=== PATIENT | male | born 1945 | race Caucasian/White ===

== ENCOUNTER 2016-11-12 10:24 | Day surgery (SDC) | payer MEDICARE ==
[~2016-11-12 10:24] MED LIST: LACTATED RINGERS 1,000 ML IV SCH
[2016-11-12 11:58] VITALS: TEMP 97.9
[2016-11-12] MEDS ORDERED: PROPOFOL 10 MG/ML 20 ML VIAL IV ONE (12:25)
--- NOTE | 2016-11-12 12:37 | P.PCN ---
Date of Procedure: 11/12/16 Procedure(s) Performed: BRIEF HISTORY: Patient is a 71-year-old, pleasant, white male, scheduled for an upper endoscopy as a part of evaluation of abnormal CAT scan of the abdomen that showed thickening of the distal esophagus. The patient does complain of occasional heartburn but denies any dysphagia or odynophagia. PROCEDURE PERFORMED: Esophagogastroduodenoscopy with biopsy. PREOPERATIVE DIAGNOSIS: Abnormal CAT scan showing thickened esophagus. IV sedation per anesthesia. PROCEDURE: After informed consent was obtained, the patient was brought into the endoscopy unit. IV conscious sedation was administered by Anesthesia under continuous monitoring. Initially the Olympus GIF-140 video endoscope was inserted into the mouth. Esophagus intubated without any difficulty. It was gradually advanced into the stomach and duodenum and carefully examined. The bulb and the second part of the duodenum appeared normal. However there was some paucity of duodenal folds in the second part of the duodenum and hence biopsies were done from this area to rule out celiac disease. The scope at this time was withdrawn to the stomach, adequately insufflated with air, and upon careful examination, mucosa of the antrum, body, cardia and the fundus appeared normal. The scope was then withdrawn into the esophagus. Small sliding type hiatal hernia noted. The GE junction was located at 39 cm from the incisors. The esophagus appeared normal. There were no erosions or ulcerations seen and the patient tolerated the procedure well. IMPRESSION: 1. Small hiatal hernia but no evidence of esophagitis or Santizo's esophagus. 2. Paucity of the duodenal folds status post biopsy to rule out celiac disease. RECOMMENDATIONS: The findings of this examination were discussed with the patient as well as his family. He was advised to follow with the biopsy results.
[2016-11-12 13:17] VITALS: BP 126/79; PULSE 72; RESP 18
== END 2016-11-12 13:18 | disposition home or self-care (01) ==
LOC: ORWHC2ENDO 10:24
PROVIDERS: ATTEND Internal Medicine Gastroenterology
DX: K44.9 Diaphragmatic hernia without obstruction or gangrene (principal); R93.3 Abnormal findings on diagnostic imaging of other parts of digestive tract; J44.9 Chronic obstructive pulmonary disease, unspecified; Z79.51 Long term (current) use of inhaled steroids
CPT/HCPCS: 43239; 88305; J2704; 99153

== ENCOUNTER → 2018-03-03 | Outpatient (CLI) | payer MEDICARE ==
--- NOTE | 2018-03-04 08:14 | CT ---
EXAMINATION TYPE: CT abdomen pelvis w con DATE OF EXAM: 03/03/2018 COMPARISON: NONE INDICATION: No complaints at time of scan DLP: 372.4 mGycm, Automated exposure control for dose reduction was used. CONTRAST: 100 mL of Isovue 300. Study performed with Oral Contrast TECHNIQUE: Axial images were obtained from above the diaphragm to the pubic rami in the axial plane a t 5 mm thick sections. Reconstructed images are reviewed on the computer in the coronal plane. FINDINGS: Limited CT sections are obtained the lung bases. There is some mild pneumonitis change within the li ngula.. There appears be some prominence of the distal esophagus within the [id number]. Wall thic kening is not excluded. Consider additional evaluation of the esophagus. CT ABDOMEN: Liver: Normal Spleen: Normal Pancreas: Normal Adrenal glands: The adrenal glands are normal. Gallbladder: Normal Kidneys: No masses are evident. No hydronephrosis is present. No cysts are present. Delayed images were obtained through the kidneys, which remain unremarkable. Aorta: Vascular calcification is within the aorta. Inferior vena cava: Normal. CT PELVIS: Loops of bowel within the abdomen and pelvis are normal. There are loops of bowel which are incom pletely distended or lack oral contrast limiting their evaluation. Debris is likely within the stomac h. Fecal debris is within the colon. Oral contrast extends to the distal ileum. Appendix: Not identified. No suspicious dilated tubular structure inflammatory changes are identified . Urinary bladder: Normal. Genitourinary structures: Prostate has mild prominence. Osseous structures: No suspicious lytic or sclerotic lesions. Some mild facet changes are present wit hin the lumbar spine. Lymphadenopathy: No retrocrural adenopathy is evident. No suspicious retrocaval or periaortic adenopa thy is evident. Lack of mesenteric fat makes evaluation for mesenteric lymphadenopathy difficult. Obv ious enlarged mesenteric lymph nodes are not evident. No suspicious obturator canal or iliac chain ly mphadenopathy is evident. A few tiny inguinal lymph nodes are present. IMPRESSIONS: 1. No suspicious adenopathy within the CT abdomen pelvis. 2. There appears to be some prominence of the esophagus. Consider additional evaluation of the esopha rivera with an esophagram.
== END | disposition home or self-care (01) ==
LOC: RADCTMAIN 16:21
PROVIDERS: ATTEND Internal Medicine
DX: R59.0 Localized enlarged lymph nodes (principal)
CPT/HCPCS: 74177; Q9967

== ENCOUNTER → 2018-06-08 | Outpatient (CLI) | payer MEDICARE ==
--- NOTE | 2018-06-08 14:01 | US ---
EXAMINATION TYPE: US carotid duplex BILAT DATE OF EXAM: 06/08/2018 COMPARISON: NONE CLINICAL HISTORY: I65.23 Occlusion and stenosis of bilateral carotid. EXAM MEASUREMENTS: RIGHT: Peak Systolic Velocity (PSV) cm/sec ----- Right CCA: 74.0 ----- Right ICA: 87.6 ----- Right ECA: 87.6 ICA/CCA ratio: 1.2 RIGHT: End Diastole cm/sec ----- Right CCA: 17.2 ----- Right ICA: 26.7 ----- Right ECA: 12.4 LEFT: Peak Systolic Velocity (PSV) cm/sec ----- Left CCA: 70.0 ----- Left ICA: 96.5 ----- Left ECA: 56.8 ICA/CCA ratio: 1.4 LEFT: End Diastole cm/sec ----- Left CCA: 22.7 ----- Left ICA: 26.0 ----- Left ECA: 11.7 VERTEBRALS (direction of flow): Right Vertebral: Antegrade Left Vertebral: Antegrade Rhythm: Normal Mild atherosclerotic changes seen. Calcified plaque bilaterally. No elevated velocities seen. IMPRESSION: 1. Atheromatous plaquing. No significant flow-limiting stenosis is evident. Criteria for Assigning % of Stenosis / Diameter reduction (Estimation based on the indirect measurements of the internal carotid artery velocities (ICA PSV). 1. Normal (no stenosis)=ICA PSV < 125 cm/s: ratio < 2.0: ICA EDV<40 cm/s. 2. Less than 50% stenosis=ICA PSV < 125 cm/s: ratio < 2.0: ICA EDV<40 cm/s. 3. 50 to 69% stenosis=ICA PSV of 125 to 230 cm/s: ration 2.0 ? 4.0: ICA EDV 40-100 cm/s. 4. Greater than 70% stenosis to near occlusion= ICA PSV > 230 cm/s: ratio > 4.0: ICA EDV > 100 cm/s. 5. Near occlusion= ICA PSV velocities may be low or undetectable: variable ratio and ICA EDV. 6. Total occlusion=unable to detect flow.
== END | disposition home or self-care (01) ==
LOC: RADUSWWP 12:41
PROVIDERS: ATTEND Internal Medicine
DX: I65.23 Occlusion and stenosis of bilateral carotid arteries (principal)
CPT/HCPCS: 93880

== ENCOUNTER → 2019-01-18 | Outpatient (CLI) | payer MEDICARE ==
--- NOTE | 2019-01-18 15:43 | XR ---
EXAMINATION TYPE: XR chest 2V DATE OF EXAM: 01/18/2019 COMPARISON: NONE HISTORY: History of COPD. Cough. TECHNIQUE: Frontal and lateral views of the chest are obtained. FINDINGS: Left midlung linear atelectasis and/or pleural parenchymal scarring is present. Flattening of the diaphragms on the lateral view and pulmonary hyperinflation relates underlying COPD. No focal consolidation, pleural effusion or pneumothorax. Osseous structures are grossly intact with minimal degenerative changes of the spine. Cardiomediastinal silhouette is within normal limits although the main pulmonary arteries appear engorged and may represent underlying pulmonary arterial hypertension. IMPRESSION: No acute cardiopulmonary process. Underlying COPD.
== END | disposition home or self-care (01) ==
LOC: RADXRMAIN 15:22
PROVIDERS: ATTEND Internal Medicine
DX: J44.9 Chronic obstructive pulmonary disease, unspecified (principal)
CPT/HCPCS: 71046

== ENCOUNTER → 2019-01-19 | Outpatient (CLI) | payer MEDICARE ==
--- NOTE | 2019-01-19 14:22 | CT ---
EXAMINATION TYPE: CT angio chest DATE OF EXAM: 01/19/2019 COMPARISON: Low-dose lung screening CT October 08, 2016 HISTORY: Shortness of breath, cough and elevated d-dimer. CT DLP: 485 mGycm. Automated Exposure Control for Dose Reduction was Utilized. CONTRAST: CTA scan of the thorax is performed with IV Contrast, patient injected with 80 mL of Isovue 370, pulm onary embolism protocol. MIP Images are created on CT scanner and reviewed. FINDINGS: LUNGS: Moderate underlying emphysematous change is redemonstrated. Lingular scarring remains present. There is mild linear scarring in the left lung base centrally in near diaphragm. Some patchy reticul onodular infiltrates in the posterior lateral right lung base are new from prior study. Additional ar eas of reticulonodular groundglass of opacity anterior right midlung are new from prior study. No ple ural effusion or pneumothorax is evident. No suspicious new masses are identified. MEDIASTINUM: There is satisfactory enhancement of the pulmonary artery and its branches, there is no CT evidence for pulmonary embolism. There are no greater than 1 cm hilar or mediastinal lymph nodes. No cardiomegaly or pericardial effusion is seen. Mild wall thickening and dilatation of esophagus is similar to prior study, correlate clinically. OTHER: Mild to moderate plaque throughout the visualized abdominal aorta is noted. IMPRESSION: 1. No CT evidence for acute pulmonary embolism. 2. Moderate emphysematous change with scattered left lung scarring. Areas of new acute infiltrate rig ht lung felt present. Correlate clinically.
== END | disposition home or self-care (01) ==
LOC: RADCTMAIN 13:41
PROVIDERS: ATTEND Internal Medicine
DX: J43.9 Emphysema, unspecified (principal); J98.4 Other disorders of lung
CPT/HCPCS: 71275; Q9967

== ENCOUNTER → 2019-05-03 | Outpatient (CLI) | payer MEDICARE ==
--- NOTE | 2019-05-03 19:23 | ECHOF ---
Referral Reason:R00.1 Bradycardia MEASUREMENTS -------- HEIGHT: 177.8 cm WEIGHT: 65.8 kg BP: 142/62 RVIDd: 3.0 cm (< 3.3) IVSd: 0.8 cm (0.6 - 1.1) LVIDd: 4.6 cm (3.9 - 5.3) LVPWd: 0.9 cm (0.6 - 1.1) IVSs: 1.2 cm LVIDs: 2.9 cm LVPWs: 1.4 cm LA Diam: 2.7 cm (2.7 - 3.8) LAESV Index (A-L): 18.67 ml/m Ao Diam: 3.4 cm (2.0 - 3.7) AV Cusp: 1.8 cm (1.5 - 2.6) MV EXCURSION: 19.132 mm (> 18.000) MV EF SLOPE: 111 mm/s (70 - 150) EPSS: 0.6 cm MV E Wilbert: 0.78 m/s MV DecT: 243 ms MV A Wilbert: 0.69 m/s MV E/A Ratio: 1.12 RAP: 5.00 mmHg RVSP: 35.51 mmHg FINDINGS -------- Sinus rhythm. This was a technically good study. The left ventricular size is normal. Left ventricular wall thickness is normal. Overall left vent ricular systolic function is normal with, an EF between 60 - 65 %. The right ventricle is normal in size. Normal LA size by volume 22+/-6 ml/m2. The right atrium is normal in size. Interatrial and interventricular septum intact. There is mild aortic valve sclerosis. Mild mitral annular calcification present. Mild tricuspid regurgitation present. There is mild pulmonary hypertension. The right ventricular systolic pressure, as measured by Doppler, is 35.51mmHg. The pulmonic valve was not well visualized. The aortic root size is normal. Normal inferior vena cava with normal inspiratory collapse consistent with estimated right atrial pre ssure of 5 mmHg. There is no pericardial effusion. CONCLUSIONS -------- 1. Sinus rhythm. 2. This was a technically good study. 3. The left ventricular size is normal. 4. Left ventricular wall thickness is normal. 5. Overall left ventricular systolic function is normal with, an EF between 60 - 65 %. 6. The right ventricle is normal in size. 7. Normal LA size by volume 22+/-6 ml/m2. 8. The right atrium is normal in size. 9. Interatrial and interventricular septum intact. 10. There is mild aortic valve sclerosis. 11. Mild mitral annular calcification present. 12. Mild tricuspid regurgitation present. 13. There is mild pulmonary hypertension. 14. The right ventricular systolic pressure, as measured by Doppler, is 35.51mmHg. 15. The pulmonic valve was not well visualized. 16. The aortic root size is normal. 17. Normal inferior vena cava with normal inspiratory collapse consistent with estimated right atrial pressure of 5 mmHg. 18. There is no pericardial effusion. OIL DISTRIBUTOR: Jahaira Dawn RDCS
== END | disposition home or self-care (01) ==
LOC: RADECHMAIN 04-15 15:10
PROVIDERS: ATTEND Internal Medicine
DX: I08.3 Combined rheumatic disorders of mitral, aortic and tricuspid valves (principal); I27.20 Pulmonary hypertension, unspecified
CPT/HCPCS: 93306

== ENCOUNTER 2019-11-27 22:25 | Inpatient (IN) | payer MEDICARE ==
--- NOTE | 2019-11-27 22:35 | ED ---
SOB HPI - General Chief Complaint: Shortness of Breath Stated Complaint: Diff Breathing Time Seen by Provider: 11/27/19 22:35 Source: patient, EMS, RN notes reviewed, old records reviewed Mode of arrival: EMS Limitations: no limitations - History of Present Illness Initial Comments: This is a 74-year-old male DF for evaluation patient presents for severe shortness of breath will sometimes arrived upon ER arrival. Patient to call EMS secondary severity of shortness of breath history of present, COPD. Patient did have some chest pain swelling earlier those all symptoms are resolved. Patient is 7 without complaint feels much improved. No change in medications of recent nausea vomiting or diarrhea. Denies any drugs or alcohol. Patient per EMS does present with what did look like ventricular tachycardia in route to the hospital. It did resolve spontaneously, patient was without chest pain MD Complaint: shortness of breath, pain with inspiration, anxiety -: hour(s) Severity: severe Severity scale (1-10): 8 Consistency: constant, now resolved Improves With: oxygen, rest Worsens With: exertion Known History Of: COPD, congestive heart failure Context: anxiety Associated Symptoms: pain with inspiration, palpitations Treatments Prior to Arrival: none - Related Data Home Medications Medication Instructions Recorded Confirmed Beclomethasone Dip 80 Mcg/Puff 2 puff INHALATION BID 10/31/16 11/12/16 [Qvar 80 mcg] Allergies Allergy/AdvReac Type Severity Reaction Status Date / Time No Known Allergies Allergy Verified 11/27/19 22:32 Review of Systems ROS Statement: Those systems with pertinent positive or pertinent negative responses have been documented in the HPI. ROS Other: All systems not noted in ROS Statement are negative. Past Medical History Past Medical History: Asthma History of Any Multi-Drug Resistant Organisms: None Reported Past Surgical History: Back Surgery Additional Past Surgical History / Comment(s): colonoscopy Past Anesthesia/Blood Transfusion Reactions: No Reported Reaction Past Psychological History: No Psychological Hx Reported Smoking Status: Former smoker Past Alcohol Use History: Occasional Past Drug Use History: None Reported - Past Family History Mother Family Medical History: Cancer Brother(s) Family Medical History: Cancer General Exam Limitations: no limitations General appearance: alert, in no apparent distress, anxious Head exam: Present: atraumatic, normocephalic, normal inspection Eye exam: Present: normal appearance, PERRL, EOMI. Absent: scleral icterus, conjunctival injection, periorbital swelling ENT exam: Present: normal exam, mucous membranes moist Neck exam: Present: normal inspection. Absent: tenderness, meningismus, lymphadenopathy Respiratory exam: Present: normal lung sounds bilaterally. Absent: respiratory distress, wheezes, rales, rhonchi, stridor Cardiovascular Exam: Present: normal rhythm, tachycardia, normal heart sounds. Absent: systolic murmur, diastolic murmur, rubs, gallop, clicks GI/Abdominal exam: Present: soft, normal bowel sounds. Absent: distended, tenderness, guarding, rebound, rigid Extremities exam: Present: normal inspection, full ROM, normal capillary refill. Absent: tenderness, pedal edema, joint swelling, calf tenderness Back exam: Present: normal inspection Neurological exam: Present: alert, oriented X3, CN II-XII intact Psychiatric exam: Present: normal affect, normal mood Skin exam: Present: warm, dry, intact, normal color. Absent: rash Course Vital Signs 11/27/19 11/27/19 22:28 23:16 Pulse Rate 112 H 90 Respiratory 18 17 Rate Blood Pressure 148/100 107/61 O2 Sat by Pulse 97 97 Oximetry - Reevaluation(s) Reevaluation #1: 11/27/19 23:36 Medical record is reviewed Reevaluation #2: 11/27/19 23:36 Patient has no recurrent V. tach here in the ER. No complaints started on amiodarone - Consultations Consultation #1: Spoke with Dr. Kendrick regarding admission and he is agreeable Medical Decision Making - Medical Decision Making 74 male DF for evaluation patient did have V. tach in outpatient setting spontaneous resolved. Patient will be admitted to [facility] for cardiology to evaluate on amiodarone - Lab Data Result diagrams: 11/27/19 22:39 11/27/19 22:39 Lab Results 11/27/19 11/27/19 11/27/19 Range/Units 22:39 22:39 22:39 WBC 7.0 (3.8-10.6) k/uL RBC 5.10 (4.30-5.90) m/uL Hgb 15.8 (13.0-17.5) gm/dL Hct 49.1 (39.0-53.0) % MCV 96.3 (80.0-100.0) fL MCH 31.0 (25.0-35.0) pg MCHC 32.2 (31.0-37.0) g/dL RDW 13.4 (11.5-15.5) % Plt Count 207 (150-450) k/uL Neutrophils % 46 % Lymphocytes % 34 % Monocytes % 8 % Eosinophils % 5 % Basophils % 3 % Neutrophils # 3.3 (1.3-7.7) k/uL Lymphocytes # 2.4 (1.0-4.8) k/uL Monocytes # 0.5 (0-1.0) k/uL Eosinophils # 0.3 (0-0.7) k/uL Basophils # 0.2 (0-0.2) k/uL PT (9.0-12.0) sec INR (<1.2) APTT (22.0-30.0) sec Sodium 138 (137-145) mmol/L Potassium 4.5 (3.5-5.1) mmol/L Chloride 102 (98-107) mmol/L Carbon Dioxide 25 (22-30) mmol/L Anion Gap 11 mmol/L BUN 26 H (9-20) mg/dL Creatinine 1.13 (0.66-1.25) mg/dL Est GFR (CKD-EPI)AfAm 73 (>60 ml/min/1.73 sqM) Est GFR (CKD-EPI)NonAf 64 (>60 ml/min/1.73 sqM) Glucose 191 H (74-99) mg/dL Plasma Lactic Acid Saravanan (0.7-2.0) mmol/L Calcium 8.8 (8.4-10.2) mg/dL Phosphorus 5.5 H (2.5-4.5) mg/dL Magnesium 2.0 (1.6-2.3) mg/dL Total Bilirubin 0.6 (0.2-1.3) mg/dL AST 158 H (17-59) U/L ALT 114 H (4-49) U/L Alkaline Phosphatase 65 (38-126) U/L Creatine Kinase 174 H (55-170) U/L CK-MB (CK-2) 4.0 H (0.0-2.4) ng/mL Troponin I 0.045 H* (0.000-0.034) ng/mL Total Protein 6.7 (6.3-8.2) g/dL Albumin 3.7 (3.5-5.0) g/dL 11/27/19 11/27/19 Range/Units 22:39 22:39 WBC (3.8-10.6) k/uL RBC (4.30-5.90) m/uL Hgb (13.0-17.5) gm/dL Hct (39.0-53.0) % MCV (80.0-100.0) fL MCH (25.0-35.0) pg MCHC (31.0-37.0) g/dL RDW (11.5-15.5) % Plt Count (150-450) k/uL Neutrophils % % Lymphocytes % % Monocytes % % Eosinophils % % Basophils % % Neutrophils # (1.3-7.7) k/uL Lymphocytes # (1.0-4.8) k/uL Monocytes # (0-1.0) k/uL Eosinophils # (0-0.7) k/uL Basophils # (0-0.2) k/uL PT 9.8 (9.0-12.0) sec INR 0.9 (<1.2) APTT 18.4 L (22.0-30.0) sec Sodium (137-145) mmol/L Potassium (3.5-5.1) mmol/L Chloride (98-107) mmol/L Carbon Dioxide (22-30) mmol/L Anion Gap mmol/L BUN (9-20) mg/dL Creatinine (0.66-1.25) mg/dL Est GFR (CKD-EPI)AfAm (>60 ml/min/1.73 sqM) Est GFR (CKD-EPI)NonAf (>60 ml/min/1.73 sqM) Glucose (74-99) mg/dL Plasma Lactic Acid Saravanan 3.2 H* (0.7-2.0) mmol/L Calcium (8.4-10.2) mg/dL Phosphorus (2.5-4.5) mg/dL Magnesium (1.6-2.3) mg/dL Total Bilirubin (0.2-1.3) mg/dL AST (17-59) U/L ALT (4-49) U/L Alkaline Phosphatase (38-126) U/L Creatine Kinase (55-170) U/L CK-MB (CK-2) (0.0-2.4) ng/mL Troponin I (0.000-0.034) ng/mL Total Protein (6.3-8.2) g/dL Albumin (3.5-5.0) g/dL - EKG Data -: EKG Interpreted by Me (EKG shows sinus tachycardia 112 AK 168 QRS 130 QTc 477) - Radiology Data Radiology results: report reviewed (Chest x-ray is negative for acute disease), image reviewed Critical Care Time Critical Care Time: Yes Total Critical Care Time: 31 Disposition Clinical Impression: Ventricular tachycardia Disposition: ADMITTED IP TO THIS [facility] Condition: Serious Is patient prescribed a controlled substance at d/c from ED?: No Referrals: Liss Oneil MD [Primary Care Provider] - 1-2 days
[2019-11-27] MEDS ORDERED: AMIODARONE 360 MG in DEXTROSE 5% IN WATER 200 ML IV ONE ×2 (22:36)
[2019-11-27] MEDS ORDERED: DEXTROSE 5% IN WATER 100 ML with AMIODARONE 150 MG IV ONE (22:36)
[2019-11-27] MEDS ORDERED: SODIUM CHLORIDE 0.9% 1,000 ML IV STA ×2 (22:36)
[2019-11-27 22:50] LABS: Basophils # (A) 0.2 k/uL (0-0.2); Basophils % (A) 3 %; Eosinophils # (A) 0.3 k/uL (0-0.7); Eosinophils % (A) 5 %; HCT 49.1 % (39.0-53.0); HGB 15.8 gm/dL (13.0-17.5); Lymphocytes # (A) 2.4 k/uL (1.0-4.8); Lymphocytes % (A) 34 %; MCHC 32.2 g/dL (31.0-37.0); MCV 96.3 fL (80.0-100.0); Mean Platelet Volume 7.8; Monocytes # (A) 0.5 k/uL (0-1.0); Monocytes % (A) 8 %; Neutrophils # (A) 3.3 k/uL (1.3-7.7); Neutrophils % (A) 46 %; Platelet Count 207 k/uL (150-450); RDW 13.4 % (11.5-15.5)
[2019-11-27 22:59] LABS: Albumin 3.7 g/dL (3.5-5.0); Calcium 8.8 mg/dL (8.4-10.2); Phosphorus 5.5 mg/dL (2.5-4.5); Potassium 4.5 mmol/L (3.5-5.1); Total Bilirubin 0.6 mg/dL (0.2-1.3); Total Protein 6.7 g/dL (6.3-8.2)
[2019-11-27 23:06] LABS: INR 0.9 (<1.2); Prothrombin Time 9.8 sec (9.0-12.0)
--- NOTE | 2019-11-27 23:06 | XR ---
EXAMINATION TYPE: XR chest 1V portable DATE OF EXAM: 11/27/2019 COMPARISON: 01/18/2019 HISTORY: Short of breath TECHNIQUE: FINDINGS: There is some patchy linear density in the lower lung meadows. There is mild flattening of t he diaphragm. Heart size is normal. There are no hilar masses. There are chest leads. Bony thorax is intact. There is no pleural effusion. IMPRESSION: COPD and pulmonary fibrotic changes. Subsegmental atelectasis at the lung bases. There is overall not a significant change compared to last exam.
[2019-11-27 23:07] LABS: Partial Thromboplastin Time 18.4 sec (22.0-30.0)
[2019-11-27 23:30] LABS: Troponin I 0.045 ng/mL (0.000-0.034)
[2019-11-27] MEDS ORDERED: MORPHINE SULFATE 4 MG/ML SYRINGE IV PRN (23:34)
[2019-11-27] MEDS ORDERED: NITROGLYCERIN SL TABS 0.4 MG TAB SUBLINGUAL PRN (23:34)
[2019-11-27] MEDS ORDERED: ASPIRIN 81 MG PO STA (23:34)
[2019-11-27] MEDS: SODIUM CHLORIDE 0.9% 1,000 ML IV SCH (23:52)
[2019-11-28] MEDS ORDERED: ALBUTEROL NEBULIZED 2.5 MG/3 ML INHALATION PRN (04:05)
[2019-11-28] MEDS ORDERED: LORazepam 2 MG/ML INJ IV STA (04:25)
[2019-11-28] MEDS: methylPREDNISolone SOD SUCCI 125 MG/2 ML VIAL IV SCH ×4 (04:33→23:37)
[2019-11-28] MEDS ORDERED: AMIODARONE 300 MG in DEXTROSE 5% IN WATER 250 ML IV SCH ×2 (04:35)
[2019-11-28 06:43] LABS: Cholesterol 142 mg/dL (<200); HDL Cholesterol 75 mg/dL (40-60); LDL Cholesterol,Calculated 54 mg/dL (0-99); Triglycerides 64 mg/dL (<150)
[2019-11-28] MEDS: BUDESONIDE 0.5 MG/2 ML NEBU INHALATION SCH ×2 (08:19→19:37)
[2019-11-28] MEDS ORDERED: ASPIRIN 325 MG TAB PO SCH (09:00)
--- NOTE | 2019-11-28 09:40 | P.CRDCN ---
History of Present Illness Consult date: 11/28/19 Chief complaint: Shortness of breath History of present illness: This is a very pleasant 74-year-old gentleman with a past medical history signif icant for COPD but no prior cardiac history of coronary artery disease or congestive heart failure or cardiac arrhythmia and the patient never seen a health coach in the past. He was in his usual state of health yesterday when he was at home sitting watching TV and suddenly developed shortness of breath. He did not have any symptoms of chest pain or chest discomfort. No dizziness or lightheadedness. Ambulance was called and on the way to the hospital the patient felt his heart was racing up and he was found to be in ventricular tachycardia where he was about to be shocked but subsequently he came back to normal sinus rhythm. The EKG before and after revealed sinus rhythm with sinus tachycardia and left anterior fascicular block. Currently the patient is chest pain-free. The first troponin came in to be slightly abnormal but the subsequent troponin came in to be significantly abnormal at 2.590. As a mentioned earlier the chest x-ray revealed sinus rhythm was left anterior fascic ular block and no significant ST or T-wave abnormalities. The patient never been diagnosed was coronary artery disease and never seen a health coach in the past. The lactic acid also came in to be slightly abnormal. An echocardiogram was performed earlier today and will follow-up on that. The patient underwent an echocardiogram in 2019 and that revealed normal LV function without any significant valvular abnormalities. At this point, I am going to start the patient on heparin IV. Follow-up with the serial cardiac enzymes. Obtain d- dimer as well. I am also going to consider proceeding with coronary angiogram unless the d-dimer came to be abnormal and a computed tomography scan of the c hest revealed pulmonary embolism. We'll follow-up on the echocardiogram and follow-up on the cardiac enzymes. Please note that the patient was started on amiodarone IV which we will continue at this point. Past Medical History Past Medical History: COPD, Hyperlipidemia History of Any Multi-Drug Resistant Organisms: None Reported Past Surgical History: Back Surgery Additional Past Surgical History / Comment(s): colonoscopy Past Anesthesia/Blood Transfusion Reactions: No Reported Reaction Past Psychological History: No Psychological Hx Reported Smoking Status: Former smoker Past Alcohol Use History: Occasional Additional Past Alcohol Use History / Comment(s): QUIT SMOKING 2006 Past Drug Use History: None Reported - Past Family History Mother Family Medical History: Cancer Brother(s) Family Medical History: Cancer Medications and Allergies Home Medications Medication Instructions Recorded Confirmed Type Albuterol Sulfate [Ventolin HFA] 2 puff INHALATION RT-Q4H PRN 11/28/19 11/28/19 History Atorvastatin [Lipitor] 10 mg PO DAILY 11/28/19 11/28/19 History Fluticasone/Salmeterol 1 puff INHALATION RT-BID 11/28/19 11/28/19 History [Fluticasone-Salmeterol 113-14] Allergies Allergy/AdvReac Type Severity Reaction Status Date / Time No Known Allergies Allergy Verified 11/28/19 08:55 Physical Exam Vitals: Vital Signs Temp Pulse Pulse Resp BP BP Pulse Ox 11/28/19 08:00 98 F 92 18 105/65 96 11/28/19 04:25 124 H 30 H 11/28/19 04:09 136 H 36 H 11/28/19 04:00 98.0 F 130 H 18 183/86 96 11/28/19 00:00 91 19 11/27/19 23:59 100 19 100/58 98 11/27/19 23:48 97.9 F 91 18 127/73 91 L 11/27/19 23:34 94 L 11/27/19 23:16 90 17 107/61 97 11/27/19 22:28 112 H 18 148/100 97 Intake and Output 11/27/19 11/28/19 11/28/19 22:59 06:59 14:59 Intake Total 1.25 Balance 1.25 Intake: Intake, IV Titration 1.25 Amount Amiodarone 300 mg In 1.25 Dextrose 5% in Water 250 ml @ 0.5 MG/MIN 25 mls/hr IV .Q10H [facility] Rx#: [id number] Other: # Voids 1 Weight 75.296 kg 74.8 kg - Constitutional General appearance: no acute distress - Respiratory Respiratory: bilateral: diminished - Cardiovascular Rhythm: regular Heart sounds: normal: S1, S2 Results 11/27/19 22:39 11/27/19 22:39 Cardiac Enzymes 11/27/19 11/27/19 11/28/19 Range/Units 22:39 22:39 05:29 AST 158 H (17-59) U/L CK-MB (CK-2) 4.0 H (0.0-2.4) ng/mL Troponin I 0.045 H* 2.590 H* (0.000-0.034) ng/mL Coagulation 11/27/19 Range/Units 22:39 PT 9.8 (9.0-12.0) sec APTT 18.4 L (22.0-30.0) sec Lipids 11/28/19 Range/Units 05:29 Triglycerides 64 (<150) mg/dL Cholesterol 142 (<200) mg/dL HDL Cholesterol 75 H (40-60) mg/dL CBC 11/27/19 Range/Units 22:39 WBC 7.0 (3.8-10.6) k/uL RBC 5.10 (4.30-5.90) m/uL Hgb 15.8 (13.0-17.5) gm/dL Hct 49.1 (39.0-53.0) % Plt Count 207 (150-450) k/uL Comprehensive Metabolic Panel 11/27/19 Range/Units 22:39 Sodium 138 (137-145) mmol/L Potassium 4.5 (3.5-5.1) mmol/L Chloride 102 (98-107) mmol/L Carbon Dioxide 25 (22-30) mmol/L BUN 26 H (9-20) mg/dL Creatinine 1.13 (0.66-1.25) mg/dL Glucose 191 H (74-99) mg/dL Calcium 8.8 (8.4-10.2) mg/dL AST 158 H (17-59) U/L ALT 114 H (4-49) U/L Alkaline Phosphatase 65 (38-126) U/L Total Protein 6.7 (6.3-8.2) g/dL Albumin 3.7 (3.5-5.0) g/dL Current Medications Generic Name Dose Route Start Last Admin Trade Name Freq PRN Reason Stop Dose Admin Albuterol Sulfate 2.5 mg 11/28/19 04:05 11/28/19 04:08 Ventolin Nebulized INHALATION 2.5 mg RT-Q4H PRN Administration Bronchospasm Albuterol/Ipratropium 3 ml 11/28/19 04:25 Duoneb 0.5 Mg-3 Mg/3 Ml Soln INHALATION RT-Q4H PRN Shortness Of Breath Or Wheezing Aspirin 325 mg 11/28/19 09:00 11/28/19 08:48 Aspirin PO 325 mg DAILY EVELYN Administration Budesonide 0.5 mg 11/28/19 08:00 Pulmicort INHALATION RT-BID EVELYN Amiodarone HCl 300 mg/ 250 mls @ 25 mls/hr 11/28/19 04:35 11/28/19 04:13 Dextrose/Water IV 11/28/19 22:34 0.5 mg/min .Q10H EVELYN 25 mls/hr Titration Protocol 0.5 MG/MIN Sodium Chloride 1,000 mls @ 100 mls/hr 11/27/19 23:45 11/27/19 23:52 Saline 0.9% IV Not Given .Q10H EVELYN Methylprednisolone Sodium Succinate 60 mg 11/28/19 06:00 11/28/19 04:33 Solu-Medrol IV 60 mg Q6HR EVELYN Administration Morphine Sulfate 4 mg 11/27/19 23:34 Morphine Sulfate (Inj) IV Q4HR PRN Chest Pain Nitroglycerin 0.4 mg 11/27/19 23:34 Nitrostat SUBLINGUAL Q5M PRN Chest Pain Intake and Output 11/27/19 11/28/19 11/28/19 22:59 06:59 14:59 Intake Total 1.25 Balance 1.25 Intake: Intake, IV Titration 1.25 Amount Amiodarone 300 mg In 1.25 Dextrose 5% in Water 250 ml @ 0.5 MG/MIN 25 mls/hr IV .Q10H [facility] Rx#: [id number] Other: # Voids 1 Weight 75.296 kg 74.8 kg 11/27/19 22:39 11/27/19 22:39 Assessment and Plan Assessment: Assessment Shortness of breath of unknown etiology. Non-ST elevation myocardial infarction versus pulmonary positive An episode of nonsustained ventricular tachycardia Chronic obstructive pulmonary disease Plan The patient was ruled in for acute coronary event. Rule out pulmonary embolism Start the patient on heparin IV Start the patient on metoprolol Continue amiodarone by mouth Follow-up on the echocardiogram Follow-up with the patient Thank you for allowing us participate in his care and we will continue following up with the patient
--- NOTE | 2019-11-28 10:26 | ECHOF ---
Referral Reason:VT MEASUREMENTS -------- HEIGHT: 177.8 cm WEIGHT: 74.4 kg BP: 183/86 RVIDd: 2.3 cm (< 3.3) IVSd: 0.9 cm (0.6 - 1.1) LVIDd: 5.0 cm (3.9 - 5.3) LVPWd: 1.1 cm (0.6 - 1.1) IVSs: 1.0 cm LVIDs: 4.9 cm LVPWs: 1.3 cm LA Diam: 3.2 cm (2.7 - 3.8) LAESV Index (A-L): 24.20 ml/m Ao Diam: 3.4 cm (2.0 - 3.7) AV Cusp: 2.2 cm (1.5 - 2.6) MV EXCURSION: 18.742 mm (> 18.000) MV EF SLOPE: 130 mm/s (70 - 150) EPSS: 2.3 cm RAP: 15.00 mmHg RVSP: 49.23 mmHg TAPSE: 12.15 mm FINDINGS -------- Undetermined rhythm. This was a technically adequate study. The left ventricular size is normal. There is borderline concentric left ventricular hypertrophy. Overall left ventricular systolic function is severely impaired with, an EF < 20%. The right ventricle is normal in size. Normal LA size by volume 22+/-6 ml/m2. The right atrium is normal in size. Interatrial and interventricular septum intact. Aortic valve is trileaflet and is mildly thickened. Mild mitral regurgitation is present. Mild tricuspid regurgitation present. There is moderate pulmonary hypertension. The right ventric ular systolic pressure, as measured by Doppler, is 49.23mmHg. The pulmonic valve was not well visualized. The aortic root size is normal. Normal inferior vena cava with less than 50% inspiratory collapse consistent with estimated right atr ial pressure of 15 mmHg. There is no pericardial effusion. CONCLUSIONS -------- 1. Undetermined rhythm. 2. This was a technically adequate study. 3. The left ventricular size is normal. 4. There is borderline concentric left ventricular hypertrophy. 5. Overall left ventricular systolic function is severely impaired with, an EF < 20%. 6. The right ventricle is normal in size. 7. Normal LA size by volume 22+/-6 ml/m2. 8. The right atrium is normal in size. 9. Interatrial and interventricular septum intact. 10. Aortic valve is trileaflet and is mildly thickened. 11. Mild mitral regurgitation is present. 12. Mild tricuspid regurgitation present. 13. There is moderate pulmonary hypertension. 14. The right ventricular systolic pressure, as measured by Doppler, is 49.23mmHg. 15. The pulmonic valve was not well visualized. 16. The aortic root size is normal. 17. Normal inferior vena cava with less than 50% inspiratory collapse consistent with estimated right atrial pressure of 15 mmHg. 18. There is no pericardial effusion. INSURANCE CLAIMS SUPERVISOR: Jahaira Dawn RDCS
[2019-11-28] MEDS ORDERED: HEPARIN SODIUM,PORCINE 5,000 UNIT/ML 1 ML VIAL IV PRN ×2 (10:55→16:03)
[2019-11-28] MEDS ORDERED: HEPARIN SODIUM,PORCINE 5,000 UNIT/ML 1 ML VIAL IV ONE (10:55)
[2019-11-28] MEDS ORDERED: HEPARIN SOD,PORK IN 0.45% NACL 25,000 UNIT in 0.45% NACL 1 250ML.BAG IV SCH (11:00)
[2019-11-28] MEDS: IPRATROPIUM-ALBUTEROL 3 ML NEB INHALATION PRN ×3 (11:38→19:37)
[2019-11-28] MEDS ORDERED: ASPIRIN 325 MG TAB PO STA (11:41)
[2019-11-28] MEDS ORDERED: ALPRAZolam 0.25 MG TAB PO PRN (11:41)
[2019-11-28] MEDS ORDERED: ALPRAZolam 0.5 MG TAB PO PRN (11:41)
[2019-11-28] MEDS ORDERED: SODIUM CHLORIDE 0.9% 1,000 ML in EMPTY BAG 1 BAG IV ONE (11:41)
[2019-11-28] MEDS ORDERED: NITROGLYCERIN SL TABS 0.4 MG TAB SUBLINGUAL PRN (11:41)
[2019-11-28] MEDS ORDERED: ATORVASTATIN 80 MG TAB PO STA (11:41)
[2019-11-28 11:45] LABS: Basophils % (A) 1 %; Eosinophils % (A) 0 %; HCT 47.4 % (39.0-53.0); HGB 15.2 gm/dL (13.0-17.5); Lymphocytes # (A) 0.6 k/uL (1.0-4.8); Lymphocytes % (A) 10 %; MCH 30.7 pg (25.0-35.0); MCHC 32.1 g/dL (31.0-37.0); MCV 95.7 fL (80.0-100.0); Mean Platelet Volume 7.7; Monocytes # (A) 0.1 k/uL (0-1.0); Monocytes % (A) 2 %; Neutrophils # (A) 5.6 k/uL (1.3-7.7); Neutrophils % (A) 86 %; Platelet Count 227 k/uL (150-450); RBC 4.95 m/uL (4.30-5.90); RDW 13.5 % (11.5-15.5); WBC 6.6 k/uL (3.8-10.6)
[2019-11-28 12:04] LABS: INR 0.9 (<1.2); Partial Thromboplastin Time 22.9 sec (22.0-30.0); Prothrombin Time 9.6 sec (9.0-12.0)
--- NOTE | 2019-11-28 12:33 | P.HPIM ---
History of Present Illness H&P Date: 11/28/19 Chief Complaint: QUANG This is a 74-year-old male patient of Dr. Oneil with past medical history of COPD and hyperlipidemia. Patient denies prior cardiac history and denies seen a fry cook in the past. Patient states he has had EKGs done and Dr. Oneil's office and one was done recently was no concern. Patient does not have home oxygen. Patient states that he was at home sitting watching TV and suddenly developed shortness of breath. He did not have any symptoms of chest pain or chest discomfort. No dizziness or lightheadedness. Ambulance was called and on the way to the hospital the patient felt his heart was racing up and he was found to be in ventricular tachycardia where he was about to be shocked but subsequently he came back to normal sinus rhythm. The EKG before and after revealed sinus rhythm with sinus tachycardia and left anterior fascicular block. Potassium was 4.5, BUN 26 creatinine 1.13, blood sugar 191, lactic acid initially 3.2 and repeat is 0.8. AST 150, ALT 115, CK 174, troponins were 0.043, 2.590 and 2.410. Triglycerides 64, cholesterol 142, LDL 54 HDL 75. CBC was unremarkable. Chest x-ray showed COPD and pulmonary fibrotic changes. Subsegmental atelectasis at the lung bases. Patient was admitted to the cardiac stepdown unit has been seen by Dr. Simmons. Echocardiogram done today revealed EF of less than 20%, mild mitral regurgitation, mild tricuspid regurgitation, moderate pulmonary hypertension. Noted that echocardiogram from April 2019 had a normal ejection fraction. Patient has been started on amiodarone drip and Dr. Simmons is planning to start heparin drip as well. Review of Systems Constitutional: Reports fatigue, Denies anorexia, Denies fever, Denies malaise, Denies poor appetite, Denies weight loss Eyes: denies blurred vision, denies pain Ears, nose, mouth and throat: Denies dysphagia, Denies headache, Denies nasal congestion, Denies nasal discharge, Denies sore throat, Denies vertigo Cardiovascular: Reports dyspnea on exertion, Reports shortness of breath, Denies chest pain, Denies leg edema, Denies palpitations, Denies syncope Respiratory: Reports dyspnea, Denies excessive sputum, Denies hemoptysis, Denies home oxygen, Denies respiratory infections, Denies wheezing Gastrointestinal: Denies abdominal pain, Denies diarrhea, Denies loss of appetite, Denies nausea, Denies vomiting Genitourinary: Denies dysuria, Denies urinary retention Musculoskeletal: Denies frequent falls, Denies gait dysfunction, Denies muscle weakness, Denies myalgias Integumentary: Denies pruritus, Denies rash Neurological: Denies change in mentation, Denies change in speech, Denies numbness, Denies seizures, Denies weakness Psychiatric: Denies anxiety, Denies depression Endocrine: Denies fatigue, Denies weight change Past Medical History Past Medical History: COPD, Hyperlipidemia History of Any Multi-Drug Resistant Organisms: None Reported Past Surgical History: Back Surgery Additional Past Surgical History / Comment(s): colonoscopy Past Anesthesia/Blood Transfusion Reactions: No Reported Reaction Past Psychological History: No Psychological Hx Reported Smoking Status: Former smoker Past Alcohol Use History: Occasional Additional Past Alcohol Use History / Comment(s): QUIT SMOKING 2006 Past Drug Use History: None Reported - Past Family History Mother Family Medical History: Cancer Brother(s) Family Medical History: Cancer Medications and Allergies Home Medications Medication Instructions Recorded Confirmed Type Albuterol Sulfate [Ventolin HFA] 2 puff INHALATION RT-Q4H PRN 11/28/19 11/28/19 History Atorvastatin [Lipitor] 10 mg PO DAILY 11/28/19 11/28/19 History Fluticasone/Salmeterol 1 puff INHALATION RT-BID 11/28/19 11/28/19 History [Fluticasone-Salmeterol 113-14] Allergies Allergy/AdvReac Type Severity Reaction Status Date / Time No Known Allergies Allergy Verified 11/28/19 08:55 Physical Exam Vitals: Vital Signs Temp Pulse Pulse Resp BP BP Pulse Ox 11/28/19 08:00 98 F 92 18 105/65 96 11/28/19 04:25 124 H 30 H 11/28/19 04:09 136 H 36 H 11/28/19 04:00 98.0 F 130 H 18 183/86 96 11/28/19 00:00 91 19 11/27/19 23:59 100 19 100/58 98 11/27/19 23:48 97.9 F 91 18 127/73 91 L 11/27/19 23:34 94 L 02/16/20 23:16 90 17 107/61 97 11/27/19 22:28 112 H 18 148/100 97 Intake and Output 11/27/19 11/28/19 11/28/19 22:59 06:59 14:59 Intake Total 1.25 Balance 1.25 Intake: Intake, IV Titration 1.25 Amount Amiodarone 300 mg In 1.25 Dextrose 5% in Water 250 ml @ 0.5 MG/MIN 25 mls/hr IV .Q10H [facility] Rx#: [id number] Other: # Voids 1 Weight 75.296 kg 74.8 kg Gen: This is a 74-year-old male. Patient is in bed and appears to be comfortable at rest. No significant difficulty breathing at rest. HEENT: Head is atraumatic, normocephalic. Pupils equal, round. Sclerae is anicteric. NECK: Supple. No JVD. No lymphadenopathy. No thyromegaly. LUNGS: Lung sounds are diminished with poor air exchange. No intercostal retractions. HEART: Regular rate and rhythm. No murmur. ABDOMEN: Soft. Bowel sounds are present. No masses. No tenderness. EXTREMITIES: No pedal edema. No calf tenderness. NEUROLOGICAL: Patient is awake, alert and oriented x3. Cranial nerves 2 through 12 are grossly intact. Results CBC & Chem 7: 11/28/19 11:24 11/27/19 22:39 Labs: Abnormal Lab Results - Last 24 Hours (Table) 11/27/19 11/27/19 11/27/19 Range/Units 22:39 22:39 22:39 APTT (22.0-30.0) sec BUN 26 H (9-20) mg/dL Glucose 191 H (74-99) mg/dL Plasma Lactic Acid Saravanan 3.2 H* (0.7-2.0) mmol/L Phosphorus 5.5 H (2.5-4.5) mg/dL AST 158 H (17-59) U/L ALT 114 H (4-49) U/L Creatine Kinase 174 H (55-170) U/L CK-MB (CK-2) 4.0 H (0.0-2.4) ng/mL Troponin I 0.045 H* (0.000-0.034) ng/mL HDL Cholesterol (40-60) mg/dL 11/27/19 11/28/19 11/28/19 Range/Units 22:39 05:29 05:29 APTT 18.4 L (22.0-30.0) sec BUN (9-20) mg/dL Glucose (74-99) mg/dL Plasma Lactic Acid Saravanan (0.7-2.0) mmol/L Phosphorus (2.5-4.5) mg/dL AST (17-59) U/L ALT (4-49) U/L Creatine Kinase (55-170) U/L CK-MB (CK-2) (0.0-2.4) ng/mL Troponin I 2.590 H* (0.000-0.034) ng/mL HDL Cholesterol 75 H (40-60) mg/dL Thrombosis Risk Factor Assmnt - DVT/VTE Prophylaxis DVT/VTE Prophylaxis: Pharmacologic Prophylaxis ordered - Choose All That Apply Any of the Below Risk Factors Present?: Yes Each Factor Represents 1 point: Abnormal pulmonary function (COPD) Other Risk Factors: Yes Each Risk Factor Represents 3 Points: Age 75 years or older Thrombosis Risk Factor Assessment Total Risk Factor Score: 4 Thrombosis Risk Factor Assessment Level: Moderate Risk Assessment and Plan Plan: 1. Acute non-ST elevated myocardial infarction. Consult with Dr. Troy sanchez. Patient started on heparin drip, Lopressor 12.5 mg twice daily, Nitrostat as needed, aspirin, Lipitor. 2. Ventricular tachycardia, self-limited episode. Continue amiodarone drip. 3. Ischemic versus nonischemic cardiomyopathy. 4. Acute exacerbation of COPD. Continue Solu-Medrol 60 mg IV every 6 hours, DuoNeb treatments every 4 hours as needed, albuterol every 4 hours as needed.. 5. Acute hypoxic respiratory failure. Continue oxygen and treatment as above. 6. Hyperlipidemia. Continue Lipitor increased to 80 mg daily. 7. DVT prophylaxis. Heparin. 8. GI prophylaxis. Protonix. Patient will be admitted to the hospital for a minimum of 2 night stay. Discharge plan: home Impression and plan of care have been directed as dictated by the signing physician. Christine Gordon nurse practitioner acting as scribe for signing physic
--- NOTE | 2019-11-28 15:09 | CT ---
EXAMINATION TYPE: CT angio chest DATE OF EXAM: 11/28/2019 COMPARISON: 01/19/2019 HISTORY: Shortness of breath CT DLP: 389.4 mGycm CONTRAST: CT chest with contrast and 3D reconstruction with MIP imaging is performed with IV Contrast, patient injected with 100 mL of Isovue 370. Contrast-enhanced CT of the chest was performed through the course of the pulmonary arteries with demond g and mediastinal window settings submitted. 3D reconstruction with MIP imaging was also performed. PULMONARY ARTERIES: Small filling defect noted within a secondary and tertiary branch right upper lob e pulmonary artery consistent with pulmonary embolism. No evidence for left-sided pulmonary embolism or sagittal component. LUNGS: Moderate emphysematous changes redemonstrated. Left upper lobe parenchymal scarring and assoc iated pleural thickening with calcified granuloma. No evidence for atelectasis. No pulmonary nodule or mass is detected. No pleural effusion. MEDIASTINUM: Thoracic aorta is of normal caliber,however, evaluation is limited given timing of the contrast bolus. If there is concern for thoracic aortic pathology consider MAKENNA. Correlate clinicall y . The heart is not enlarged. No evidence for mediastinal mass. No mediastinal lymph nodes greater than 1cm. HILAR STRUCTURES: No evidence for mass. No hilar lymph nodes greater than 1 cm. UPPER ABDOMEN: No significant abnormality is seen. IMPRESSION: 1. Right upper lobe pulmonary embolism as discussed above. A [place] level critical message alert has been initiated for Jasper Kendrick MD via the [employer] Critical Results System on 11/28/2019 3:07 PM. This message alert has been sent to Jasper Kendrick MD via the preferences provided by the clinician for the receipt of Radiology Critical Findings. Message ID [id number].
[2019-11-28] MEDS: INSULIN ASPART (NovoLOG) 100 UNIT/ML VIAL SQ SCH ×3 (15:14→22:14)
[2019-11-28] MEDS ORDERED: HEPARIN SODIUM,PORCINE 10,000 UNIT/ML 1 ML VIAL IV ONE (15:54)
[2019-11-28] MEDS: HEPARIN SOD,PORK IN 0.45% NACL 25,000 UNIT in 0.45% NACL 1 250ML.BAG IV SCH (16:36)
[2019-11-28 16:42] LABS: Glucose,Whole Blood 133 mg/dL (75-99)
[2019-11-28 20:15] LABS: Glucose,Whole Blood 165 mg/dL (75-99)
[2019-11-28] MEDS: AMIODARONE 200 MG TAB PO SCH (22:14)
[2019-11-28] MEDS: METOPROLOL TARTRATE 12.5 MG TAB PO SCH (22:14)
[2019-11-28] MEDS: ATORVASTATIN 80 MG TAB PO SCH (22:14)
[2019-11-29] MEDS: SODIUM CHLORIDE 0.9% 1,000 ML IV SCH (00:41)
[2019-11-29 03:35] LABS: Basophils % (A) 0 %; Eosinophils % (A) 0 %; HCT 44.3 % (39.0-53.0); HGB 14.1 gm/dL (13.0-17.5); Lymphocytes # (A) 0.9 k/uL (1.0-4.8); Lymphocytes % (A) 7 %; MCH 30.5 pg (25.0-35.0); MCHC 31.9 g/dL (31.0-37.0); MCV 95.6 fL (80.0-100.0); Monocytes # (A) 0.3 k/uL (0-1.0); Monocytes % (A) 2 %; Neutrophils # (A) 11.1 k/uL (1.3-7.7); Neutrophils % (A) 89 %; Platelet Count 215 k/uL (150-450); RBC 4.63 m/uL (4.30-5.90); RDW 13.4 % (11.5-15.5); WBC 12.4 k/uL (3.8-10.6)
[2019-11-29] MEDS: PANTOPRAZOLE 40 MG TABLET PO SCH (05:19)
[2019-11-29] MEDS: methylPREDNISolone SOD SUCCI 125 MG/2 ML VIAL IV SCH ×4 (05:25→23:01)
[2019-11-29] MEDS: ASPIRIN 81 MG PO SCH (05:25)
[2019-11-29] MEDS: AMIODARONE 200 MG TAB PO SCH ×2 (05:25→20:26)
[2019-11-29] MEDS: METOPROLOL TARTRATE 12.5 MG TAB PO SCH ×2 (05:25→20:26)
[2019-11-29 06:07] LABS: Glucose,Whole Blood 146 mg/dL (75-99)
[2019-11-29] MEDS: INSULIN ASPART (NovoLOG) 100 UNIT/ML VIAL SQ SCH ×4 (06:41→20:26)
[2019-11-29] MEDS: BUDESONIDE 0.5 MG/2 ML NEBU INHALATION SCH ×2 (08:52→18:58)
[2019-11-29] MEDS: IPRATROPIUM-ALBUTEROL 3 ML NEB INHALATION PRN ×4 (08:52→18:58)
--- NOTE | 2019-11-29 11:46 | US ---
EXAMINATION TYPE: US venous doppler duplex LE DATE OF EXAM: 11/29/2019 11:07 AM COMPARISON: CT Chest CLINICAL HISTORY: PE. PE, pt has no complaints with legs SIDE PERFORMED: Bilateral TECHNIQUE: The lower extremity deep venous system is examined utilizing real time linear array sonog darling with graded compression, doppler sonography and color-flow sonography. VESSELS IMAGED: External Iliac Vein (EIV) Common Femoral Vein Deep Femoral Vein Greater Saphenous Vein * Femoral Vein Popliteal Vein Small Saphenous Vein * Proximal Calf Veins (* superficial vessels) There is normal flow, compressibility, vascular waveforms. Right Leg: Negative for DVT Left Leg: Negative for DVT IMPRESSION: No evident deep venous thrombosis at or above the knees.
[2019-11-29 11:49] LABS: Glucose,Whole Blood 140 mg/dL (75-99)
--- NOTE | 2019-11-29 12:41 | P.PN ---
Subjective Progress Note Date: 11/29/19 Principal diagnosis: Abnormal cardiac enzymes This is a very pleasant 74-year-old gentleman with a past medical history significant for COPD but no prior cardiac history of coronary artery disease or congestive heart failure or cardiac arrhythmia and the patient never seen a car diologist in the past. He was in his usual state of health yesterday when he was at home sitting watching TV and suddenly developed shortness of breath. He did not have any symptoms of chest pain or chest discomfort. No dizziness or lightheadedness. Ambulance was called and on the way to the hospital the patient felt his heart was racing up and he was found to be in ventricular tachycardia where he was about to be shocked but subsequently he came back to normal sinus rhythm. The EKG before and after revealed sinus rhythm with sinus tachycardia and left anterior fascicular block. Currently the patient is chest pain-free. The first troponin came in to be slightly abnormal but the subseq uent troponin came in to be significantly abnormal at 2.590. As a mentioned earlier the chest x-ray revealed sinus rhythm was left anterior fascicular block and no significant ST or T-wave abnormalities. The patient never been diagnosed was coronary artery disease and never seen a olive grower in the past. The lactic acid also came in to be slightly abnormal. An echocardiogram was performed earlier today and will follow-up on that. The patient underwent an echocardiogram in 2018 and that revealed normal LV function without any significant valvular abnormalities. At this point, I am going to start the patient on heparin IV. Follow-up with the serial cardiac enzymes. Obtain d- dimer as well. I am also going to consider proceeding with coronary angiogram unless the d-dimer came to be abnormal and a computed tomography scan of the chest revealed pulmonary embolism. We'll follow-up on the echocardiogram and follow-up on the cardiac enzymes. Please note that the patient was started on amiodarone IV which we will continue at this point. The patient was seen this morning. Today is November [id number]. He is feeling better indeterminable shortness of breath. No chest pain or chest discomfort. The d-dimer came in to be abnormal and subsequently the CT of the chest revealed PE. Beside that the echocardiogram was done and show severe cardiomyopathy which is new to the patient. He continues to be on amiodarone. He is bradycardic. I am going to decrease the dose of amiodarone to 200 mg by mouth twice a day, continue the current dose of metoprolol, continue aspirin and statin, and add lisinopril to the current medical regimen. By tomorrow hopefully we can add Aldactone as well. Objective - Vital Signs Vital signs: Vital Signs Temp 97.6 F 11/29/19 08:00 Pulse 60 11/29/19 09:09 Resp 17 11/29/19 04:00 BP 104/55 11/29/19 08:00 Pulse Ox 93 L 11/29/19 08:00 Intake & Output 11/28/19 11/29/19 11/29/19 18:59 06:59 18:59 Intake Total 476 145.187 Balance 476 145.187 Weight 76.2 kg Intake: Intake, IV Titration 145.187 Amount Heparin Sod,Pork in 0.45% 145.187 NaCl 25,000 unit In 0.45 % NaCl 1 250ml.bag @ 18 UNITS/KG/HR 13.464 mls/hr IV .[id number] [facility] Rx#: [id number] Oral 476 Other: # Voids 1 1 - Constitutional General appearance: Present: no acute distress - Respiratory Respiratory: bilateral: CTA - Cardiovascular Rhythm: regular Heart sounds: normal: S1, S2 - Labs CBC & Chem 7: 11/29/19 03:22 11/27/19 22:39 Labs: Abnormal Lab Results - Last 24 Hours (Table) 11/28/19 11/28/19 11/28/19 Range/Units 11:24 16:41 19:42 WBC (3.8-10.6) k/uL Neutrophils # (1.3-7.7) k/uL Lymphocytes # (1.0-4.8) k/uL APTT 81.4 H (22.0-30.0) sec D-Dimer 2.01 H (<0.60) mg/L FEU POC Glucose (mg/dL) 133 H (75-99) mg/dL 11/28/19 11/29/19 11/29/19 Range/Units 20:13 03:22 03:22 WBC 12.4 H (3.8-10.6) k/uL Neutrophils # 11.1 H (1.3-7.7) k/uL Lymphocytes # 0.9 L (1.0-4.8) k/uL APTT 91.9 H (22.0-30.0) sec D-Dimer (<0.60) mg/L FEU POC Glucose (mg/dL) 165 H (75-99) mg/dL 11/29/19 11/29/19 11/29/19 Range/Units 06:05 11:15 11:47 WBC (3.8-10.6) k/uL Neutrophils # (1.3-7.7) k/uL Lymphocytes # (1.0-4.8) k/uL APTT 61.1 H (22.0-30.0) sec D-Dimer (<0.60) mg/L FEU POC Glucose (mg/dL) 146 H 140 H (75-99) mg/dL Assessment and Plan Assessment: Assessment #1 pulmonary embolism #2 abnormal cardiac enzymes likely secondary to PE #3 severe cardiomyopathy Plan #1 decrease the dose of amiodarone in view of the bradycardia #2 continue the current dose of metoprolol #3 continue aspirin and statin #4 add lisinopril #5 consider oral anticoagulation #6 consider coronary angiogram down the line
[2019-11-29 12:51] LABS: Hemoglobin A1C 5.5 % (4.0-6.0)
[2019-11-29] MEDS: HEPARIN SOD,PORK IN 0.45% NACL 25,000 UNIT in 0.45% NACL 1 250ML.BAG IV SCH (12:54)
--- NOTE | 2019-11-29 13:23 | P.PN ---
Subjective Progress Note Date: 11/29/19 This is a 74-year-old male patient of Dr. Oneil with past medical history of COPD and hyperlipidemia. Patient denies prior cardiac history and denies seen a radar engineer in the past. Patient states he has had EKGs done and Dr. Oneil's office and one was done recently was no concern. Patient does not have home oxygen. Patient states that he was at home sitting watching TV and suddenly developed shortness of breath. He did not have any symptoms of chest pain or chest discomfort. No dizziness or lightheadedness. Ambulance was called and on the way to the hospital the patient felt his heart was racing up and he was found to be in ventricular tachycardia where he was about to be shocked but subs equently he came back to normal sinus rhythm. The EKG before and after revealed sinus rhythm with sinus tachycardia and left anterior fascicular block. Potassium was 4.5, BUN 26 creatinine 1.13, blood sugar 191, lactic acid initially 3.2 and repeat is 0.8. AST 150, ALT 115, CK 174, troponins were 0.043, 2.590 and 2.410. Triglycerides 64, cholesterol 142, LDL 54 HDL 75. CBC was unremarkable. Chest x-ray showed COPD and pulmonary fibrotic changes. Subsegmental atelectasis at the lung bases. Patient was admitted to the cardiac stepdown unit has been seen by Dr. Simmons. Echocardiogram done today revealed EF of less than 20%, mild mitral regurgitation, mild tricuspid regurgitation, moderate pulmonary hypertension. Noted that echocardiogram from April 2019 had a normal ejection fraction. Patient has been started on amiodarone drip and Dr. Simmons is planning to start heparin drip as well. 11/29: CT of the chest was positive for right upper lobe pulmonary embolism. Ultrasound of the bilateral lower extremity is negative for DVT. Amiodarone drip has been transitioned to oral and due to bradycardia dose was decreased. Dr. Simmons also added and lisinopril and plan to add Aldactone tomorrow. Cardiology is planning heart catheterization at a later time. Patient is afebrile, heart rate in the 50s, blood pressure 104/55, pulse ox 93% on 2 L nasal cannula. Repeat WBC 12.4, hemoglobin A1c 5.5, blood sugars run between 140-165. Patient is currently on heparin drip. Objective - Vital Signs Vital signs: Vital Signs Temp 97.8 F 11/29/19 04:00 Pulse 60 11/29/19 09:09 Resp 17 11/29/19 04:00 BP 112/72 11/29/19 04:00 Pulse Ox 96 11/29/19 04:00 Intake & Output 11/28/19 11/29/19 11/29/19 18:59 06:59 18:59 Intake Total 476 145.187 Balance 476 145.187 Weight 76.2 kg Intake: Intake, IV Titration 145.187 Amount Heparin Sod,Pork in 0.45% 145.187 NaCl 25,000 unit In 0.45 % NaCl 1 250ml.bag @ 18 UNITS/KG/HR 13.464 mls/hr IV .[id number] [facility] Rx#: [id number] Oral 476 Other: # Voids 1 1 - Exam Review of Systems Constitutional: Reports fatigue, Denies anorexia, Denies fever, Denies malaise, Denies poor appetite, Denies weight loss Eyes: denies blurred vision, denies pain Ears, nose, mouth and throat: Denies dysphagia, Denies headache, Denies nasal congestion, Denies nasal discharge, Denies sore throat, Denies vertigo Cardiovascular: Reports dyspnea on exertion, Reports shortness of breath, Denies chest pain, Denies leg edema, Denies palpitations, Denies syncope Respiratory: Reports dyspnea, Denies excessive sputum, Denies hemoptysis, Denies home oxygen, Denies respiratory infections, Denies wheezing Gastrointestinal: Denies abdominal pain, Denies diarrhea, Denies loss of appetite, Denies nausea, Denies vomiting Genitourinary: Denies dysuria, Denies urinary retention Musculoskeletal: Denies frequent falls, Denies gait dysfunction, Denies muscle weakness, Denies myalgias Integumentary: Denies pruritus, Denies rash Neurological: Denies change in mentation, Denies change in speech, Denies numbness, Denies seizures, Denies weakness Psychiatric: Denies anxiety, Denies depression Endocrine: Denies fatigue, Denies weight change Gen: This is a 74-year-old male. Patient is in bed and appears to be comfortable at rest. HEENT: Head is atraumatic, normocephalic. Pupils equal, round. Sclerae is anicteric. NECK: Supple. No JVD. No lymphadenopathy. No thyromegaly. LUNGS: Lung sounds are diminished with poor air exchange. No intercostal retractions. HEART: Regular rate and rhythm. No murmur. ABDOMEN: Soft. Bowel sounds are present. No masses. No tenderness. EXTREMITIES: No pedal edema. No calf tenderness. NEUROLOGICAL: Patient is awake, alert and oriented x3. Cranial nerves 2 through 12 are grossly intact. - Labs CBC & Chem 7: 11/29/19 03:22 11/27/19 22:39 Labs: Abnormal Lab Results - Last 24 Hours (Table) 11/28/19 11/28/19 11/28/19 Range/Units 10:19 11:24 11:24 WBC (3.8-10.6) k/uL Neutrophils # (1.3-7.7) k/uL Lymphocytes # 0.6 L (1.0-4.8) k/uL APTT (22.0-30.0) sec D-Dimer 2.01 H (<0.60) mg/L FEU POC Glucose (mg/dL) (75-99) mg/dL Troponin I 2.410 H* (0.000-0.034) ng/mL 11/28/19 11/28/19 11/28/19 Range/Units 16:41 19:42 20:13 WBC (3.8-10.6) k/uL Neutrophils # (1.3-7.7) k/uL Lymphocytes # (1.0-4.8) k/uL APTT 81.4 H (22.0-30.0) sec D-Dimer (<0.60) mg/L FEU POC Glucose (mg/dL) 133 H 165 H (75-99) mg/dL Troponin I (0.000-0.034) ng/mL 11/29/19 11/29/19 11/29/19 Range/Units 03:22 03:22 06:05 WBC 12.4 H (3.8-10.6) k/uL Neutrophils # 11.1 H (1.3-7.7) k/uL Lymphocytes # 0.9 L (1.0-4.8) k/uL APTT 91.9 H (22.0-30.0) sec D-Dimer (<0.60) mg/L FEU POC Glucose (mg/dL) 146 H (75-99) mg/dL Troponin I (0.000-0.034) ng/mL Assessment and Plan Plan: 1. Acute non-ST elevated myocardial infarction ruled out by cardiology. A bnormal cardiac enzymes secondary to pulmonary embolism. Consult with Dr. Troy sanchez. Continue heparin drip. 2. Ventricular tachycardia, self-limited episode. Continue amiodarone transition to oral 200 mg twice daily, continue Lopressor 12.5 mg twice daily. 3. Ischemic versus nonischemic cardiomyopathy. Continue Lopressor, lisinopril added, plan for Aldactone to be added tomorrow. 4. Acute exacerbation of COPD. Continue Solu-Medrol 60 mg IV every 6 hours, DuoNeb treatments every 4 hours as needed, albuterol every 4 hours as needed.. 5. Acute hypoxic respiratory failure. Continue oxygen and treatment as above. 6. Acute pulmonary embolism. Continue heparin drip and transitioned to oral agent. 7. Hyperlipidemia. Continue Lipitor 80 mg daily. 8. DVT prophylaxis. Heparin. 9. GI prophylaxis. Protonix. Discharge plan: home Impression and plan of care have been directed as dictated by the signing physician. Christine Gordon nurse practitioner acting as scribe for signing physician.
[2019-11-29 16:39] LABS: Glucose,Whole Blood 186 mg/dL (75-99)
[2019-11-29 20:19] LABS: Glucose,Whole Blood 219 mg/dL (75-99)
[2019-11-29] MEDS: ATORVASTATIN 80 MG TAB PO SCH (20:26)
[2019-11-30 05:55] LABS: Glucose,Whole Blood 137 mg/dL (75-99)
[2019-11-30] MEDS: methylPREDNISolone SOD SUCCI 125 MG/2 ML VIAL IV SCH ×2 (06:52→20:16)
[2019-11-30] MEDS: PANTOPRAZOLE 40 MG TABLET PO SCH (06:52)
[2019-11-30] MEDS: INSULIN ASPART (NovoLOG) 100 UNIT/ML VIAL SQ SCH ×4 (06:57→20:16)
[2019-11-30 07:11] LABS: Basophils % (A) 0 %; Eosinophils % (A) 0 %; HCT 41.5 % (39.0-53.0); HGB 13.2 gm/dL (13.0-17.5); Lymphocytes % (A) 7 %; MCH 30.3 pg (25.0-35.0); MCHC 31.8 g/dL (31.0-37.0); MCV 95.5 fL (80.0-100.0); Monocytes # (A) 0.6 k/uL (0-1.0); Monocytes % (A) 4 %; Neutrophils # (A) 12.7 k/uL (1.3-7.7); Neutrophils % (A) 89 %; Platelet Count 193 k/uL (150-450); RBC 4.35 m/uL (4.30-5.90); RDW 13.6 % (11.5-15.5); WBC 14.4 k/uL (3.8-10.6)
[2019-11-30] MEDS: AMIODARONE 200 MG TAB PO SCH ×2 (08:45→20:16)
[2019-11-30] MEDS: LISINOPRIL 2.5 MG TAB PO SCH (08:45)
[2019-11-30] MEDS: ASPIRIN 81 MG PO SCH (08:45)
[2019-11-30] MEDS: METOPROLOL TARTRATE 12.5 MG TAB PO SCH ×2 (08:45→20:16)
[2019-11-30] MEDS: BUDESONIDE 0.5 MG/2 ML NEBU INHALATION SCH ×2 (09:21→19:46)
[2019-11-30] MEDS: HEPARIN SOD,PORK IN 0.45% NACL 25,000 UNIT in 0.45% NACL 1 250ML.BAG IV SCH (10:21)
[2019-11-30] MEDS: APIXABAN 5 MG TAB PO SCH ×2 (10:53→20:16)
[2019-11-30 11:34] LABS: Glucose,Whole Blood 110 mg/dL (75-99)
--- NOTE | 2019-11-30 12:08 | P.PN ---
Subjective Progress Note Date: 11/30/19 This is a pleasant 74-year-old gentleman with history of COPD, presented to the hospital with symptoms of fairly sudden onset of severe shortness of breath, he also felt like his heart was racing fast. Patient was found to be in ventricular tachycardia where he was about to be shocked but subsequently came back to normal sinus rhythm. EKG performed after that showed a normal sinus rhythm with sinus tachycardia and a left anterior fascicular block. His troponins subsequently came back to be abnormal as did his d-dimer. Subsequent to that a CT of the chest was performed which revealed evidence of pulmonary embolism. The patient also had an echocardiogram with Doppler study performed which revealed a severely impaired left ventricular systolic function, ejection fraction less than 20%, moderate pulmonary hypertension, RVSP 49.2. Patient has now been initiated on Eliquis for anticoagulation. He overall feels well, still has some mild wheezing, still on steroids for his COPD exacerbation. Blood pressure 110/60 with a heart rate in the 60s, 98% on room air. Patient is currently on amiodarone 200 mg one tablet by mouth twice a day, Eliquis per PE protocol, baby aspirin, Lipitor 80 mg daily, Zestril 2-1/2 mg daily, metoprolol 12-1/2 mg one tablet by mouth twice a day. Objective - Vital Signs Vital signs: Vital Signs Temp 96.4 F L 11/30/19 11:30 Pulse 62 11/30/19 11:30 Resp 18 11/30/19 11:30 BP 110/58 11/30/19 11:30 Pulse Ox 98 11/30/19 11:30 Intake & Output 11/29/19 11/30/19 11/30/19 18:59 06:59 18:59 Intake Total 551.369 240 240 Balance 551.369 240 240 Intake: Intake, IV Titration 311.369 Amount Heparin Sod,Pork in 0.45% 75.36 NaCl 25,000 unit In 0.45 % NaCl 1 250ml.bag @ 12 UNITS/KG/HR 8.976 mls/hr IV .Q24H [facility] Rx#: [id number] Heparin Sod,Pork in 0.45% 76.009 NaCl 25,000 unit In 0.45 % NaCl 1 250ml.bag @ 18 UNITS/KG/HR 13.464 mls/hr IV .[id number] [facility] Rx#: [id number] Sodium Chloride 0.9% 1, 160 000 ml In Empty Bag 1 bag @ 1 ML/KG/HR 74.8 mls/hr IV .[id number] [facility] Rx#: [id number] Oral 240 240 240 - Exam PHYSICAL EXAMINATION: GENERAL: 74-year-old gentleman in no acute distress at the time of my examination HEENT: Head is atraumatic, normocephalic. Pupils equal, round. Sclera anicteric. Conjunctiva are clear. Mucous membranes of the mouth are moist. Neck is supple. There is no elevated jugular venous pressure. No carotid bruit is heard. HEART EXAMINATION: Heart S1, S2 normal. No murmur or gallop heard. CHEST EXAMINATION: Reveal fine scattered wheezing throughout. ABDOMEN: Soft, nontender. Bowel sounds are heard. No organomegaly noted. EXTREMITIES: 2+ peripheral pulses with no evidence of peripheral edema and no calf tenderness noted. NEUROLOGIC patient is awake, alert and oriented X3. . - Labs CBC & Chem 7: 11/30/19 06:16 11/27/19 22:39 Labs: Abnormal Lab Results - Last 24 Hours (Table) 11/29/19 11/29/19 11/30/19 Range/Units 16:38 20:17 05:54 WBC (3.8-10.6) k/uL Neutrophils # (1.3-7.7) k/uL APTT (22.0-30.0) sec POC Glucose (mg/dL) 186 H 219 H 137 H (75-99) mg/dL 11/30/19 11/30/19 11/30/19 Range/Units 06:16 09:02 11:33 WBC 14.4 H (3.8-10.6) k/uL Neutrophils # 12.7 H (1.3-7.7) k/uL APTT 43.2 H (22.0-30.0) sec POC Glucose (mg/dL) 110 H (75-99) mg/dL Assessment and Plan Plan: Assessment and plan #1 pulmonary embolism #2 severe cardiomyopathy, unknown etiology #3 COPD #4 ventricular tachycardia, self-limited episode, on amiodarone #5 hyperlipidemia Plan From cardiology's perspective, patient may be able to be discharged once cleared by primary. He will have a follow-up appointment in the office with Dr. Travis post discharge. As an outpatient a cardiac catheterization will be performed to rule out underlying coronary artery disease. We will add Aldactone to his medication regime. DNP note has been reviewed, I agree with a documented findings and plan of care. Patient was seen and examined.
[2019-11-30 16:56] LABS: Glucose,Whole Blood 129 mg/dL (75-99)
[2019-11-30] MEDS: IPRATROPIUM-ALBUTEROL 3 ML NEB INHALATION PRN (19:46)
[2019-11-30 19:57] LABS: Glucose,Whole Blood 146 mg/dL (75-99)
[2019-11-30] MEDS: ATORVASTATIN 80 MG TAB PO SCH (20:16)
[2019-12-01 05:59] LABS: Glucose,Whole Blood 130 mg/dL (75-99)
[2019-12-01 06:03] LABS: Basophils % (A) 0 %; Eosinophils % (A) 0 %; HCT 41.4 % (39.0-53.0); HGB 13.3 gm/dL (13.0-17.5); Lymphocytes # (A) 0.7 k/uL (1.0-4.8); Lymphocytes % (A) 6 %; MCH 30.5 pg (25.0-35.0); MCHC 32.1 g/dL (31.0-37.0); MCV 95.2 fL (80.0-100.0); Mean Platelet Volume 8.1; Monocytes # (A) 0.5 k/uL (0-1.0); Monocytes % (A) 5 %; Neutrophils # (A) 9.4 k/uL (1.3-7.7); Neutrophils % (A) 88 %; Platelet Count 200 k/uL (150-450); RBC 4.35 m/uL (4.30-5.90); RDW 13.8 % (11.5-15.5); WBC 10.7 k/uL (3.8-10.6)
[2019-12-01] MEDS: INSULIN ASPART (NovoLOG) 100 UNIT/ML VIAL SQ SCH (06:04)
[2019-12-01] MEDS: PANTOPRAZOLE 40 MG TABLET PO SCH (06:37)
[2019-12-01 08:52] VITALS: BP 116/63; RESP 20; TEMP 97.9
[2019-12-01] MEDS ORDERED: SPIRONOLACTONE 25 MG TAB PO SCH (09:00)
[2019-12-01] MEDS: BUDESONIDE 0.5 MG/2 ML NEBU INHALATION SCH (09:08)
[2019-12-01 09:18] VITALS: PULSE 80
--- NOTE | 2019-12-01 09:22 | P.PN ---
Subjective Progress Note Date: 11/30/19 This is a 74-year-old male patient of Dr. Oneil with past medical history of COPD and hyperlipidemia. Patient denies prior cardiac history and denies seen a archery equipment hay sorter in the past. Patient states he has had EKGs done and Dr. Oneil's office and one was done recently was no concern. Patient does not have home oxygen. Patient states that he was at home sitting watching TV and suddenly developed shortness of breath. He did not have any symptoms of chest pain or chest discomfort. No dizziness or lightheadedness. Ambulance was called and on the way to the hospital the patient felt his heart was racing up and he was found to be in ventricular tachycardia where he was about to be shocked but subs equently he came back to normal sinus rhythm. The EKG before and after revealed sinus rhythm with sinus tachycardia and left anterior fascicular block. Potassium was 4.5, BUN 26 creatinine 1.13, blood sugar 191, lactic acid initially 3.2 and repeat is 0.8. AST 150, ALT 115, CK 174, troponins were 0.043, 2.590 and 2.410. Triglycerides 64, cholesterol 142, LDL 54 HDL 75. CBC was unremarkable. Chest x-ray showed COPD and pulmonary fibrotic changes. Subsegmental atelectasis at the lung bases. Patient was admitted to the cardiac stepdown unit has been seen by Dr. Simmons. Echocardiogram done today revealed EF of less than 20%, mild mitral regurgitation, mild tricuspid regurgitation, moderate pulmonary hypertension. Noted that echocardiogram from April 2019 had a normal ejection fraction. Patient has been started on amiodarone drip and Dr. Simmons is planning to start heparin drip as well. 11/29: CT of the chest was positive for right upper lobe pulmonary embolism. Ultrasound of the bilateral lower extremity is negative for DVT. Amiodarone drip has been transitioned to oral and due to bradycardia dose was decreased. Dr. Simmons also added and lisinopril and plan to add Aldactone tomorrow. Cardiology is planning heart catheterization at a later time. Patient is afebrile, heart rate in the 50s, blood pressure 104/55, pulse ox 93% on 2 L nasal cannula. Repeat WBC 12.4, hemoglobin A1c 5.5, blood sugars run between 140-165. Patient is currently on heparin drip. 11/30: Patient states that his breathing status is improved today. He continues to have a little bit of wheezing and we will decrease Solu-Medrol to every 12 hours. Pulse ox is currently 95% on room air. Blood pressure 110/60 and heart rate in the 60s. Patient is currently on eliquis and he is on oral amiodarone at this point. Repeat blood work reveals WBC 14.4, hemoglobin 13.2 blood sugar 146. Cardiology is planning for outpatient heart catheterization. We will plan to continue monitoring the patient and continued to decrease Solu-Medrol with plan for possible discharge tomorrow. Objective - Vital Signs Vital signs: Vital Signs Temp 97.5 F L 11/30/19 08:04 Pulse 73 11/30/19 09:58 Resp 18 11/30/19 08:04 BP 114/53 11/30/19 09:58 Pulse Ox 95 11/30/19 08:04 Intake & Output 11/29/19 11/30/19 11/30/19 18:59 06:59 18:59 Intake Total 551.369 240 Balance 551.369 240 Intake: Intake, IV Titration 311.369 Amount Heparin Sod,Pork in 0.45% 75.36 NaCl 25,000 unit In 0.45 % NaCl 1 250ml.bag @ 12 UNITS/KG/HR 8.976 mls/hr IV .Q24H [facility] Rx#: [id number] Heparin Sod,Pork in 0.45% 76.009 NaCl 25,000 unit In 0.45 % NaCl 1 250ml.bag @ 18 UNITS/KG/HR 13.464 mls/hr IV .[id number] [facility] Rx#: [id number] Sodium Chloride 0.9% 1, 160 000 ml In Empty Bag 1 bag @ 1 ML/KG/HR 74.8 mls/hr IV .[id number] [facility] Rx#: [id number] Oral 240 240 - Exam Review of Systems Constitutional: Reports fatigue, Denies anorexia, Denies fever, Denies malaise, Denies poor appetite, Denies weight loss Eyes: denies blurred vision, denies pain Ears, nose, mouth and throat: Denies dysphagia, Denies headache, Denies nasal congestion, Denies nasal discharge, Denies sore throat, Denies vertigo Cardiovascular: Reports dyspnea on exertion improving, Reports shortness of breath improving, Denies chest pain, Denies leg edema, Denies palpitations, Denies syncope Respiratory: Reports dyspnea improving, Denies excessive sputum, Denies hemoptysis, Denies home oxygen, Denies respiratory infections, Denies wheezing Gastrointestinal: Denies abdominal pain, Denies diarrhea, Denies loss of appetite, Denies nausea, Denies vomiting Genitourinary: Denies dysuria, Denies urinary retention Musculoskeletal: Denies frequent falls, Denies gait dysfunction, Denies muscle weakness, Denies myalgias Integumentary: Denies pruritus, Denies rash Neurological: Denies change in mentation, Denies change in speech, Denies numbness, Denies seizures, Denies weakness Psychiatric: Denies anxiety, Denies depression Endocrine: Denies fatigue, Denies weight change Gen: This is a 74-year-old male. Patient is in bed and appears to be comfortable at rest. HEENT: Head is atraumatic, normocephalic. Pupils equal, round. Sclerae is anicteric. NECK: Supple. No JVD. No lymphadenopathy. No thyromegaly. LUNGS: Lung sounds with mild expiratory wheeze. No intercostal retractions. HEART: Regular rate and rhythm. No murmur. ABDOMEN: Soft. Bowel sounds are present. No masses. No tenderness. EXTREMITIES: No pedal edema. No calf tenderness. NEUROLOGICAL: Patient is awake, alert and oriented x3. Cranial nerves 2 through 12 are grossly intact. - Labs CBC & Chem 7: 12/01/19 05:25 11/27/19 22:39 Labs: Abnormal Lab Results - Last 24 Hours (Table) 11/29/19 11/29/19 11/29/19 Range/Units 11:15 11:47 16:38 WBC (3.8-10.6) k/uL Neutrophils # (1.3-7.7) k/uL APTT 61.1 H (22.0-30.0) sec POC Glucose (mg/dL) 140 H 186 H (75-99) mg/dL 11/29/19 11/30/19 11/30/19 Range/Units 20:17 05:54 06:16 WBC 14.4 H (3.8-10.6) k/uL Neutrophils # 12.7 H (1.3-7.7) k/uL APTT (22.0-30.0) sec POC Glucose (mg/dL) 219 H 137 H (75-99) mg/dL 11/30/19 Range/Units 09:02 WBC (3.8-10.6) k/uL Neutrophils # (1.3-7.7) k/uL APTT 43.2 H (22.0-30.0) sec POC Glucose (mg/dL) (75-99) mg/dL Assessment and Plan Plan: 1. Acute non-ST elevated myocardial infarction ruled out by cardiology. Abnormal cardiac enzymes secondary to pulmonary embolism. Consult with Dr. Troy sanchez. Heparin drip transitioned to eliquis. 2. Ventricular tachycardia, self-limited episode. Continue amiodarone transition to oral 200 mg twice daily, continue Lopressor 12.5 mg twice daily. 3. Ischemic versus nonischemic cardiomyopathy. Continue Lopressor, lisinopril, Aldactone started. 4. Acute exacerbation of COPD. Continue Solu-Medrol 60 mg IV decreased frequency to every 12 hours, DuoNeb treatments every 4 hours as needed, albuterol every 4 hours as needed.. 5. Acute hypoxic respiratory failure. Continue oxygen and treatment as above. 6. Acute pulmonary embolism. Continue heparin drip and transitioned to oral agent. 7. Hyperlipidemia. Continue Lipitor 80 mg daily. 8. DVT prophylaxis. Heparin. 9. GI prophylaxis. Protonix. Discharge plan: home most likely in the next 24 hours. Impression and plan of care have been directed as dictated by the signing physician. Christine Gordon nurse practitioner acting as scribe for signing physician.
[2019-12-01] MEDS: AMIODARONE 200 MG TAB PO SCH (09:43)
[2019-12-01] MEDS: ASPIRIN 81 MG PO SCH (09:44)
[2019-12-01] MEDS: APIXABAN 5 MG TAB PO SCH (09:44)
[2019-12-01] MEDS: LISINOPRIL 2.5 MG TAB PO SCH (09:45)
[2019-12-01] MEDS: methylPREDNISolone SOD SUCCI 125 MG/2 ML VIAL IV SCH (09:46)
[2019-12-01] MEDS: METOPROLOL TARTRATE 12.5 MG TAB PO SCH (09:48)
--- NOTE | 2019-12-01 09:58 | P.PN ---
Subjective Progress Note Date: 12/01/19 Principal diagnosis: Abnormal cardiac enzymes This is a very pleasant 74-year-old gentleman with a past medical history significant for COPD but no prior cardiac history of coronary artery disease or congestive heart failure or cardiac arrhythmia and the patient never seen a car diologist in the past. He was in his usual state of health yesterday when he was at home sitting watching TV and suddenly developed shortness of breath. He did not have any symptoms of chest pain or chest discomfort. No dizziness or lightheadedness. Ambulance was called and on the way to the hospital the patient felt his heart was racing up and he was found to be in ventricular tachycardia where he was about to be shocked but subsequently he came back to normal sinus rhythm. The EKG before and after revealed sinus rhythm with sinus tachycardia and left anterior fascicular block. Currently the patient is chest pain-free. The first troponin came in to be slightly abnormal but the subseq uent troponin came in to be significantly abnormal at 2.590. As a mentioned earlier the chest x-ray revealed sinus rhythm was left anterior fascicular block and no significant ST or T-wave abnormalities. 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 The lactic acid also came in to be slightly abnormal. An echocardiogram was performed earlier today and will follow-up on that. The patient underwent an echocardiogram in 2019 and that revealed normal LV function without any significant valvular abnormalities. At this point, I am going to start the patient on heparin IV. Follow-up with the serial cardiac enzymes. Obtain d- dimer as well. I am also going to consider proceeding with coronary angiogram unless the d-dimer came to be abnormal and a computed tomography scan of the chest revealed pulmonary embolism. We'll follow-up on the echocardiogram and follow-up on the cardiac enzymes. Please note that the patient was started on amiodarone IV which we will continue at this point. The patient was seen today, 12/01/2019. He is feeling much better in terms of shortness of breath and denies any chest pain or chest discomfort. He is not on oxygen any more. He is on oral anticoagulation for the PE. Also he is on amiodarone by mouth. From the cardiovascular standpoint of view, the patient can be discharged home and I will follow-up with the patient in the office as an outpatient to schedule him to undergo a heart catheterization. Objective - Vital Signs Vital signs: Vital Signs Temp 97.9 F 12/01/19 08:00 Pulse 80 12/01/19 09:17 Resp 20 12/01/19 08:00 BP 116/63 12/01/19 08:00 Pulse Ox 95 12/01/19 09:10 Intake & Output 11/30/19 12/01/19 12/01/19 18:59 06:59 18:59 Intake Total 1042 364 Balance 1042 364 Weight 76.7 kg Intake: Oral 1042 364 - Constitutional General appearance: Present: no acute distress - Respiratory Respiratory: bilateral: CTA - Cardiovascular Rhythm: regular Heart sounds: normal: S1, S2 - Labs CBC & Chem 7: 12/01/19 05:25 11/27/19 22:39 Labs: Abnormal Lab Results - Last 24 Hours (Table) 11/30/19 11/30/19 11/30/19 Range/Units 11:33 16:53 19:55 WBC (3.8-10.6) k/uL Neutrophils # (1.3-7.7) k/uL Lymphocytes # (1.0-4.8) k/uL POC Glucose (mg/dL) 110 H 129 H 146 H (75-99) mg/dL 12/01/19 12/01/19 Range/Units 05:25 05:57 WBC 10.7 H (3.8-10.6) k/uL Neutrophils # 9.4 H (1.3-7.7) k/uL Lymphocytes # 0.7 L (1.0-4.8) k/uL POC Glucose (mg/dL) 130 H (75-99) mg/dL Assessment and Plan Assessment: Assessment #1 pulmonary embolism #2 abnormal cardiac enzymes likely secondary to PE #3 severe cardiomyopathy Plan #1 continue the current medical regimen #2 the patient can be discharged home #3 follow-up with the patient as an outpatient #4 heart catheterization as an outpatient
--- NOTE | 2019-12-01 11:45 | P.DS ---
Providers Date of admission: 11/27/19 23:34 Expected date of discharge: 12/01/19 Attending physician: Jasper Kendrick Consults: 11/27/19 23:34 Consult Physician Urgent Consulting Provider: Alpesh Reilly Consult Reason/Comments: [place] Do you want consulting provider notified?: Yes Primary care physician: Liss Oneil [facility] Course: This is a 74-year-old male patient of Dr. Oneil with past medical history of COPD and hyperlipidemia. 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 Patient states he has had EKGs done and Dr. Oneil's office and one was done recently was no concern. Patient does not have home oxygen. Patient states that he was at home sitting watching TV and suddenly developed shortness of breath. He did not have any symptoms of chest pain or chest discomfort. No dizziness or lightheadedness. Ambulance was called and on the way to the hospital the patient felt his heart was racing up and he was found to be in ventricular tachycardia where he was about to be shocked but subsequently he came back to normal sinus rhythm. The EKG before and after revealed sinus rhythm with sinus tachycardia and left anterior fascicular block. Potassium was 4.5, BUN 26 creatinine 1.13, blood sugar 191, lactic acid initially 3.2 and repeat is 0.8. AST 150, ALT 115, CK 174, troponins were 0.043, 2.590 and 2.410. Triglycerides 64, cholesterol 142, LDL 54 HDL 75. CBC was unremarkable. Chest x-ray showed COPD and pulmonary fibrotic changes. Subsegmental atelectasis at the lung bases. Patient was admitted to the cardiac stepdown unit has been seen by Dr. Simmons. Echocardiogram done today revealed EF of less than 20%, mild mitral regurgitation, mild tricuspid regurgitation, moderate pulmonary hypertension. Noted that echocardiogram from April 2019 had a normal ejection fraction. Patient has been started on amiodarone drip and Dr. Simmons is planning to start heparin drip as well. 11/29: CT of the chest was positive for right upper lobe pulmonary embolism. Ultrasound of the bilateral lower extremity is negative for DVT. Amiodarone drip has been transitioned to oral and due to bradycardia dose was decreased. Dr. Simmons also added and lisinopril and plan to add Aldactone tomorrow. Cardiology is planning heart catheterization at a later time. Patient is afebrile, heart rate in the 50s, blood pressure 104/55, pulse ox 93% on 2 L nasal cannula. Repeat WBC 12.4, hemoglobin A1c 5.5, blood sugars run between 140-165. Patient is currently on heparin drip. 11/30: Patient states that his breathing status is improved today. He continues to have a little bit of wheezing and we will decrease Solu-Medrol to every 12 hours. Pulse ox is currently 95% on room air. Blood pressure 110/60 and heart rate in the 60s. Patient is currently on eliquis and he is on oral amiodarone at this point. Repeat blood work reveals WBC 14.4, hemoglobin 13.2 blood sugar 146. Cardiology is planning for outpatient heart catheterization. We will plan to continue monitoring the patient and continued to decrease Solu-Medrol with plan for possible discharge tomorrow. 12/01: Patient states that his breathing status continues to improve. He is currently pulse oxing 94-95% on room air. Patient does not have a nebulizer at home which will be ordered. Patient does have a rescue inhaler. Cardiology has some prescription through for eliquis and OTHER home medications will be addressed by us. Patient will need follow-up with hematology to further evaluate etiology of unprovoked PE. Patient has been cleared by cardiology for discharge home. Plan is for patient to follow up with Dr. Simmons in the office to schedule a heart catheterization. Patient will be discharged home in stable condition. Discharge diagnoses: 1. Acute non-ST elevated myocardial infarction ruled out by cardiology. Abnormal cardiac enzymes secondary to pulmonary embolism. 2. Ventricular tachycardia, self-limited episode. 3. Ischemic versus nonischemic cardiomyopathy. 4. Acute exacerbation of COPD. 5. Acute hypoxic respiratory failure. 6. Acute pulmonary embolism. Outpatient follow-up with hematology. 7. Hyperlipidemia. 8. Acute exacerbation of COPD. Nebulizer ordered for home. Discharge plan: home Impression and plan of care have been directed as dictated by the signing physician. Christine Gordon nurse practitioner acting as scribe for signing physician. Patient Condition at Discharge: Good Plan - Discharge Summary New Discharge Prescriptions: New Spironolactone [Aldactone] 25 mg PO DAILY #30 tab Aspirin 81 mg PO DAILY chew Amiodarone [Cordarone] 200 mg PO BID #60 tab Ipratropium-Albuterol Nebulize [Duoneb 0.5 mg-3 mg/3 ml Soln] 3 ml INHALATION RT-TID PRN #90 dose PRN Reason: Shortness Of Breath Or Wheezing Atorvastatin [Lipitor] 80 mg PO HS #30 tab Metoprolol Tartrate [Lopressor] 12.5 mg PO BID #60 tab methylPREDNISolone Dose Pack [Medrol Dose Pack] 4 mg PO DIRECTED #21 package Lisinopril [Zestril] 2.5 mg PO DAILY #30 tab Apixaban [Eliquis Starter Pack (for VTE)] 0 mg PO DIRECTED 30 Days #1 pack Continue Fluticasone/Salmeterol [Fluticasone-Salmeterol 113-14] 1 puff INHALATION RT- BID Albuterol Sulfate [Ventolin HFA] 2 puff INHALATION RT-Q4H PRN PRN Reason: Shortness Of Breath Discontinued Atorvastatin [Lipitor] 10 mg PO DAILY Discharge Medication List Albuterol Sulfate [Ventolin HFA] 2 puff INHALATION RT-Q4H PRN 11/28/19 [History] Fluticasone/Salmeterol [Fluticasone-Salmeterol 113-14] 1 puff INHALATION RT-BID 11/28/19 [History] Amiodarone [Cordarone] 200 mg PO BID #60 tab 12/01/19 [Rx] Apixaban [Eliquis Starter Pack (for VTE)] 0 mg PO DIRECTED 30 Days #1 pack 12/01/19 [Rx] Aspirin 81 mg PO DAILY chew 12/01/19 [Rx] Atorvastatin [Lipitor] 80 mg PO HS #30 tab 12/01/19 [Rx] Ipratropium-Albuterol Nebulize [Duoneb 0.5 mg-3 mg/3 ml Soln] 3 ml INHALATION RT-TID PRN #90 dose 12/01/19 [Rx] Lisinopril [Zestril] 2.5 mg PO DAILY #30 tab 12/01/19 [Rx] Metoprolol Tartrate [Lopressor] 12.5 mg PO BID #60 tab 12/01/19 [Rx] Spironolactone [Aldactone] 25 mg PO DAILY #30 tab 12/01/19 [Rx] methylPREDNISolone Dose Pack [Medrol Dose Pack] 4 mg PO DIRECTED #21 package 12/01/19 [Rx] Follow up Appointment(s)/Referral(s): Liss Oneil MD [Primary Care Provider] - 1 Week (Office will call with a follow up appointment.) Raúl Simmons MD [STAFF PHYSICIAN] - 12/08/19 3:15 pm Patient Instructions/Handouts: Supraventricular Tachycardia (DC), Left Heart Catheterization (PRE), Pulmonary Embolism (DC), Safe Use of Anticoagulants (DC) Activity/Diet/Wound Care/Special Instructions: Patient requires Nebulizer at discharge, secondary to diagnosis of COPD. Eliquis paper script sent to pharmacy by Cardiology. Discharge Disposition: HOME SELF-CARE
== END 2019-12-01 12:46 | disposition home or self-care (01) | DRG 175 ==
LOC: EC 22:25 → 3SCARD 23:34
PROVIDERS: ADMIT Internal Medicine Geriatric Medicine; ATTEND Internal Medicine Geriatric Medicine
DX: I26.99 Other pulmonary embolism without acute cor pulmonale (principal); J96.01 Acute respiratory failure with hypoxia; I42.9 Cardiomyopathy, unspecified; I47.2 Ventricular tachycardia; J44.1 Chronic obstructive pulmonary disease with (acute) exacerbation; I50.9 Heart failure, unspecified; E78.5 Hyperlipidemia, unspecified; F41.9 Anxiety disorder, unspecified; I27.20 Pulmonary hypertension, unspecified; I44.4 Left anterior fascicular block; Z79.01 Long term (current) use of anticoagulants; Z79.899 Other long term (current) drug therapy; Z87.891 Personal history of nicotine dependence; Z98.890 Other specified postprocedural states; Z80.9 Family history of malignant neoplasm, unspecified
CPT/HCPCS: 36415; 71045; 71275; 80053; 80061; 82550; 82553; 83036; 83605; 83735; 84100; 84484; 85025; 85379; 85610; 85730; 93005; 93306; 93970; 94640; 94760; 96365; 99291

== ENCOUNTER 2019-12-29 08:51 | Day surgery (SDC) | payer MEDICARE ==
[2019-12-26 15:57] VITALS: BMI 22.9
[~2019-12-29 08:51] MED LIST changes: +ALPRAZolam 0.25 MG TAB PO PRN; +ALPRAZolam 0.5 MG TAB PO PRN; +ASPIRIN 325 MG TAB PO ONE; +ATORVASTATIN 80 MG TAB PO ONE; -LACTATED RINGERS 1,000 ML IV SCH; +NITROGLYCERIN SL TABS 0.4 MG TAB SUBLINGUAL PRN; +SODIUM CHLORIDE 0.9% 1,000 ML in EMPTY BAG 1 BAG IV ONE
[2019-12-29] MEDS ORDERED: SODIUM CHLORIDE 0.9% 1,000 ML IV ONE ×2 (09:17→12:35)
[2019-12-29 09:30] LABS: Basophils # (A) 0.1 k/uL (0-0.2); Basophils % (A) 1 %; Eosinophils # (A) 0.3 k/uL (0-0.7); Eosinophils % (A) 4 %; HCT 48.9 % (39.0-53.0); HGB 15.7 gm/dL (13.0-17.5); Lymphocytes # (A) 1.4 k/uL (1.0-4.8); Lymphocytes % (A) 17 %; MCH 30.4 pg (25.0-35.0); MCHC 32.1 g/dL (31.0-37.0); MCV 94.7 fL (80.0-100.0); Mean Platelet Volume 8.1; Monocytes # (A) 0.7 k/uL (0-1.0); Monocytes % (A) 8 %; Neutrophils # (A) 5.3 k/uL (1.3-7.7); Neutrophils % (A) 66 %; Platelet Count 394 k/uL (150-450); RBC 5.16 m/uL (4.30-5.90); RDW 13.6 % (11.5-15.5); WBC 8.1 k/uL (3.8-10.6)
[2019-12-29 09:39] VITALS: RESP 16; TEMP 97.7
[2019-12-29 09:41] LABS: Calcium 9.3 mg/dL (8.4-10.2); Potassium 4.5 mmol/L (3.5-5.1)
[2019-12-29] MEDS ORDERED: LIDOCAINE 1% INJ 10MG/ML (20 ML MDV) ONE (09:43)
[2019-12-29] MEDS ORDERED: HEPARIN SODIUM 1,000 UN/ML (10ML VL) ONE (09:53)
[2019-12-29] MEDS ORDERED: VERAPAMIL 2.5 MG/ML 2 ML AMP ONE (09:53)
[2019-12-29] MEDS ORDERED: MIDAZOLAM 2 MG/2 ML VIAL IV ONE (10:30)
[2019-12-29] MEDS ORDERED: LIDOCAINE 1% INJ 10MG/ML (20 ML MDV) SQ ONE (10:32)
[2019-12-29] MEDS ORDERED: IOPAMIDOL-370 125ML BTL INJ ONE (10:53)
[2019-12-29] MEDS ORDERED: RX INFO: IV CONTRAST WAS GIVEN 1 EACH MISC MISCELLANE PRN (11:05)
--- NOTE | 2019-12-29 11:12 | P.PCN ---
Date of Procedure: 12/29/19 Operative Findings: CARDIAC CATHETERIZATION PERFORMING PHYSICIAN: Raúl Simmons MD, RPVI PROCEDURE PERFORMED: 1. Selective right and left coronary angiogram 2. Left heart catheterization 3. Right heart catheterization INDICATION: This is a 74-year-old gentleman who was diagnosed recently was cardiomyopathy. The heart catheterization is to rule out severe obstructive coronary artery disease and also to check the right heart pressures COMPLICATION: None APPROACH: Right common femoral vein Right common femoral artery LEVEL OF SEDATION: Moderate with a sedation length of 30 minutes PROCEDURE DESCRIPTION: After obtaining an informed consent, the patient was brought to cardiac laboratory director. Local anesthesia was performed using lidocaine subcutaneously. Initially the right common femoral vein was cannulated using micropuncture technique, the micropuncture wire passed easily then I placed an 8-Greek sheath in the right common femoral vein. The right common femoral artery was cannulated using Seldinger technique, the guidewire passed easily, following that we advanced a 6 Greek sheath dilator assembly, the wire and dilator were removed and sheath was flushed. Right heart catheterization was performed using 6-Greek [place] catheter. Selective right and left coronary angiogram using a 6-Greek JR4 and JL catheters. Following that we did left heart catheterization using 6-Greek pigtail catheter. The procedure was completed there was no complication. SELECTIVE CORONARY ANGIOGRAM: The right coronary artery: Is a large caliber vessel and a dominant vessel. Its angiographically normal. Distally bifurcates into PDA and PLV branches both appeared to be angiographically normal Left main: Is angiographically normal. Bifurcates into LCx and LAD The left circumflex: Is a large caliber vessel. Its angiographically normal. The left anterior descending artery: Is a large caliber vessel. Its angiographically normal. Gives rise into first large diagonal branch which seems to be angiographically normal. HEMODYNAMICS: The pulmonary capillary wedge pressure was 12 mmHg PA pressures were as follow systolic 32, diastolic 12, and mean of 16 mmHg RV pressures were as follow systolic 28 and end-diastolic of 4 mmHg RA pressure was 2 mmHg The LVEDP was 10 mmHg CONCLUSION: 1. Normal coronary angiogram 2. Normal right heart pressures POSTPROCEDURE MANAGEMENT: 1. Medical treatment 2. Follow-up with the patient
[2019-12-29] MEDS ORDERED: SODIUM CHLORIDE 0.9% 1,000 ML IV SCH (11:15)
[2019-12-29 16:34] VITALS: BP 102/60; PULSE 47
== END 2019-12-29 16:12 | disposition home or self-care (01) ==
LOC: CATHCVL 08:51
PROVIDERS: ATTEND Internal Medicine Interventional Cardiology
DX: I42.9 Cardiomyopathy, unspecified (principal); E78.5 Hyperlipidemia, unspecified; I10 Essential (primary) hypertension; I73.9 Peripheral vascular disease, unspecified; Z86.711 Personal history of pulmonary embolism; Z79.01 Long term (current) use of anticoagulants; Z79.82 Long term (current) use of aspirin; Z79.899 Other long term (current) drug therapy; Z72.0 Tobacco use
CPT/HCPCS: 93460; 80048; 85025; C1769 ×3; C1894 ×2; C1760; J2250; J2001; Q9967

== ENCOUNTER 2020-05-26 10:59 | Emergency (ER) | payer MEDICARE ==
[2020-05-26 11:04] VITALS: RESP 18
[2020-05-26] MEDS ORDERED: FLUORESCEIN STRIPS 1 MG STRIP LEFT EYE ONE (11:50)
--- NOTE | 2020-05-26 11:58 | ED ---
Skin/Abscess/FB HPI - General Chief complaint: Skin/Abscess/Foreign Body Stated complaint: Poss Shingles Time Seen by Provider: 05/26/20 11:09 Source: patient Mode of arrival: ambulatory Limitations: no limitations - History of Present Illness Initial comments: Patient 74-year-old male presenting to emergency Department with a chief complaint rash. This started about 3 days ago and is only in the right side of his face. Patient states initially started on her chin and now it has spread to the cheek and the right temporal region. Patient states it is going around the ear but not inside. Patient reports there is nothing on his nose or his eye. States it is mildly painful but it is exacerbated whenever he shaving or sleeping on that side of the face. He did have chickenpox as a child. Patient is not a diabetic nor immune compromise. Denies taking medication to alleviate his symptoms. He does report it is itchy. - Related Data Home Medications Medication Instructions Recorded Confirmed Albuterol Sulfate [Ventolin HFA] 2 puff INHALATION RT-Q4H PRN 11/28/19 12/29/19 Fluticasone/Salmeterol 1 puff INHALATION BID 11/28/19 12/29/19 [Fluticasone-Salmeterol 113-14] ALPRAZolam [Xanax] 0.25 mg PO DIRECTED PRN 12/26/19 12/26/19 Benzonatate [Tessalon Perles] 100 mg PO Q8HR PRN 12/26/19 12/29/19 Previous Rx's Medication Instructions Recorded Amiodarone [Cordarone] 200 mg PO BID #60 tab 12/01/19 Aspirin 81 mg PO DAILY chew 12/01/19 Atorvastatin [Lipitor] 80 mg PO HS #30 tab 12/01/19 Ipratropium-Albuterol Nebulize 3 ml INHALATION RT-TID PRN #90 dose 12/01/19 [Duoneb 0.5 mg-3 mg/3 ml Soln] Metoprolol Tartrate [Lopressor] 12.5 mg PO BID #60 tab 12/01/19 Spironolactone [Aldactone] 25 mg PO DAILY #30 tab 12/01/19 lisinopriL [Zestril] 2.5 mg PO DAILY #30 tab 12/01/19 valACYclovir HCL [Valtrex] 1,000 mg PO Q8HR #27 tab 05/26/20 valACYclovir HCL [Valtrex] 1,000 mg PO Q8HR #27 tab 05/26/20 Allergies Allergy/AdvReac Type Severity Reaction Status Date / Time No Known Allergies Allergy Verified 05/26/20 11:04 Review of Systems ROS Statement: Those systems with pertinent positive or pertinent negative responses have been documented in the HPI. ROS Other: All systems not noted in ROS Statement are negative. Past Medical History Past Medical History: COPD, Hyperlipidemia, Pulmonary Embolus (PE) Additional Past Medical History / Comment(s): recent irregular heart rate and SOB and V-Tach, hiatal hernia, "borderline cholesterol", developed cough and runny nose at [facility] admission 11/27/2019 and still has(pt called Dr Simmons today) on cough medicine. denies recent travel or near anyone that is ill or has traveled out History of Any Multi-Drug Resistant Organisms: None Reported Past Surgical History: Back Surgery, Tonsillectomy Additional Past Surgical History / Comment(s): colonoscopy, "two disks removed from spine", pilonidal cyst, jhonatan cataracts Past Anesthesia/Blood Transfusion Reactions: No Reported Reaction Past Psychological History: Anxiety Smoking Status: Never smoker Past Alcohol Use History: Occasional Past Drug Use History: None Reported - Past Family History Mother Family Medical History: Cancer Brother(s) Family Medical History: Cancer General Exam Limitations: no limitations General appearance: alert, in no apparent distress Head exam: Present: atraumatic, normocephalic, normal inspection Eye exam: Present: normal appearance, PERRL, EOMI. Absent: conjunctival injection, other (Negative Damian sign. Rash does not infiltrate.) Pupils: Present: normal accommodation ENT exam: Present: normal exam, normal oropharynx, mucous membranes moist, TM's normal bilaterally, normal external ear exam Neck exam: Present: normal inspection, full ROM. Absent: tenderness Respiratory exam: Present: normal lung sounds bilaterally. Absent: respiratory distress Cardiovascular Exam: Present: regular rate, normal rhythm, normal heart sounds Extremities exam: Present: normal inspection, full ROM. Absent: tenderness Back exam: Present: normal inspection, full ROM. Absent: tenderness Neurological exam: Present: alert, oriented X3 Psychiatric exam: Present: normal affect, normal mood Skin exam: Present: warm, dry, intact, normal color, rash (Macular erythematous rash with raised borders. No draining bullae at this time. No signs of Giles Carrington or herpes ophthalmicus.) Course Vital Signs 05/26/20 11:00 Temperature 98.1 F Pulse Rate 63 Respiratory 18 Rate Blood Pressure 161/73 O2 Sat by Pulse 97 Oximetry Medical Decision Making - Medical Decision Making Patient is a 74-year-old male presenting to emergency with chief complaint of a rash. On exam, This appears to be shingles. Does not cross the midline and is only located to the right side of his face which initially started on the chin. No Giles Carrington nor herpetic ophthalmicus is. Patient will be started on Valtrex. Patient is not diabetic nor immunocompromised. Return parameters thoroughly discussed with patient who is understanding and agree well. Case discussed with physician. Disposition Clinical Impression: Shingles, Rash Disposition: HOME SELF-CARE Condition: Stable Instructions (If sedation given, give patient instructions): Shingles (ED), Shingles Vaccine (ED) Additional Instructions: Take prescribed medication as directed. Follow with a primary care physician. Return to emergency department if symptoms worsen. Prescriptions: valACYclovir HCL [Valtrex] 1,000 mg PO Q8HR #27 tab valACYclovir HCL [Valtrex] 1,000 mg PO Q8HR #27 tab Is patient prescribed a controlled substance at d/c from ED?: No Referrals: Liss Oneil MD [Primary Care Provider] - 1-2 days Time of Disposition: 12:12
[2020-05-26] MEDS ORDERED: PROPARACAINE 0.5% OPHTH DROPS 15 ML BTL ONE (12:05)
[2020-05-26] MEDS ORDERED: PROPARACAINE 0.5% OPHTH DROPS 15 ML BTL RIGHT EYE STA (12:11)
[2020-05-26 12:29] VITALS: BP 124/73; PULSE 52; TEMP 97.3
== END 2020-05-26 12:30 | disposition home or self-care (01) ==
LOC: EC 10:59
DX: B02.9 Zoster without complications (principal); J44.9 Chronic obstructive pulmonary disease, unspecified; R05 Cough; F41.9 Anxiety disorder, unspecified; Z79.51 Long term (current) use of inhaled steroids; Z86.711 Personal history of pulmonary embolism
CPT/HCPCS: 99282

== ENCOUNTER 2021-09-27 14:17 | Observation (INO) | payer MEDICARE ==
[2021-09-27 15:14] LABS: Basophils # (A) 0.1 k/uL (0-0.2); Basophils % (A) 1 %; Eosinophils # (A) 0.4 k/uL (0-0.7); Eosinophils % (A) 5 %; HCT 48.3 % (39.0-53.0); HGB 15.6 gm/dL (13.0-17.5); Lymphocytes % (A) 14 %; MCH 30.8 pg (25.0-35.0); MCHC 32.3 g/dL (31.0-37.0); MCV 95.5 fL (80.0-100.0); Mean Platelet Volume 7.3; Monocytes # (A) 0.5 k/uL (0-1.0); Monocytes % (A) 6 %; Neutrophils % (A) 71 %; Platelet Count 252 k/uL (150-450); RBC 5.06 m/uL (4.30-5.90); RDW 14.1 % (11.5-15.5); WBC 7.1 k/uL (3.8-10.6)
[2021-09-27 15:23] LABS: ALT 21 U/L (4-49); AST 34 U/L (17-59); African American GFR (CKD) >90 (>60 ml/min/1.73 sqM); Albumin 3.9 g/dL (3.5-5.0); Alkaline Phosphatase 84 U/L (38-126); Blood Urea Nitrogen 15 mg/dL (9-20); Calcium 9.3 mg/dL (8.4-10.2); Carbon Dioxide 27 mmol/L (22-30); Chloride 102 mmol/L (98-107); Glucose 98 mg/dL (74-99); Non-African American GFR(CKD) 83 (>60 ml/min/1.73 sqM); Total Bilirubin 0.6 mg/dL (0.2-1.3); Total Protein 7.2 g/dL (6.3-8.2)
--- NOTE | 2021-09-27 15:23 | XR ---
EXAMINATION TYPE: XR chest 2V DATE OF EXAM: 09/27/2021 COMPARISON: Chest x-ray November 27, 2019. CTA chest November 28, 2019. HISTORY: Chest pain and shortness of breath. TECHNIQUE: Frontal and lateral views of the chest are obtained. FINDINGS: There is background chronic emphysematous and pulmonary fibrotic change bilaterally redemo nstrated without suspicious new focal air space opacity or pneumothorax seen. New blunting left poste rior costophrenic angle. The cardiac silhouette size remains within normal limits. The osseous stru ctures are intact. IMPRESSION: Chronic emphysematous and pulmonary fibrotic changes with new small to tiny left pleural effusion.
[2021-09-27 15:25] LABS: Anion Gap 7 mmol/L; Sodium 136 mmol/L (137-145)
[2021-09-27 15:31] LABS: Potassium 4.7 mmol/L (3.5-5.1)
[2021-09-27 15:44] LABS: INR 0.9 (<1.2); Partial Thromboplastin Time 26.8 sec (22.0-30.0); Prothrombin Time 9.9 sec (9.0-12.0)
[2021-09-27] MEDS ORDERED: SODIUM CHLORIDE 0.9% 1,000 ML IV ONE (20:11)
--- NOTE | 2021-09-27 20:13 | ED ---
General Adult HPI - General Chief complaint: Chest Pain Stated complaint: SOB,Chest Pain Time Seen by Provider: 09/27/21 20:09 Source: patient, family Mode of arrival: wheelchair Limitations: no limitations - History of Present Illness Initial comments: Patient presents to the ED with his and daughter for evaluation. Patient states that for the past several months, he has had intermittent episodes during which he develops rapid heart palpitations, diffuse chest tightness and dyspnea. Patient states that these episodes always subside with rest. Patient states that he has had similar episodes again since last night. Patient states that he has been using his albuterol nebulizer machine more recently, and he is not sure if that may be contributing to his symptoms. Patient denies having any pain otherwise, fever or chills, headache, focal numbness/weakness/neuro deficit, neck/arm/jaw/back pain, pleuritic pain, cough or cold symptoms, di zziness/syncope, nausea/vomiting/diaphoresis, abdominal pain, diarrhea, bloody or melanotic stool, dysuria or urinary symptoms, decreased urine output, leg or calf swelling or pain, or any other symptoms or complaints. Patient states that he is fully vaccinated against Covid. - Related Data Home Medications Medication Instructions Recorded Confirmed Fluticasone/Salmeterol 1 puff INHALATION RT-BID 11/28/19 09/27/21 [Fluticasone-Salmeterol 113-14] ALPRAZolam [Xanax] 0.25 mg PO DAILY PRN 12/26/19 09/27/21 Albuterol Sulfate [Proair 1 puff PO RT-Q4H PRN 09/27/21 09/27/21 Respiclick] Apixaban [Eliquis] 5 mg PO BID 09/27/21 09/27/21 Atorvastatin [Lipitor] 40 mg PO Q48H 09/27/21 09/27/21 Metoprolol Tartrate [Lopressor] 12.5 mg PO BID 09/27/21 09/27/21 Previous Rx's Medication Instructions Recorded Spironolactone [Aldactone] 25 mg PO DAILY #30 tab 12/01/19 lisinopriL [Zestril] 2.5 mg PO DAILY #30 tab 12/01/19 Allergies Allergy/AdvReac Type Severity Reaction Status Date / Time No Known Allergies Allergy Verified 09/27/21 21:33 Review of Systems ROS Statement: Those systems with pertinent positive or pertinent negative responses have been documented in the HPI. ROS Other: All systems not noted in ROS Statement are negative. Past Medical History Past Medical History: COPD, Hyperlipidemia, Pulmonary Embolus (PE) Additional Past Medical History / Comment(s): recent irregular heart rate and SOB and V-Tach, hiatal hernia, "borderline cholesterol", developed cough and runny nose at [facility] admission 11/27/2019 and still has(pt called Dr Simmons today) on cough medicine. denies recent travel or near anyone that is ill or has traveled out History of Any Multi-Drug Resistant Organisms: None Reported Past Surgical History: Back Surgery, Tonsillectomy Additional Past Surgical History / Comment(s): colonoscopy, "two disks removed from spine", pilonidal cyst, jhonatan cataracts Past Anesthesia/Blood Transfusion Reactions: No Reported Reaction Past Psychological History: Anxiety Smoking Status: Former smoker Past Alcohol Use History: Occasional Past Drug Use History: None Reported - Past Family History Mother Family Medical History: Cancer Brother(s) Family Medical History: Cancer General Exam Limitations: no limitations General appearance: alert, in no apparent distress Head exam: Present: atraumatic, normocephalic Eye exam: Present: normal appearance, EOMI ENT exam: Present: mucous membranes moist Neck exam: Present: other (Trachea is in midline) Respiratory exam: Present: normal lung sounds bilaterally. Absent: respiratory distress, wheezes, rales, rhonchi, stridor, chest wall tenderness Cardiovascular Exam: Present: regular rate, normal rhythm, normal heart sounds, other (Normal radial pulses bilaterally) GI/Abdominal exam: Present: soft. Absent: distended, tenderness, guarding Extremities exam: Present: other (Negative Homans sign bilaterally). Absent: tenderness, pedal edema, calf tenderness Neurological exam: Present: alert, oriented X3. Absent: motor sensory deficit Psychiatric exam: Present: normal affect, normal mood Skin exam: Present: warm, dry, intact, normal color Course Vital Signs 09/27/21 14:22 Temperature 98.3 F Pulse Rate 98 Respiratory 22 Rate Blood Pressure 156/85 O2 Sat by Pulse 94 L Oximetry - Reevaluation(s) Reevaluation #1: 09/27/21 22:01 Case, H&P and test results were discussed with Dr. Oneil. He accepts hospital admission. He recommends ordering cardiology and cardiothoracic surgery consultations. He has no further recommendations at this time. 09/27/21 22:10 Patient denies development of any new symptoms while in the ED. Patient remains alert and breathing comfortably. Patient and family are aware of the patient's test results, and they all agree with hospital admission at this time. EKG Findings - EKG Comments: EKG Findings:: Normal sinus rhythm, occasional premature supraventricular complexes, ventricular rate of 79 bpm, normal MN and QRS intervals, normal QT in terval, leftward axis, incomplete right bundle branch block, no definite ST or T-wave abnormality Procedures - [place] Protocol (Time Out) Nurse: Princess Anderson Medical Decision Making - Medical Decision Making Patient's CT chest findings are unusual given his clinical presentation. Patient is afebrile and without leukocytosis. Patient denies having a cough. I do not think that the patient likely has an infectious etiology of his CT findings. I suspect that the patient's left-sided hydropneumothorax is likely a chronic finding. Patient denies any recent fall or trauma. Dr. Oneil has accepted hospital admission. Will consult cardiology, as well as cardiothoracic surgery. - Lab Data Result diagrams: 09/27/21 14:54 09/27/21 14:54 Lab Results 09/27/21 09/27/21 09/27/21 Range/Units 14:54 14:54 14:54 WBC 7.1 (3.8-10.6) k/uL RBC 5.06 (4.30-5.90) m/uL Hgb 15.6 (13.0-17.5) gm/dL Hct 48.3 (39.0-53.0) % MCV 95.5 (80.0-100.0) fL MCH 30.8 (25.0-35.0) pg MCHC 32.3 (31.0-37.0) g/dL RDW 14.1 (11.5-15.5) % Plt Count 252 (150-450) k/uL MPV 7.3 Neutrophils % 71 % Lymphocytes % 14 % Monocytes % 6 % Eosinophils % 5 % Basophils % 1 % Neutrophils # 5.0 (1.3-7.7) k/uL Lymphocytes # 1.0 (1.0-4.8) k/uL Monocytes # 0.5 (0-1.0) k/uL Eosinophils # 0.4 (0-0.7) k/uL Basophils # 0.1 (0-0.2) k/uL PT 9.9 (9.0-12.0) sec INR 0.9 (<1.2) APTT 26.8 (22.0-30.0) sec D-Dimer 0.78 H (<0.60) mg/L FEU Sodium 136 L (137-145) mmol/L Potassium 4.7 (3.5-5.1) mmol/L Chloride 102 (98-107) mmol/L Carbon Dioxide 27 (22-30) mmol/L Anion Gap 7 mmol/L BUN 15 (9-20) mg/dL Creatinine 0.89 (0.66-1.25) mg/dL Est GFR (CKD-EPI)AfAm >90 (>60 ml/min/1.73 sqM) Est GFR (CKD-EPI)NonAf 83 (>60 ml/min/1.73 sqM) Glucose 98 (74-99) mg/dL Calcium 9.3 (8.4-10.2) mg/dL Magnesium 2.0 (1.6-2.3) mg/dL Total Bilirubin 0.6 (0.2-1.3) mg/dL AST 34 (17-59) U/L ALT 21 (4-49) U/L Alkaline Phosphatase 84 (38-126) U/L Troponin I (0.000-0.034) ng/mL Total Protein 7.2 (6.3-8.2) g/dL Albumin 3.9 (3.5-5.0) g/dL 09/27/21 Range/Units 14:54 WBC (3.8-10.6) k/uL RBC (4.30-5.90) m/uL Hgb (13.0-17.5) gm/dL Hct (39.0-53.0) % MCV (80.0-100.0) fL MCH (25.0-35.0) pg MCHC (31.0-37.0) g/dL RDW (11.5-15.5) % Plt Count (150-450) k/uL MPV Neutrophils % % Lymphocytes % % Monocytes % % Eosinophils % % Basophils % % Neutrophils # (1.3-7.7) k/uL Lymphocytes # (1.0-4.8) k/uL Monocytes # (0-1.0) k/uL Eosinophils # (0-0.7) k/uL Basophils # (0-0.2) k/uL PT (9.0-12.0) sec INR (<1.2) APTT (22.0-30.0) sec D-Dimer (<0.60) mg/L FEU Sodium (137-145) mmol/L Potassium (3.5-5.1) mmol/L Chloride (98-107) mmol/L Carbon Dioxide (22-30) mmol/L Anion Gap mmol/L BUN (9-20) mg/dL Creatinine (0.66-1.25) mg/dL Est GFR (CKD-EPI)AfAm (>60 ml/min/1.73 sqM) Est GFR (CKD-EPI)NonAf (>60 ml/min/1.73 sqM) Glucose (74-99) mg/dL Calcium (8.4-10.2) mg/dL Magnesium (1.6-2.3) mg/dL Total Bilirubin (0.2-1.3) mg/dL AST (17-59) U/L ALT (4-49) U/L Alkaline Phosphatase (38-126) U/L Troponin I <0.012 (0.000-0.034) ng/mL Total Protein (6.3-8.2) g/dL Albumin (3.5-5.0) g/dL - Radiology Data Radiology results: report reviewed (Chest x-ray: Chronic emphysematous and pulmonary fibrotic changes with new small to tiny left pleural effusion.) CT angiogram chest with IV contrast: 1. Left hydropneumothorax. This has a trace pleural effusion component and small pneumothorax. 2. No evidence of pulmonary embolism. 3. Nodular thickening to the left upper lung [place] which may be chronic given calcification. Attention and follow-up imaging. 4. Right upper lobe tree and but opacities felt to be related to infecti ous/inflammatory process given the tree and but appearance. Attention on follow-up imaging. Disposition Clinical Impression: Chest pain, Palpitations, Hydropneumothorax Disposition: ADMITTED IP TO THIS HOSP Condition: Stable Is patient prescribed a controlled substance at d/c from ED?: No Referrals: Liss Oneil MD [Primary Care Provider] - 1-2 days Time of Disposition: 22:06
--- NOTE | 2021-09-27 21:35 | CT ---
EXAMINATION TYPE: CT chest angio for PE CT DLP: 345.6 mGycm, Automated exposure control for dose reduction was used. DATE OF EXAM: 09/27/2021 9:17 PM COMPARISON: Chest radiograph from same day. CTs of the chest with most recent on 09/27/2020 CLINICAL INDICATION:Male, 75 years old with history of Chest pain, elevated d-dimer; PHH, chest pain, eleated d-dimer TECHNIQUE/CONTRAST: CTA scan of the thorax is performed with IV Contrast, patient injected with 100 mL of Isovue 370, pul monary embolism protocol. MIP images are created and reviewed. FINDINGS: Pulmonary Artery: There is no evidence for a filling defect within the pulmonary vasculature to sugge st acute pulmonary embolism. The pulmonary artery is of normal size. Lungs/Pleura: There is a trace left pleural effusion and small pneumothorax with streaky subsegmental atelectasis noted. No evidence of focal consolidation, pleural effusion. Tree-in-bud opacities are s een within the right upper lung. Left apical pleural thickening noted with some calcification. Airway: Patent and grossly unremarkable. Heart: Within normal limits for size. Vasculature: No evidence of aortic aneurysm. Mediastinum: No gross evidence of adenopathy. Musculoskeletal: No acute osseous abnormalities Soft Tissues: Unremarkable. Lower neck: No significant findings. Upper Abdomen: Limited given motion No significant findings. IMPRESSION: 1. Left hydropneumothorax. This has a trace pleural effusion component and small pneumothorax compone nt. 2. No evidence of pulmonary embolism. 3. Nodular thickening to the left upper lung pleura which may be chronic given calcification. A atten tion on follow-up imaging. 4. right upper lobe tree-in-bud opacities felt to be related to infectious/inflammatory process given the tree-in-bud appearance. A attention on follow-up imaging.
[2021-09-27] MEDS ORDERED: ALPRAZolam 0.25 MG TAB PO PRN (23:26)
[2021-09-27] MEDS ORDERED: ALBUTEROL NEBULIZED 2.5 MG/3 ML INHALATION PRN (23:26)
[2021-09-27] MEDS ORDERED: ATORVASTATIN 40 MG TAB PO SCH (23:30)
[2021-09-27] MEDS: METOPROLOL TARTRATE 12.5 MG TAB PO SCH (23:55)
[2021-09-27] MEDS: APIXABAN 5 MG TAB PO SCH (23:55)
[2021-09-28 05:15] LABS: Basophils # (A) 0.1 k/uL (0-0.2); Basophils % (A) 1 %; Eosinophils # (A) 0.5 k/uL (0-0.7); Eosinophils % (A) 7 %; HCT 43.2 % (39.0-53.0); Lymphocytes # (A) 1.3 k/uL (1.0-4.8); Lymphocytes % (A) 18 %; MCH 31.3 pg (25.0-35.0); MCHC 32.3 g/dL (31.0-37.0); MCV 96.9 fL (80.0-100.0); Mean Platelet Volume 7.4; Monocytes # (A) 0.6 k/uL (0-1.0); Monocytes % (A) 9 %; Neutrophils # (A) 4.3 k/uL (1.3-7.7); Neutrophils % (A) 61 %; Platelet Count 259 k/uL (150-450); RBC 4.46 m/uL (4.30-5.90); RDW 13.5 % (11.5-15.5)
[2021-09-28 05:19] LABS: Albumin 3.3 g/dL (3.5-5.0); Calcium 8.8 mg/dL (8.4-10.2); Potassium 4.4 mmol/L (3.5-5.1); Total Bilirubin 0.4 mg/dL (0.2-1.3); Total Protein 6.2 g/dL (6.3-8.2)
[2021-09-28] MEDS: SYMBICORT 160-4.5 MCG INHALER INHALATION SCH ×2 (07:21→20:28)
--- NOTE | 2021-09-28 07:47 | XR ---
EXAMINATION TYPE: XR chest 1V portable DATE OF EXAM: 09/28/2021 COMPARISON: 09/27/2021 HISTORY: Left-sided hydropneumothorax TECHNIQUE: Single frontal view of the chest is obtained. FINDINGS: The right lung is clear. There is mild interstitial opacity in the left lung base. Left ap ical pneumothorax seen on the prior study has decreased tiny left apical pneumothorax cannot be exclu ded with this technique. The heart size is normal and the pulmonary vasculature is not congested. The osseous structures are intact. IMPRESSION: Interval decrease in the small left apical pneumothorax. No change in the small left ple ural effusion. Mild interstitial infiltrates in the left lung base which might be chronic in nature.
--- NOTE | 2021-09-28 10:31 | P.GSCN ---
History of Present Illness Consult date: 09/28/21 Reason for Consult: Left hydropneumothorax Requesting physician: Liss Oneil History of present illness: This is a 75-year-old gentleman who follows on an outpatient basis with Dr. Liss Oneil for his primary care service. He also follows with Dr. Simmons for his cardiology care. He is a past medical history significant for hypertension, dyslipidemia, peripheral vascular disease, episode of nonsustained ventricular tachycardia, history of pulmonary embolus in November 2019 in which he is on Eliquis for anticoagulation, cardiomyopathy with an ejection fraction around 20%, COPD, and remote history of nicotine dependence in which he quit smoking over 20 years ago. Yesterday 09/27/2021 the patient reports that he was going to take his dog for a walk, and when he attached the leash to his dog's heart began to beat rapidly. He does report that once his heart rate started beating rapidly he became quite short of breath and had some chest tightness associated with the rapid heart rate. The patient reports that he does have a history of rapid heart rate associated with shortness of breath in the past. He denies any recent fever, chills, nausea, vomiting, diarrhea, constipation, cough, hemoptysis, hematemesis, orthopnea, edema, recent trauma, presyncope or syncope. The patient also reports that he has been vaccinated with the J&J vaccine for COVID-19. In the emergency department a 12-lead EKG was completed which showed normal sinus rhythm with a mature supraventricular complexes and incomplete right bundle branch block with a heart rate of 79 BPM. The patient denies any history of atrial fibrillation. Due to the patient's presenting symptoms a chest x-ray was completed which demonstrated chronic emphysematous and pulmonary fibrotic changes with a new small tiny left pleural effusion. For further evaluation the patient underwent a CT angio of his chest which showed a small left-sided hydropneumothorax, a trace pleural effusion and a small pneumothorax component. It also demonstrated a nodular thickening to the left upper lung pleura thought to be chronic given the calcification in it also demonstrated a right upper lobe tree-in-bud opacity. Due to the finding of the left-sided hydropneumothorax a consult was placed to cardiothoracic surgery for further evaluation and treatment recommendations. At the time of the evaluation at his bedside on the sixth floor observation unit, the patient reports he feels great and his oxygen saturations are 98% on room air. Review of Systems A 14 point review of systems was completed and was negative except as mentioned in the HPI. Past Medical History Past Medical History: COPD, Hyperlipidemia, Hypertension, Pulmonary Embolus (PE) Additional Past Medical History / Comment(s): recent rapid heart rate and SOB and nonsustained V-Tach in November 2019, hiatal hernia. Cardiomyopathy with an ejection fraction of 20% History of Any Multi-Drug Resistant Organisms: None Reported Past Surgical History: Back Surgery, Tonsillectomy Additional Past Surgical History / Comment(s): colonoscopy, "two disks removed from spine", pilonidal cyst, jhonatan cataracts Past Anesthesia/Blood Transfusion Reactions: No Reported Reaction Past Psychological History: Anxiety Smoking Status: Former smoker Past Alcohol Use History: Occasional (Drinks 2-3 beers per week.) Additional Past Alcohol Use History / Comment(s): QUIT SMOKING 2006, started smoking age 19, 1 PPD Past Drug Use History: None Reported - Past Family History Mother Family Medical History: Cancer Brother(s) Family Medical History: Cancer Medications and Allergies Home Medications Medication Instructions Recorded Confirmed Type Fluticasone/Salmeterol 1 puff INHALATION RT-BID 11/28/19 09/27/21 History [Fluticasone-Salmeterol 113-14] Spironolactone [Aldactone] 25 mg PO DAILY #30 tab 12/01/19 09/27/21 Rx lisinopriL [Zestril] 2.5 mg PO DAILY #30 tab 12/01/19 09/27/21 Rx ALPRAZolam [Xanax] 0.25 mg PO DAILY PRN 12/26/19 09/27/21 History Albuterol Sulfate [Proair 1 puff PO RT-Q4H PRN 09/27/21 09/27/21 History Respiclick] Apixaban [Eliquis] 5 mg PO BID 09/27/21 09/27/21 History Atorvastatin [Lipitor] 40 mg PO Q48H 09/27/21 09/27/21 History Metoprolol Tartrate [Lopressor] 12.5 mg PO BID 09/27/21 09/27/21 History Allergies Allergy/AdvReac Type Severity Reaction Status Date / Time No Known Allergies Allergy Verified 12/17/21 21:33 Surgical - Exam Vital Signs Temp Pulse Resp BP Pulse Ox 98.3 F 98 22 156/85 94 L 09/27/21 14:22 09/27/21 14:22 09/27/21 14:22 09/27/21 14:22 09/27/21 14:22 - General well developed, well nourished, no distress, no pain - Eyes PERRL, normal ocular movement, no pale, no icteric - ENT normal pinna, normal nares, normal mucosa, no hearing loss, no congestion, dentures - Neck Neck is supple, no lymphadenopathy. no masses, no bruits, trachea midline, no venous distension - Respiratory Lung sounds diminished throughout with some few scattered expiratory wheezes. Respirations are symmetrical and nonlabored. No crackles or rhonchi. - Cardiovascular Regular rhythm and rate. S1 and S2 present, negative for S3, gallop or murmur. No edema present. - Abdomen Abdomen is soft, nontender and nondistended. Active bowel sounds present all 4, quadrants. No guarding or rigidity. No organomegaly appreciated. - Integumentary Small ecchymotic areas to his bilateral hands. no rash, no growths, no abnormal pigmentation - Neurologic normal coordination, normal sensation, no disoriented, no memory loss - Musculoskeletal normal gait, normal posture - Psychiatric oriented to time, oriented to person, oriented to place, speech is normal, memory intact Results - Labs 09/28/21 04:14 09/28/21 04:14 Abnormal Lab Results - Last 24 Hours (Table) 09/27/21 09/27/21 09/28/21 Range/Units 14:54 14:54 04:14 D-Dimer 0.78 H (<0.60) mg/L FEU Sodium 136 L (137-145) mmol/L Total Protein 6.2 L (6.3-8.2) g/dL Albumin 3.3 L (3.5-5.0) g/dL Diabetes panel 09/27/21 09/28/21 Range/Units 14:54 04:14 Sodium 136 L 137 (137-145) mmol/L Potassium 4.7 4.4 (3.5-5.1) mmol/L Chloride 102 103 (98-107) mmol/L Carbon Dioxide 27 28 (22-30) mmol/L BUN 15 15 (9-20) mg/dL Creatinine 0.89 1.02 (0.66-1.25) mg/dL Glucose 98 91 (74-99) mg/dL Calcium 9.3 8.8 (8.4-10.2) mg/dL AST 34 29 (17-59) U/L ALT 21 18 (4-49) U/L Alkaline Phosphatase 84 67 (38-126) U/L Total Protein 7.2 6.2 L (6.3-8.2) g/dL Albumin 3.9 3.3 L (3.5-5.0) g/dL Calcium panel 09/27/21 09/28/21 Range/Units 14:54 04:14 Calcium 9.3 8.8 (8.4-10.2) mg/dL Albumin 3.9 3.3 L (3.5-5.0) g/dL Pituitary panel 09/27/21 09/28/21 Range/Units 14:54 04:14 Sodium 136 L 137 (137-145) mmol/L Potassium 4.7 4.4 (3.5-5.1) mmol/L Chloride 102 103 (98-107) mmol/L Carbon Dioxide 27 28 (22-30) mmol/L BUN 15 15 (9-20) mg/dL Creatinine 0.89 1.02 (0.66-1.25) mg/dL Glucose 98 91 (74-99) mg/dL Calcium 9.3 8.8 (8.4-10.2) mg/dL Adrenal panel 09/27/21 09/28/21 Range/Units 14:54 04:14 Sodium 136 L 137 (137-145) mmol/L Potassium 4.7 4.4 (3.5-5.1) mmol/L Chloride 102 103 (98-107) mmol/L Carbon Dioxide 27 28 (22-30) mmol/L BUN 15 15 (9-20) mg/dL Creatinine 0.89 1.02 (0.66-1.25) mg/dL Glucose 98 91 (74-99) mg/dL Calcium 9.3 8.8 (8.4-10.2) mg/dL Total Bilirubin 0.6 0.4 (0.2-1.3) mg/dL AST 34 29 (17-59) U/L ALT 21 18 (4-49) U/L Alkaline Phosphatase 84 67 (38-126) U/L Total Protein 7.2 6.2 L (6.3-8.2) g/dL Albumin 3.9 3.3 L (3.5-5.0) g/dL - Imaging Chest x-ray: report reviewed, image reviewed CT scan - chest: report reviewed, image reviewed Assessment and Plan Assessment: 1. Left hydropneumothorax 2. Dyspnea, possibly secondary to above 3. History of hypertension 4. Dyslipidemia 5. History of nonsustained ventricular tachycardia 6. History of cardiomyopathy with an ejection fraction of 20% 7. History of pulmonary embolus in November 2019, currently on Eliquis on an outpatient basis for anticoagulation 8. History of COPD 9. Remote history of nicotine dependence quit smoking over 20 years ago Plan: The patient was seen and examined at his bedside on the cardiac stepdown unit on the sixth floor. His chart diagnostics reviewed. This case was discussed in detail with Dr. Gray Lau from cardiothoracic surgery. Repeat x-ray this morning shows a interval decrease in the small left apical pneumothorax. The patient is currently asymptomatic and his oxygen saturations are 98% on room air. No surgical intervention is warranted at this time. We will continue to follow the patient with more recommendations to follow based on patient's clinical course. We will continue to monitor his daily chest x-rays. We have ordered an incentive spirometry with encouraged used 10 times every hour while awake. Increase activity as tolerated. Medical management and other comorbidities primary care service. Thank you Dr. Oneil for this consult and we look forward to working with you in the care of this patient. Time with Patient: Greater than 30
[2021-09-28] MEDS: METOPROLOL TARTRATE 12.5 MG TAB PO SCH ×2 (11:16→20:53)
[2021-09-28] MEDS: SPIRONOLACTONE 25 MG TAB PO SCH (11:16)
[2021-09-28] MEDS: APIXABAN 5 MG TAB PO SCH ×2 (11:17→20:53)
--- NOTE | 2021-09-28 13:55 | P.CRDCN ---
History of Present Illness Consult date: 09/28/21 Requesting physician: Liss Oneil Reason for Consult (text): palpitations, chest pain Chief complaint: palpitations, shortness of breath, chest tightness History of present illness: The pleasant 75-year-old gentleman who follows with Dr. Simmons in the office. He has a past medical history of nonischemic cardiomyopathy, ventricular tachycardia, pulmonary embolism and dyslipidemia. In November 2019 he presented to the emergency department with symptoms of sudden onset shortness of breath at that time was noted to be in ventricular tachycardia and underwent echocardiogram which showed an ejection fraction of less than 20% patient underwent cardiac catheterization at that time which showed normal coronary arteries. Most recent available echocardiogram from January 2020 showed treatment and the LV systolic function with ejection fraction of 50%. He presents this admission with complaints of recurrent palpitations with shortness of breath and tightness in his chest. These episodes have been occurring over the last 6 months. He says he is able to do his grocery shopping including unloading the groceries including the way without any issues but typically develops these symptoms when he is walking his dog. He said he feels the symptoms coming on and describes this as a change in his heart rate, feels his heart rate increasing. He then developed feeling of racing heart with shortness of breath and tightness in his chest that are relieved with rest. Laboratory values showed normal CBC, troponins negative 3, normal electrolytes and renal function and it elevated d-dimer. Patient does have a history of PE in the past and underwent computed tomography scan of the chest which showed no evidence of PE with left hydropneumothorax, a trace pleural effusion component and small pneumothorax component, nodular thickening to the left upper lung pleura which may be chronic given calcification, right upper lobe tree in buffered O pace of these felt to be related to infectious/laboratory process. Repeat chest x-ray this morning showed interval to decrease and small left apical pneumothorax, no change in the small left pleural effusion, mild interstitial infiltrates in the left lung base which might be chronic in nature. Coronary patient he has been asymptomatic since admission but has not been very active only getting up to go to the bathroom. He did recently have 48 hour Holter monitor done in our office, these results are not available to me and he has not yet received the results. Current medications include Lipitor 40 mg by mouth every other day, lisinopril 2.5 mg by mouth daily, spironolactone 25 mg by mouth daily, metoprolol tartrate 12.5 mg by mouth twice a day, and Eliquis 5 mg by mouth twice a day. Past Medical History Past Medical History: COPD, Hyperlipidemia, Pulmonary Embolus (PE) Additional Past Medical History / Comment(s): recent irregular heart rate and SOB and V-Tach, hiatal hernia, "borderline cholesterol", developed cough and runny nose at [facility] admission 11/27/2019 and still has(pt called Dr Simmons today) on cough medicine. denies recent travel or near anyone that is ill or has traveled out History of Any Multi-Drug Resistant Organisms: None Reported Past Surgical History: Back Surgery, Tonsillectomy Additional Past Surgical History / Comment(s): colonoscopy, "two disks removed from spine", pilonidal cyst, jhonatan cataracts Past Anesthesia/Blood Transfusion Reactions: No Reported Reaction Past Psychological History: Anxiety Smoking Status: Former smoker Past Alcohol Use History: Occasional Additional Past Alcohol Use History / Comment(s): QUIT SMOKING 2006, started smoking age 19, 1 PPD Past Drug Use History: None Reported - Past Family History Mother Family Medical History: Cancer Brother(s) Family Medical History: Cancer Medications and Allergies Home Medications Medication Instructions Recorded Confirmed Type Fluticasone/Salmeterol 1 puff INHALATION RT-BID 11/28/19 09/27/21 History [Fluticasone-Salmeterol 113-14] Spironolactone [Aldactone] 25 mg PO DAILY #30 tab 12/01/19 09/27/21 Rx lisinopriL [Zestril] 2.5 mg PO DAILY #30 tab 12/01/19 09/27/21 Rx ALPRAZolam [Xanax] 0.25 mg PO DAILY PRN 12/26/19 09/27/21 History Albuterol Sulfate [Proair 1 puff PO RT-Q4H PRN 09/27/21 09/27/21 History Respiclick] Apixaban [Eliquis] 5 mg PO BID 09/27/21 09/27/21 History Atorvastatin [Lipitor] 40 mg PO Q48H 09/27/21 09/27/21 History Metoprolol Tartrate [Lopressor] 12.5 mg PO BID 09/27/21 09/27/21 History Allergies Allergy/AdvReac Type Severity Reaction Status Date / Time No Known Allergies Allergy Verified 09/27/21 21:33 Physical Exam Vitals: Vital Signs Temp Pulse Pulse Resp BP BP Pulse Ox 09/28/21 01:21 98.4 F 54 L 18 119/80 96 09/27/21 23:17 97.7 F 77 20 154/95 95 09/27/21 22:48 76 16 146/79 95 09/27/21 14:22 98.3 F 98 22 156/85 94 L Intake and Output 09/27/21 09/28/21 09/28/21 22:59 06:59 14:59 Other: # Voids 2 Weight 79.379 kg PHYSICAL EXAMINATION: This is a 75-year-old male in no apparent distress at the time of my examination. VITAL SIGNS: Blood pressure 119/80, heart rate 54, respirations 18, temp 98.4F. Patient is 96 % on room air. HEENT: Head is atraumatic, normocephalic. Pupils are equal, round. Sclerae anicteric. Conjunctivae are clear. Mucous membranes of the mouth are moist. Neck is supple. There is no elevated jugular venous pressure. No carotid bruit is heard. CHEST EXAMINATION: Lungs reveal diminished air entry bilaterally. No wheezes rales or rhonchi. Respirations even and nonlabored. HEART EXAMINATION: Heart regular, positive S1 and S2. No S3. No S4. With a systolic murmur. ABDOMEN: Soft, nontender. Bowel sounds are heard. No organomegaly noted. EXTREMITIES: 2+ peripheral pulses with no evidence of peripheral edema and no calf tenderness noted. NEUROLOGIC EXAMINATION: Patient is awake, alert and oriented x3. Results 09/28/21 04:14 09/28/21 04:14 Cardiac Enzymes 09/27/21 09/27/21 09/28/21 Range/Units 14:54 14:54 00:11 AST 34 (17-59) U/L Troponin I <0.012 <0.012 (0.000-0.034) ng/mL 09/28/21 09/28/21 Range/Units 04:14 04:14 AST 29 (17-59) U/L Troponin I <0.012 (0.000-0.034) ng/mL Coagulation 09/27/21 Range/Units 14:54 PT 9.9 (9.0-12.0) sec APTT 26.8 (22.0-30.0) sec CBC 09/27/21 12 Range/Units 14:54 04:14 WBC 7.1 7.0 (3.8-10.6) k/uL RBC 5.06 4.46 (4.30-5.90) m/uL Hgb 15.6 14.0 (13.0-17.5) gm/dL Hct 48.3 43.2 (39.0-53.0) % Plt Count 252 259 (150-450) k/uL Comprehensive Metabolic Panel 09/27/21 09/28/21 Range/Units 14:54 04:14 Sodium 136 L 137 (137-145) mmol/L Potassium 4.7 4.4 (3.5-5.1) mmol/L Chloride 102 103 (98-107) mmol/L Carbon Dioxide 27 28 (22-30) mmol/L BUN 15 15 (9-20) mg/dL Creatinine 0.89 1.02 (0.66-1.25) mg/dL Glucose 98 91 (74-99) mg/dL Calcium 9.3 8.8 (8.4-10.2) mg/dL AST 34 29 (17-59) U/L ALT 21 18 (4-49) U/L Alkaline Phosphatase 84 67 (38-126) U/L Total Protein 7.2 6.2 L (6.3-8.2) g/dL Albumin 3.9 3.3 L (3.5-5.0) g/dL Current Medications Generic Name Dose Route Start Last Admin Trade Name Freq PRN Reason Stop Dose Admin Albuterol Sulfate 2.5 mg 09/27/21 23:26 Albuterol Nebulized 2.5 Mg/3 Ml INHALATION RT-Q4H PRN Shortness Of Breath Alprazolam 0.25 mg 09/27/21 23:26 Alprazolam 0.25 Mg Tab PO DAILY PRN Anxiety Apixaban 5 mg 09/27/21 23:30 09/27/21 23:55 Apixaban 5 Mg Tab PO 5 mg BID EVELYN Administration Protocol Atorvastatin Calcium 40 mg 09/27/21 23:30 09/27/21 23:55 Atorvastatin 40 Mg Tab PO 40 mg Q48H EVELYN Administration Budesonide/Formoterol Fumarate 2 puff 09/28/21 08:00 09/28/21 07:21 Symbicort 160-4.5 Mcg Inhaler INHALATION 2 puff RT-BID EVELYN Administration Lisinopril 2.5 mg 09/28/21 09:00 Lisinopril 2.5 Mg Tab PO DAILY EVELYN Metoprolol Tartrate 12.5 mg 09/27/21 23:30 09/27/21 23:55 Metoprolol Tartrate 12.5 Mg Tab PO 12.5 mg BID EVELYN Administration Spironolactone 25 mg 09/28/21 09:00 Spironolactone 25 Mg Tab PO DAILY EVELYN Intake and Output 09/27/21 09/28/21 09/28/21 22:59 06:59 14:59 Other: # Voids 2 Weight 79.379 kg 09/28/21 04:14 09/28/21 04:14 EKG Interpretations (text) Sinus mechanism with frequent PACs, incomplete right bundle branch block Assessment and Plan Assessment: #1 symptoms of palpitations with shortness of breath and chest tightness, acute coronary event has been ruled out, troponins negative 3 #2 history of nonischemic cardiomyopathy with most recent available echocardiogram showing an ejection fraction of 50-55% #3 history of ventricular tachycardia in the setting of severely impaired LV systolic function #4 history of PE, on Eliquis Plan: From cardiology's perspective we will obtain a 2-D echo with Doppler study. Increase the patient's level of activity, ambulate the patient in the hallway, watch for arrhythmias on the monitor. We will continue to follow the patient and provide further recommendations accordingly. MARBLE COPER note has been reviewed, I agree with a documented findings and plan of care. Patient was seen and examined.
--- NOTE | 2021-09-28 13:58 | ECHOF ---
Referral Reason:chest pain, h/o cardiomyopathy MEASUREMENTS -------- HEIGHT: 152.4 cm WEIGHT: 79.4 kg BP: RVIDd: 3.0 cm (< 3.3) IVSd: 0.7 cm (0.6 - 1.1) LVIDd: 4.1 cm (3.9 - 5.3) LVPWd: 1.4 cm (0.6 - 1.1) IVSs: 0.9 cm LVIDs: 3.4 cm LVPWs: 1.3 cm LA Diam: 3.3 cm (2.7 - 3.8) Ao Diam: 3.2 cm (2.0 - 3.7) AV Cusp: 1.6 cm (1.5 - 2.6) MV EXCURSION: 16.332 mm (> 18.000) MV EF SLOPE: 75 mm/s (70 - 150) EPSS: 0.2 cm MV E Wilbert: 0.68 m/s MV DecT: 217 ms MV A Wilbert: 0.62 m/s MV E/A Ratio: 1.09 RAP: 5.00 mmHg RVSP: 13.69 mmHg FINDINGS -------- Sinus rhythm. This was a technically adequate study. The left ventricular size is normal. Left ventricular wall thickness is normal. Overall left vent ricular systolic function is mild-moderately impaired with, an EF between 40 - 45 %. The right ventricle is normal in size. The left atrial size is normal. The right atrial size is normal. There is mild aortic valve sclerosis. Mild mitral annular calcification present. Mild mitral regurgitation is present. The tricuspid valve appears structurally normal. Mild tricuspid regurgitation present. Right vent ricular systolic pressure is normal at < 35 mmHg. The pulmonic valve was not well visualized. The aortic root size is normal. Echo free space indicative of a pericardial fat pad. CONCLUSIONS -------- 1. Left ventricular wall thickness is normal. 2. Overall left ventricular systolic function is mild-moderately impaired with, an EF between 40 - 45 %. 3. The left atrial size is normal. 4. Mild mitral regurgitation is present. 5. Mild tricuspid regurgitation present. 6. Echo free space indicative of a pericardial fat pad. OBSERVER GRAVITY PROSPECTING: Barbara Rodgers RDCS
--- NOTE | 2021-09-28 14:55 | P.HPIM ---
History of Present Illness This is a pleasant 75 years old male with past medical history of COPD, Hyperlipidemia, Hypertension, Pulmonary Embolus on Eliquis, nonsustained V-Tach in November 2019, hiatal hernia, Cardiomyopathy with an ejection fraction of 20% Presents because of dyspnea and palpitations called yesterday while he was trying to HIS Dog, he got this on and off not that often occasionally but yesterday was worse than usual and he could not move because of his bad breathing.. Patient states that this lasted for about half an hour and then he improved, and during the night he went to bed he woke up with cramps in his legs She is improved but then he has another episode of shortness of breath that he could not trace in bed but then resolved and he went to sleep before he wakes up again at 8:00 which is the usual time he wakes up but this time also he developed shortness of breath and he decided to come to emergency room because he could not WALK his dog. Patient currently sitting in chair looks comfortable, he states his back to his normal self, denies any dyspnea or chest pain or dizziness or palpitation. No abdominal pain or vomiting or diarrhea. No urinary complaints. No leg pain or cramping. He denies smoking, alcohol or illicit drugs. Vital signs stable and patient is afebrile. He is saturating 98% on room air. Labs including CBC, BMP, liver enzymes are unremarkable. Troponins 3 are negative less than 0.012. Coronavirus not detected Chest x-ray on admission showed a chronic emphysematous and pulmonary fibrotic changes with small to tiny left pleural effusion. CTA of the chest: Hydropneumothorax on the left side.No acute pulmonary embolism by radiologist. Nodular thickening of the left upper lung pleura which may be chronic given calcification. Recommend follow-up. Right upper lobe tree-in-bud oppositely felt to be related to infectious/inflammatory process chest x-ray this morning showed interval decrease in the small left apical pneumothorax. No change in the left lung Echocardiogram showed ejection fraction of 40-45% with mild mitral and tricuspid regurgitation Review of Systems CONSTITUTIONAL: No fever, no malaise, no fatigue. HEENT: No recent visual problems or hearing problems. Denied any sore throat. CARDIOVASCULAR: No orthopnea, PND, no palpitations, no syncope. PULMONARY: No shortness of breath, no cough, no hemoptysis. GASTROINTESTINAL: No diarrhea, no nausea, no vomiting, no abdominal pain. Normoactive bowel sounds. NEUROLOGICAL: No headaches, no weakness, no numbness. HEMATOLOGICAL: Denies any bleeding or petechiae. GENITOURINARY: Denies any burning micturition, frequency, or urgency. MUSCULOSKELETAL/RHEUMATOLOGICAL: Denies any joint pain, swelling, or any muscle pain. ENDOCRINE: Denies any polyuria or polydipsia. Past Medical History Past Medical History: COPD, Hyperlipidemia, Hypertension, Pulmonary Embolus (PE) Additional Past Medical History / Comment(s): recent rapid heart rate and SOB and nonsustained V-Tach in November 2019, hiatal hernia. Cardiomyopathy with an ejection fraction of 20% History of Any Multi-Drug Resistant Organisms: None Reported Past Surgical History: Back Surgery, Tonsillectomy Additional Past Surgical History / Comment(s): colonoscopy, "two disks removed from spine", pilonidal cyst, jhonatan cataracts Past Anesthesia/Blood Transfusion Reactions: No Reported Reaction Past Psychological History: Anxiety Smoking Status: Former smoker Past Alcohol Use History: Occasional (Drinks 2-3 beers per week.) Additional Past Alcohol Use History / Comment(s): QUIT SMOKING 2006, started smoking age 19, 1 PPD Past Drug Use History: None Reported - Past Family History Mother Family Medical History: Cancer Brother(s) Family Medical History: Cancer Medications and Allergies Home Medications Medication Instructions Recorded Confirmed Type Fluticasone/Salmeterol 1 puff INHALATION RT-BID 11/28/19 09/27/21 History [Fluticasone-Salmeterol 113-14] Spironolactone [Aldactone] 25 mg PO DAILY #30 tab 12/01/19 09/27/21 Rx lisinopriL [Zestril] 2.5 mg PO DAILY #30 tab 12/01/19 09/27/21 Rx ALPRAZolam [Xanax] 0.25 mg PO DAILY PRN 12/26/19 09/27/21 History Albuterol Sulfate [Proair 1 puff PO RT-Q4H PRN 09/27/21 09/27/21 History Respiclick] Apixaban [Eliquis] 5 mg PO BID 09/27/21 09/27/21 History Atorvastatin [Lipitor] 40 mg PO Q48H 09/27/21 09/27/21 History Metoprolol Tartrate [Lopressor] 12.5 mg PO BID 09/27/21 09/27/21 History Allergies Allergy/AdvReac Type Severity Reaction Status Date / Time No Known Allergies Allergy Verified 09/27/21 21:33 Physical Exam Vitals: Vital Signs Temp Pulse Pulse Resp BP BP Pulse Ox 09/28/21 07:16 97.4 F L 71 17 110/74 98 09/28/21 01:21 98.4 F 54 L 18 119/80 96 09/27/21 23:17 97.7 F 77 20 154/95 95 09/27/21 22:48 76 16 146/79 95 09/27/21 14:22 98.3 F 98 22 156/85 94 L Intake and Output 09/27/21 09/28/21 09/28/21 22:59 06:59 14:59 Other: # Voids 2 Weight 79.379 kg GENERAL: The patient is alert and oriented x3, not in any acute distress. Well developed, well nourished. HEENT: Pupils are round and equally reacting to light. EOMI. No scleral icterus. No conjunctival pallor. Normocephalic, atraumatic. No pharyngeal erythema. No thyromegaly. CARDIOVASCULAR: S1 and S2 present. No murmurs, rubs, or gallops. PULMONARY: Chest is clear to auscultation, no wheezing or crackles. ABDOMEN: Soft, nontender, nondistended, normoactive bowel sounds. No palpable organomegaly. MUSCULOSKELETAL: No joint swelling or deformity. EXTREMITIES: No cyanosis, clubbing, or pedal edema. NEUROLOGICAL: Gross neurological examination did not reveal any focal deficits. SKIN: No rashes. No petechiae Results CBC & Chem 7: 09/28/21 04:14 09/28/21 04:14 Labs: Abnormal Lab Results - Last 24 Hours (Table) 09/27/21 09/27/21 09/28/21 Range/Units 14:54 14:54 04:14 D-Dimer 0.78 H (<0.60) mg/L FEU Sodium 136 L (137-145) mmol/L Total Protein 6.2 L (6.3-8.2) g/dL Albumin 3.3 L (3.5-5.0) g/dL Thrombosis Risk Factor Assmnt - Choose All That Apply Each Factor Represents 1 point: Abnormal pulmonary function (COPD) Thrombosis Risk Factor Assessment Total Risk Factor Score: 1 Thrombosis Risk Factor Assessment Level: Low Risk Assessment and Plan Assessment: Episodes of dyspnea and sometimes with palpitation, currently on a improved Left hydropneumothorax Cardiomyopathy with ejection fraction of 20%, currently improved to 40-45% % Hypertension Hyperlipidemia COPD, not in acute exacerbation History of nonsustained V. tach on 11/2019 History of hiatal hernia Plan: This is a pleasant 75 years old male who presents with chest pain and left hydropneumothorax Patient currently back to baseline Cardiology and cardiothoracic surgery team on the case, once they cleared the patient we can discharge him as there is no other medical issue currently Labs and medication were reviewed.. Continue same treatment. Continue with symptomatic treatment. Resume home medication. Monitor lytes and vitals. DVT and GI prophylaxis. Further recommendations depends on the clinical course of the patient DVT prophylaxis: Eliquis GI Prophylaxis: Pepcid
[2021-09-29] MEDS: SYMBICORT 160-4.5 MCG INHALER INHALATION SCH (07:24)
--- NOTE | 2021-09-29 08:03 | XR ---
EXAMINATION TYPE: XR chest 1V portable DATE OF EXAM: 09/29/2021 COMPARISON: 09/28/2021 HISTORY: Left-sided pneumothorax TECHNIQUE: Single frontal view of the chest is obtained. FINDINGS: There are mild linear densities in the lower lobes bilaterally likely indicating chronic i nterstitial scarring or fibrosis. The lungs are clear of consolidative opacity. Heart size is normal and the vasculature is not congested. There is no definite left-sided pneumothorax. The osseous struc tures are intact IMPRESSION: 1. No definite pneumothorax bilaterally. 2. Mild chronic interstitial changes in the lung bases 3. normal heart size and pulmonary vasculature.
[2021-09-29] MEDS: APIXABAN 5 MG TAB PO SCH (08:26)
[2021-09-29] MEDS: METOPROLOL TARTRATE 12.5 MG TAB PO SCH (08:26)
[2021-09-29] MEDS: SPIRONOLACTONE 25 MG TAB PO SCH (08:26)
[2021-09-29] MEDS ORDERED: FAMOTIDINE 20 MG/2 ML VIAL IV SCH (09:00)
--- NOTE | 2021-09-29 09:22 | P.PN ---
Subjective Progress Note Date: 09/29/21 Principal diagnosis: Left hydropneumothorax. Past medical history significant for hypertension, dyslipidemia, peripheral vascular disease, episode of nonsustained ventricular tachycardia, history of pulmonary embolus in November 2019 in which he is on Eliquis for anticoagulation, cardiomyopathy with an ejection fraction around 20%, COPD, and remote history of nicotine dependence in which he quit smoking over 20 years ago. The patient was seen in follow-up today at his bedside on the sixth floor cardiac observation unit. Currently he is lying in bed, is awake, alert and or iented 3 and is in no acute apparent distress. The patient denies any complaints of pain or shortness of breath at this time. He reports he is back to his baseline with his breathing and heart rate. Remote telemetryshowing sinus bradycardia heart rate 57 BPM. Oxygen saturation are 97% on room air and he is achieving 9159-3959 mL on his incentive spirometry with encouragement. The patient reports he has had no further complaints of rapid heart rate or shortness of breath since his admission. He remains afebrile in the last 24 hours. Chest x-ray this morning shows no definite pneumothorax bilaterally, and mild chronic interstitial changes in the lung bases. Objective - Vital Signs Vital signs: Vital Signs Temp 97.5 F L 09/29/21 07:00 Pulse 63 09/29/21 07:00 Resp 17 09/29/21 07:00 BP 128/77 09/29/21 07:00 Pulse Ox 97 09/29/21 07:00 Intake & Output 09/28/21 09/29/21 09/29/21 18:59 06:59 18:59 Other: Voiding Method Toilet # Voids 1 2 - Exam CONSTITUTIONAL: Sitting up in bed on the cardiac observation unit, appears comfortable, cooperative, no apparent acute distress. HEENT: Neck is supple, no JVD, no lymphadenopathy. RESPIRATORY: Lungs sounds diminished throughout, expiratory wheezes throughout. Respirations are symmetrical and nonlabored. Currently on room air with oxygen saturations 97%. Able to achieve 6010-1217 mL on his incentive spirometry. Strong cough. CARDIOVASCULAR: Regular rhythm and rate. S1 and S2 present, negative for S3, gallop or murmur. GASTROINTESTINAL: Abdomen soft, nontender, nondistended. Active bowel sounds present 4 quadrants. Tolerating diet. No guarding or rigidity. GENITOURINARY: Continues to void. INTEGUMENTARY: Skin is warm and dry with no evidence of clubbing or cyanosis. NEUROLOGIC: Cranial nerves II through XII intact. No focal deficits. MUSKULOSKELETAL: Able to move all extremities, strength equal bilaterally. PSYCHIATRIC: Alert and oriented to person place and time, appropriate affect, intact judgment and insight. - Allied health notes Allied health notes reviewed: nursing - Labs CBC & Chem 7: 09/28/21 04:14 09/28/21 04:14 - Imaging and Cardiology Chest x-ray: report reviewed, image reviewed Assessment and Plan Assessment: 1. Left hydropneumothorax 2. Dyspnea, possibly secondary to above 3. History of hypertension 4. Dyslipidemia 5. History of nonsustained ventricular tachycardia 6. History of cardiomyopathy 7. History of pulmonary embolus in November 2019, currently on Eliquis on an outpatient basis for anticoagulation 8. History of COPD 9. Remote history of nicotine dependence quit smoking over 20 years ago Plan: 1. The patient is currently on room air with oxygen saturations 97% without any further complaints of shortness of breath. Chest x-ray this morning is showing no definite bilateral pneumothorax and per the cardiothoracic surgery standpoint the patient can be discharged home when okay by primary care service and other consultants. 2. Encourage use of his incentive spirometry 10 times every hour while awake. 3. Increase activity as tolerated. 4. We will continue to follow the patient on an as-needed basis, please feel free to call for any further questions. Time with Patient: Greater than 30
--- NOTE | 2021-09-29 14:03 | P.PN ---
Subjective Progress Note Date: 09/29/21 This is a pleasant 75-year-old gentleman who follows with Dr. Simmons in the office. He has a past medical history of nonischemic cardiomyopathy, ventricular tachycardia, pulmonary embolism and dyslipidemia. In November 2019 he presented to the emergency department with symptoms of sudden onset shortness of breath at that time was noted to be in ventricular tachycardia and underwent echocardiogram which showed an ejection fraction of less than 20% patient underwent cardiac catheterization at that time which showed normal coronary arteries. Most recent available echocardiogram from January 2020 showed treatment and the LV systolic function with ejection fraction of 50%. He presents this admission with complaints of recurrent palpitations with shortness of breath and tightness in his chest. These episodes have been occurring over the last 6 months. He says he is able to do his grocery shopping including unloading the groceries including the way without any issues but typically develops these s ymptoms when he is walking his dog. He said he feels the symptoms coming on and describes this as a change in his heart rate, feels his heart rate increasing. He then developed feeling of racing heart with shortness of breath and tightness in his chest that are relieved with rest. Laboratory values showed normal CBC, troponins negative 3, normal electrolytes and renal function and it elevated d- dimer. Patient does have a history of PE in the past and underwent computed tomography scan of the chest which showed no evidence of PE with left hydropneumothorax, a trace pleural effusion component and small pneumothorax component, nodular thickening to the left upper lung pleura which may be chronic given calcification, right upper lobe tree in buffered O pace of these felt to be related to infectious/laboratory process. Repeat chest x-ray this morning showed interval to decrease and small left apical pneumothorax, no change in the small left pleural effusion, mild interstitial infiltrates in the left lung base which might be chronic in nature. Coronary patient he has been asymptomatic since admission but has not been very active only getting up to go to the bathroom. He did recently have 48 hour Holter monitor done in our office, these results are not available to me and he has not yet received the results. Current medications include Lipitor 40 mg by mouth every other day, lisinopril 2.5 mg by mouth daily, spironolactone 25 mg by mouth daily, metoprolol tartrate 12.5 mg by mouth twice a day, and Eliquis 5 mg by mouth twice a day. 09/29/2021 Seen and examined resting fairly in bed. He's been feeling well since admission. He had no further complaints of rapid heartbeat, shortness of breath or chest tightness. He said no arrhythmias noted on the monitor. He's been seen and evaluated by CV surgery with no plans of further intervention at this time. Echocardiogram with Doppler study showed a mild to moderately impaired LV systolic function with an ejection fraction of 40-40% mild MR and mild TR. Objective - Vital Signs Vital signs: Vital Signs Temp 97.5 F L 09/29/21 07:00 Pulse 63 09/29/21 07:00 Resp 17 09/29/21 07:00 BP 128/77 09/29/21 07:00 Pulse Ox 97 09/29/21 07:00 Intake & Output 09/28/21 09/29/21 09/29/21 18:59 06:59 18:59 Other: Voiding Method Toilet Toilet # Voids 1 2 - Exam HEENT: Head is atraumatic, normocephalic. Pupils are equal, round. Sclerae anicteric. Conjunctivae are clear. Mucous membranes of the mouth are moist. Neck is supple. There is no elevated jugular venous pressure. No carotid bruit is heard. CHEST EXAMINATION: Lungs reveal diminished air entry bilaterally. No wheezes rales or rhonchi. Respirations even and nonlabored. HEART EXAMINATION: Heart regular, positive S1 and S2. No S3. No S4. With a systolic murmur. ABDOMEN: Soft, nontender. Bowel sounds are heard. No organomegaly noted. EXTREMITIES: 2+ peripheral pulses with no evidence of peripheral edema and no calf tenderness noted. NEUROLOGIC EXAMINATION: Patient is awake, alert and oriented x3. - Labs CBC & Chem 7: 09/28/21 04:14 09/28/21 04:14 Assessment and Plan Assessment: #1 symptoms of palpitations with shortness of breath and chest tightness, acute coronary event has been ruled out, troponins negative 3 #2 nonischemic cardiomyopathy with ejection fraction 40-45% #3 history of ventricular tachycardia in the setting of severely impaired LV systolic function #4 history of PE, on Eliquis Plan: From cardiology's perspective patient is stable for discharge home. He'll follow-up with Dr. Simmons in the office as an outpatient for event monitor. FIXTURE DESIGNER note has been reviewed, I agree with a documented findings and plan of care. Patient was seen and examined.
[2021-09-29 15:08] VITALS: BP 113/75; PULSE 61; RESP 18; TEMP 98
--- NOTE | 2021-09-29 23:25 | P.DS ---
Providers Date of admission: 09/27/21 22:10 Attending physician: Liss Oneil Consults: 09/27/21 22:07 Consult Physician Urgent Consulting Provider: Gray Lau Consult Reason/Comments: Left hydropneumothorax Do you want consulting provider notified?: Yes Consult Physician Urgent Consulting Provider: Miguel Burris Consult Reason/Comments: Palpitations, chest pain Do you want consulting provider notified?: Yes Primary care physician: Liss Oneil Hospital Course: Diagnoses: Episodes of dyspnea and sometimes with palpitation, currently resolved Left hydropneumothorax, repeat chest x-ray showing no definite pneumothorax upon discharge, cleared by cardiothoracic surgeon for discharge Cardiomyopathy with ejection fraction of 20%, currently improved to 40-45% , cleared by industrial robotics mechanic for discharge Hypertension Hyperlipidemia COPD, not in acute exacerbation History of nonsustained V. tach on 11/2019 History of hiatal hernia Hospital course: This is a pleasant 75 years old male with past medical history of COPD, Hyperlipidemia, Hypertension, Pulmonary Embolus on Eliquis, nonsustained V-Tach in November 2019, hiatal hernia, Cardiomyopathy with an ejection fraction of 20% Presents because of dyspnea and palpitations called yesterday while he was trying to HIS Dog, he got this on and off not that often occasionally but yesterday was worse than usual and he could not move because of his bad breathing.. Patient states that this lasted for about half an hour and then he improved, and during the night he went to bed he woke up with cramps in his legs She is improved but then he has another episode of shortness of breath that he could not trace in bed but then resolved and he went to sleep before he wakes up again at 8:00 which is the usual time he wakes up but this time also he de veloped shortness of breath and he decided to come to emergency room because he could not WALK his dog. Patient was monitored in the hospital for more than 24 hours, his been evaluated by industrial robotics mechanic and cardiothoracic surgery for his small left pneumothorax seen on the chest x-ray. Echocardiogram showed ejection fraction 40-45%. Patient remained clinically stable, his dyspnea and episodes of dyspnea has resolved Sharron no chest pain. No other complaints like dizziness or palpitation. No GI or urinary symptoms. No fever. Patient today states that his normal state of that is ready to go home once cleared by his doctors. Repeat chest x-ray showing no pneumothorax today Patient denies any chest pain or dyspnea. No abdominal pain. No change in urine or bowel habits. No fever. Patient was cleared for discharge by industrial robotics mechanic and cardiothoracic surgeons. Problems and management plan were discussed with the patient and he verbalized understanding and acceptance Patient was found stable and can be discharged home however he needs follow-up as an outpatient. Patient was instructed to follow up with PCP Dr. Oneil for within one week and patient agrees Patient also was instructed to follow up with Dr. Simmons industrial robotics mechanic in 1 week and cardiothoracic surgeon Dr. Lau 2 weeks and he agrees to call and make his own appointments Physical exam Gen: patient is a AAOx3, no distress CVS: S1-S2, RRR, no murmur Lungs: B/L CTA, no wheezing Abdomen: soft, no distention, no tenderness, positive bowel sounds Extremity: no leg edema or induration Time spent more than 35 minutes Patient Condition at Discharge: Stable Plan - Discharge Summary Discharge Rx Participant: No New Discharge Prescriptions: Continue Fluticasone/Salmeterol [Fluticasone-Salmeterol 113-14] 1 puff INHALATION RT- BID Spironolactone [Aldactone] 25 mg PO DAILY #30 tab lisinopriL [Zestril] 2.5 mg PO DAILY #30 tab Atorvastatin [Lipitor] 40 mg PO Q48H Albuterol Sulfate [Proair Respiclick] 1 puff PO RT-Q4H PRN PRN Reason: Shortness Of Breath Metoprolol Tartrate [Lopressor] 12.5 mg PO BID Apixaban [Eliquis] 5 mg PO BID Discontinued ALPRAZolam [Xanax] 0.25 mg PO DAILY PRN PRN Reason: Anxiety Discharge Medication List Fluticasone/Salmeterol [Fluticasone-Salmeterol 113-14] 1 puff INHALATION RT-BID 11/28/19 [History] Spironolactone [Aldactone] 25 mg PO DAILY #30 tab 12/01/19 [Rx] lisinopriL [Zestril] 2.5 mg PO DAILY #30 tab 12/01/19 [Rx] Albuterol Sulfate [Proair Respiclick] 1 puff PO RT-Q4H PRN 09/27/21 [History] Apixaban [Eliquis] 5 mg PO BID 09/27/21 [History] Atorvastatin [Lipitor] 40 mg PO Q48H 09/27/21 [History] Metoprolol Tartrate [Lopressor] 12.5 mg PO BID 09/27/21 [History] Follow up Appointment(s)/Referral(s): Liss Oneil MD [Primary Care Provider] - 1-2 days Raúl Simmons MD [STAFF PHYSICIAN] - 1 Week Gray Lau MD [STAFF PHYSICIAN] - 2 Weeks (cardiothoracic surgoen) Activity/Diet/Wound Care/Special Instructions: heart healthy diet activity is restricted till you see your doctor Discharge Disposition: HOME SELF-CARE
== END 2021-09-29 17:43 | disposition home or self-care (01) ==
LOC: EC 14:17 → 6NMEDSUR 22:10
PROVIDERS: ADMIT Internal Medicine; ATTEND Internal Medicine
DX: R07.89 Other chest pain (principal); J94.8 Other specified pleural conditions; J43.9 Emphysema, unspecified; R79.89 Other specified abnormal findings of blood chemistry; I42.8 Other cardiomyopathies; I08.3 Combined rheumatic disorders of mitral, aortic and tricuspid valves; I45.10 Unspecified right bundle-branch block; I10 Essential (primary) hypertension; R91.8 Other nonspecific abnormal finding of lung field; I73.9 Peripheral vascular disease, unspecified; J44.9 Chronic obstructive pulmonary disease, unspecified; E78.5 Hyperlipidemia, unspecified; K44.9 Diaphragmatic hernia without obstruction or gangrene; F41.9 Anxiety disorder, unspecified; R25.2 Cramp and spasm; R00.1 Bradycardia, unspecified; Z20.822 Contact with and (suspected) exposure to COVID-19; Z79.01 Long term (current) use of anticoagulants; Z79.51 Long term (current) use of inhaled steroids; Z79.899 Other long term (current) drug therapy; Z86.711 Personal history of pulmonary embolism; Z98.42 Cataract extraction status, left eye; Z98.41 Cataract extraction status, right eye; Z86.79 Personal history of other diseases of the circulatory system; Z87.891 Personal history of nicotine dependence; Z98.890 Other specified postprocedural states; Z80.9 Family history of malignant neoplasm, unspecified
CPT/HCPCS: 96374; 99285; 36415; 94640 ×3; 93005; 93306; 85379; 80053 ×2; 83735; 84484 ×2; 85025 ×2; 85610; 85730; 87635; 71045 ×2; 71046; 71275; G0378 ×3; Q9967

== ENCOUNTER 2021-11-30 22:49 | Observation (INO) | payer MEDICARE ==
[2021-11-30] MEDS ORDERED: ALBUTEROL NEBULIZED 2.5 MG/3 ML INHALATION STA (23:02)
[2021-11-30] MEDS ORDERED: MAGNESIUM SULFATE-D5W PMX 1 GM in DEXTROSE/WATER 1 100ML.BAG IVPB STA (23:02)
[2021-11-30] MEDS ORDERED: IPRATROPIUM-ALBUTEROL 3 ML NEB INHALATION STA (23:02)
--- NOTE | 2021-11-30 23:19 | ED ---
SOB HPI - General Chief Complaint: Shortness of Breath Stated Complaint: Shortness of Breath Source: patient Mode of arrival: EMS - History of Present Illness Initial Comments: 76-year-old male with past medical history of COPD, hypertension, PE presents to the emergency department with shortness of breath. Patient states that he began feeling short of breath last night. Throughout the course of the day today it worsened. He does have a rescue inhaler at home which she was using however didn't help his symptoms. He was diffusely wheezy. Began having a nonproductive cough. No fevers. Called an ambulance as he could not breathe. EMS found him to be in the 80s with increased work of breathing. He does not wear oxygen. He was placed on a nonrebreather and given a DuoNeb breathing treatment. His oxygen came up to 100%. He denies any sick contacts. He follows with Dr. Belle and saw him last week in office. Denies any recent steroid or antibiotic use. He has a history of PE. Patient is on Ahlquist and denies any missed doses. EMS did perform one a DuoNeb breathing treatment and gave him 125 mg Solu-Medrol. Patient arrives tripoding, diffusely wheezy. No other alleviating, precipitating or modifying factors - Related Data Home Medications Medication Instructions Recorded Confirmed Fluticasone/Salmeterol 1 puff INHALATION RT-BID 11/28/19 12/05/21 [Fluticasone-Salmeterol 113-14] Albuterol Sulfate [Proair 1 puff INHALATION RT-Q4H PRN 09/27/21 12/05/21 Respiclick] Apixaban [Eliquis] 5 mg PO BID 09/27/21 12/05/21 Atorvastatin [Lipitor] 40 mg PO Q48H 09/27/21 12/05/21 Previous Rx's Medication Instructions Recorded Ipratropium-Albuterol Nebulize 3 ml INHALATION QID #90 ml 12/02/21 [Duoneb 0.5 mg-3 mg/3 ml Soln] Metoprolol Tartrate [Lopressor] 12.5 mg PO BID #180 tab 12/08/21 Spironolactone [Aldactone] 25 mg PO DAILY #90 tab 12/08/21 lisinopriL [Zestril] 2.5 mg PO DAILY #90 tab 12/08/21 predniSONE [Deltasone] 40 mg PO DAILY 12 Days #15 tab 12/08/21 Allergies Allergy/AdvReac Type Severity Reaction Status Date / Time No Known Allergies Allergy Verified 12/05/21 10:46 Review of Systems ROS Statement: Those systems with pertinent positive or pertinent negative responses have been documented in the HPI. ROS Other: All systems not noted in ROS Statement are negative. Past Medical History Past Medical History: COPD, Hyperlipidemia, Hypertension, Pulmonary Embolus (PE) Additional Past Medical History / Comment(s): recent rapid heart rate and SOB and nonsustained V-Tach in November 2019, hiatal hernia. Cardiomyopathy with an ejection fraction of 20% History of Any Multi-Drug Resistant Organisms: None Reported Past Surgical History: Back Surgery, Tonsillectomy Additional Past Surgical History / Comment(s): colonoscopy, "two disks removed from spine", pilonidal cyst, jhonatan cataracts Past Anesthesia/Blood Transfusion Reactions: No Reported Reaction Past Psychological History: Anxiety Smoking Status: Former smoker Past Alcohol Use History: Occasional Past Drug Use History: None Reported - Past Family History Mother Family Medical History: Cancer Brother(s) Family Medical History: Cancer General Exam General appearance: alert, in no apparent distress, anxious Head exam: Present: atraumatic, normocephalic, normal inspection Eye exam: Present: normal appearance, PERRL, EOMI. Absent: scleral icterus, conjunctival injection, periorbital swelling ENT exam: Present: normal exam, mucous membranes moist Neck exam: Present: normal inspection. Absent: tenderness, meningismus, lymphadenopathy Respiratory exam: Present: respiratory distress, wheezes, accessory muscle use, decreased breath sounds. Absent: rales, rhonchi, stridor Cardiovascular Exam: Present: normal rhythm, tachycardia, normal heart sounds. Absent: systolic murmur, diastolic murmur, rubs, gallop, clicks GI/Abdominal exam: Present: soft, normal bowel sounds. Absent: distended, tenderness, guarding, rebound, rigid Extremities exam: Present: normal inspection, full ROM, normal capillary refill. Absent: tenderness, pedal edema, joint swelling, calf tenderness Back exam: Present: normal inspection Neurological exam: Present: alert, oriented X3, CN II-XII intact Psychiatric exam: Present: normal affect, normal mood Skin exam: Present: warm, dry, intact, normal color. Absent: rash Course Vital Signs 11/30/21 11/30/21 11/30/21 22:58 23:07 23:32 Temperature 98.0 F Pulse Rate 125 H 125 H 130 H Respiratory 25 H Rate Blood Pressure 173/101 O2 Sat by Pulse 99 Oximetry 11/30/21 12/01/21 12/01/21 23:42 00:35 04:47 Temperature Pulse Rate 129 H 116 H 110 H Respiratory 22 20 Rate Blood Pressure 103/71 O2 Sat by Pulse 98 98 Oximetry 12/01/21 12/01/21 12/01/21 05:00 05:10 07:15 Temperature Pulse Rate 118 H 105 H 114 H Respiratory 20 Rate Blood Pressure 120/97 O2 Sat by Pulse 97 Oximetry 12/01/21 12/01/21 12/01/21 07:27 08:47 10:22 Temperature 98.6 F Pulse Rate 87 114 H 79 Respiratory 18 18 Rate Blood Pressure 99/72 109/65 O2 Sat by Pulse 97 97 Oximetry 12/01/21 12/01/21 12/01/21 11:28 11:46 14:54 Temperature Pulse Rate 83 81 80 Respiratory 18 Rate Blood Pressure 109/62 O2 Sat by Pulse 98 Oximetry 12/01/21 12/01/21 15:56 16:06 Temperature Pulse Rate 85 73 Respiratory Rate Blood Pressure O2 Sat by Pulse Oximetry Medical Decision Making - Medical Decision Making Upon arrival patient was placed into room 7. History and physical exam was performed. He was given a DuoNeb breathing treatment followed by an albuterol treatment. Patient is tripoding with tachypnea and therefore a BiPAP is placed in the room. Patient does appear to do better after his breathing treatment. Patient given a gram of magnesium. Laboratory studies are conducted. Covid it is not detected. Chest x-ray does read as a possible infiltrate in the lingula. Blood cultures obtained and antibiotics initiated. Patient will receive steroids every 8 hours and breathing treatments every 4. Called and spoke with Dr. Oneil who agreed to admit the patient. Patient remained in stable condition awaiting a bed on the floor - Lab Data Result diagrams: 12/02/21 06:48 12/02/21 06:48 Lab Results 11/30/21 11/30/21 11/30/21 Range/Units 23:24 23:24 23:24 WBC 9.4 (3.8-10.6) k/uL RBC 5.28 (4.30-5.90) m/uL Hgb 16.5 (13.0-17.5) gm/dL Hct 51.1 (39.0-53.0) % MCV 96.8 (80.0-100.0) fL MCH 31.2 (25.0-35.0) pg MCHC 32.3 (31.0-37.0) g/dL RDW 13.6 (11.5-15.5) % Plt Count 227 (150-450) k/uL MPV 7.4 Neutrophils % 79 % Lymphocytes % 11 % Monocytes % 5 % Eosinophils % 3 % Basophils % 1 % Neutrophils # 7.4 (1.3-7.7) k/uL Lymphocytes # 1.0 (1.0-4.8) k/uL Monocytes # 0.5 (0-1.0) k/uL Eosinophils # 0.3 (0-0.7) k/uL Basophils # 0.1 (0-0.2) k/uL PT 10.5 (9.0-12.0) sec INR 1.0 (<1.2) APTT 25.8 (22.0-30.0) sec Sodium 134 L (137-145) mmol/L Potassium 4.5 (3.5-5.1) mmol/L Chloride 100 (98-107) mmol/L Carbon Dioxide 22 (22-30) mmol/L Anion Gap 12 mmol/L BUN 16 (9-20) mg/dL Creatinine 0.92 (0.66-1.25) mg/dL Est GFR (CKD-EPI)AfAm >90 (>60 ml/min/1.73 sqM) Est GFR (CKD-EPI)NonAf 80 (>60 ml/min/1.73 sqM) Glucose 131 H (74-99) mg/dL Plasma Lactic Acid Saravanan (0.7-2.0) mmol/L Calcium 9.4 (8.4-10.2) mg/dL Total Bilirubin 0.8 (0.2-1.3) mg/dL AST 39 (17-59) U/L ALT 22 (4-49) U/L Alkaline Phosphatase 93 (38-126) U/L Troponin I (0.000-0.034) ng/mL NT-Pro-B Natriuret Pep pg/mL Total Protein 8.1 (6.3-8.2) g/dL Albumin 4.3 (3.5-5.0) g/dL Coronavirus (PCR) (Not Detectd) 11/30/21 11/30/21 11/30/21 Range/Units 23:24 23:24 23:24 WBC (3.8-10.6) k/uL RBC (4.30-5.90) m/uL Hgb (13.0-17.5) gm/dL Hct (39.0-53.0) % MCV (80.0-100.0) fL MCH (25.0-35.0) pg MCHC (31.0-37.0) g/dL RDW (11.5-15.5) % Plt Count (150-450) k/uL MPV Neutrophils % % Lymphocytes % % Monocytes % % Eosinophils % % Basophils % % Neutrophils # (1.3-7.7) k/uL Lymphocytes # (1.0-4.8) k/uL Monocytes # (0-1.0) k/uL Eosinophils # (0-0.7) k/uL Basophils # (0-0.2) k/uL PT (9.0-12.0) sec INR (<1.2) APTT (22.0-30.0) sec Sodium (137-145) mmol/L Potassium (3.5-5.1) mmol/L Chloride (98-107) mmol/L Carbon Dioxide (22-30) mmol/L Anion Gap mmol/L BUN (9-20) mg/dL Creatinine (0.66-1.25) mg/dL Est GFR (CKD-EPI)AfAm (>60 ml/min/1.73 sqM) Est GFR (CKD-EPI)NonAf (>60 ml/min/1.73 sqM) Glucose (74-99) mg/dL Plasma Lactic Acid Saravanan 1.5 (0.7-2.0) mmol/L Calcium (8.4-10.2) mg/dL Total Bilirubin (0.2-1.3) mg/dL AST (17-59) U/L ALT (4-49) U/L Alkaline Phosphatase (38-126) U/L Troponin I <0.012 (0.000-0.034) ng/mL NT-Pro-B Natriuret Pep 197 pg/mL Total Protein (6.3-8.2) g/dL Albumin (3.5-5.0) g/dL Coronavirus (PCR) (Not Detectd) 11/30/21 Range/Units 23:24 WBC (3.8-10.6) k/uL RBC (4.30-5.90) m/uL Hgb (13.0-17.5) gm/dL Hct (39.0-53.0) % MCV (80.0-100.0) fL MCH (25.0-35.0) pg MCHC (31.0-37.0) g/dL RDW (11.5-15.5) % Plt Count (150-450) k/uL MPV Neutrophils % % Lymphocytes % % Monocytes % % Eosinophils % % Basophils % % Neutrophils # (1.3-7.7) k/uL Lymphocytes # (1.0-4.8) k/uL Monocytes # (0-1.0) k/uL Eosinophils # (0-0.7) k/uL Basophils # (0-0.2) k/uL PT (9.0-12.0) sec INR (<1.2) APTT (22.0-30.0) sec Sodium (137-145) mmol/L Potassium (3.5-5.1) mmol/L Chloride (98-107) mmol/L Carbon Dioxide (22-30) mmol/L Anion Gap mmol/L BUN (9-20) mg/dL Creatinine (0.66-1.25) mg/dL Est GFR (CKD-EPI)AfAm (>60 ml/min/1.73 sqM) Est GFR (CKD-EPI)NonAf (>60 ml/min/1.73 sqM) Glucose (74-99) mg/dL Plasma Lactic Acid Saravanan (0.7-2.0) mmol/L Calcium (8.4-10.2) mg/dL Total Bilirubin (0.2-1.3) mg/dL AST (17-59) U/L ALT (4-49) U/L Alkaline Phosphatase (38-126) U/L Troponin I (0.000-0.034) ng/mL NT-Pro-B Natriuret Pep pg/mL Total Protein (6.3-8.2) g/dL Albumin (3.5-5.0) g/dL Coronavirus (PCR) Not Detected (Not Detectd) - EKG Data EKG Comments: EKG demonstrates a sinus tachycardia with a ventricular rate of 125. UT interval 159. QRS 117. QTC of 373. There are no acute ST segment elevations. Some peaked T waves in V3 and V4 Disposition Clinical Impression: COPD with acute exacerbation, CAP (community acquired pneumonia) Disposition: ADMITTED IP TO THIS HOSP Condition: Stable Is patient prescribed a controlled substance at d/c from ED?: No Decision to Admit Reason: Admit from EC Decision Date: 12/01/21 Decision Time: 01:48
[2021-11-30 23:30] LABS: Basophils # (A) 0.1 k/uL (0-0.2); Basophils % (A) 1 %; Eosinophils # (A) 0.3 k/uL (0-0.7); Eosinophils % (A) 3 %; HCT 51.1 % (39.0-53.0); HGB 16.5 gm/dL (13.0-17.5); Lymphocytes % (A) 11 %; MCH 31.2 pg (25.0-35.0); MCHC 32.3 g/dL (31.0-37.0); MCV 96.8 fL (80.0-100.0); Mean Platelet Volume 7.4; Monocytes # (A) 0.5 k/uL (0-1.0); Monocytes % (A) 5 %; Neutrophils # (A) 7.4 k/uL (1.3-7.7); Neutrophils % (A) 79 %; Platelet Count 227 k/uL (150-450); RBC 5.28 m/uL (4.30-5.90); RDW 13.6 % (11.5-15.5); WBC 9.4 k/uL (3.8-10.6)
[2021-11-30 23:44] LABS: ALT 22 U/L (4-49); AST 39 U/L (17-59); African American GFR (CKD) >90 (>60 ml/min/1.73 sqM); Albumin 4.3 g/dL (3.5-5.0); Alkaline Phosphatase 93 U/L (38-126); Anion Gap 12 mmol/L; Blood Urea Nitrogen 16 mg/dL (9-20); Calcium 9.4 mg/dL (8.4-10.2); Carbon Dioxide 22 mmol/L (22-30); Chloride 100 mmol/L (98-107); Glucose 131 mg/dL (74-99); Non-African American GFR(CKD) 80 (>60 ml/min/1.73 sqM); Potassium 4.5 mmol/L (3.5-5.1); Sodium 134 mmol/L (137-145); Total Bilirubin 0.8 mg/dL (0.2-1.3); Total Protein 8.1 g/dL (6.3-8.2)
[2021-11-30 23:56] LABS: Partial Thromboplastin Time 25.8 sec (22.0-30.0); Prothrombin Time 10.5 sec (9.0-12.0)
--- NOTE | 2021-12-01 00:02 | XR ---
EXAMINATION TYPE: XR chest 2V DATE OF EXAM: 11/30/2021 COMPARISON: 11/22/2021 HISTORY: Difficulty breathing TECHNIQUE: 2 views FINDINGS: There are some linear infiltrate or atelectasis left midlung. Heart size is normal. There i s no heart failure. There are no hilar masses. There are chest leads. Bony thorax is intact. IMPRESSION: There are some lingula mild linear infiltrate increased slightly compared to last exam. N ormal heart.
[2021-12-01] MEDS ORDERED: NALOXONE 0.4 MG/ML 1 ML VIAL IV PRN (01:50)
[2021-12-01] MEDS ORDERED: cefTRIAXone IN SWFI 1,000 MG/10 ML SYRINGE IVP STA (03:27)
[2021-12-01] MEDS ORDERED: AZITHROMYCIN 500 MG in SODIUM CHLORIDE 0.9% 250 ML IVPB ONE (03:30)
[2021-12-01] MEDS: IPRATROPIUM-ALBUTEROL 3 ML NEB INHALATION SCH ×6 (04:47→23:05)
--- NOTE | 2021-12-01 08:20 | P.HPIM ---
History of Present Illness This is a pleasant 76 years old male with past medical history of COPD, Hyperlipidemia, Hypertension, Pulmonary Embolus , nonsustained V-Tach in November 2019, hiatal hernia. Cardiomyopathy with an ejection fraction of 20% Patient presents because of dyspnea, Which is started last night while he was g oing to the restroom he has to sit down because his dyspnea. Associated with cough and with some little green phlegm. No vomiting or diarrhea or abdominal pain. No dysuria. No headache weakness or numbness. An years ago after 20 years of smoking, occasional alcohol drink alcohol. No illicit drug He does not use oxygen at home. His class c driver is Dr. Crabtree On admission patient was tachycardic 125 to 1:30. He was tachypneic around 22 breaths per minute, blood pressure is a stable and saturation is 97% on 2 L. Labs including CBC, INR, BMP and liver enzymes are unremarkable. Troponin less than 0.2 Coronavirus: Not detected. ProBNP is 197 Chest x-ray: There is some lingula mild linear infiltrate increased slightly compared to last exam EKG showing tachycardia, sinus at [address]-T changes. QTC is 373. An emergency room patient was started on ceftriaxone and Zithromax with pulmonary team consulted also started on Solu-Medrol 40 mg Acute COPD exacerbation, possible lingula pneumonia Review of Systems CONSTITUTIONAL: No fever, no malaise, no fatigue. HEENT: No recent visual problems or hearing problems. Denied any sore throat. CARDIOVASCULAR: No orthopnea, PND, no palpitations, no syncope. PULMONARY: No chest wall tenderness, no hemoptysis. GASTROINTESTINAL: No diarrhea, no nausea, no vomiting, no abdominal pain. Normo active bowel sounds. NEUROLOGICAL: No headaches, no weakness, no numbness. HEMATOLOGICAL: Denies any bleeding or petechiae. GENITOURINARY: Denies any burning micturition, frequency, or urgency. MUSCULOSKELETAL/RHEUMATOLOGICAL: Denies any joint pain, swelling, or any muscle pain. ENDOCRINE: Denies any polyuria or polydipsia. Past Medical History Past Medical History: COPD, Hyperlipidemia, Hypertension, Pulmonary Embolus (PE) Additional Past Medical History / Comment(s): recent rapid heart rate and SOB and nonsustained V-Tach in November 2019, hiatal hernia. Cardiomyopathy with an ejection fraction of 20% History of Any Multi-Drug Resistant Organisms: None Reported Past Surgical History: Back Surgery, Tonsillectomy Additional Past Surgical History / Comment(s): colonoscopy, "two disks removed from spine", pilonidal cyst, jhonatan cataracts Past Anesthesia/Blood Transfusion Reactions: No Reported Reaction Past Psychological History: Anxiety Smoking Status: Former smoker Past Alcohol Use History: Occasional Past Drug Use History: None Reported - Past Family History Mother Family Medical History: Cancer Brother(s) Family Medical History: Cancer Medications and Allergies Home Medications Medication Instructions Recorded Confirmed Type Fluticasone/Salmeterol 1 puff INHALATION RT-BID 11/28/19 09/27/21 History [Fluticasone-Salmeterol 113-14] Spironolactone [Aldactone] 25 mg PO DAILY #30 tab 12/01/19 09/27/21 Rx lisinopriL [Zestril] 2.5 mg PO DAILY #30 tab 12/01/19 09/27/21 Rx Albuterol Sulfate [Proair 1 puff PO RT-Q4H PRN 09/27/21 09/27/21 History Respiclick] Apixaban [Eliquis] 5 mg PO BID 09/27/21 09/27/21 History Atorvastatin [Lipitor] 40 mg PO Q48H 09/27/21 09/27/21 History Metoprolol Tartrate [Lopressor] 12.5 mg PO BID 09/27/21 09/27/21 History Allergies Allergy/AdvReac Type Severity Reaction Status Date / Time No Known Allergies Allergy Verified 09/27/21 21:33 Physical Exam Vitals: Vital Signs Temp Pulse Resp BP Pulse Ox 12/01/21 07:27 87 12/01/21 07:15 114 H 12/01/21 05:10 105 H 20 120/97 97 12/01/21 05:00 118 H 12/01/21 04:47 110 H 12/01/21 00:35 116 H 20 98 11/30/21 23:42 129 H 22 103/71 98 11/30/21 23:32 130 H 11/30/21 23:07 125 H 11/30/21 22:58 98.0 F 125 H 25 H 173/101 99 Intake and Output 11/30/21 12/01/21 12/01/21 22:59 06:59 14:59 Other: Weight 74.843 kg GENERAL: The patient is alert and oriented x3, not in any acute distress. Well developed, well nourished. HEENT: Pupils are round and equally reacting to light. EOMI. No scleral icterus. No conjunctival pallor. Normocephalic, atraumatic. No pharyngeal erythema. No thyromegaly. CARDIOVASCULAR: S1 and S2 present. No murmurs, rubs, or gallops. -PULMONARY: Chest is clear to auscultation, limited air entry on both sides with scattered wheezing ABDOMEN: Soft, nontender, nondistended, normoactive bowel sounds. No palpable organomegaly. MUSCULOSKELETAL: No joint swelling or deformity. EXTREMITIES: No cyanosis, clubbing, or pedal edema. NEUROLOGICAL: Gross neurological examination did not reveal any focal deficits. SKIN: No rashes. No petechiae Results CBC & Chem 7: 11/30/21 23:24 11/30/21 23:24 Labs: Abnormal Lab Results - Last 24 Hours (Table) 11/30/21 Range/Units 23:24 Sodium 134 L (137-145) mmol/L Glucose 131 H (74-99) mg/dL Assessment and Plan Assessment: Acute COPD exacerbation Suspected lingular community acquired pneumonia Cardiomyopathy with ejection fraction of 20% Hyperlipidemia Hypertension History of pulmonary embolism on Eliquis History of nonsustained V. tach History of hiatal hernia Plan: This is a pleasant 76 years old male who presents with COPD and pneumonia. Continue with Solu-Medrol Continue Zithromax and ceftriaxone, check sputum culturecalcitonin Pulmonary consult Labs and medication were reviewed.. Continue same treatment. Continue with symptomatic treatment. Resume home medication. Monitor lytes and vitals. DVT and GI prophylaxis. Further recommendations depends on the clinical course of the patient DVT prophylaxis: Eliquis GI Prophylaxis: Pepcid PT/OT: Pending Prognosis is guarded
[2021-12-01] MEDS: methylPREDNISolone SOD SUCCI 40 MG/ML 1 ML VIAL IV SCH ×3 (08:43→22:59)
[2021-12-01] MEDS: SPIRONOLACTONE 25 MG TAB PO SCH (08:44)
[2021-12-01] MEDS: APIXABAN 5 MG TAB PO SCH ×2 (08:44→20:06)
[2021-12-01] MEDS: METOPROLOL TARTRATE 12.5 MG TAB PO SCH ×2 (08:56→20:06)
--- NOTE | 2021-12-01 10:56 | P.CNPUL ---
History of Present Illness Consult date: 12/01/21 Requesting physician: Liss Oneil Reason for consult: dyspnea, cough, COPD, hypoxemia, pneumonia, abnormal CXR/CT Chief complaint: Shortness of breath. History of present illness: Pulmonary consult dated 12/01/2021. 76-year-old male with history of COPD, and hypertension, who presents to the em ergency department on November 30, with complaints of shortness of breath. The patient started feeling poorly, one day prior to admission. The patient states that in addition to shortness of breath, he was having wheezing, chest congestion, a nonproductive cough, and generally just not feeling well. His saturation was apparently in the 80s. The patient has seen my partner before, for COPD. The patient states that he was told that he had lung function of 35%. In addition, the patient has a history of pulmonary embolism, hypertension, hyperlipidemia, cardiomyopathy with ejection fraction of 20%, and nonsustained ventricular tachycardia. The patient smoked for more than 40 years. Does not smoke currently. Currently, the patient's on 2 L nasal cannula. He's feeling much better. He seen in the emergency department, in room 7. White count 9.4, hemoglobin 16.5, hematocrit 51.1, and platelet count 227,000. PT, INR, and PTT are all normal. Sodium 134, potassium 4.5, chlorides 100, CO2 22, anion gap 12, BUN 16, creatinine 0.92. Testing for coronavirus was negative. Chest x-ray shows changes of COPD, and possible small lingular infiltrate. Review of Systems REVIEW OF SYSTEMS: CONSTITUTIONAL: [Negative.] NEUROLOGIC: [ Negative.] HEENT: [ Negative.] CARDIAC: [Negative.] PULMONARY: Shortness of breath, chest tightness, wheezing, cough, and chest congestion. GI: [Negative.] : [Negative.] RHEUMATOLOGIC: [ Negative.] IMMUNOLOGIC: [ Negative.] ENDOCRINE: [Negative. ] DERMATOLOGIC: [Negative.] Past Medical History Past Medical History: COPD, Hyperlipidemia, Hypertension, Pulmonary Embolus (PE) Additional Past Medical History / Comment(s): recent rapid heart rate and SOB and nonsustained V-Tach in November 2019, hiatal hernia. Cardiomyopathy with an ejection fraction of 20% History of Any Multi-Drug Resistant Organisms: None Reported Past Surgical History: Back Surgery, Tonsillectomy Additional Past Surgical History / Comment(s): colonoscopy, "two disks removed from spine", pilonidal cyst, jhonatan cataracts Past Anesthesia/Blood Transfusion Reactions: No Reported Reaction Past Psychological History: Anxiety Smoking Status: Former smoker Past Alcohol Use History: Occasional Past Drug Use History: None Reported - Past Family History Mother Family Medical History: Cancer Brother(s) Family Medical History: Cancer Medications and Allergies Home Medications Medication Instructions Recorded Confirmed Type Fluticasone/Salmeterol 1 puff INHALATION RT-BID 11/28/19 12/01/21 History [Fluticasone-Salmeterol 113-14] Spironolactone [Aldactone] 25 mg PO DAILY #30 tab 12/01/19 12/01/21 Rx lisinopriL [Zestril] 2.5 mg PO DAILY #30 tab 12/01/19 12/01/21 Rx Albuterol Sulfate [Proair 1 puff INHALATION RT-Q4H PRN 09/27/21 12/01/21 History Respiclick] Apixaban [Eliquis] 5 mg PO BID 09/27/21 12/01/21 History Atorvastatin [Lipitor] 40 mg PO Q48H 09/27/21 12/01/21 History Metoprolol Tartrate [Lopressor] 12.5 mg PO BID 09/27/21 12/01/21 History Allergies Allergy/AdvReac Type Severity Reaction Status Date / Time No Known Allergies Allergy Verified 12/01/21 07:58 Physical Exam Osteopathic Statement: *. No significant issues noted on an osteopathic structural exam other than those noted in the History and Physical/Consult. Vitals: Vital Signs Temp Pulse Resp BP Pulse Ox 12/01/21 10:22 79 18 109/65 97 12/01/21 08:47 98.6 F 114 H 18 99/72 97 12/01/21 07:27 87 12/01/21 07:15 114 H 12/01/21 05:10 105 H 20 120/97 97 12/01/21 05:00 118 H 12/01/21 04:47 110 H 12/01/21 00:35 116 H 20 98 11/30/21 23:42 129 H 22 103/71 98 11/30/21 23:32 130 H 02/19/22 23:07 125 H 11/30/21 22:58 98.0 F 125 H 25 H 173/101 99 Intake and Output 11/30/21 12/01/21 12/01/21 22:59 06:59 14:59 Other: Weight 74.843 kg No acute distress, oriented 3. Currently on 2 L nasal cannula. No conversational dyspnea or use of accessory muscles. HEENT examination is grossly unremarkable. Neck supple. Full range of motion. No adenopathy thyromegaly or neck vein d istention. Cardiovascular examination reveals regular rhythm rate. S1-S2 normal. No S3 or S4. No discernible murmur noted. Heart sounds are distant. Heart rate 100 bpm. Lungs reveal severely diminished bilateral breath sounds. Scattered rhonchi and expiratory wheezes noted. No crackles. There is prolongation on forced maneuver. Saturations are 97% on 2 L. Abdomen soft bowel sounds are heard. No masses or tenderness. Extremities are intact. No cyanosis clubbing or edema. Skin is without rash or lesion. Neurologic examination is brief but nonfocal. Results - Laboratory Findings CBC and BMP: 11/30/21 23:24 11/30/21 23:24 PT/INR, D-dimer PT 10.5 sec (9.0-12.0) 11/30/21 23:24 INR 1.0 (<1.2) 11/30/21 23:24 Abnormal lab findings: Abnormal Labs 11/30/21 23:24 Sodium 134 L Glucose 131 H - Diagnostic Findings Chest x-ray: image reviewed Assessment and Plan Assessment: Acute COPD exacerbation complicated by possible lingular pneumonia. Severe COPD, with lung function according to the patient at 35%. Previous history of more than 40 years of tobacco use. History of hypertension. History of hyperlipidemia. History of cardiomyopathy with ejection fraction of 20%. History of nonsustained ventricular tachycardia. Prior history of pulmonary embolism. Plan: Plan dated 12/01/2021. The patient will be admitted to the hospital. The patient should receive Solu- Medrol 60 mg every 6 hours. In addition, we are recommending DuoNeb, 4 times a day and when necessary, as well as Pulmicort 1 mg, mixed with formoterol, 20 g, twice a day. In addition, the patient should receive Rocephin 1 g, and Zithromax 500 mg, for community-acquired pneumonia. Additional recommendations and suggestions are forthcoming. Prognosis is guarded. We will continue to follow the patient and make recommendations where appropriate. Time with Patient: Greater than 30
[2021-12-02] MEDS: IPRATROPIUM-ALBUTEROL 3 ML NEB INHALATION SCH ×4 (03:40→15:50)
[2021-12-02 08:28] LABS: Basophils % (A) 0 %; Eosinophils % (A) 0 %; HCT 43.4 % (39.0-53.0); HGB 13.8 gm/dL (13.0-17.5); Lymphocytes # (A) 0.6 k/uL (1.0-4.8); Lymphocytes % (A) 6 %; MCH 31.1 pg (25.0-35.0); MCHC 31.9 g/dL (31.0-37.0); MCV 97.4 fL (80.0-100.0); Mean Platelet Volume 7.9; Monocytes # (A) 0.3 k/uL (0-1.0); Monocytes % (A) 3 %; Neutrophils # (A) 8.5 k/uL (1.3-7.7); Neutrophils % (A) 91 %; Platelet Count 244 k/uL (150-450); RBC 4.45 m/uL (4.30-5.90); RDW 13.7 % (11.5-15.5); WBC 9.4 k/uL (3.8-10.6)
[2021-12-02] MEDS ORDERED: BUDESONIDE 1 MG/2 ML NEBU INHALATION SCH (08:41)
[2021-12-02] MEDS ORDERED: FORMOTEROL FUMARATE 20 MCG/2 ML NEBU INHALATION SCH (08:41)
[2021-12-02 08:47] LABS: Potassium 5.3 mmol/L (3.5-5.1)
[2021-12-02] MEDS: METOPROLOL TARTRATE 12.5 MG TAB PO SCH (08:56)
[2021-12-02] MEDS: APIXABAN 5 MG TAB PO SCH (08:56)
[2021-12-02] MEDS: SPIRONOLACTONE 25 MG TAB PO SCH (08:56)
[2021-12-02] MEDS: methylPREDNISolone SOD SUCCI 40 MG/ML 1 ML VIAL IV SCH ×2 (08:58→16:57)
[2021-12-02] MEDS ORDERED: ATORVASTATIN 40 MG TAB PO SCH (09:00)
[2021-12-02] MEDS ORDERED: AZITHROMYCIN 500 MG TAB PO SCH (09:00)
--- NOTE | 2021-12-02 09:01 | P.PN ---
Subjective Progress Note Date: 12/02/21 HISTORY OF PRESENT ILLNESS This is a pleasant 76 years old male with past medical history of COPD, Hyperlipidemia, Hypertension, Pulmonary Embolus , nonsustained V-Tach in November 2019, hiatal hernia. Cardiomyopathy with an ejection fraction of 20% Patient presents because of dyspnea, Which is started last night while he was going to the restroom he has to sit down because his dyspnea. Associated with cough and with some little green phlegm. No vomiting or diarrhea or abdominal pain. No dysuria. No headache weakness or numbness. An years ago after 20 years of smoking, occasional alcohol drink alcohol. No illicit drug He does not use oxygen at home. His informatics consultant is Dr. Crabtree On admission patient was tachycardic 125 to 1:30. He was tachypneic around 22 breaths per minute, blood pressure is a stable and saturation is 97% on 2 L. Labs including CBC, INR, BMP and liver enzymes are unremarkable. Troponin less than 0.2 Coronavirus: Not detected. ProBNP is 197 Chest x-ray: There is some lingula mild linear infiltrate increased slightly compared to last exam EKG showing tachycardia, sinus at [address]-T changes. QTC is 373. An emergency room patient was started on ceftriaxone and Zithromax with pulmonary team consulted also started on Solu-Medrol 40 mg Acute COPD exacerbation, possible lingula pneumonia 12/02: Patient Has been seen by pulmonary medicine with recommendations for Solu- Medrol, DuoNeb treatments, Pulmicort and formoterol, Rocephin and Zithromax. Those medications patient are not will be started now. NovoLog scale added. Sputum culture is in progress and blood culture no growth at 24 hours. Patient has been afebrile, heart rate in the 60s to 90s, blood pressure 110/58, pulse ox 97-99% on 2 L nasal cannula. CBC is unremarkable. Anticipate discharge home tomorrow. She'll be transferred to [facility] floor without telemetry. REVIEW OF SYSTEMS Constitutional: No fever, no chills, no night sweats. No weight change. No weakness, fatigue or lethargy. No daytime sleepiness. EENT: No headache. No blurred vision or double vision, no loss of vision. No loss of Hearing, no ringing in the ears, no dizziness. No nasal drainage or congestion. No epistaxis. No sore throat. Lungs: Reports mild shortness of breath, mild cough, mild sputum production. No wheezing. Cardiovascular: No chest pain, no lower extremity edema. No palpitations. No paroxysmal nocturnal dyspnea. No orthopnea. No lightheadedness or dizziness. No syncopal episodes. Abdominal: No abdominal pain. No nausea, vomiting. No diarrhea. No constipation. No bloody or tarry stools. No loss of appetite. Genitourinary: No dysuria, increased frequency, urgency. No urinary retention. Musculoskeletal: No myalgias. No muscle weakness, no gait dysfunction, no frequent falls. No back pain. No neck pain. Integumentary: No wounds, no lesions. No rash or pruritus. No unusual bruising. Neurologic: No aphasia. No facial droop. No change in mentation. No head injury. No headache. No paralysis. No paresthesia. Psychiatric: No depression. No anxiety. No mood swings. Endocrine: No abnormal blood sugars. No weight change. PHYSICAL EXAMINATION Gen: This is a 76-year-old male. He is resting in bed and appears to be comfortable and in no acute distress. HEENT: Head is atraumatic, normocephalic. Pupils equal, round. Sclerae is anicteric. NECK: Supple. No JVD. No lymphadenopathy. No thyromegaly. LUNGS: Scattered rhonchi and expiratory wheeze. No intercostal retractions. HEART: Regular rate and rhythm. No murmur. ABDOMEN: Soft. Bowel sounds are present. No masses. No tenderness. EXTREMITIES: No pedal edema. No calf tenderness. NEUROLOGICAL: Patient is awake, alert and oriented x3. Cranial nerves 2 through 12 are grossly intact. ASSESSMENT AND PLAN 1. Acute COPD exacerbation with lingular pneumonia, possible gram-negative pneumonia. Continue patient on DuoNeb treatments, Solu-Medrol 40 mg every 8, Pulmicort 1 mg twice daily, Perforomist twice daily, Rocephin and Zithromax.. 2. Severe COPD with lung function 35%. 3. Hypertension. Continue lisinopril 2.5 mg daily, Lopressor 12.5 mg twice daily. 4. Hyperlipidemia. Continue atorvastatin 40 mg every 48 hours. 5. Cardiomyopathy with ejection fraction of 20%. Continue patient on Lopressor 12.5 g twice daily, Aldactone 25 mg daily, lisinopril 2.5 mg daily 6. History of nonsustained ventricular tachycardia. 7. History of pulmonary embolism. Continue eliquis 5 mg daily. 8. Remote history of tobacco use and dependence 9. DVT prophylaxis. Eliquis. 10. GI prophylaxis. Protonix. DISCHARGE PLAN Home on Thursday. Impression and plan of care have been directed as dictated by the signing physician. Christine Gordon nurse practitioner acting as scribe for signing physician. Objective - Vital Signs Vital signs: Vital Signs Temp 97.6 F 12/02/21 04:00 Pulse 95 12/02/21 08:08 Resp 18 12/02/21 04:00 BP 110/58 12/02/21 04:00 Pulse Ox 97 12/02/21 07:55 Intake & Output 12/01/21 12/02/21 12/02/21 18:59 06:59 18:59 Intake Total 540 240 Balance 540 240 Weight 74.843 kg Intake: Oral 540 240 Other: Voiding Method Urinal # Voids 1 - Labs CBC & Chem 7: 12/02/21 06:48 11/30/21 23:24 Labs: Microbiology - Last 24 Hours (Table) 12/01/21 04:30 Blood Culture - Preliminary Blood No Growth after 24 hours 12/01/21 05:00 Blood Culture - Preliminary Blood No Growth after 24 hours 12/01/21 16:01 Gram Stain - Preliminary Sputum Sputum Culture - Preliminary
[2021-12-02 11:55] VITALS: BP 111/68; RESP 16; TEMP 97.1
[2021-12-02 12:06] LABS: Glucose,Whole Blood 84 mg/dL (75-99)
[2021-12-02] MEDS ORDERED: INSULIN ASPART (NovoLOG) 100 UNIT/ML VIAL SQ SCH (12:30)
--- NOTE | 2021-12-02 13:44 | P.DS ---
Providers Date of admission: 12/01/21 01:50 Expected date of discharge: 12/02/21 Attending physician: Liss Oneil Consults: 12/01/21 01:50 Consult Physician Urgent Consulting Provider: Nic Newell Reason/Comments: acute exacerbation of copd Do you want consulting provider notified?: Yes Primary care physician: Liss Oneil Hospital Course: HISTORY OF PRESENT ILLNESS This is a pleasant 76 years old male with past medical history of COPD, Hyperlipidemia, Hypertension, Pulmonary Embolus , nonsustained V-Tach in November 2019, hiatal hernia. Cardiomyopathy with an ejection fraction of 20% Patient presents because of dyspnea, Which is started last night while he was going to the restroom he has to sit down because his dyspnea. Associated with cough and with some little green phlegm. No vomiting or diarrhea or abdominal pain. No dysuria. No headache weakness or numbness. An years ago after 20 years of smoking, occasional alcohol drink alcohol. No illicit drug He does not use oxygen at home. His wafer slicer is Dr. Crabtree On admission patient was tachycardic 125 to 1:30. He was tachypneic around 22 breaths per minute, blood pressure is a stable and saturation is 97% on 2 L. Labs including CBC, INR, BMP and liver enzymes are unremarkable. Troponin less than 0.2 Coronavirus: Not detected. ProBNP is 197 Chest x-ray: There is some lingula mild linear infiltrate increased slightly compared to last exam EKG showing tachycardia, sinus at [address]-T changes. QTC is 373. An emergency room patient was started on ceftriaxone and Zithromax with pulmonary team consulted also started on Solu-Medrol 40 mg Acute COPD exacerbation, possible lingula pneumonia 12/02: Patient Has been seen by pulmonary medicine with recommendations for Solu- Medrol, DuoNeb treatments, Pulmicort and formoterol, Rocephin and Zithromax. Those medications patient are not will be started now. NovoLog scale added. Sputum culture is in progress and blood culture no growth at 24 hours. Patient has been afebrile, heart rate in the 60s to 90s, blood pressure 110/58, pulse ox 97-99% on 2 L nasal cannula. CBC is unremarkable. Anticipate discharge home tomorrow. He'll be transferred to [facility] floor without telemetry. Patient was seen bipolar medicine and cleared for discharge. Oxygen assessment was done and patient dropped to 87% with ambulation. Home oxygen will be arranged by case mgr so patient can manage his COPD for chronic hypoxic respiratory failure. DISCHARGE DIAGNOSES 1. Acute COPD exacerbation with lingular pneumonia, possible gram-negative pneumonia. 2. Severe COPD with lung function 35%. 3. Hypertension. 4. Hyperlipidemia. 5. Cardiomyopathy with ejection fraction of 20%. 6. History of nonsustained ventricular tachycardia. 7. History of pulmonary embolism. 8. Remote history of tobacco use and dependence 9. Chronic hypoxic respiratory failure requiring home O2 in order to manage his COPD diagnosis. DISCHARGE PLAN Home Greater than 35 minutes was utilized and coordinating patient's discharge. Impression and plan of care have been directed as dictated by the signing physician. Christine Gordon nurse practitioner acting as scribe for signing physician. Patient Condition at Discharge: Stable Plan - Discharge Summary Discharge Rx Participant: No New Discharge Prescriptions: No Action Fluticasone/Salmeterol [Fluticasone-Salmeterol 113-14] 1 puff INHALATION RT- BID Spironolactone [Aldactone] 25 mg PO DAILY #30 tab lisinopriL [Zestril] 2.5 mg PO DAILY #30 tab Atorvastatin [Lipitor] 40 mg PO Q48H Albuterol Sulfate [Proair Respiclick] 1 puff INHALATION RT-Q4H PRN PRN Reason: Shortness Of Breath Metoprolol Tartrate [Lopressor] 12.5 mg PO BID Apixaban [Eliquis] 5 mg PO BID Discharge Medication List Fluticasone/Salmeterol [Fluticasone-Salmeterol 113-14] 1 puff INHALATION RT-BID 11/28/19 [History] Spironolactone [Aldactone] 25 mg PO DAILY #30 tab 12/01/19 [Rx] lisinopriL [Zestril] 2.5 mg PO DAILY #30 tab 12/01/19 [Rx] Albuterol Sulfate [Proair Respiclick] 1 puff INHALATION RT-Q4H PRN 09/27/21 [History] Apixaban [Eliquis] 5 mg PO BID 09/27/21 [History] Atorvastatin [Lipitor] 40 mg PO Q48H 09/27/21 [History] Metoprolol Tartrate [Lopressor] 12.5 mg PO BID 09/27/21 [History] Follow up Appointment(s)/Referral(s): Liss Oneil MD [Primary Care Provider] - 1-2 days Activity/Diet/Wound Care/Special Instructions: Patient needs home oxygen at discharge to manage COPD
[2021-12-02 16:02] VITALS: PULSE 76
--- NOTE | 2021-12-02 16:40 | P.PN ---
Subjective Progress Note Date: 12/02/21 Principal diagnosis: Acute exacerbation of COPD possible community-acquired lingular pneumonia 76-year-old male with history of COPD, and hypertension, who presents to the emergency department on November 30, with complaints of shortness of breath. The patient started feeling poorly, one day prior to admission. The patient states that in addition to shortness of breath, he was having wheezing, chest congestion, a nonproductive cough, and generally just not feeling well. His saturation was apparently in the 80s. The patient has seen my partner before, for COPD. The patient states that he was told that he had lung function of 35%. In addition, the patient has a history of pulmonary embolism, hypertension, hyperlipidemia, cardiomyopathy with ejection fraction of 20%, and nonsustained ventricular tachycardia. The patient smoked for more than 40 years. Does not smoke currently. Currently, the patient's on 2 L nasal cannula. He's feeling much better. He seen in the emergency department, in room 7. White count 9.4, hemoglobin 16.5, hematocrit 51.1, and platelet count 227,000. PT, INR, and PTT are all normal. Sodium 134, potassium 4.5, chlorides 100, CO2 22, anion gap 12, BUN 16, creatinine 0.92. Testing for coronavirus was negative. Chest x-ray shows changes of COPD, and possible small lingular infiltrate. Reevaluated today on 12/02/21, patient is doing well, relatively asymptomatic, patient is about to be discharged home today. No cough no wheezing no shortness of breath. Patient feels much better today compared to how he felt upon admission. CBC is relatively unremarkable electrolytes are normal renal profile is normal, reviewed chest x-ray, possible lingular infiltrate, Objective - Vital Signs Vital signs: Vital Signs Temp 97.1 F L 12/02/21 11:52 Pulse 76 12/02/21 16:01 Resp 16 12/02/21 11:52 BP 111/68 12/02/21 11:52 Pulse Ox 95 12/02/21 15:51 Intake & Output 12/01/21 12/02/21 12/02/21 18:59 06:59 18:59 Intake Total 540 550 Balance 540 550 Weight 74.843 kg Intake: IV 20 Invasive Line 1 10 Invasive Line 2 10 Intake, IV Titration 50 Amount cefTRIAXone 1 gm In 50 Sodium Chloride 0.9% 50 ml @ 100 mls/hr IVPB Q24HR [facility] Rx#:[id number] Oral 540 480 Other: Voiding Method Urinal Urinal # Voids 1 - Exam Physical Exam: Revealed a 76-year-old white male in no distress. HEENT:[Neck is supple.] [No neck masses.] [No thyromegaly.] [No JVD.] Chest: Diminished breath sounds at the bases no crackles or rhonchi] Cardiac Exam: [Normal S1 and S2, no S3 gallop, no murmur.] Abdomen: [Soft, nontender, no megaly, no rebound, no guarding, normal bowel sounds.] Extremities: [No clubbing, no edema, no cyanosis.] Neurological Exam: [No focal neurologic deficit.] Alert oriented 3 Psychiatric: Normal mood affect and normal mental status examination. Skin: No rashes. - Labs CBC & Chem 7: 12/02/21 06:48 12/02/21 06:48 Labs: Abnormal Lab Results - Last 24 Hours (Table) 12/02/21 12/02/21 Range/Units 06:48 06:48 Neutrophils # 8.5 H (1.3-7.7) k/uL Lymphocytes # 0.6 L (1.0-4.8) k/uL Potassium 5.3 H (3.5-5.1) mmol/L BUN 27 H (9-20) mg/dL Glucose 145 H (74-99) mg/dL Microbiology - Last 24 Hours (Table) 12/01/21 04:30 Blood Culture - Preliminary Blood No Growth after 24 hours 12/01/21 05:00 Blood Culture - Preliminary Blood No Growth after 24 hours 12/01/21 16:01 Gram Stain - Preliminary Sputum Sputum Culture - Preliminary Assessment and Plan Assessment: Impression: Acute exacerbation of COPD Possible acquired lingular infiltrate/pneumonia, chest x-ray is not quite clear, I reviewed the chest x-ray, and I was not certain that the patient truly has pneumonia. Tobacco dependence syndrome, [id number] smoking history. Benign essential hypertension History of cardiomyopathy and LV dysfunction and ejection fraction of 20% Previous history of pulmonary embolism Previous history of nonsustained ventricular tachycardia. Recommendation: Continue bronchodilators. Oral antibiotics. Prednisone burst and taper over the next 2 weeks. We'll clear the patient for discharge planning today. Time with Patient: Less than 30
== END 2021-12-02 16:47 | disposition home or self-care (01) ==
LOC: EC 22:49 → INTOOBSV 12-01 01:50 → 3SCARD 12-01 01:50 → UNDODISIN 12-02 16:47
PROVIDERS: ADMIT Internal Medicine; ATTEND Internal Medicine
DX: J44.1 Chronic obstructive pulmonary disease with (acute) exacerbation (principal); J96.11 Chronic respiratory failure with hypoxia; J44.0 Chronic obstructive pulmonary disease with (acute) lower respiratory infection; J18.9 Pneumonia, unspecified organism; I47.2 Ventricular tachycardia; I11.9 Hypertensive heart disease without heart failure; I43 Cardiomyopathy in diseases classified elsewhere; E78.5 Hyperlipidemia, unspecified; F41.9 Anxiety disorder, unspecified; K44.9 Diaphragmatic hernia without obstruction or gangrene; Z20.822 Contact with and (suspected) exposure to COVID-19; Z79.01 Long term (current) use of anticoagulants; Z79.51 Long term (current) use of inhaled steroids; Z79.899 Other long term (current) drug therapy; Z86.711 Personal history of pulmonary embolism; Z87.891 Personal history of nicotine dependence; Z98.42 Cataract extraction status, left eye; Z98.41 Cataract extraction status, right eye; Z98.890 Other specified postprocedural states; Z80.9 Family history of malignant neoplasm, unspecified
CPT/HCPCS: 96376 ×3; 96365; 96366; 96367; 96375; 99285; 36415; 94660; 94640 ×5; 94760 ×2; 93005; 83880; 80053; 80048; 83605; 84484; 85025 ×2; 85610; 85730; 87040; 87070; 87205; 84145; 87635; 71046; G0378 ×2; J2920 ×2; J0456; J0696 ×2; J3475

== ENCOUNTER 2021-12-05 07:53 | Inpatient (IN) | payer MEDICARE ==
[2021-12-05 08:07] LABS: Glucose,Whole Blood 155 mg/dL (75-99)
[2021-12-05 08:27] LABS: Basophils # (A) 0.1 k/uL (0-0.2); Basophils % (A) 2 %; Eosinophils # (A) 0.7 k/uL (0-0.7); Eosinophils % (A) 9 %; HCT 46.5 % (39.0-53.0); HGB 15.1 gm/dL (13.0-17.5); Lymphocytes # (A) 1.9 k/uL (1.0-4.8); Lymphocytes % (A) 24 %; MCH 31.4 pg (25.0-35.0); MCHC 32.6 g/dL (31.0-37.0); MCV 96.4 fL (80.0-100.0); Mean Platelet Volume 7.6; Monocytes # (A) 0.6 k/uL (0-1.0); Monocytes % (A) 7 %; Neutrophils # (A) 4.3 k/uL (1.3-7.7); Neutrophils % (A) 56 %; Platelet Count 250 k/uL (150-450); RBC 4.82 m/uL (4.30-5.90); RDW 13.6 % (11.5-15.5); WBC 7.6 k/uL (3.8-10.6)
[2021-12-05 08:37] LABS: INR 0.9 (<1.2); Partial Thromboplastin Time 22.4 sec (22.0-30.0); Prothrombin Time 10.3 sec (9.0-12.0)
[2021-12-05 08:42] LABS: Albumin 3.7 g/dL (3.5-5.0); Calcium 8.8 mg/dL (8.4-10.2); Magnesium 2.1 mg/dL (1.6-2.3)
--- NOTE | 2021-12-05 08:49 | XR ---
EXAMINATION TYPE: XR chest 1V portable DATE OF EXAM: 12/05/2021 Comparison: 11/30/2021 Clinical History: 76-year-old male shortness of breath Findings: Heart normal size. Hyperinflation. Patchy opacity periphery of the left mid to lower lung and also at the left base. Findings similar to recent prior. Impression: COPD with similar patchy infiltrate periphery of the left mid and lower lung and left base. Correlate for possible pneumonia.
--- NOTE | 2021-12-05 08:54 | ED ---
SOB HPI - General Chief Complaint: Shortness of Breath Stated Complaint: QUANG Source: patient, EMS Mode of arrival: EMS Limitations: no limitations - History of Present Illness Initial Comments: 76-year-old male past medical history of COPD presents to the emergency department in respiratory distress. Patient was just hospitalized this past weekend for COPD exacerbation. He was discharged home on DuoNeb breathing treatments. Has been doing them 4 times a day. Awoke this morning and had sudden onset of shortness of breath. Attempted to do his nebulizer treatment and did have improvement. Called EMS who found him to have oxygen saturations of 73%. They did place him on CPAP. In route to the hospital the patient had an episode of nonsustained V. tach for which she does have a history of. Patient arrives denies any chest pain, chest pressure. He is saturating 100% on CPAP. He denies that he was sent home with any steroids or antibiotics. Has a history of PE and has been taking has eliquis without any missed doses. He denies any fevers or productive cough. No other alleviating, precipitating or modifying factors - Related Data Home Medications Medication Instructions Recorded Confirmed Fluticasone/Salmeterol 1 puff INHALATION RT-BID 11/28/19 12/05/21 [Fluticasone-Salmeterol 113-14] Albuterol Sulfate [Proair 1 puff INHALATION RT-Q4H PRN 09/27/21 12/05/21 Respiclick] Apixaban [Eliquis] 5 mg PO BID 09/27/21 12/05/21 Atorvastatin [Lipitor] 40 mg PO Q48H 09/27/21 12/05/21 Metoprolol Tartrate [Lopressor] 12.5 mg PO BID 09/27/21 12/05/21 Previous Rx's Medication Instructions Recorded Spironolactone [Aldactone] 25 mg PO DAILY #30 tab 12/01/19 lisinopriL [Zestril] 2.5 mg PO DAILY #30 tab 12/01/19 Ipratropium-Albuterol Nebulize 3 ml INHALATION QID #90 ml 12/02/21 [Duoneb 0.5 mg-3 mg/3 ml Soln] Allergies Allergy/AdvReac Type Severity Reaction Status Date / Time No Known Allergies Allergy Verified 12/05/21 10:46 Review of Systems ROS Statement: Those systems with pertinent positive or pertinent negative responses have been documented in the HPI. ROS Other: All systems not noted in ROS Statement are negative. Past Medical History Past Medical History: COPD, Pulmonary Embolus (PE) Additional Past Medical History / Comment(s): recent rapid heart rate and SOB and nonsustained V-Tach in November 2019, hiatal hernia. Cardiomyopathy with an ejection fraction of 40% History of Any Multi-Drug Resistant Organisms: None Reported Past Surgical History: Back Surgery, Tonsillectomy Additional Past Surgical History / Comment(s): colonoscopy, "two disks removed from spine", pilonidal cyst, jhonatan cataracts Past Anesthesia/Blood Transfusion Reactions: No Reported Reaction Past Psychological History: Anxiety Smoking Status: Former smoker Past Alcohol Use History: None Reported Past Drug Use History: None Reported - Past Family History Mother Family Medical History: Cancer Brother(s) Family Medical History: Cancer General Exam Limitations: no limitations Course Vital Signs 12/05/21 12/05/21 12/05/21 07:55 08:00 10:17 Temperature 97.9 F Pulse Rate 136 H 108 H Respiratory 24 18 Rate Blood Pressure 142/99 101/78 O2 Sat by Pulse 99 100 Oximetry 12/05/21 11:16 Temperature Pulse Rate Respiratory Rate Blood Pressure O2 Sat by Pulse 100 Oximetry Medical Decision Making - Medical Decision Making Upon arrival patient is placed in a trauma 1. A thorough history and physical exam was performed. The patient does arrive on CPAP. He is transitioned to BiPAP. Laboratory studies are conducted. Patient already received 125 of Solu- Medrol and a DuoNeb breathing treatment in route to the hospital. Portable chest x-rays performed. Laboratory studies within normal limits. Covid is negative. Chest x-ray demonstrates COPD with similar patchy infiltrate periphery of the left mid and lower lung and left base. Patient covered with Rocephin and azithromycin. He'll receive breathing treatments every 4 hours and steroids every 8. Spoke with Dr. Oneil who agreed to admit the patient with cardiology and pulm on consult. - Lab Data Result diagrams: 12/05/21 08:11 12/05/21 08:11 Lab Results 12/05/21 12/05/21 12/05/21 Range/Units 08:03 08:11 08:11 WBC 7.6 (3.8-10.6) k/uL RBC 4.82 (4.30-5.90) m/uL Hgb 15.1 (13.0-17.5) gm/dL Hct 46.5 (39.0-53.0) % MCV 96.4 (80.0-100.0) fL MCH 31.4 (25.0-35.0) pg MCHC 32.6 (31.0-37.0) g/dL RDW 13.6 (11.5-15.5) % Plt Count 250 (150-450) k/uL MPV 7.6 Neutrophils % 56 % Lymphocytes % 24 % Monocytes % 7 % Eosinophils % 9 % Basophils % 2 % Neutrophils # 4.3 (1.3-7.7) k/uL Lymphocytes # 1.9 (1.0-4.8) k/uL Monocytes # 0.6 (0-1.0) k/uL Eosinophils # 0.7 (0-0.7) k/uL Basophils # 0.1 (0-0.2) k/uL PT 10.3 (9.0-12.0) sec INR 0.9 (<1.2) APTT 22.4 (22.0-30.0) sec Sodium (137-145) mmol/L Potassium (3.5-5.1) mmol/L Chloride (98-107) mmol/L Carbon Dioxide (22-30) mmol/L Anion Gap mmol/L BUN (9-20) mg/dL Creatinine (0.66-1.25) mg/dL Est GFR (CKD-EPI)AfAm (>60 ml/min/1.73 sqM) Est GFR (CKD-EPI)NonAf (>60 ml/min/1.73 sqM) Glucose (74-99) mg/dL POC Glucose (mg/dL) 155 H (75-99) mg/dL POC Glu [employer] Team Member ID Morgan Camila Plasma Lactic Acid Saravanan (0.7-2.0) mmol/L Calcium (8.4-10.2) mg/dL Magnesium (1.6-2.3) mg/dL Total Bilirubin (0.2-1.3) mg/dL AST (17-59) U/L ALT (4-49) U/L Alkaline Phosphatase (38-126) U/L Troponin I (0.000-0.034) ng/mL NT-Pro-B Natriuret Pep pg/mL Total Protein (6.3-8.2) g/dL Albumin (3.5-5.0) g/dL 12/05/21 12/05/21 12/05/21 Range/Units 08:11 08:11 08:11 WBC (3.8-10.6) k/uL RBC (4.30-5.90) m/uL Hgb (13.0-17.5) gm/dL Hct (39.0-53.0) % MCV (80.0-100.0) fL MCH (25.0-35.0) pg MCHC (31.0-37.0) g/dL RDW (11.5-15.5) % Plt Count (150-450) k/uL MPV Neutrophils % % Lymphocytes % % Monocytes % % Eosinophils % % Basophils % % Neutrophils # (1.3-7.7) k/uL Lymphocytes # (1.0-4.8) k/uL Monocytes # (0-1.0) k/uL Eosinophils # (0-0.7) k/uL Basophils # (0-0.2) k/uL PT (9.0-12.0) sec INR (<1.2) APTT (22.0-30.0) sec Sodium 134 L (137-145) mmol/L Potassium 5.0 (3.5-5.1) mmol/L Chloride 101 (98-107) mmol/L Carbon Dioxide 27 (22-30) mmol/L Anion Gap 6 mmol/L BUN 23 H (9-20) mg/dL Creatinine 1.00 (0.66-1.25) mg/dL Est GFR (CKD-EPI)AfAm 84 (>60 ml/min/1.73 sqM) Est GFR (CKD-EPI)NonAf 72 (>60 ml/min/1.73 sqM) Glucose 187 H (74-99) mg/dL POC Glucose (mg/dL) (75-99) mg/dL POC Glu [employer] Team Member ID Plasma Lactic Acid Saravanan 1.2 (0.7-2.0) mmol/L Calcium 8.8 (8.4-10.2) mg/dL Magnesium 2.1 (1.6-2.3) mg/dL Total Bilirubin 1.0 (0.2-1.3) mg/dL AST 46 (17-59) U/L ALT 37 (4-49) U/L Alkaline Phosphatase 70 (38-126) U/L Troponin I 0.018 (0.000-0.034) ng/mL NT-Pro-B Natriuret Pep pg/mL Total Protein 7.0 (6.3-8.2) g/dL Albumin 3.7 (3.5-5.0) g/dL 12/05/21 Range/Units 08:11 WBC (3.8-10.6) k/uL RBC (4.30-5.90) m/uL Hgb (13.0-17.5) gm/dL Hct (39.0-53.0) % MCV (80.0-100.0) fL MCH (25.0-35.0) pg MCHC (31.0-37.0) g/dL RDW (11.5-15.5) % Plt Count (150-450) k/uL MPV Neutrophils % % Lymphocytes % % Monocytes % % Eosinophils % % Basophils % % Neutrophils # (1.3-7.7) k/uL Lymphocytes # (1.0-4.8) k/uL Monocytes # (0-1.0) k/uL Eosinophils # (0-0.7) k/uL Basophils # (0-0.2) k/uL PT (9.0-12.0) sec INR (<1.2) APTT (22.0-30.0) sec Sodium (137-145) mmol/L Potassium (3.5-5.1) mmol/L Chloride (98-107) mmol/L Carbon Dioxide (22-30) mmol/L Anion Gap mmol/L BUN (9-20) mg/dL Creatinine (0.66-1.25) mg/dL Est GFR (CKD-EPI)AfAm (>60 ml/min/1.73 sqM) Est GFR (CKD-EPI)NonAf (>60 ml/min/1.73 sqM) Glucose (74-99) mg/dL POC Glucose (mg/dL) (75-99) mg/dL POC Glu [employer] Team Member ID Plasma Lactic Acid Saravanan (0.7-2.0) mmol/L Calcium (8.4-10.2) mg/dL Magnesium (1.6-2.3) mg/dL Total Bilirubin (0.2-1.3) mg/dL AST (17-59) U/L ALT (4-49) U/L Alkaline Phosphatase (38-126) U/L Troponin I (0.000-0.034) ng/mL NT-Pro-B Natriuret Pep 125 pg/mL Total Protein (6.3-8.2) g/dL Albumin (3.5-5.0) g/dL - EKG Data EKG Comments: EKG demonstrated a sinus tachycardia with a ventricular rate of 123.. 183. QRS 129. QTC is 371. There is a left bundle branch block. Does not meet for sgarbossa criteria Disposition Clinical Impression: Ventricular tachycardia, COPD with acute exacerbation, CAP (community acquired pneumonia) Disposition: ADMITTED IP TO THIS HOSP Condition: Stable Is patient prescribed a controlled substance at d/c from ED?: No Decision to Admit Reason: Admit from EC Decision Date: 12/05/21 Decision Time: 10:07
[2021-12-05] MEDS ORDERED: cefTRIAXone IN SWFI 1,000 MG/10 ML SYRINGE IVP STA (10:02)
[2021-12-05] MEDS ORDERED: AZITHROMYCIN 500 MG in SODIUM CHLORIDE 0.9% 250 ML IVPB STA (10:03)
[2021-12-05] MEDS ORDERED: NALOXONE 0.4 MG/ML 1 ML VIAL IV PRN ×2 (10:07→10:09)
[2021-12-05] MEDS: METOPROLOL TARTRATE 12.5 MG TAB PO SCH ×2 (11:47→20:44)
--- NOTE | 2021-12-05 11:54 | P.CRDCN ---
History of Present Illness Consult date: 12/05/21 History of present illness: HISTORY OF PRESENT ILLNESS: This is a 76 year old with a past medical history significant for nonsustained ventricular tachycardia, nonischemic cardiomyopathy, dyslipidemia, and PE. Patient follows in the office with Dr. Simmons. We have been asked to see the patient in consultation for nonsustained ventricular tachycardia. Patient examined at the bedside. Patient presented to the hospital for chief complaint of shortness of breath. Patient is being treated for COPD exacerbation. In route to the hospital the patient had a few small runs of nonsustained ventricular tachycardia. The patient has no complaints of chest pain or pressure. He denies dizziness or lightheadedness. * EKG reveals sinus tachycardia with IVCD * Chest xray COPD with similar patchy infiltrate periphery of the left mid and lower lung and left base. Correlate for possible pneumonia. * Laboratory data: WBC 7.6. Hemoglobin 15.1. Platelet count 250. Sodium 134. Potassium 5.0. B UN 23. Creatinine 1.0. Lactic acid 1.2. Troponin negative 1. Magnesium 2.1 * Current home cardiac medications include lisinopril 2.5 mg daily, spironola ctone 25 mg daily, metoprolol tartrate (5 mg twice a day, Lipitor 40 mg every 48 hours, and Eliquis 5 mg twice a day * Most recent echocardiogram obtained in September 2021 revealed ejection fraction 40-45%, mild MR, and mild TR * Previous echocardiogram completed in November 2019 revealed ejection fraction less than 20% * Cardiac catheterization history: December 2019 with normal coronary arteries REVIEW OF SYSTEMS: At the time of my exam: CONSTITUTIONAL: Denies fever or chills. HEENT: Denies blurred vision, vision changes, or eye pain. Denies hemoptysis CARDIOVASCULAR: Denies chest pain. Denies orthopnea. Denies PND. Denies palpitations RESPIRATORY: Denies shortness of breath. GASTROINTESTINAL: Denies abdominal pain. Denies nausea or vomiting. HEMATOLOGIC: Denies bleeding disorders. GENITOURINARY: Denies any blood in urine. SKIN: Denies pruitis. Denies rash. PHYSICAL EXAM: VITAL SIGNS: Reviewed. GENERAL: Well-developed in no acute distress. HEENT: Head is normocephalic. Pupils are equal, round. Sclerae anicteric. Mucous membranes of the mouth are moist. Neck supple. No JVD or thyromegaly LUNGS: Respirations even and unlabored. Lungs diminished HEART: Regular rate and rhythm. S1 and S2 heard. ABDOMEN: Soft. Nondistended. Nontender. EXTREMITIES: Normal range of motion. No clubbing or cyanosis. Peripheral pulses intact. No lower extremity edema NEUROLOGIC: Awake and alert. Oriented x 3. ASSESSMENT: Shortness of breath Acute COPD exacerbation Possible pneumonia Nonsustained ventricular tachycardia History of nonischemic cardiomyopathy History of PE Hyperlipidemia History of nonsustained ventricular tachycardia PLAN: Obtain limited echo to assess LV function Resume home cardiac medications Continue telemetry monitoring Further recommendations pending patient course Nurse practitioner note has been reviewed by physician. Signing provider agrees with the documented findings, assessment, and plan of care. Past Medical History Past Medical History: COPD, Pulmonary Embolus (PE) Additional Past Medical History / Comment(s): recent rapid heart rate and SOB and nonsustained V-Tach in November 2019, hiatal hernia. Cardiomyopathy with an ejection fraction of 40% History of Any Multi-Drug Resistant Organisms: None Reported Past Surgical History: Back Surgery, Tonsillectomy Additional Past Surgical History / Comment(s): colonoscopy, "two disks removed from spine", pilonidal cyst, jhonatan cataracts Past Anesthesia/Blood Transfusion Reactions: No Reported Reaction Past Psychological History: Anxiety Smoking Status: Former smoker Past Alcohol Use History: None Reported Past Drug Use History: None Reported - Past Family History Mother Family Medical History: Cancer Brother(s) Family Medical History: Cancer Medications and Allergies Home Medications Medication Instructions Recorded Confirmed Type Fluticasone/Salmeterol 1 puff INHALATION RT-BID 11/28/19 12/05/21 History [Fluticasone-Salmeterol 113-14] Spironolactone [Aldactone] 25 mg PO DAILY #30 tab 12/01/19 12/05/21 Rx lisinopriL [Zestril] 2.5 mg PO DAILY #30 tab 12/01/19 12/05/21 Rx Albuterol Sulfate [Proair 1 puff INHALATION RT-Q4H PRN 09/27/21 12/05/21 History Respiclick] Apixaban [Eliquis] 5 mg PO BID 09/27/21 12/05/21 History Atorvastatin [Lipitor] 40 mg PO Q48H 09/27/21 12/05/21 History Metoprolol Tartrate [Lopressor] 12.5 mg PO BID 09/27/21 12/05/21 History Ipratropium-Albuterol Nebulize 3 ml INHALATION QID #90 ml 12/02/21 12/05/21 Rx [Duoneb 0.5 mg-3 mg/3 ml Soln] Allergies Allergy/AdvReac Type Severity Reaction Status Date / Time No Known Allergies Allergy Verified 12/05/21 10:46 Physical Exam Vitals: Vital Signs Temp Pulse Resp BP Pulse Ox 12/05/21 11:16 100 12/05/21 10:17 108 H 18 101/78 100 12/05/21 08:00 24 12/05/21 07:55 97.9 F 136 H 24 142/99 99 Intake and Output 12/04/21 12/05/21 12/05/21 22:59 06:59 14:59 Other: Weight 74.843 kg Results 12/05/21 08:11 12/05/21 08:11 Cardiac Enzymes 12/05/21 12/05/21 Range/Units 08:11 08:11 AST 46 (17-59) U/L Troponin I 0.018 (0.000-0.034) ng/mL Coagulation 12/05/21 Range/Units 08:11 PT 10.3 (9.0-12.0) sec APTT 22.4 (22.0-30.0) sec CBC 12/05/21 Range/Units 08:11 WBC 7.6 (3.8-10.6) k/uL RBC 4.82 (4.30-5.90) m/uL Hgb 15.1 (13.0-17.5) gm/dL Hct 46.5 (39.0-53.0) % Plt Count 250 (150-450) k/uL Comprehensive Metabolic Panel 12/05/21 Range/Units 08:11 Sodium 134 L (137-145) mmol/L Potassium 5.0 (3.5-5.1) mmol/L Chloride 101 (98-107) mmol/L Carbon Dioxide 27 (22-30) mmol/L BUN 23 H (9-20) mg/dL Creatinine 1.00 (0.66-1.25) mg/dL Glucose 187 H (74-99) mg/dL Calcium 8.8 (8.4-10.2) mg/dL AST 46 (17-59) U/L ALT 37 (4-49) U/L Alkaline Phosphatase 70 (38-126) U/L Total Protein 7.0 (6.3-8.2) g/dL Albumin 3.7 (3.5-5.0) g/dL Current Medications Generic Name Dose Route Start Last Admin Trade Name Freq PRN Reason Stop Dose Admin Albuterol/Ipratropium 3 ml 12/05/21 12:00 Ipratropium-Albuterol 3 Ml Neb INHALATION RT-Q4H EVELYN Apixaban 5 mg 12/05/21 21:00 Apixaban 5 Mg Tab PO BID [facility] Protocol Atorvastatin Calcium 40 mg 12/05/21 21:00 Atorvastatin 40 Mg Tab PO Q48H EVELYN Lisinopril 2.5 mg 12/06/21 09:00 Lisinopril 2.5 Mg Tab PO DAILY [facility] Methylprednisolone Sodium Succinate 40 mg 12/05/21 16:00 Methylprednisolone Sod Succi 40 Mg/Ml 1 Ml Vial IV Q8HR [facility] Metoprolol Tartrate 12.5 mg 12/05/21 11:30 Metoprolol Tartrate 12.5 Mg Tab PO BID [facility] Naloxone HCl 0.2 mg 12/05/21 10:09 Naloxone 0.4 Mg/Ml 1 Ml Vial IV Q2M PRN Opioid Reversal Spironolactone 25 mg 12/06/21 09:00 Spironolactone 25 Mg Tab PO DAILY [facility] Intake and Output 12/04/21 12/05/21 12/05/21 22:59 06:59 14:59 Other: Weight 74.843 kg Patient Weight 12/06/21 06:59 Weight 74.843 kg 12/05/21 08:11 12/05/21 08:11
[2021-12-05] MEDS ORDERED: IPRATROPIUM-ALBUTEROL 3 ML NEB INHALATION SCH (12:00)
[2021-12-05] MEDS ORDERED: IPRATROPIUM-ALBUTEROL 3 ML NEB INHALATION PRN (14:26)
--- NOTE | 2021-12-05 14:39 | P.HPIM ---
History of Present Illness H&P Date: 12/05/21 HISTORY OF PRESENT ILLNESS This is a 76-year-old male patient with past medical history of COPD with lung function 35%, hypertension, history of pulmonary embolism, hyperlipidemia, cardiomyopathy with EF of 20%, nonsustained ventricular tachycardia. Remote history of tobacco use and dependence. Patient was recently hospitalized and discharged on 12/02 with oxygen. Patient states that the next day he felt really good he did not wear his oxygen all day. He states he went out to his mailbox for the first time in 7 days he went to the store to get milk and a few other i tems. He helped his with supper. He took a nap from 4:30 to 645 and when he was sitting in bed he couldn't feel that he was having more shortness of breath and put his oxygen on for the first time. When he got up from bed, he states he had to wait 2 hours for his nebulizer treatment which was scheduled at 9 PM. After the nebulizer treatment he felt a little bit better he went back to bed but he does sit up throughout the night. By 3 and in the morning he was significantly worse in nature that he got his nebulizer treatment was feeling very anxious and took one of his 's anxiety medications. He was feeling a little bit better stayed in bed at 645 he was feeling worse again the oxygen didn't seem to help and he called EMS to come into the hospital for further evaluation. During transport the patient had episode of nonsustained ventricular tachycardia and he was saturating 100% on CPAP. Patient was found to be afebrile, heart rate 136, respiratory rate 24, blood pressure 142/99, pulse ox 99%. Patient was transitioned to BiPAP, given Solu-Medrol 125 mg, nebulizer treatment. CBC was unremarkable. Sodium 134, potassium 5.0, chloride 101, CO2 27, BUN 23 creatinine 1, blood sugar 187. Liver function tests were normal. Lactic acid 1.2. Troponin 0.018 and 0.625. Coronavirus PCR not detected. ProBNP 125. Chest x-ray revealed COPD with similar patchy infiltrates periphery of the left mid and lower lung and left base. Correlate for possible pneumonia. Patient was started on Rocephin and azithromycin, nebulizer treatments and consults with cardiology and pulmonary medicine. REVIEW OF SYSTEMS Constitutional: No fever, no chills, no night sweats. No weight change. No weakness, fatigue or lethargy. No daytime sleepiness. EENT: No headache. No blurred vision or double vision, no loss of vision. No loss of Hearing, no ringing in the ears, no dizziness. No nasal drainage or congestion. No epistaxis. No sore throat. Lungs: Reports shortness of breath, mild cough, mild sputum production. Reports wheezing. Cardiovascular: No chest pain, no lower extremity edema. No palpitations. No paroxysmal nocturnal dyspnea. No orthopnea. No lightheadedness or dizziness. No syncopal episodes. Abdominal: No abdominal pain. No nausea, vomiting. No diarrhea. No constipation. No bloody or tarry stools. No loss of appetite. Genitourinary: No dysuria, increased frequency, urgency. No urinary retention. Musculoskeletal: No myalgias. No muscle weakness, no gait dysfunction, no frequent falls. No back pain. No neck pain. Integumentary: No wounds, no lesions. No rash or pruritus. No unusual bruising. Neurologic: No aphasia. No facial droop. No change in mentation. No head injury. No headache. No paralysis. No paresthesia. Psychiatric: No depression. Reports anxiety. No mood swings. Endocrine: No abnormal blood sugars. No weight change. SOCIAL HISTORY Patient was a smoker one pack per day for 40 years and quit 20 years ago. He occasionally has a beer. He does not use marijuana or illicit drug use. Patient lives at home with his . He has a nebulizer and oxygen at home. No DME for ambulation. FAMILY MEDICAL HISTORY Mother in her 70s with history of lung cancer and breast cancer. Father in a fire at age 50 with history of TB. Patient has one brother with history of bladder cancer. He does not have any sisters. Patient has 2 chi ldren, one son and one daughter with no major medical problems. PHYSICAL EXAMINATION Gen: This is a 76-year-old male. He is resting in chair and appears to be comfortable and in no acute distress. HEENT: Head is atraumatic, normocephalic. Pupils equal, round. Sclerae is anicteric. NECK: Supple. No JVD. No lymphadenopathy. No thyromegaly. LUNGS: Scattered rhonchi and expiratory wheeze. No intercostal retractions. HEART: first heart sound is depressed, second heart sound is normal, 2/6 systolic ejection murmur at the left sternal border. ABDOMEN: Soft. Bowel sounds are present. No masses. No tenderness. EXTREMITIES: No pedal edema. No calf tenderness. NEUROLOGICAL: Patient is awake, alert and oriented x3. Cranial nerves 2 through 12 are grossly intact. ASSESSMENT AND PLAN 1. Acute COPD exacerbation with pneumonia, possible gram-negative pneumonia. Continue patient on DuoNeb treatments 4 times daily and as needed, Solu-Medrol 40 mg every 8, Pulmicort 1 mg twice daily, Perforomist twice daily, Rocephin and Zithromax.. 2. Severe COPD with lung function 35%. 3. Episode of nonsustained ventricular tachycardia with history of same. Cardiology consult. Continue Lopressor 12.5 mg twice daily. 4. Hypertension. Continue lisinopril 2.5 mg daily, Lopressor 12.5 mg twice daily. 5. Hyperlipidemia. Continue atorvastatin 40 mg every 48 hours. 6. Cardiomyopathy with ejection fraction of 20%. Continue patient on Lopressor 12.5 g twice daily, Aldactone 25 mg daily, lisinopril 2.5 mg daily 7. History of pulmonary embolism. Continue eliquis 5 mg daily. 8. Remote history of tobacco use and dependence 9. DVT prophylaxis. Eliquis. 10. GI prophylaxis. Protonix. Patient admitted to the hospital for a minimum of 2 nights stay. DISCHARGE PLAN Home Impression and plan of care have been directed as dictated by the signing physician. Christine Gordon nurse practitioner acting as scribe for signing physician. Past Medical History Past Medical History: COPD, Pulmonary Embolus (PE) Additional Past Medical History / Comment(s): recent rapid heart rate and SOB and nonsustained V-Tach in November 2019, hiatal hernia. Cardiomyopathy with an ejection fraction of 40% History of Any Multi-Drug Resistant Organisms: None Reported Past Surgical History: Back Surgery, Tonsillectomy Additional Past Surgical History / Comment(s): colonoscopy, "two disks removed from spine", pilonidal cyst, jhonatan cataracts Past Anesthesia/Blood Transfusion Reactions: No Reported Reaction Past Psychological History: Anxiety Smoking Status: Former smoker Past Alcohol Use History: None Reported Past Drug Use History: None Reported - Past Family History Mother Family Medical History: Cancer Brother(s) Family Medical History: Cancer Medications and Allergies Home Medications Medication Instructions Recorded Confirmed Type Fluticasone/Salmeterol 1 puff INHALATION RT-BID 11/28/19 12/05/21 History [Fluticasone-Salmeterol 113-14] Spironolactone [Aldactone] 25 mg PO DAILY #30 tab 12/01/19 12/05/21 Rx lisinopriL [Zestril] 2.5 mg PO DAILY #30 tab 12/01/19 12/05/21 Rx Albuterol Sulfate [Proair 1 puff INHALATION RT-Q4H PRN 09/27/21 12/05/21 History Respiclick] Apixaban [Eliquis] 5 mg PO BID 09/27/21 12/05/21 History Atorvastatin [Lipitor] 40 mg PO Q48H 09/27/21 12/05/21 History Metoprolol Tartrate [Lopressor] 12.5 mg PO BID 09/27/21 12/05/21 History Ipratropium-Albuterol Nebulize 3 ml INHALATION QID #90 ml 12/02/21 12/05/21 Rx [Duoneb 0.5 mg-3 mg/3 ml Soln] Allergies Allergy/AdvReac Type Severity Reaction Status Date / Time No Known Allergies Allergy Verified 12/05/21 10:46 Physical Exam Vitals: Vital Signs Temp Pulse Pulse Resp BP BP Pulse Ox 12/05/21 12:15 112 H 12/05/21 12:05 112 H 12/05/21 11:53 18 99 12/05/21 11:47 98 F 119 H 18 105/65 99 12/05/21 11:16 100 12/05/21 10:17 108 H 18 101/78 100 12/05/21 08:00 24 12/05/21 07:55 97.9 F 136 H 24 142/99 99 Intake and Output 12/04/21 12/05/21 12/05/21 22:59 06:59 14:59 Other: Weight 74.843 kg Results CBC & Chem 7: 12/06/21 07:57 12/06/21 07:57 Labs: Abnormal Lab Results - Last 24 Hours (Table) 12/05/21 12/05/21 12/05/21 Range/Units 08:03 08:11 11:00 Sodium 134 L (137-145) mmol/L BUN 23 H (9-20) mg/dL Glucose 187 H (74-99) mg/dL POC Glucose (mg/dL) 155 H (75-99) mg/dL Troponin I 0.625 H* (0.000-0.034) ng/mL
--- NOTE | 2021-12-05 14:43 | P.CNPUL ---
History of Present Illness Consult date: 12/05/21 Requesting physician: Shea Naqvi Reason for consult: dyspnea Chief complaint: Shortness of breath History of present illness: 76-year-old white male patient with known history of COPD on home oxygen, baseline FEV1 of 35% of predicted, nonischemic cardiomyopathy with EF of 40-45%, dyslipidemia, previous history of PE. Patient was recently hospitalized for acute exacerbation of COPD and discharged home on 12/02/2021. Patient was brought into the emergency department on 12/05/2021 for evaluation of sudden onset of shortness of breath. He attempted to do his nebulizer treatments and did have some improvement. When the EMS arrived they found his oxygen saturations to be at 73%, patient was placed on CPAP. En route he also had a few small runs of nonsustained ventricular tachycardia. Patient had no complaints of chest pain or pressure, no dizziness or lightheadedness, no fever or chills, no cough, no phlegm production. Chest x-ray showed COPD with similar patchy infiltrates in the left mid and lower lung and left base, similar to the chest x-ray findings from his previous admission with questionable lingular infiltrate/pneumonia. Admission blood work showed CBC which was completely within normal limits, correlation profile was unremarkable, serum sodium was 134, the rest of electrolytes were unremarkable, BUN is 23 creatinine was 1. Troponin was 0.018, and subsequent troponin was 0.625, LFTs were within normal limits, Procalcitonin level was negative during last admission prior to discharge at 0.08, COVID-19 PCR was negative. EKG showed sinus tachycardia with left bundle branch block. Patient was started on breathing treatments, IV steroids, she was given a dose of azithromycin and Rocephin in the emergency department, patient is on Eliquis for a history of pulmonary embolism which was resumed. Currently sitting up in the chair, breathing fairly comfortablly, in no acute distress, on 6 L of oxygen pulse ox was 99%. Review of Systems All systems: negative Constitutional: Denies chills, Denies fever Eyes: denies blurred vision, denies pain Ears, nose, mouth and throat: Denies headache, Denies sore throat Cardiovascular: Denies chest pain, Denies shortness of breath Respiratory: Reports dyspnea, Denies cough Gastrointestinal: Denies abdominal pain, Denies diarrhea, Denies nausea, Denies vomiting Musculoskeletal: Denies myalgias Integumentary: Denies pruritus, Denies rash Neurological: Denies numbness, Denies weakness Psychiatric: Denies anxiety, Denies depression Endocrine: Denies fatigue, Denies weight change Past Medical History Past Medical History: COPD, Pulmonary Embolus (PE) Additional Past Medical History / Comment(s): recent rapid heart rate and SOB an d nonsustained V-Tach in November 2019, hiatal hernia. Cardiomyopathy with an ejection fraction of 40% History of Any Multi-Drug Resistant Organisms: None Reported Past Surgical History: Back Surgery, Tonsillectomy Additional Past Surgical History / Comment(s): colonoscopy, "two disks removed from spine", pilonidal cyst, jhonatan cataracts Past Anesthesia/Blood Transfusion Reactions: No Reported Reaction Past Psychological History: Anxiety Smoking Status: Former smoker Past Alcohol Use History: None Reported Additional Past Alcohol Use History / Comment(s): QUIT SMOKING 2006, started smoking age 19, 1 PPD Past Drug Use History: None Reported - Past Family History Mother Family Medical History: Cancer Brother(s) Family Medical History: Cancer Medications and Allergies Home Medications Medication Instructions Recorded Confirmed Type Fluticasone/Salmeterol 1 puff INHALATION RT-BID 11/28/19 12/05/21 History [Fluticasone-Salmeterol 113-14] Spironolactone [Aldactone] 25 mg PO DAILY #30 tab 12/01/19 12/05/21 Rx lisinopriL [Zestril] 2.5 mg PO DAILY #30 tab 12/01/19 12/05/21 Rx Albuterol Sulfate [Proair 1 puff INHALATION RT-Q4H PRN 09/27/21 12/05/21 History Respiclick] Apixaban [Eliquis] 5 mg PO BID 09/27/21 12/05/21 History Atorvastatin [Lipitor] 40 mg PO Q48H 09/27/21 12/05/21 History Metoprolol Tartrate [Lopressor] 12.5 mg PO BID 09/27/21 12/05/21 History Ipratropium-Albuterol Nebulize 3 ml INHALATION QID #90 ml 12/02/21 12/05/21 Rx [Duoneb 0.5 mg-3 mg/3 ml Soln] Allergies Allergy/AdvReac Type Severity Reaction Status Date / Time No Known Allergies Allergy Verified 12/05/21 10:46 Physical Exam Vitals: Vital Signs Temp Pulse Pulse Resp BP BP Pulse Ox 12/05/21 12:15 112 H 12/05/21 12:05 112 H 12/05/21 11:53 18 99 12/05/21 11:47 98 F 119 H 18 105/65 99 12/05/21 11:16 100 12/05/21 10:17 108 H 18 101/78 100 12/05/21 08:00 24 12/05/21 07:55 97.9 F 136 H 24 142/99 99 Intake and Output 12/04/21 12/05/21 12/05/21 22:59 06:59 14:59 Intake Total 118 Balance 118 Intake: Oral 118 Other: Weight 74.843 kg GENERAL EXAM: Alert, very pleasant, 76-year-old white male, on 4 L of oxygen, sitting up in the recliner, breathing comfortably, comfortable in no apparent distress. HEAD: Normocephalic/atraumatic. EYES: Normal reaction of pupils, equal size. Conjunctiva pink, sclera white. NOSE: Clear with pink turbinates. THROAT: No erythema or exudates. NECK: No masses, no JVD, no thyroid enlargement, no adenopathy. CHEST: No chest wall deformity. Symmetrical expansion. LUNGS: Diminished air entry with no crackles, wheeze, rhonchi or dullness. CVS: Regular rate and rhythm, normal S1 and S2, no gallops, no murmurs, no rubs ABDOMEN: Soft, nontender. No hepatosplenomegaly, normal bowel sounds, no guarding or rigidity. EXTREMITIES: No clubbing, no edema, no cyanosis, 2+ pulses and upper and lower extremities. MUSCULOSKELETAL: Muscle strength and tone normal. SPINE: No scoliosis or deformity SKIN: No rashes CENTRAL NERVOUS SYSTEM: Alert and oriented -3. No focal deficits, tone is normal in all 4 extremities. PSYCHIATRIC: Alert and oriented -3. Appropriate affect. Intact judgment and insight. Results - Laboratory Findings CBC and BMP: 12/05/21 08:11 12/05/21 08:11 PT/INR, D-dimer PT 10.3 sec (9.0-12.0) 12/05/21 08:11 INR 0.9 (<1.2) 12/05/21 08:11 Abnormal lab findings: Abnormal Labs 12/05/21 12/05/21 12/05/21 08:03 08:11 11:00 Sodium 134 L BUN 23 H Glucose 187 H POC Glucose (mg/dL) 155 H Troponin I 0.625 H* - Diagnostic Findings Chest x-ray: report reviewed, image reviewed Additional studies: EKG reviewed Assessment and Plan Plan: Assessment: #1. Acute shortness of breath, possibly related to acute COPD exacerbation, COVID-19 PCR was negative, chest x-ray showed patchy infiltrate in the left lung seen during recent admission, possibly related to area of lung scarring rather than pneumonia based on negative procalcitonin level #2. Recent hospitalization for acute exacerbation of COPD, and patient was also treated for possible lingular infiltrate, although possibility of pneumonia seem to be less likely #3. Tobacco dependence syndrome, carries [id number] smoking history #4. Benign essential hypertension #5. History of nonischemic cardiomyopathy with an ejection fraction of 20%, improved on most recent echocardiograms #6. Hypertension #7. Hyperlipidemia #8. Previous history of PE on Eliquis #9. Anxiety #10. Episode of nonsustained ventricular tachycardia #11. History of severe COPD on home O2, with baseline FEV1 of 35% predicted Plan: Continue IV steroids Continue nebulized bronchodilators Chest x-ray reviewed Area in the left lung most likely to be area of scarring We'll send a repeat pro-calcitonin Cardiology recommendations We'll continue to follow I performed a history & physical examination of the patient and discussed their management with my nurse practitioner, Tsering Stanley. I reviewed the nurse practitioner's note and agree with the documented findings and plan of care. Lung sounds are positive for dim breath sounds throughout the lung meadows. The findings and the impression was discussed with the patient. I attest to the documentation by the nurse practitioner. I have personally seen and examined the patient, performed the documentation and the assessment and plan as written. Number of minutes spent on the visit: [20] Time with Patient: Greater than 30
[2021-12-05] MEDS: IPRATROPIUM-ALBUTEROL 3 ML NEB INHALATION SCH ×2 (16:12→20:17)
[2021-12-05] MEDS: methylPREDNISolone SOD SUCCI 40 MG/ML 1 ML VIAL IV SCH ×2 (16:45→22:38)
[2021-12-05] MEDS: SYMBICORT 160-4.5 MCG INHALER INHALATION SCH (20:17)
[2021-12-05] MEDS: ATORVASTATIN 40 MG TAB PO SCH (20:44)
[2021-12-05] MEDS: APIXABAN 5 MG TAB PO SCH (20:44)
[2021-12-06] MEDS: SYMBICORT 160-4.5 MCG INHALER INHALATION SCH ×2 (07:14→19:08)
[2021-12-06] MEDS: IPRATROPIUM-ALBUTEROL 3 ML NEB INHALATION SCH ×4 (07:14→19:08)
[2021-12-06] MEDS: METOPROLOL TARTRATE 12.5 MG TAB PO SCH ×2 (07:26→20:13)
[2021-12-06] MEDS: APIXABAN 5 MG TAB PO SCH ×2 (07:26→20:13)
[2021-12-06] MEDS: methylPREDNISolone SOD SUCCI 40 MG/ML 1 ML VIAL IV SCH ×3 (07:27→23:09)
[2021-12-06] MEDS: SPIRONOLACTONE 25 MG TAB PO SCH (07:27)
--- NOTE | 2021-12-06 08:00 | ECHOF ---
Referral Reason:LV function MEASUREMENTS -------- HEIGHT: 172.7 cm WEIGHT: 74.8 kg BP: RAP: 5.00 mmHg RVSP: 33.20 mmHg FINDINGS -------- Sinus rhythm. Echo done 10/01: Limited Echo for LV function. There is severe global hypokinesis of LV . Overall left ventricular systolic function is severely i mpaired with, an EF < 20%. 5.0mg OF Lumason UTLIZED: 2 OR MORE WALL SEGMENTS NOT VISUALIZED. The aortic valve was not well visualized. Trace to mild aortic regurgitation. Mild mitral annular calcification present. Mild mitral regurgitation is present. The tricuspid valve appears structurally normal. Mild tricuspid regurgitation present. Right vent ricular systolic pressure is normal at < 35 mmHg. The pulmonic valve was not well visualized. There is no pericardial effusion. CONCLUSIONS -------- 1. Echo done 10/01: Limited Echo for LV function. 2. There is severe global hypokinesis of LV . 3. Overall left ventricular systolic function is severely impaired with, an EF < 20%. 4. 5.0mg OF Lumason UTLIZED: 2 OR MORE WALL SEGMENTS NOT VISUALIZED. 5. Trace to mild aortic regurgitation. 6. Mild mitral regurgitation is present. 7. Mild tricuspid regurgitation present. 8. There is no pericardial effusion. GEOTHERMAL INSTALLER: Barbara Rodgers RDCS
[2021-12-06 08:52] LABS: Basophils % (A) 0 %; Eosinophils % (A) 0 %; HCT 42.9 % (39.0-53.0); HGB 14.1 gm/dL (13.0-17.5); Lymphocytes % (A) 10 %; MCH 31.5 pg (25.0-35.0); MCHC 32.8 g/dL (31.0-37.0); Mean Platelet Volume 7.6; Monocytes # (A) 0.5 k/uL (0-1.0); Monocytes % (A) 5 %; Neutrophils # (A) 8.4 k/uL (1.3-7.7); Neutrophils % (A) 84 %; Platelet Count 248 k/uL (150-450); RBC 4.47 m/uL (4.30-5.90); RDW 13.9 % (11.5-15.5)
[2021-12-06 09:14] LABS: Calcium 8.9 mg/dL (8.4-10.2); Potassium 4.8 mmol/L (3.5-5.1)
--- NOTE | 2021-12-06 11:23 | P.PN ---
Subjective Progress Note Date: 12/06/21 HISTORY OF PRESENT ILLNESS: This is a 76 year old with a past medical history significant for nonsustained ventricular tachycardia, nonischemic cardiomyopathy, dyslipidemia, and PE. Patient follows in the office with Dr. Simmons. We have been asked to see the patient in consultation for nonsustained ventricular tachycardia. Patient examined at the bedside. Patient presented to the hospital for chief complaint of shortness of breath. Patient is being treated for COPD exacerbation. In route to the hospital the patient had a few small runs of nonsustained ventricular tachycardia. The patient has no complaints of chest pain or pressure. He denies dizziness or lightheadedness. * EKG reveals sinus tachycardia with IVCD * Chest xray COPD with similar patchy infiltrate periphery of the left mid and lower lung and left base. Correlate for possible pneumonia. * Laboratory data: WBC 7.6. Hemoglobin 15.1. Platelet count 250. Sodium 134. Potassium 5.0. B UN 23. Creatinine 1.0. Lactic acid 1.2. Troponin negative 1. Magnesium 2.1 * Current home cardiac medications include lisinopril 2.5 mg daily, spironolactone 25 mg daily, metoprolol tartrate (5 mg twice a day, Lipitor 40 mg every 48 hours, and Eliquis 5 mg twice a day * Most recent echocardiogram obtained in September 2021 revealed ejection fraction 40-45%, mild MR, and mild TR * Previous echocardiogram completed in November 2019 revealed ejection fraction less than 20% * Cardiac catheterization history: December 2019 with normal coronary arteries 12/06/2021 Patient examined this morning at the bedside. Patient currently denies chest pain or pressure. He reports improvement in his breathing. Troponins resulted at 0.08. 0.625. 1.200. Echocardiogram completed revealing worsened ejection fraction from previous echo revealing EF of less than 20% PHYSICAL EXAM: VITAL SIGNS: Reviewed. GENERAL: Well-developed in no acute distress. HEENT: Head is normocephalic. Pupils are equal, round. Sclerae anicteric. Mucous membranes of the mouth are moist. Neck supple. No JVD or thyromegaly LUNGS: Respirations even and unlabored. Lungs diminished HEART: Regular rate and rhythm. S1 and S2 heard. ABDOMEN: Soft. Nondistended. Nontender. EXTREMITIES: Normal range of motion. No clubbing or cyanosis. Peripheral pulses intact. No lower extremity edema NEUROLOGIC: Awake and alert. Oriented x 3. ASSESSMENT: Shortness of breath Acute COPD exacerbation Possible pneumonia Nonsustained ventricular tachycardia Nonischemic cardiomyopathy Abnormal troponins, secondary to Type II SC secondary to oxygen supply and demand mismatch History of PE Hyperlipidemia History of nonsustained ventricular tachycardia PLAN: Continue current cardiac medications Patient will require lifevest at the time of discharge secondary to severe cherie schemic cardiomyopathy and runs of nonsustained VT to prevent sudden cardiac Further recommendations pending patient course Nurse practitioner note has been reviewed by physician. Signing provider agrees with the documented findings, assessment, and plan of care. Objective - Vital Signs Vital signs: Vital Signs Temp 97.9 F 12/06/21 07:32 Pulse 65 12/06/21 07:32 Resp 18 12/06/21 08:00 BP 107/58 12/06/21 07:32 Pulse Ox 99 12/06/21 07:32 Intake & Output 12/05/21 12/06/21 12/06/21 18:59 06:59 18:59 Intake Total 118 Balance 118 Weight 74.843 kg Intake: Oral 118 Other: Voiding Method Toilet Toilet # Voids 4 1 - Labs CBC & Chem 7: 12/06/21 07:57 12/06/21 07:57 Labs: Abnormal Lab Results - Last 24 Hours (Table) 12/05/21 12/05/21 12/06/21 Range/Units 11:00 15:02 07:57 Neutrophils # 8.4 H (1.3-7.7) k/uL Sodium (137-145) mmol/L BUN (9-20) mg/dL Glucose (74-99) mg/dL Troponin I 0.625 H* 1.200 H* (0.000-0.034) ng/mL 12/06/21 Range/Units 07:57 Neutrophils # (1.3-7.7) k/uL Sodium 132 L (137-145) mmol/L BUN 26 H (9-20) mg/dL Glucose 171 H (74-99) mg/dL Troponin I (0.000-0.034) ng/mL Microbiology - Last 24 Hours (Table) 12/05/21 10:10 Blood Culture Gram Stain - Preliminary Blood 12/05/21 10:10 Blood Culture - Final Blood
--- NOTE | 2021-12-06 15:25 | P.PN ---
<Tsering Stanley M - Last Filed: 12/06/21 15:09> Subjective Progress Note Date: 12/06/21 Principal diagnosis: Shortness of breath 76-year-old white male patient with known history of COPD on home oxygen, baseline FEV1 of 35% of predicted, nonischemic cardiomyopathy with EF of 40-45%, dyslipidemia, previous history of PE. Patient was recently hospitalized for acute exacerbation of COPD and discharged home on 12/02/2021. Patient was brought into the emergency department on 12/05/2021 for evaluation of sudden onset of shortness of breath. He attempted to do his nebulizer treatments and did have some improvement. When the EMS arrived they found his oxygen saturations to be at 73%, patient was placed on CPAP. En route he also had a few small runs of nonsustained ventricular tachycardia. Patient had no complaints of chest pain or pressure, no dizziness or lightheadedness, no fever or chills, no cough, no phlegm production. Chest x-ray showed COPD with similar patchy infiltrates in the left mid and lower lung and left base, similar to the chest x-ray findings from his previous admission with questionable lingular infiltrate/pneumonia. Admission blood work showed CBC which was completely within normal limits, correlation profile was unremarkable, serum sodium was 134, the rest of electrolytes were unremarkable, BUN is 23 creatinine was 1. Troponin was 0.018, and subsequent troponin was 0.625, LFTs were within normal limits, Procalcitonin level was negative during last admission prior to discharge at 0.08, COVID-19 PCR was negative. EKG showed sinus tachycardia with left bundle branch block. Patient was started on breathing treatments, IV steroids, she was given a dose of azithromycin and Rocephin in the emergency department, patient is on Eliquis for a history of pulmonary embolism which was resumed. Currently sitting up in the chair, breathing fairly comfortablly, in no acute distress, on 6 L of oxygen pulse ox was 99%. On 12/06/2021 patient seen in follow-up on selective care unit. He is breathing comfortably, is currently on 2 L of oxygen his pulse ox is 99%, no cough, no phlegm production, no complaints of chest pains overnight. He continues on IV steroids, his antibiotics have been discontinued, his pro-calcitonin level was negative at 0.08, he tested negative for COVID-19, the area in question in the left upper lobe related to area of lung scarring, that was also previously seen on CT imaging of the chest from last year. Patient had episodes of nonsustained V. tach on the way to the hospital, there has been no recurrence of arrhythmias while in the hospital, his had no complaints of dizziness or lightheadedness, echocardiogram has been completed showing severe global hypokinesis severely. Left ventricular ejection fraction of less than 20%, mild MR, mild TR Objective - Vital Signs Vital signs: Vital Signs Temp 98.1 F 12/06/21 12:00 Pulse 57 L 12/06/21 12:00 Resp 18 12/06/21 12:31 BP 84/47 12/06/21 12:00 Pulse Ox 98 12/06/21 12:00 Intake & Output 12/05/21 12/06/21 12/06/21 18:59 06:59 18:59 Intake Total 118 Balance 118 Weight 74.843 kg Intake: Oral 118 Other: Voiding Method Toilet Toilet # Voids 4 1 - Exam GENERAL EXAM: Alert, very pleasant, 76-year-old white male, on 2 L of oxygen, sitting up in the recliner, breathing comfortably satting 98%, comfortable in no apparent distress. HEAD: Normocephalic/atraumatic. EYES: Normal reaction of pupils, equal size. Conjunctiva pink, sclera white. NOSE: Clear with pink turbinates. THROAT: No erythema or exudates. NECK: No masses, no JVD, no thyroid enlargement, no adenopathy. CHEST: No chest wall deformity. Symmetrical expansion. LUNGS: Diminished air entry with no crackles, wheeze, rhonchi or dullness. CVS: Regular rate and rhythm, normal S1 and S2, no gallops, no murmurs, no rubs ABDOMEN: Soft, nontender. No hepatosplenomegaly, normal bowel sounds, no guarding or rigidity. EXTREMITIES: No clubbing, no edema, no cyanosis, 2+ pulses and upper and lower extremities. MUSCULOSKELETAL: Muscle strength and tone normal. SPINE: No scoliosis or deformity SKIN: No rashes CENTRAL NERVOUS SYSTEM: Alert and oriented -3. No focal deficits, tone is normal in all 4 extremities. PSYCHIATRIC: Alert and oriented -3. Appropriate affect. Intact judgment and insight. - Labs CBC & Chem 7: 12/06/21 07:57 12/06/21 07:57 Labs: Abnormal Lab Results - Last 24 Hours (Table) 12/05/21 12/06/21 12/06/21 Range/Units 15:02 07:57 07:57 Neutrophils # 8.4 H (1.3-7.7) k/uL Sodium 132 L (137-145) mmol/L BUN 26 H (9-20) mg/dL Glucose 171 H (74-99) mg/dL Troponin I 1.200 H* (0.000-0.034) ng/mL Microbiology - Last 24 Hours (Table) 12/05/21 10:10 Blood Culture Gram Stain - Preliminary Blood Blood Culture - Preliminary Coagulase Negative Staph 12/05/21 10:10 Blood Culture - Final Blood Assessment and Plan Plan: Assessment: #1. Acute shortness of breath, possibly related to acute COPD exacerbation, COVID-19 PCR was negative, chest x-ray showed patchy infiltrate in the left lung seen during recent admission, possibly related to area of lung scarring rather than pneumonia based on negative procalcitonin level #2. Recent hospitalization for acute exacerbation of COPD, and patient was also treated for possible lingular infiltrate, although possibility of pneumonia seem to be less likely #3. Tobacco dependence syndrome, carries [id number] smoking history #4. Benign essential hypertension #5. History of nonischemic cardiomyopathy with an ejection fraction of 20%, improved on most recent echocardiograms #6. Hypertension #7. Hyperlipidemia #8. Previous history of PE on Eliquis #9. Anxiety #10. Episode of nonsustained ventricular tachycardia #11. History of severe COPD on home O2, with baseline FEV1 of 35% predicted Plan: Continue current medical treatment Patient is breathing easier No worsening dyspnea No worsening cough No fever or chills Antibiotics have been discontinued The area in the left upper lung is most likely related to scarring, and was previously seen on the CT imaging of the chest from last year From pulmonary perspective patient is stable Once cleared by cardiology, he may be considered for discharge home from pulmonary perspective Outpatient follow-up with Dr. Crabtree in 1 week I performed a history & physical examination of the patient and discussed their management with my nurse practitioner, Tsering Stanley. I reviewed the nurse practitioner's note and agree with the documented findings and plan of care. Lung sounds are positive for dim breath sounds throughout the lung meadows. The findings and the impression was discussed with the patient. I attest to the documentation by the nurse practitioner. I have personally seen and examined the patient, performed the documentation and the assessment and plan as written. Number of minutes spent on the visit: [20] Time with Patient: Less than 30 <LeydaOlinda - Last Filed: 12/06/21 19:06> Objective - Vital Signs Vital signs: Vital Signs Temp 98.1 F 12/06/21 16:00 Pulse 59 L 12/06/21 16:00 Resp 18 12/06/21 16:00 BP 90/48 12/06/21 16:00 Pulse Ox 97 12/06/21 16:00 Intake & Output 12/06/21 12/06/21 12/07/21 06:59 18:59 06:59 Other: Voiding Method Toilet # Voids 1 - Labs CBC & Chem 7: 12/06/21 07:57 12/06/21 07:57 Labs: Abnormal Lab Results - Last 24 Hours (Table) 12/06/21 12/06/21 Range/Units 07:57 07:57 Neutrophils # 8.4 H (1.3-7.7) k/uL Sodium 132 L (137-145) mmol/L BUN 26 H (9-20) mg/dL Glucose 171 H (74-99) mg/dL Microbiology - Last 24 Hours (Table) 12/05/21 10:10 Blood Culture Gram Stain - Preliminary Blood Blood Culture - Preliminary Coagulase Negative Staph 12/05/21 10:10 Blood Culture - Final Blood Assessment and Plan Plan: This is a joint evaluation along with a nurse practitioner in this evaluation was done and morning and 20 minutes. The patient has an acute COPD exacerbation, and the findings of the left lung are essentially a scar from a previous infection/pneumonia. He does have underlying COPD. He also has underlying cardiac myopathy with impaired left ventricular ejection fraction. The patient is stable from a pulmonary standpoint. We discontinued the antibiotics. The chest x-ray shows a left midlung scar which was seen on previous evaluations. Cardiology is on the case. Continue to follow. Patient was reassured.
--- NOTE | 2021-12-06 18:06 | CDI ---
Documentation Clarification Form Date: 12/06/2021 05:47:22 PM From: Jimena Frye RN CCDS Admit Date: 12/05/2021 10:07:00 AM Patient Name: Jasper Graves Visit Number: [id number] Discharge Date: ATTENTION: The Clinical Documentation Specialists (CDI) and [facility] Coding Staff appreciate your assistance in clarifying documentation. Please respond to the clarification below the line at the bottom and electronically sign. The CDI & [facility] Coding staff will review the response and follow-up if needed. Please note: Queries are made part of the Legal Health Record. If you have any questions, please contact the author of this message via ITS. Dr. Loc Sun MD Your patient is receiving the following: Oxygen via BiPAP, Non-Rebreather and Nasal Cannula, 12/05. Please clarify what condition/diagnosis is being treated. History/Risk Factors: 76-year-old male presents to the ED via EMS for shortness of breath. EMS found patient with oxygen saturations of 73%. Patient was placed on CPAP saturating 100% on CPAP. Medical History: Severe COPD on home oxygen with baseline FEV1 of 35% predicted, PE and Cardiomyopathy. Pulmonary Consult, 12/05. Clinical indicators: VSS: 12/05 07:55 B/P 142/99; HR 136; Temp 97.9F Axillary; RR 24; SpO2 99% BiPAP 15L; 12/05 10:17 B/P 101/78; HR 108; RR 18; SpO2 100% Non-Rebreather 15L. 12/05 11:15 Non-Rebreather SpO2 100% 8L; 12/05 11:47 SpO2 99% Non-Rebreather 15L 12/05 11:53 SpO2 99% 6L nasal cannula 12/05 16:48 SpO2 100% 4L nasal cannula 12/06 04:00 SpO2 97% 2L nasal cannula Treatment: Oxygen 12/05 delivered by BiPAP, Nonrebreather and nasal cannula. What diagnosis are you treating with Oxygen? [ ] Acute Respiratory Failure [ ] Acute on Chronic Respiratory Failure [ ] Acute Respiratory Distress [ ] Other Diagnosis, please specify [ ] Unable to determine (Template Last Reviewed: November 2020) TEDDY
[2021-12-07] MEDS: SPIRONOLACTONE 25 MG TAB PO SCH (08:39)
[2021-12-07] MEDS: METOPROLOL TARTRATE 12.5 MG TAB PO SCH ×2 (08:39→20:19)
[2021-12-07] MEDS: methylPREDNISolone SOD SUCCI 40 MG/ML 1 ML VIAL IV SCH ×2 (08:39→20:19)
[2021-12-07] MEDS: APIXABAN 5 MG TAB PO SCH ×2 (08:39→20:19)
[2021-12-07] MEDS: SYMBICORT 160-4.5 MCG INHALER INHALATION SCH ×2 (08:43→20:19)
[2021-12-07] MEDS: IPRATROPIUM-ALBUTEROL 3 ML NEB INHALATION SCH ×4 (08:43→20:19)
--- NOTE | 2021-12-07 11:36 | P.PN ---
Subjective Progress Note Date: 12/07/21 HISTORY OF PRESENT ILLNESS This is a 76-year-old male patient with past medical history of COPD with lung function 35%, hypertension, history of pulmonary embolism, hyperlipidemia, cardiomyopathy with EF of 20%, nonsustained ventricular tachycardia. Remote history of tobacco use and dependence. Patient was recently hospitalized and discharged on 12/02 with oxygen. Patient states that the next day he felt really good he did not wear his oxygen all day. He states he went out to his mailbox for the first time in 7 days he went to the store to get milk and a few other items. He helped his with supper. He took a nap from 4:30 to 645 and when he was sitting in bed he couldn't feel that he was having more shortness of breath and put his oxygen on for the first time. When he got up from bed, he states he had to wait 2 hours for his nebulizer treatment which was scheduled at 9 PM. After the nebulizer treatment he felt a little bit better he went back to bed but he does sit up throughout the night. By 3 and in the morning he was significantly worse in nature that he got his nebulizer treatment was feeling very anxious and took one of his 's anxiety medications. He was feeling a little bit better stayed in bed at 645 he was feeling worse again the oxygen didn't seem to help and he called EMS to come into the hospital for further evaluation. During transport the patient had episode of nonsustained ventricular tachycardia and he was saturating 100% on CPAP. Patient was found to be afebrile, heart rate 136, respiratory rate 24, blood pressure 142/99, pulse ox 99%. Patient was transitioned to BiPAP, given Solu-Medrol 125 mg, nebulizer treatment. CBC was unremarkable. Sodium 134, potassium 5.0, chloride 101, CO2 27, BUN 23 creatinine 1, blood sugar 187. Liver function tests were normal. Lactic acid 1.2. Troponin 0.018 and 0.625. Coronavirus PCR not detected. ProBNP 125. Chest x-ray revealed COPD with similar patchy infiltrates periphery of the left mid and lower lung and left base. Correlate for possible pneumonia. Patient was started on Rocephin and azithromycin, nebulizer treatments and consults with cardiology and pulmonary medicine. 12/06: Patient is laying down in bed he continues to be somewhat short of breath, he is limited with ambulation to a short distance, he denies any chest pain at this point in time, he does complain of some phlegm in the back of his throat, he has no abdominal pain, nausea vomiting or diarrhea, he has been on lisinopril, metoprolol, spironolactone, he was seen in consultation by cardiology it was recommended for the patient to have a life vest on prior to his discharge and follow-up with cardiology as an outpatient 12/07: Patient is sitting up in bed his daughter and granddaughter were the bedside, they did have multiple questions regarding his current condition, I spoke with Dr. Sunshine about his condition and the patient was diagnosed with nonischemic cardiomyopathy at this time, he had a slight bump in his troponin likely related to the recent nonsustained ventricular tachycardia, patient currently on aspirin 81 mg once every day, he is already on lisinopril 2.5 mg once every day along with metoprolol 12.5 mg orally twice every day, ideally the patient needed to be on Entresto 24-26 mg orally twice every day however his blood pressure is very marginal and we will monitor the patient very closely on the above medication and I may switch him to Entresto as an outpatient REVIEW OF SYSTEMS Constitutional: No fever, no chills, no night sweats. No weight change. Generalized weakness, fatigue or lethargy. No daytime sleepiness. HEENT: No headache. No blurred vision or double vision, no loss of vision. Hard of Hearing, no ringing in the ears, no dizziness. No nasal drainage or congestion. No epistaxis. No sore throat. Lungs: Reports shortness of breath, mild cough, mild sputum production. Reports wheezing. Cardiovascular: No chest pain, no lower extremity edema. positivefor palpitations. No paroxysmal nocturnal dyspnea. No orthopnea. No lightheadedness or dizziness. No syncopal episodes. Abdominal: No abdominal pain. No nausea, vomiting. No diarrhea. No constipation. No bloody or tarry stools. No loss of appetite. Genitourinary: No dysuria, increased frequency, urgency. No urinary retention. Musculoskeletal: No myalgias. No muscle weakness, no gait dysfunction, no frequent falls. No back pain. No neck pain. Integumentary: No wounds, no lesions. No rash or pruritus. No unusual bruising. Neurologic: No aphasia. No facial droop. No change in mentation. No head injury. No headache. No paralysis. No paresthesia. Psychiatric: No depression. Reports anxiety. No mood swings. Endocrine: No abnormal blood sugars. No weight change. PHYSICAL EXAMINATION Gen: This is a 76-year-old male. He is resting in chair and appears to be comfortable and in no acute distress. HEENT: Head is atraumatic, normocephalic. Pupils equal, round. Sclerae is anicteric, conjunctiva were not pale, mucous membranes of the mouth are somewhat dry. NECK: Supple. No JVD. No lymphadenopathy. No thyromegaly. LUNGS: Decreased breath sounds at the bases with Scattered rhonchi and expira tory wheeze. No intercostal retractions. HEART: First heart sound is depressed, second heart sound is normal, there is systolic ejection murmur 2/6 located at the left sternal border. ABDOMEN: Soft, nontender, nondistended, positive bowel sounds. EXTREMITIES: No pedal edema. No calf tenderness. dorsalis pedis +2 bilaterally. NEUROLOGICAL: Patient is awake, alert and oriented x3. Cranial nerves 2 through 12 are grossly intact, muscle power is /5 in upper and lower extremities bilaterally. ASSESSMENT AND PLAN 1. Acute COPD exacerbation . Continue patient on Solu-Medrol 40 mg IV push every 12 hours, continue DuoNeb 3 mg nebulization 4 times every day, continue oxygen 2 L nasal cannula, continue Symbicort 160/4.5 g 2 puffs inhalation twice every day, patient FEV1 is 35% which is treated low. 2. nonischemic cardiomyopathy with ejection fraction of 20%. Continue patient on Lopressor 12.5 mg orally twice every day, lisinopril 2.5 mg orally once every day, Aldactone 25 mg orally once every day, ideally the patient needed to be on Entresto but his blood pressure is marginal so far. 3. Episode of nonsustained ventricular tachycardia with history of same. continue patient on Lopressor 12.5 mg orally twice every day, patient has a life vest on. 4. Hypertension. Continue lisinopril 2.5 mg daily, Lopressor 12.5 mg twice daily. 5. Hyperlipidemia. Continue atorvastatin 40 mg every 48 hours. 7. History of pulmonary embolism. Continue eliquis 5 mg orally twice every day. 8. Remote history of tobacco use and dependence. 9. DVT prophylaxis. Currently on Eliquis 5 mg orally twice a day. 10. GI prophylaxis. we will continue with Protonix 40 mg orally daily. 11. Home in AM Objective - Vital Signs Vital signs: Vital Signs Temp 97.5 F L 12/07/21 09:43 Pulse 74 12/07/21 09:43 Resp 18 12/07/21 09:43 BP 115/66 12/07/21 09:43 Pulse Ox 97 12/07/21 09:43 Intake & Output 12/06/21 12/07/21 12/07/21 18:59 06:59 18:59 Intake Total 20 Balance 20 Intake: IV 20 Invasive Line 1 10 Invasive Line 2 10 Other: Voiding Method Toilet Toilet # Voids 1 2 - Labs CBC & Chem 7: 12/06/21 07:57 12/06/21 07:57 Labs: Microbiology - Last 24 Hours (Table) 12/05/21 10:10 Blood Culture Gram Stain - Preliminary Blood Blood Culture - Preliminary Coagulase Negative Staph 12/05/21 10:10 Blood Culture - Final Blood
--- NOTE | 2021-12-07 13:21 | P.PN ---
Subjective Progress Note Date: 12/07/21 76-year-old white male patient with known history of COPD on home oxygen, baseline FEV1 of 35% of predicted, nonischemic cardiomyopathy with EF of 40-45%, dyslipidemia, previous history of PE. Patient was recently hospitalized for acute exacerbation of COPD and discharged home on 12/02/2021. Patient was brought into the emergency department on 12/05/2021 for evaluation of sudden onset of shortness of breath. He attempted to do his nebulizer treatments and did have some improvement. When the EMS arrived they found his oxygen saturations to be at 73%, patient was placed on CPAP. En route he also had a few small runs of nonsustained ventricular tachycardia. Patient had no complaints of chest pain or pressure, no dizziness or lightheadedness, no fever or chills, no cough, no phlegm production. Chest x-ray showed COPD with similar patchy infiltrates in the left mid and lower lung and left base, similar to the chest x-ray findings from his previous admission with questionable lingular in filtrate/pneumonia. Admission blood work showed CBC which was completely within normal limits, correlation profile was unremarkable, serum sodium was 134, the rest of electrolytes were unremarkable, BUN is 23 creatinine was 1. Troponin was 0.018, and subsequent troponin was 0.625, LFTs were within normal limits, Procalcitonin level was negative during last admission prior to discharge at 0.08, COVID-19 PCR was negative. EKG showed sinus tachycardia with left bundle branch block. Patient was started on breathing treatments, IV steroids, she was given a dose of azithromycin and Rocephin in the emergency department, patient is on Eliquis for a history of pulmonary embolism which was resumed. Currently sitting up in the chair, breathing fairly comfortablly, in no acute distress, on 6 L of oxygen pulse ox was 99%. On 12/06/2021 patient seen in follow-up on selective care unit. He is breathing comfortably, is currently on 2 L of oxygen his pulse ox is 99%, no cough, no phlegm production, no complaints of chest pains overnight. He continues on IV steroids, his antibiotics have been discontinued, his pro-calcitonin level was negative at 0.08, he tested negative for COVID-19, the area in question in the left upper lobe related to area of lung scarring, that was also previously seen on CT imaging of the chest from last year. Patient had episodes of nonsustained V. tach on the way to the hospital, there has been no recurrence of arrhythmias while in the hospital, his had no complaints of dizziness or lightheadedness, echocardiogram has been completed showing severe global hypokinesis severely. Left ventricular ejection fraction of less than 20%, mild MR, mild TR 12/07/2021, seeing the patient for a follow-up. The patient has severe COPD with an FEV1 of 35% of predicted and chronic hypoxia hypoxic respiratory failure. The patient also has a previous history of small left-sided pneumothorax as is also spontaneously. His current active issue is the cardiomyopathy with An ejection fraction of 20%. The patient has also had episodes of nonsustained ventricular tachycardia the patient is currently wearing a LifeVest. He is on the same cardiac medications. He remains on metoprolol 12.5 mg by mouth twice a day, Aldactone 25 mg by mouth daily and Zestril. The patient is also on long-term articulation with [employer]. In terms of his COPD, he started on DuoNeb nebulized with [id number] and Symbicort as maintenance and the patient is currently on IV Solu Medrol 40 mg every 12 hours. He was using Advair and outpatient basis. The findings in the left lung are essentially related to chronic scar as mentioned earlier. No significant sputum production. He is on 2 L of oxygen by nasal cannula with a pulse of 95%. His most recent cardiac catheterization was done in December 2019 and that time the patient had normal coronaries. Noted during this current admission, the patient elevated troponins and is somewhat is a peak is 1.2. A repeat cardiac catheterization is to be considered by cardiology. Objective - Vital Signs Vital signs: Vital Signs Temp 97.5 F L 12/07/21 09:43 Pulse 59 L 12/07/21 11:59 Resp 18 12/07/21 11:37 BP 119/68 12/07/21 11:37 Pulse Ox 95 12/07/21 11:37 Intake & Output 12/06/21 12/07/21 12/07/21 18:59 06:59 18:59 Intake Total 20 Balance 20 Intake: IV 20 Invasive Line 1 10 Invasive Line 2 10 Other: Voiding Method Toilet Toilet # Voids 1 2 - Exam GENERAL EXAM: Alert, very pleasant, 76-year-old white male, on 2 L of oxygen, sitting up in the recliner, breathing comfortably satting 98%, comfortable in no apparent distress. HEAD: Normocephalic/atraumatic. EYES: Normal reaction of pupils, equal size. Conjunctiva pink, sclera white. NOSE: Clear with pink turbinates. THROAT: No erythema or exudates. NECK: No masses, no JVD, no thyroid enlargement, no adenopathy. CHEST: No chest wall deformity. Symmetrical expansion. LUNGS: Diminished air entry with no crackles, wheeze, rhonchi or dullness. CVS: Regular rate and rhythm, normal S1 and S2, no gallops, no murmurs, no rubs ABDOMEN: Soft, nontender. No hepatosplenomegaly, normal bowel sounds, no guarding or rigidity. EXTREMITIES: No clubbing, no edema, no cyanosis, 2+ pulses and upper and lower extremities. MUSCULOSKELETAL: Muscle strength and tone normal. SPINE: No scoliosis or deformity SKIN: No rashes CENTRAL NERVOUS SYSTEM: Alert and oriented -3. No focal deficits, tone is normal in all 4 extremities. PSYCHIATRIC: Alert and oriented -3. Appropriate affect. Intact judgment and insight. - Labs CBC & Chem 7: 12/06/21 07:57 12/06/21 07:57 Labs: Microbiology - Last 24 Hours (Table) 12/05/21 10:10 Blood Culture Gram Stain - Preliminary Blood Blood Culture - Preliminary Coagulase Negative Staph Assessment and Plan Plan: #1. Acute shortness of breath, multifactorial, essentially due to systolic heart failure in addition to a component of COPD exacerbation, COVID-19 PCR was negative, chest x-ray showed patchy infiltrate in the left lung seen during recent admission, possibly related to area of lung scarring rather than pneumonia based on negative procalcitonin level. Note that the patient also had a drop in the left a ejection fraction of 20% from a baseline of 40-45%. Rule out underlying ischemic versus nonischemic cardiomyopathy. Troponin was also elevated at time of admission. His most recent cardiac catheterization from December 2019 was negative and was showing normal coronaries. #2. Recent hospitalization for acute exacerbation of COPD, and patient was also treated for possible lingular infiltrate, although possibility of pneumonia seem to be less likely #3. Tobacco dependence syndrome, carries [id number] smoking history #4. Benign essential hypertension #5. History of nonischemic cardiomyopathy with an ejection fraction of 20%, improved on most recent echocardiograms #6. Hypertension #7. Hyperlipidemia #8. Previous history of PE on Eliquis #9. Anxiety #10. Episode of nonsustained ventricular tachycardia #11. History of severe COPD on home O2, with baseline FEV1 of 35% predicted Plan: Optimize CHF and the patient is currently on a combination of metoprolol, lisinopril, Aldactone Consider Entresto Consider repeating the cardiac catheterization Patient currently has a LifeVest In terms of his COPD, the patient COPD severe with an FEV1 of 35% of predicted. No evidence of any pneumothorax and this point in time. Continue Symbicort for now. IV Solu-Medrol and prednisone burst taper at time of discharge. He should ex-smoker. COPD is advanced yet stable at this point in time. Would benefit from oxygen therapy.
--- NOTE | 2021-12-07 15:46 | PN ---
PROGRESS NOTE Mr. Graves came in with what seemed to be hypoxic respiratory failure, was found to be in congestive heart failure, from which he has improved. His ejection fraction is less than 25% and he has nonischemic cardiomyopathy. He also had short runs of nonsustained ventricular tachycardia. I am recommending a LifeVest, and he will be discharged on current medical therapy on LifeVest and he will see Dr. Simmons in the outpatient setting. Vitals are stable. Blood pressure is 108/70, pulse rate is 70 per minute. S1-S2 heard normally. Short systolic murmur noted. Lungs reveal decent air entry. Abdomen is soft. Lower extremities reveal diminished pulses. Central nervous system is normal. Patient can be discharged on LifeVest and see Dr. Simmons in one to two weeks. I discussed my thoughts in detail with the patient and I also spoke to Dr. Oneil. MMMISSY / SWETA: [id number] /
[2021-12-07] MEDS: ATORVASTATIN 40 MG TAB PO SCH (20:19)
[2021-12-08] MEDS ORDERED: PANTOPRAZOLE 40 MG TABLET PO SCH (07:30)
[2021-12-08] MEDS: IPRATROPIUM-ALBUTEROL 3 ML NEB INHALATION SCH ×3 (07:57→16:23)
[2021-12-08] MEDS: SYMBICORT 160-4.5 MCG INHALER INHALATION SCH (07:58)
[2021-12-08 08:10] LABS: Basophils % (A) 0 %; Eosinophils # (A) 0.1 k/uL (0-0.7); Eosinophils % (A) 1 %; HCT 44.4 % (39.0-53.0); HGB 14.1 gm/dL (13.0-17.5); Lymphocytes # (A) 0.8 k/uL (1.0-4.8); Lymphocytes % (A) 7 %; MCH 30.9 pg (25.0-35.0); MCHC 31.8 g/dL (31.0-37.0); MCV 97.3 fL (80.0-100.0); Mean Platelet Volume 7.7; Monocytes # (A) 0.7 k/uL (0-1.0); Monocytes % (A) 6 %; Neutrophils # (A) 10.4 k/uL (1.3-7.7); Neutrophils % (A) 86 %; Platelet Count 265 k/uL (150-450); RBC 4.57 m/uL (4.30-5.90); RDW 13.7 % (11.5-15.5); WBC 12.2 k/uL (3.8-10.6)
[2021-12-08 08:11] VITALS: RESP 16
[2021-12-08 08:20] LABS: Albumin 3.1 g/dL (3.5-5.0); Calcium 8.4 mg/dL (8.4-10.2); Magnesium 2.2 mg/dL (1.6-2.3); Potassium 4.7 mmol/L (3.5-5.1); Total Bilirubin 0.4 mg/dL (0.2-1.3)
[2021-12-08] MEDS ORDERED: ASPIRIN 81 MG PO SCH (09:00)
[2021-12-08] MEDS: METOPROLOL TARTRATE 12.5 MG TAB PO SCH (10:10)
[2021-12-08] MEDS: methylPREDNISolone SOD SUCCI 40 MG/ML 1 ML VIAL IV SCH (10:11)
[2021-12-08] MEDS: SPIRONOLACTONE 25 MG TAB PO SCH (10:11)
[2021-12-08] MEDS: APIXABAN 5 MG TAB PO SCH (10:11)
--- NOTE | 2021-12-08 10:37 | P.PN ---
Subjective Progress Note Date: 12/08/21 76-year-old white male patient with known history of COPD on home oxygen, baseline FEV1 of 35% of predicted, nonischemic cardiomyopathy with EF of 40-45%, dyslipidemia, previous history of PE. Patient was recently hospitalized for acute exacerbation of COPD and discharged home on 12/02/2021. Patient was brought into the emergency department on 12/05/2021 for evaluation of sudden onset of shortness of breath. He attempted to do his nebulizer treatments and did have some improvement. When the EMS arrived they found his oxygen saturations to be at 73%, patient was placed on CPAP. En route he also had a few small runs of nonsustained ventricular tachycardia. Patient had no complaints of chest pain or pressure, no dizziness or lightheadedness, no fever or chills, no cough, no phlegm production. Chest x-ray showed COPD with similar patchy infiltrates in the left mid and lower lung and left base, similar to the chest x-ray findings from his previous admission with questionable lingular in filtrate/pneumonia. Admission blood work showed CBC which was completely within normal limits, correlation profile was unremarkable, serum sodium was 134, the rest of electrolytes were unremarkable, BUN is 23 creatinine was 1. Troponin was 0.018, and subsequent troponin was 0.625, LFTs were within normal limits, Procalcitonin level was negative during last admission prior to discharge at 0.08, COVID-19 PCR was negative. EKG showed sinus tachycardia with left bundle branch block. Patient was started on breathing treatments, IV steroids, she was given a dose of azithromycin and Rocephin in the emergency department, patient is on Eliquis for a history of pulmonary embolism which was resumed. Currently sitting up in the chair, breathing fairly comfortablly, in no acute distress, on 6 L of oxygen pulse ox was 99%. On 12/06/2021 patient seen in follow-up on selective care unit. He is breathing comfortably, is currently on 2 L of oxygen his pulse ox is 99%, no cough, no phlegm production, no complaints of chest pains overnight. He continues on IV steroids, his antibiotics have been discontinued, his pro-calcitonin level was negative at 0.08, he tested negative for COVID-19, the area in question in the left upper lobe related to area of lung scarring, that was also previously seen on CT imaging of the chest from last year. Patient had episodes of nonsustained V. tach on the way to the hospital, there has been no recurrence of arrhythmias while in the hospital, his had no complaints of dizziness or lightheadedness, echocardiogram has been completed showing severe global hypokinesis severely. Left ventricular ejection fraction of less than 20%, mild MR, mild TR 12/07/2021, seeing the patient for a follow-up. The patient has severe COPD with an FEV1 of 35% of predicted and chronic hypoxia hypoxic respiratory failure. The patient also has a previous history of small left-sided pneumothorax as is also spontaneously. His current active issue is the cardiomyopathy with An ejection fraction of 20%. The patient has also had episodes of nonsustained ventricular tachycardia the patient is currently wearing a LifeVest. He is on the same cardiac medications. He remains on metoprolol 12.5 mg by mouth twice a day, Aldactone 25 mg by mouth daily and Zestril. The patient is also on long-term articulation with [employer]. In terms of his COPD, he started on DuoNeb nebulized with [id number] and Symbicort as maintenance and the patient is currently on IV Solu Medrol 40 mg every 12 hours. He was using Advair and outpatient basis. The findings in the left lung are essentially related to chronic scar as mentioned earlier. No significant sputum production. He is on 2 L of oxygen by nasal cannula with a pulse of 95%. His most recent cardiac catheterization was done in December 2019 and that time the patient had normal coronaries. Noted during this current admission, the patient elevated troponins and is somewhat is a peak is 1.2. A repeat cardiac catheterization is to be considered by cardiology. 7 2021, the patient is feeling well. No chest pain. No cardiac arrhythmias in no worsening shortness of breath. He is still using oxygen at 2 L per minute nasal cannula. His CHF is compensated and the patient is also wearing a LifeVest. His ejection fraction is around 20%. In terms of his COPD, he is on bronchodilators. He is on DuoNeb nebulized treatments around the clock and is also on Symbicort. He remains on IV Solu-Medrol that he'll be transitioned to prednisone burst taper at a time of his discharge. He has home O2. He has also oxygen at home and he had been utilizing Advair at home. No angina. No palpitations. No significant swelling in lower extremities. Case was discussed with his primary care team and cardiology. Objective - Vital Signs Vital signs: Vital Signs Temp 97.6 F 12/08/21 04:00 Pulse 60 12/08/21 08:10 Resp 16 12/08/21 08:10 BP 100/64 12/08/21 04:00 Pulse Ox 97 12/08/21 07:58 Intake & Output 12/07/21 12/08/21 12/08/21 18:59 06:59 18:59 Intake Total 20 240 Balance 20 240 Intake: IV 20 Invasive Line 1 10 Invasive Line 2 10 Oral 240 Other: Voiding Method Toilet Toilet # Voids 3 2 1 - Exam GENERAL EXAM: Alert, very pleasant, 76-year-old white male, on 2 L of oxygen, sitting up in the recliner, breathing comfortably satting 98%, comfortable in no apparent distress. HEAD: Normocephalic/atraumatic. EYES: Normal reaction of pupils, equal size. Conjunctiva pink, sclera white. NOSE: Clear with pink turbinates. THROAT: No erythema or exudates. NECK: No masses, no JVD, no thyroid enlargement, no adenopathy. CHEST: No chest wall deformity. Symmetrical expansion. LUNGS: Diminished air entry with no crackles, wheeze, rhonchi or dullness. CVS: Regular rate and rhythm, normal S1 and S2, no gallops, no murmurs, no rubs ABDOMEN: Soft, nontender. No hepatosplenomegaly, normal bowel sounds, no g uarding or rigidity. EXTREMITIES: No clubbing, no edema, no cyanosis, 2+ pulses and upper and lower extremities. MUSCULOSKELETAL: Muscle strength and tone normal. SPINE: No scoliosis or deformity SKIN: No rashes CENTRAL NERVOUS SYSTEM: Alert and oriented -3. No focal deficits, tone is normal in all 4 extremities. PSYCHIATRIC: Alert and oriented -3. Appropriate affect. Intact judgment and insight. - Labs CBC & Chem 7: 12/08/21 07:52 12/08/21 07:52 Labs: Abnormal Lab Results - Last 24 Hours (Table) 12/08/21 12/08/21 Range/Units 07:52 07:52 WBC 12.2 H (3.8-10.6) k/uL Neutrophils # 10.4 H (1.3-7.7) k/uL Lymphocytes # 0.8 L (1.0-4.8) k/uL Sodium 135 L (137-145) mmol/L BUN 32 H (9-20) mg/dL Glucose 154 H (74-99) mg/dL Total Protein 6.0 L (6.3-8.2) g/dL Albumin 3.1 L (3.5-5.0) g/dL Assessment and Plan Plan: #1. Acute shortness of breath, multifactorial, essentially due to systolic heart failure in addition to a component of COPD exacerbation, COVID-19 PCR was negative, chest x-ray showed patchy infiltrate in the left lung seen during recent admission, possibly related to area of lung scarring rather than pneum onia based on negative procalcitonin level. Note that the patient also had a drop in the left a ejection fraction of 20% from a baseline of 40-45%. Rule out underlying ischemic versus nonischemic cardiomyopathy. Troponin was also elevated at time of admission. His most recent cardiac catheterization from December 2019 was negative and was showing normal coronaries. #2. Recent hospitalization for acute exacerbation of COPD, and patient was also treated for possible lingular infiltrate, although possibility of pneumonia seem to be less likely #3. Tobacco dependence syndrome, carries [id number] smoking history #4. Benign essential hypertension #5. History of nonischemic cardiomyopathy with an ejection fraction of 20%, improved on most recent echocardiograms #6. Hypertension #7. Hyperlipidemia #8. Previous history of PE on Eliquis #9. Anxiety #10. Episode of nonsustained ventricular tachycardia #11. 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 His COPD is stable for now. I'll put him on a prednisone burst taper starting with 40 mg to be tapered by 10 mg grams every 4 days. Utilize Advair Diskus 500/50 one puff twice a day and DuoNeb nebulized treatments around the clock and oxygen at 2 L per minute nasal cannula. Will be glad to follow him up on outpatient basis. No evidence of any pneumothorax on his chest x-ray. Clear for discharge from a pulmonary standpoint.
[2021-12-08] MEDS ORDERED: predniSONE 20 MG TAB PO SCH (10:45)
[2021-12-08 11:20] VITALS: TEMP 98.3
--- NOTE | 2021-12-08 11:33 | PN ---
PROGRESS NOTE Mr. Star elaine is a patient with nonischemic cardiomyopathy, on appropriate medications and LifeVest; ejection fraction less than 25%. He will be discharged today and see Dr. Simmons in two weeks. Vitals are stable. Physical exam there are no new significant findings. I reviewed with him the discharge instructions. MMODL / IJN: [id number] /
--- NOTE | 2021-12-08 11:33 | P.DS ---
Providers Date of admission: 12/05/21 10:07 Expected date of discharge: 12/08/21 Attending physician: Liss Oneil Consults: 12/05/21 10:08 Consult Physician Urgent Consulting Provider: [facility] Consult Reason/Comments: non sustained v tach with history Do you want consulting provider notified?: Yes Consult Physician Urgent Consulting Provider: [facility] Reason/Comments: aecopd, nivdrf Do you want consulting provider notified?: Yes Primary care physician: Liss Oneil Hospital Course: HISTORY OF PRESENT ILLNESS This is a 76-year-old male patient with past medical history of COPD with lung function 35%, hypertension, history of pulmonary embolism, hyperlipidemia, cardiomyopathy with EF of 20%, nonsustained ventricular tachycardia. Remote history of tobacco use and dependence. Patient was recently hospitalized and discharged on 12/02 with oxygen. Patient states that the next day he felt really good he did not wear his oxygen all day. He states he went out to his mailbox for the first time in 7 days he went to the store to get milk and a few other items. He helped his with supper. He took a nap from 4:30 to 645 and when he was sitting in bed he couldn't feel that he was having more shortness of breath and put his oxygen on for the first time. When he got up from bed, he states he had to wait 2 hours for his nebulizer treatment which was scheduled at 9 PM. After the nebulizer treatment he felt a little bit better he went back to bed but he does sit up throughout the night. By 3 and in the morning he was significantly worse in nature that he got his nebulizer treatment was feeling very anxious and took one of his 's anxiety medications. He was feeling a little bit better stayed in bed at 645 he was feeling worse again the oxygen didn't seem to help and he called EMS to come into the hospital for further evaluation. During transport the patient had episode of nonsustained ventricular tachycardia and he was saturating 100% on CPAP. Patient was found to be afebrile, heart rate 136, respiratory rate 24, blood pressure 142/99, pulse ox 99%. Patient was transitioned to BiPAP, given Solu-Medrol 125 mg, nebulizer treatment. CBC was unremarkable. Sodium 134, potassium 5.0, chloride 101, CO2 27, BUN 23 creatinine 1, blood sugar 187. Liver function tests were normal. Lactic acid 1.2. Troponin 0.018 and 0.625. Coronavirus PCR not detected. ProBNP 125. Chest x-ray revealed COPD with similar patchy infiltrates periphery of the left mid and lower lung and left base. Correlate for possible pneumonia. Patient was started on Rocephin and azithromycin, nebulizer treatments and consults with cardiology and pulmonary medicine. 12/06: Patient is laying down in bed he continues to be somewhat short of breath, he is limited with ambulation to a short distance, he denies any chest pain at this point in time, he does complain of some phlegm in the back of his throat, he has no abdominal pain, nausea vomiting or diarrhea, he has been on lisinopril, metoprolol, spironolactone, he was seen in consultation by cardiology it was recommended for the patient to have a life vest on prior to his discharge and follow-up with cardiology as an outpatient 12/07: Patient is sitting up in bed his daughter and granddaughter were the bedside, they did have multiple questions regarding his current condition, I spoke with Dr. Sunshine about his condition and the patient was diagnosed with nonischemic cardiomyopathy at this time, he had a slight bump in his troponin likely related to the recent nonsustained ventricular tachycardia, patient currently on aspirin 81 mg once every day, he is already on lisinopril 2.5 mg once every day along with metoprolol 12.5 mg orally twice every day, ideally the patient needed to be on Entresto 24-26 mg orally twice every day however his blood pressure is very marginal and we will monitor the patient very closely on the above medication and I may switch him to Entresto as an outpatient Discharge diagnoses: 1. Acute COPD exacerbation . 2. nonischemic cardiomyopathy with ejection fraction of 20%. 3. Episode of nonsustained ventricular tachycardia with history of same. 4. Hypertension. 5. Hyperlipidemia. 7. History of pulmonary embolism. 8. Remote history of tobacco use and dependence. Patient Condition at Discharge: Stable Plan - Discharge Summary Discharge Rx Participant: No New Discharge Prescriptions: No Action Fluticasone/Salmeterol [Fluticasone-Salmeterol 113-14] 1 puff INHALATION RT- BID Spironolactone [Aldactone] 25 mg PO DAILY #30 tab lisinopriL [Zestril] 2.5 mg PO DAILY #30 tab Atorvastatin [Lipitor] 40 mg PO Q48H Albuterol Sulfate [Proair Respiclick] 1 puff INHALATION RT-Q4H PRN PRN Reason: Shortness Of Breath Ipratropium-Albuterol Nebulize [Duoneb 0.5 mg-3 mg/3 ml Soln] 3 ml INHALATION QID #90 ml Metoprolol Tartrate [Lopressor] 12.5 mg PO BID Apixaban [Eliquis] 5 mg PO BID Discharge Medication List Fluticasone/Salmeterol [Fluticasone-Salmeterol 113-14] 1 puff INHALATION RT-BID 11/28/19 [History] Spironolactone [Aldactone] 25 mg PO DAILY #30 tab 12/01/19 [Rx] lisinopriL [Zestril] 2.5 mg PO DAILY #30 tab 12/01/19 [Rx] Albuterol Sulfate [Proair Respiclick] 1 puff INHALATION RT-Q4H PRN 09/27/21 [History] Apixaban [Eliquis] 5 mg PO BID 09/27/21 [History] Atorvastatin [Lipitor] 40 mg PO Q48H 09/27/21 [History] Metoprolol Tartrate [Lopressor] 12.5 mg PO BID 09/27/21 [History] Ipratropium-Albuterol Nebulize [Duoneb 0.5 mg-3 mg/3 ml Soln] 3 ml INHALATION QID #90 ml 12/02/21 [Rx] Follow up Appointment(s)/Referral(s): Liss Oneil MD [Primary Care Provider] - 1-2 days [facility], [NON-STAFF] - Olinda Crabtree MD [STAFF PHYSICIAN] - 1 Week Activity/Diet/Wound Care/Special Instructions: Patient has to have LifeVest prior to discharge
[2021-12-08 12:41] VITALS: BP 103/56; PULSE 68
--- NOTE | 2021-12-09 07:31 | P.PN ---
Subjective Progress Note Date: 12/06/21 HISTORY OF PRESENT ILLNESS This is a 76-year-old male patient with past medical history of COPD with lung function 35%, hypertension, history of pulmonary embolism, hyperlipidemia, cardiomyopathy with EF of 20%, nonsustained ventricular tachycardia. Remote history of tobacco use and dependence. Patient was recently hospitalized and discharged on 12/02 with oxygen. Patient states that the next day he felt really good he did not wear his oxygen all day. He states he went out to his mailbox for the first time in 7 days he went to the store to get milk and a few other items. He helped his with supper. He took a nap from 4:30 to 645 and when he was sitting in bed he couldn't feel that he was having more shortness of breath and put his oxygen on for the first time. When he got up from bed, he states he had to wait 2 hours for his nebulizer treatment which was scheduled at 9 PM. After the nebulizer treatment he felt a little bit better he went back to bed but he does sit up throughout the night. By 3 and in the morning he was significantly worse in nature that he got his nebulizer treatment was feeling very anxious and took one of his 's anxiety medications. He was feeling a little bit better stayed in bed at 645 he was feeling worse again the oxygen didn't seem to help and he called EMS to come into the hospital for further evaluation. During transport the patient had episode of nonsustained ventricular tachycardia and he was saturating 100% on CPAP. Patient was found to be afebrile, heart rate 136, respiratory rate 24, blood pressure 142/99, pulse ox 99%. Patient was transitioned to BiPAP, given Solu-Medrol 125 mg, nebulizer treatment. CBC was unremarkable. Sodium 134, potassium 5.0, chloride 101, CO2 27, BUN 23 creatinine 1, blood sugar 187. Liver function tests were normal. Lactic acid 1.2. Troponin 0.018 and 0.625. Coronavirus PCR not detected. ProBNP 125. Chest x-ray revealed COPD with similar patchy infiltrates periphery of the left mid and lower lung and left base. Correlate for possible pneumonia. Patient was started on Rocephin and azithromycin, nebulizer treatments and consults with cardiology and pulmonary medicine. 12/06: Patient is seen today on the cardiac stepdown unit. He is sitting up in a chair and breathing comfortably. He is down to 2 L nasal cannula with pulse ox is 99%. He denies any shortness of breath, no chest pain, no fever or chills. Patient is seen by pulmonary medicine and antibiotics have been discontinued at Pro calcitonin level was negative at 0.08. Patient is also been seen by cardiology regarding nonsustained ventricular tachycardia, elevated troponins. Recommendations were for LifeVest and case folder made arrangements for this to be obtained. Limited echocardiogram reveals EF of less than 20%, trace to mild aortic regurgitation, mild mitral regurgitation, mild tricuspid regurgitation. REVIEW OF SYSTEMS Constitutional: No fever, no chills, no night sweats. No weight change. No weakness, fatigue or lethargy. No daytime sleepiness. EENT: No headache. No blurred vision or double vision, no loss of vision. No loss of Hearing, no ringing in the ears, no dizziness. No nasal drainage or congestion. No epistaxis. No sore throat. Lungs: Reports shortness of breath, mild cough, mild sputum production. Reports wheezing. Cardiovascular: No chest pain, no lower extremity edema. No palpitations. No paroxysmal nocturnal dyspnea. No orthopnea. No lightheadedness or dizziness. No syncopal episodes. Abdominal: No abdominal pain. No nausea, vomiting. No diarrhea. No constipation. No bloody or tarry stools. No loss of appetite. Genitourinary: No dysuria, increased frequency, urgency. No urinary retention. Musculoskeletal: No myalgias. No muscle weakness, no gait dysfunction, no frequent falls. No back pain. No neck pain. Integumentary: No wounds, no lesions. No rash or pruritus. No unusual bruising. Neurologic: No aphasia. No facial droop. No change in mentation. No head injury. No headache. No paralysis. No paresthesia. Psychiatric: No depression. Reports anxiety. No mood swings. Endocrine: No abnormal blood sugars. No weight change. PHYSICAL EXAMINATION Gen: This is a 76-year-old male. He is resting in chair and appears to be comfortable and in no acute distress. HEENT: Head is atraumatic, normocephalic. Pupils equal, round. Sclerae is anicteric. NECK: Supple. No JVD. No lymphadenopathy. No thyromegaly. LUNGS: Scattered rhonchi and expiratory wheeze. No intercostal retractions. HEART: Regular rate and rhythm. No murmur. ABDOMEN: Soft. Bowel sounds are present. No masses. No tenderness. EXTREMITIES: No pedal edema. No calf tenderness. NEUROLOGICAL: Patient is awake, alert and oriented x3. Cranial nerves 2 through 12 are grossly intact. ASSESSMENT AND PLAN 1. Acute COPD exacerbation with pneumonia, possible gram-negative pneumonia. Continue patient on DuoNeb treatments 4 times daily and as needed, Solu-Medrol 40 mg every 8, Pulmicort 1 mg twice daily, Perforomist twice daily, Rocephin and Zithromax.. 2. Severe COPD with lung function 35%. 3. Episode of nonsustained ventricular tachycardia with history of same. Cardiology consult. Continue Lopressor 12.5 mg twice daily. 4. Hypertension. Continue lisinopril 2.5 mg daily, Lopressor 12.5 mg twice daily. 5. Hyperlipidemia. Continue atorvastatin 40 mg every 48 hours. 6. Cardiomyopathy with ejection fraction of 20%. Continue patient on Lopressor 12.5 g twice daily, Aldactone 25 mg daily, lisinopril 2.5 mg daily 7. History of pulmonary embolism. Continue eliquis 5 mg daily. 8. Remote history of tobacco use and dependence 9. DVT prophylaxis. Eliquis. 10. GI prophylaxis. Protonix. DISCHARGE PLAN Home Impression and plan of care have been directed as dictated by the signing physician. Christine Gordon nurse practitioner acting as scribe for signing physician. Objective - Vital Signs Vital signs: Vital Signs Temp 97.9 F 12/06/21 07:32 Pulse 65 12/06/21 07:32 Resp 18 12/06/21 07:32 BP 107/58 12/06/21 07:32 Pulse Ox 99 12/06/21 07:32 Intake & Output 12/05/21 12/06/21 12/06/21 18:59 06:59 18:59 Intake Total 118 Balance 118 Weight 74.843 kg Intake: Oral 118 Other: Voiding Method Toilet Toilet # Voids 4 1 - Labs CBC & Chem 7: 12/08/21 07:52 12/08/21 07:52 Labs: Abnormal Lab Results - Last 24 Hours (Table) 12/05/21 12/05/21 12/05/21 Range/Units 08:03 08:11 11:00 Sodium 134 L (137-145) mmol/L BUN 23 H (9-20) mg/dL Glucose 187 H (74-99) mg/dL POC Glucose (mg/dL) 155 H (75-99) mg/dL Troponin I 0.625 H* (0.000-0.034) ng/mL 12/05/21 Range/Units 15:02 Sodium (137-145) mmol/L BUN (9-20) mg/dL Glucose (74-99) mg/dL POC Glucose (mg/dL) (75-99) mg/dL Troponin I 1.200 H* (0.000-0.034) ng/mL Microbiology - Last 24 Hours (Table) 12/05/21 10:10 Blood Culture Gram Stain - Preliminary Blood 12/05/21 10:10 Blood Culture - Final Blood
== END 2021-12-08 16:35 | disposition home health service (06) | DRG 190 ==
LOC: EC 07:53 → 3SCARD 10:07
PROVIDERS: ADMIT Internal Medicine; ATTEND Internal Medicine
PROC: 5A09357 Assistance with Respiratory Ventilation, Less than 24 Consecutive Hours, Continuous Positive Airway Pressure (ICD-10-PCS; principal; 2021-12-05)
DX: J44.1 Chronic obstructive pulmonary disease with (acute) exacerbation (principal); I21.A1 Myocardial infarction type 2; J96.21 Acute and chronic respiratory failure with hypoxia; J96.22 Acute and chronic respiratory failure with hypercapnia; I50.21 Acute systolic (congestive) heart failure; I47.2 Ventricular tachycardia; I42.8 Other cardiomyopathies; I11.0 Hypertensive heart disease with heart failure; Z20.822 Contact with and (suspected) exposure to COVID-19; E78.5 Hyperlipidemia, unspecified; I08.3 Combined rheumatic disorders of mitral, aortic and tricuspid valves; I44.7 Left bundle-branch block, unspecified; F41.9 Anxiety disorder, unspecified; K44.9 Diaphragmatic hernia without obstruction or gangrene; Z99.81 Dependence on supplemental oxygen; Z79.01 Long term (current) use of anticoagulants; Z79.51 Long term (current) use of inhaled steroids; Z79.899 Other long term (current) drug therapy; Z90.89 Acquired absence of other organs; Z86.711 Personal history of pulmonary embolism; Z87.891 Personal history of nicotine dependence; Z87.39 Personal history of other diseases of the musculoskeletal system and connective tissue; Z87.19 Personal history of other diseases of the digestive system; Z98.42 Cataract extraction status, left eye; Z98.41 Cataract extraction status, right eye; Z98.890 Other specified postprocedural states; Z80.52 Family history of malignant neoplasm of bladder; Z83.1 Family history of other infectious and parasitic diseases; Z80.3 Family history of malignant neoplasm of breast; Z80.1 Family history of malignant neoplasm of trachea, bronchus and lung
CPT/HCPCS: 36415; 71045; 80048; 80053; 83605; 83735; 83880; 84145; 84484; 85025; 85610; 85730; 87040; 87635; 93005; 93308; 94640; 94660; 94760; 99285

== ENCOUNTER 2021-12-27 08:04 | Inpatient (IN) | payer MEDICARE ==
[2021-12-27] MEDS ORDERED: methylPREDNISolone SOD SUCCI 125 MG/2 ML VIAL IV STA (08:09)
[2021-12-27] MEDS ORDERED: SODIUM CHLORIDE 0.9% 500 ML 500 ML IV STA (08:09)
[2021-12-27] MEDS ORDERED: ALBUTEROL NEBULIZED 2.5 MG/3 ML INHALATION STA (08:09)
[2021-12-27] MEDS ORDERED: IPRATROPIUM 0.5 MG/2.5 ML NEBU INHALATION STA (08:09)
[2021-12-27] MEDS ORDERED: TERBUTALINE 1 MG/ML VIAL SQ STA (08:09)
[2021-12-27] MEDS ORDERED: cefTRIAXone IN SWFI 1,000 MG/10 ML SYRINGE IVP STA (08:14)
--- NOTE | 2021-12-27 08:14 | ED ---
General Adult HPI - General Stated complaint: QUANG Time Seen by Provider: 12/27/21 08:04 Source: patient, RN notes reviewed, old records reviewed - History of Present Illness Initial comments: This is a 76-year-old male who presents emergency Department complaining of difficulty breathing since chest. Patient states he has a past medical history significant for COPD. Patient states he has no chest pain or palpitations. Patient denies any fever chills or cough. Patient states the breathing started getting red yesterday and got progressively worse. Patient denies any abdominal pain patient denies any nausea vomiting diarrhea. Patient denies any swelling to his legs or calf tenderness. - Related Data Home Medications Medication Instructions Recorded Confirmed Fluticasone/Salmeterol 1 puff INHALATION RT-BID 11/28/19 12/05/21 [Fluticasone-Salmeterol 113-14] Albuterol Sulfate [Proair 1 puff INHALATION RT-Q4H PRN 09/27/21 12/05/21 Respiclick] Apixaban [Eliquis] 5 mg PO BID 09/27/21 12/05/21 Atorvastatin [Lipitor] 40 mg PO Q48H 09/27/21 12/05/21 Previous Rx's Medication Instructions Recorded Ipratropium-Albuterol Nebulize 3 ml INHALATION QID #90 ml 12/02/21 [Duoneb 0.5 mg-3 mg/3 ml Soln] Metoprolol Tartrate [Lopressor] 12.5 mg PO BID #180 tab 12/08/21 Spironolactone [Aldactone] 25 mg PO DAILY #90 tab 12/08/21 lisinopriL [Zestril] 2.5 mg PO DAILY #90 tab 12/08/21 predniSONE [Deltasone] 40 mg PO DAILY 12 Days #15 tab 12/08/21 Allergies Allergy/AdvReac Type Severity Reaction Status Date / Time No Known Allergies Allergy Verified 12/05/21 10:46 Review of Systems ROS Statement: Those systems with pertinent positive or pertinent negative responses have been documented in the HPI. ROS Other: All systems not noted in ROS Statement are negative. Past Medical History Past Medical History: COPD, Pulmonary Embolus (PE) Additional Past Medical History / Comment(s): recent rapid heart rate and SOB and nonsustained V-Tach in November 2019, hiatal hernia. Cardiomyopathy with an ejection fraction of 40% History of Any Multi-Drug Resistant Organisms: None Reported Past Surgical History: Back Surgery, Tonsillectomy Additional Past Surgical History / Comment(s): colonoscopy, "two disks removed from spine", pilonidal cyst, jhonatan cataracts Past Anesthesia/Blood Transfusion Reactions: No Reported Reaction Past Psychological History: Anxiety Smoking Status: Former smoker Past Alcohol Use History: None Reported Past Drug Use History: None Reported - Past Family History Mother Family Medical History: Cancer Brother(s) Family Medical History: Cancer General Exam - General Exam Comments Initial Comments: GENERAL: Patient is well-developed and well-nourished. Patient is nontoxic and well-hy drated and is in moderate distress. ENT: Neck is soft and supple. No significant lymphadenopathy is noted. Oropharynx is clear. Moist mucous membranes. Neck has full range of motion without elici ting any pain. EYES: The sclera were anicteric and conjunctiva were pink and moist. Extraocular movements were intact and pupils were equal round and reactive to light. Eyelids were unremarkable. PULMONARY: Patient has significantly diminished breath sounds. CARDIOVASCULAR: There is a regular rate and rhythm without any murmurs gallops or rubs. ABDOMEN: Soft and nontender with normal bowel sounds. SKIN: Skin is clear with no lesions or rashes and otherwise unremarkable. NEUROLOGIC: Patient is alert and oriented x3. Cranial nerves II through XII are grossly intact. Motor and sensory are also intact. Normal speech, volume and content. Symmetrical smile. MUSCULOSKELETAL: Normal extremities with adequate strength and full range of motion. LYMPHATICS: No significant lymphadenopathy is noted PSYCHIATRIC: Normal psychiatric evaluation. Course Vital Signs 12/27/21 12/27/21 12/27/21 08:05 08:25 08:29 Temperature Pulse Rate 144 H 131 H 133 H Respiratory 28 H 36 H Rate Blood Pressure 184/108 154/87 O2 Sat by Pulse 86 L 95 Oximetry 12/27/21 12/27/21 12/27/21 08:37 09:09 09:33 Temperature 97.6 F Pulse Rate 129 H 120 H Respiratory 26 H 24 Rate Blood Pressure 128/114 120/80 O2 Sat by Pulse 95 100 Oximetry 12/27/21 12/27/21 09:42 10:23 Temperature Pulse Rate 123 H 113 H Respiratory 17 Rate Blood Pressure 104/61 O2 Sat by Pulse 100 Oximetry Medical Decision Making - Medical Decision Making EKG shows sinus tachycardia at 133 bpm MA interval is on a 45 QRS is on a 14 QT interval is 290 QTC is 377. No ST segment elevations noted. A repeat EKG was done after the patient settled down to give a better EKG quality. EKG shows sinus tachycardia at 132 bpm MA interval is on a 46 QRS 113 QT interval 308 QTC is 386. No ST segment elevations noted. Patient received 3 breathing treatments in the emergency department. Patient also received Solu-Medrol and terbutaline. Patient was also put on BiPAP. I will back and reevaluated the patient he was doing considerably better at this time. X-ray shows pneumonia and I gave the patient about it. I spoke with Dr. Oneil he agreed to admit the patient admitted the patient wrote admitting orders I continued antibiotics breathing treatments and consult the pulmonary Levaquin and Zosyn were started per Dr. Oneil's request - Lab Data Result diagrams: 12/27/21 08:17 12/27/21 08:17 Lab Results 12/27/21 12/27/21 12/27/21 Range/Units 08:17 08:17 08:17 WBC 11.0 H (3.8-10.6) k/uL RBC 4.67 (4.30-5.90) m/uL Hgb 14.8 (13.0-17.5) gm/dL Hct 46.1 (39.0-53.0) % MCV 98.6 (80.0-100.0) fL MCH 31.6 (25.0-35.0) pg MCHC 32.0 (31.0-37.0) g/dL RDW 13.9 (11.5-15.5) % Plt Count 203 (150-450) k/uL MPV 7.3 Neutrophils % 64 % Lymphocytes % 17 % Monocytes % 8 % Eosinophils % 7 % Basophils % 1 % Neutrophils # 7.0 (1.3-7.7) k/uL Lymphocytes # 1.9 (1.0-4.8) k/uL Monocytes # 0.8 (0-1.0) k/uL Eosinophils # 0.8 H (0-0.7) k/uL Basophils # 0.2 (0-0.2) k/uL PT 10.1 (9.0-12.0) sec INR 0.9 (<1.2) APTT 24.3 (22.0-30.0) sec Sodium 134 L (137-145) mmol/L Potassium 5.0 (3.5-5.1) mmol/L Chloride 102 (98-107) mmol/L Carbon Dioxide 26 (22-30) mmol/L Anion Gap 6 mmol/L BUN 20 (9-20) mg/dL Creatinine 0.91 (0.66-1.25) mg/dL Est GFR (CKD-EPI)AfAm >90 (>60 ml/min/1.73 sqM) Est GFR (CKD-EPI)NonAf 81 (>60 ml/min/1.73 sqM) Glucose 164 H (74-99) mg/dL Plasma Lactic Acid Saravanan (0.7-2.0) mmol/L Calcium 8.4 (8.4-10.2) mg/dL Magnesium 1.9 (1.6-2.3) mg/dL Total Bilirubin 0.8 (0.2-1.3) mg/dL AST 36 (17-59) U/L ALT 28 (4-49) U/L Alkaline Phosphatase 61 (38-126) U/L Troponin I (0.000-0.034) ng/mL NT-Pro-B Natriuret Pep pg/mL Total Protein 6.8 (6.3-8.2) g/dL Albumin 3.7 (3.5-5.0) g/dL 12/27/21 12/27/21 12/27/21 Range/Units 08:17 08:17 08:17 WBC (3.8-10.6) k/uL RBC (4.30-5.90) m/uL Hgb (13.0-17.5) gm/dL Hct (39.0-53.0) % MCV (80.0-100.0) fL MCH (25.0-35.0) pg MCHC (31.0-37.0) g/dL RDW (11.5-15.5) % Plt Count (150-450) k/uL MPV Neutrophils % % Lymphocytes % % Monocytes % % Eosinophils % % Basophils % % Neutrophils # (1.3-7.7) k/uL Lymphocytes # (1.0-4.8) k/uL Monocytes # (0-1.0) k/uL Eosinophils # (0-0.7) k/uL Basophils # (0-0.2) k/uL PT (9.0-12.0) sec INR (<1.2) APTT (22.0-30.0) sec Sodium (137-145) mmol/L Potassium (3.5-5.1) mmol/L Chloride (98-107) mmol/L Carbon Dioxide (22-30) mmol/L Anion Gap mmol/L BUN (9-20) mg/dL Creatinine (0.66-1.25) mg/dL Est GFR (CKD-EPI)AfAm (>60 ml/min/1.73 sqM) Est GFR (CKD-EPI)NonAf (>60 ml/min/1.73 sqM) Glucose (74-99) mg/dL Plasma Lactic Acid Saravanan 1.3 (0.7-2.0) mmol/L Calcium (8.4-10.2) mg/dL Magnesium (1.6-2.3) mg/dL Total Bilirubin (0.2-1.3) mg/dL AST (17-59) U/L ALT (4-49) U/L Alkaline Phosphatase (38-126) U/L Troponin I 0.029 (0.000-0.034) ng/mL NT-Pro-B Natriuret Pep 260 pg/mL Total Protein (6.3-8.2) g/dL Albumin (3.5-5.0) g/dL Critical Care Time Critical Care Time: Yes Total Critical Care Time: 35 Disposition Clinical Impression: COPD with acute exacerbation, Pneumonia Disposition: ADMITTED IP TO THIS HOSP Referrals: Liss Oneil MD [Primary Care Provider] - 1-2 days Time of Disposition: 10:27
[2021-12-27 08:41] LABS: Basophils # (A) 0.2 k/uL (0-0.2); Basophils % (A) 1 %; Eosinophils # (A) 0.8 k/uL (0-0.7); Eosinophils % (A) 7 %; HCT 46.1 % (39.0-53.0); HGB 14.8 gm/dL (13.0-17.5); Lymphocytes # (A) 1.9 k/uL (1.0-4.8); Lymphocytes % (A) 17 %; MCH 31.6 pg (25.0-35.0); MCV 98.6 fL (80.0-100.0); Mean Platelet Volume 7.3; Monocytes # (A) 0.8 k/uL (0-1.0); Monocytes % (A) 8 %; Neutrophils % (A) 64 %; Platelet Count 203 k/uL (150-450); RBC 4.67 m/uL (4.30-5.90); RDW 13.9 % (11.5-15.5)
[2021-12-27] MEDS ORDERED: LORazepam 2 MG/ML INJ IV STA (08:42)
--- NOTE | 2021-12-27 08:43 | XR ---
EXAMINATION TYPE: XR chest 1V portable DATE OF EXAM: 12/27/2021 COMPARISON: Chest x-ray December 05, 2021 HISTORY: Difficulty in breathing. TECHNIQUE: Single portable frontal view of the chest is obtained. FINDINGS: There is chronic parenchymal change with persistent small to tiny left pleural effusion an d/or pleural thickening anterolateral left mid lung linear scarring. There is right sided chest tube on current study without visualized pneumothorax. The cardiac silhouette size remains within normal limits. The osseous structures are intact. IMPRESSION: New right-sided chest tube without visualized pneumothorax. Other findings stable chroni c changes without new acute pulmonary process.
[2021-12-27 09:05] LABS: ALT 28 U/L (4-49); AST 36 U/L (17-59); African American GFR (CKD) >90 (>60 ml/min/1.73 sqM); Albumin 3.7 g/dL (3.5-5.0); Alkaline Phosphatase 61 U/L (38-126); Anion Gap 6 mmol/L; Blood Urea Nitrogen 20 mg/dL (9-20); Calcium 8.4 mg/dL (8.4-10.2); Carbon Dioxide 26 mmol/L (22-30); Chloride 102 mmol/L (98-107); Glucose 164 mg/dL (74-99); Magnesium 1.9 mg/dL (1.6-2.3); Non-African American GFR(CKD) 81 (>60 ml/min/1.73 sqM); Sodium 134 mmol/L (137-145); Total Bilirubin 0.8 mg/dL (0.2-1.3); Total Protein 6.8 g/dL (6.3-8.2)
[2021-12-27 09:17] LABS: INR 0.9 (<1.2); Partial Thromboplastin Time 24.3 sec (22.0-30.0); Prothrombin Time 10.1 sec (9.0-12.0)
[2021-12-27] MEDS ORDERED: PNEUMONIA PROTOCOL UTILIZED 1 EACH MISC PO PRN (10:27)
[2021-12-27] MEDS ORDERED: IPRATROPIUM-ALBUTEROL 3 ML NEB INHALATION PRN (10:27)
[2021-12-27] MEDS ORDERED: PIPERACILLIN-TAZOBACTAM 3.375 GM in SODIUM CHLORIDE 0.9% 100 ML IVPB STA (10:27)
[2021-12-27] MEDS ORDERED: LEVOFLOXACIN 750MG-D5W PMX 750 MG in DEXTROSE/WATER 1 150ML.BAG IVPB STA (10:29)
[2021-12-27] MEDS: METOPROLOL TARTRATE 12.5 MG TAB PO SCH ×2 (14:26→20:01)
[2021-12-27] MEDS: APIXABAN 5 MG TAB PO SCH ×2 (14:26→20:01)
[2021-12-27] MEDS: methylPREDNISolone SOD SUCCI 125 MG/2 ML VIAL IV SCH ×2 (14:26→18:34)
[2021-12-27] MEDS: SPIRONOLACTONE 25 MG TAB PO SCH (14:27)
[2021-12-27] MEDS: IPRATROPIUM-ALBUTEROL 3 ML NEB INHALATION SCH ×2 (15:09→19:10)
--- NOTE | 2021-12-27 15:15 | P.CNPUL ---
History of Present Illness Consult date: 12/27/21 Requesting physician: Salvatore Carrington Reason for consult: dyspnea Chief complaint: Dyspnea History of present illness: 76-year-old white male patient with past medical history of severe COPD with baseline FEV1 of 35% of predicted on home oxygen at 2 L/m, history of nonischemic cardiomyopathy with severely impaired EF of less than 20% from his latest echocardiogram from 12/05/2021, previous history of PE, previous history of pneumonia, low history of tobacco dependence, hypertension, hyperlipidemia, anxiety. Patient was recently hospitalized for acute exacerbation of systolic CHF and COPD. COVID-19 was negative, pro-calcitonin level was negative, and pneumonia thought to be less likely. Patient was discharged home on 12/08/2021. Patient has been compliant with his medications, he was on DuoNeb, he was on Pro-air, Advair, he denies smoking after going home. Denies fever, no chest pain. No increased edema in lower extremities. Chest x-ray showed right suprahilar density related to overlying radiodense device. White blood cell count was 11.0, hemoglobin is 14.8, INR 0.9, sodium is 134, the rest of the electrolytes and renal profile were unremarkable. Lactic acid is 1.3, LFTs were within normal limits, troponin was 0.029, proBNP was 260. COVID-19 PCR was negative. EKG showed sinus tachycardia, no acute ST elevation. Patient was having significant shortness of breath, is quite bronchospastic, he was placed on BiPAP support, he was started on Levaquin and Zosyn, was given nebulized bronchodilators. And this consult was initiated. Review of Systems All systems: negative Constitutional: Denies chills, Denies fever Eyes: denies blurred vision, denies pain Ears, nose, mouth and throat: Denies headache, Denies sore throat Cardiovascular: Denies chest pain, Denies shortness of breath Respiratory: Reports dyspnea, Denies cough Gastrointestinal: Denies abdominal pain, Denies diarrhea, Denies nausea, Denies vomiting Musculoskeletal: Denies myalgias Integumentary: Denies pruritus, Denies rash Neurological: Denies numbness, Denies weakness Psychiatric: Denies anxiety, Denies depression Endocrine: Denies fatigue, Denies weight change Past Medical History Past Medical History: COPD, Pulmonary Embolus (PE) Additional Past Medical History / Comment(s): recent rapid heart rate and SOB a nd nonsustained V-Tach in November 2019, hiatal hernia. Cardiomyopathy with an ejection fraction of 40% History of Any Multi-Drug Resistant Organisms: None Reported Past Surgical History: Back Surgery, Tonsillectomy Additional Past Surgical History / Comment(s): colonoscopy, "two disks removed from spine", pilonidal cyst, jhonatan cataracts Past Anesthesia/Blood Transfusion Reactions: No Reported Reaction Past Psychological History: Anxiety Smoking Status: Former smoker Past Alcohol Use History: None Reported Past Drug Use History: None Reported - Past Family History Mother Family Medical History: Cancer Brother(s) Family Medical History: Cancer Medications and Allergies Home Medications Medication Instructions Recorded Confirmed Type Fluticasone/Salmeterol 1 puff INHALATION RT-BID 11/28/19 12/27/21 History [Fluticasone-Salmeterol 113-14] Albuterol Sulfate [Proair 1 puff INHALATION RT-Q4H PRN 09/27/21 12/27/21 History Respiclick] Apixaban [Eliquis] 5 mg PO BID 09/27/21 12/27/21 History Atorvastatin [Lipitor] 40 mg PO Q48H 09/27/21 12/27/21 History Metoprolol Tartrate [Lopressor] 12.5 mg PO BID #180 tab 12/08/21 12/27/21 Rx Spironolactone [Aldactone] 25 mg PO DAILY #90 tab 12/08/21 12/27/21 Rx lisinopriL [Zestril] 2.5 mg PO DAILY #90 tab 12/08/21 12/27/21 Rx Ipratropium-Albuterol Nebulize 3 ml INHALATION RT-QID 12/27/21 12/27/21 History [Duoneb 0.5 mg-3 mg/3 ml Soln] Allergies Allergy/AdvReac Type Severity Reaction Status Date / Time No Known Allergies Allergy Verified 12/27/21 11:26 Physical Exam Vitals: Vital Signs Temp Pulse Resp BP Pulse Ox 12/27/21 12:16 108 H 22 99/56 98 12/27/21 11:51 103 H 17 12/27/21 11:42 97 16 12/27/21 10:23 113 H 104/61 100 12/27/21 09:42 123 H 17 12/27/21 09:33 120 H 24 120/80 100 12/27/21 09:09 129 H 26 H 128/114 95 12/27/21 08:37 97.6 F 12/27/21 08:29 133 H 36 H 154/87 95 12/27/21 08:25 131 H 28 H 12/27/21 08:05 144 H 184/108 86 L Intake and Output 12/26/21 12/27/21 12/27/21 22:59 06:59 14:59 Other: Weight 72.575 kg GENERAL EXAM: Alert, very pleasant, 76-year-old white male, Bipap 10/5, 40% sitting up in the recliner, breathing comfortably satting 98%, comfortable in no apparent distress. HEAD: Normocephalic/atraumatic. EYES: Normal reaction of pupils, equal size. Conjunctiva pink, sclera white. NOSE: Clear with pink turbinates. THROAT: No erythema or exudates. NECK: No masses, no JVD, no thyroid enlargement, no adenopathy. CHEST: No chest wall deformity. Symmetrical expansion. LUNGS: Diminished air entry with diffuse wheezes CVS: Regular rate and rhythm, normal S1 and S2, no gallops, no murmurs, no rubs ABDOMEN: Soft, nontender. No hepatosplenomegaly, normal bowel sounds, no guarding or rigidity. EXTREMITIES: No clubbing, no edema, no cyanosis, 2+ pulses and upper and lower extremities. MUSCULOSKELETAL: Muscle strength and tone normal. SPINE: No scoliosis or deformity SKIN: No rashes CENTRAL NERVOUS SYSTEM: Alert and oriented -3. No focal deficits, tone is normal in all 4 extremities. PSYCHIATRIC: Alert and oriented -3. Appropriate affect. Intact judgment and insight. Results - Laboratory Findings CBC and BMP: 12/27/21 08:17 12/27/21 08:17 PT/INR, D-dimer PT 10.1 sec (9.0-12.0) 12/27/21 08:17 INR 0.9 (<1.2) 12/27/21 08:17 Abnormal lab findings: Abnormal Labs 12/27/21 12/27/21 08:17 08:17 WBC 11.0 H Eosinophils # 0.8 H Sodium 134 L Glucose 164 H - Diagnostic Findings Chest x-ray: report reviewed, image reviewed Additional studies: EKG reviewed Assessment and Plan Plan: Assessment: #1. Acute shortness of breath, related to acute COPD exacerbation, COVID-19 PCR was negative, chest x-ray shows no clear evidence of pneumonia or CHF. His pro- BNP is negative #2. Recent hospitalization for acute exacerbation of COPD and systolic CHF #3. Recent hospitalization for acute exacerbation of COPD, and patient was also treated for possible lingular infiltrate, although possibility of pneumonia seem to be less likely #4. Tobacco dependence syndrome, carries [id number] smoking history #5. Benign essential hypertension #6. History of nonischemic cardiomyopathy with an ejection fraction of 20%, improved on most recent echocardiograms #7. Hypertension #8. Hyperlipidemia #9. Previous history of PE on Eliquis #10. Anxiety #11. Episode of nonsustained ventricular tachycardia #12. History of severe COPD on home O2, with baseline FEV1 of 35% predicted Plan: Continue antibiotics Continue BiPAP support We'll add Solu-Medrol 60 mg every 6 hours Continue DuoNeb, we will add Pulmicort and Perforomist Chest x-ray has been reviewed showing no definite acute pneumonia or CHF ProBNP level was negative Consult cardiology, patient was supposed to have outpatient cardiac catheterization on Thursday Patient is afebrile, Current episode is likely related to acute exacerbation of COPD We'll continue to follow his clinical course Joint evaluation that was done along with the nurse practitioner. This evaluation was done more than 30 minutes. In summary, the patient has developed an acute COPD exacerbation resulting into this rapidly admission. No clear signs of any decompensated heart failure despite the fact that the most recent cardiac rhythm showed a drop in his ejection fraction of 20%. The patient was supposed underwent cardiac catheterization on outpatient basis next week. In any rate, he gets Hospital as for an acute COPD exacerbation. We'll treated with a combination of bronchodilators steroids. The patient is also on BiPAP for the story support. Chest x-ray was reviewed. Findings are essentially chronic. No signs of any decompensated heart failure at this point in time. Case was discussed with the . Prognosis poor baseline above-mentioned comorbidities. Resume all medications. Time with Patient: Greater than 30
[2021-12-27 16:30] LABS: Glucose,Whole Blood 183 mg/dL (75-99)
[2021-12-27] MEDS: PIPERACILLIN-TAZOBACTAM 3.375 GM in SODIUM CHLORIDE 0.9% 100 ML IVPB SCH (17:14)
[2021-12-27] MEDS: INSULIN ASPART (NovoLOG) 100 UNIT/ML VIAL SQ SCH ×2 (17:15→20:02)
[2021-12-27] MEDS: SYMBICORT 160-4.5 MCG INHALER INHALATION SCH (19:10)
[2021-12-27 19:57] LABS: Glucose,Whole Blood 180 mg/dL (75-99)
[2021-12-27 21:14] LABS: Glucose,Whole Blood 162 mg/dL (75-99)
[2021-12-28] MEDS: methylPREDNISolone SOD SUCCI 125 MG/2 ML VIAL IV SCH ×5 (00:10→23:42)
[2021-12-28] MEDS: PIPERACILLIN-TAZOBACTAM 3.375 GM in SODIUM CHLORIDE 0.9% 100 ML IVPB SCH ×4 (00:10→23:42)
[2021-12-28] MEDS: INSULIN ASPART (NovoLOG) 100 UNIT/ML VIAL SQ SCH ×4 (06:41→21:21)
[2021-12-28 06:42] LABS: Glucose,Whole Blood 142 mg/dL (75-99)
--- NOTE | 2021-12-28 07:06 | XR ---
EXAMINATION TYPE: XR chest 2V DATE OF EXAM: 12/28/2021 COMPARISON: Chest x-ray one day earlier. HISTORY: Pneumonia. TECHNIQUE: Frontal and lateral views of the chest are obtained. FINDINGS: There is chronic parenchymal change with left mid to lower lung linear scarring and/or ate lectasis redemonstrated. Prior right suprahilar opacity now not visualized. The cardiac silhouette s ize remains within normal limits. Tiny bilateral pleural effusions on lateral view. The osseous str uctures are intact. IMPRESSION: Right suprahilar opacity now not seen favored external artifact. Chronic changes with ti ny bilateral pleural effusions, no new suspicious focal infiltrate.
[2021-12-28] MEDS: IPRATROPIUM-ALBUTEROL 3 ML NEB INHALATION SCH ×4 (07:56→19:45)
[2021-12-28] MEDS: SYMBICORT 160-4.5 MCG INHALER INHALATION SCH ×2 (07:56→19:45)
[2021-12-28] MEDS: ATORVASTATIN 40 MG TAB PO SCH (08:46)
[2021-12-28] MEDS: SPIRONOLACTONE 25 MG TAB PO SCH (08:46)
[2021-12-28] MEDS: METOPROLOL TARTRATE 12.5 MG TAB PO SCH ×2 (08:46→21:20)
[2021-12-28] MEDS: APIXABAN 5 MG TAB PO SCH (08:46)
--- NOTE | 2021-12-28 10:54 | P.HPIM ---
History of Present Illness H&P Date: 12/27/21 Chief Complaint: Right upper lobe pneumonia COPD exacerbation HISTORY OF PRESENT ILLNESS This is a 76-year-old male patient with past medical history of COPD with lung function 35%, hypertension, history of pulmonary embolism, hyperlipidemia, cardiomyopathy with EF of 20%, nonsustained ventricular tachycardia. Remote history of tobacco use and dependence. Patient was hospitalized at [facility] between 12/05/2021 until 12/08/2021 after he was admitted to the hospital for acute hypoxemic respiratory failure due to recurrent ventricular tachycardia as well as acute exacerbation of chronic obstructive pulmonary disease, and the patient at that time was treated with IV steroids and he was seen in consultation by pulmonary medicine as well as cariology and patient was scheduled to go for left heart catheterization this coming Thursday, however the patient ended up coming to the emergency department at [facility] yesterday after he developed to have a significant shortness of breath yesterday at around 7:00 in the evening, he contacted one of the nursing staff in the hospital and she asked him to take an extra pill of metoprolol as well as breathing treatment he had felt better however he woke up early hour in the morning complaining of significant shortness of breath and poor air entry, despite using the breathing treatment so he ended up calling 911, the patient was brought into the emergency department at [facility] he was placed on a BiPAP immediately, patient was given Solu-Medrol 125 mg 1 and he was placed on Solu-Medrol 60 mg IV push every 6 hours, he was given nebulized treatment in the form of DuoNeb as well as Pulmicort, was admitted to the hospital had a chest x-ray that showed possible right upper lobe infiltrate he was started on Levaquin 500 mg IV piggyback every 24 hours as well as Zosyn 3.375 g IV piggyback every 6 hours, patient was seen in consultation by pulmonary medicine as well as cardiology and he was admitted to the hospital for acute exacerbation of COPD with right upper lobe possible gram-negative pneumonia. REVIEW OF SYSTEMS Constitutional: No fever, no chills, no night sweats. No weight change. No weakness, fatigue or lethargy. No daytime sleepiness. HEENT: No headache. No blurred vision or double vision, no loss of vision. No loss of Hearing, no ringing in the ears, no dizziness. No nasal drainage or congestion. No epistaxis. No sore throat. Lungs: Reports shortness of breath, mild cough, mild sputum production. Reports wheezing. Cardiovascular: No chest pain, no lower extremity edema. No palpitations. No paroxysmal nocturnal dyspnea. No orthopnea. No lightheadedness or dizziness. No syncopal episodes. Abdominal: No abdominal pain. No nausea, vomiting. No diarrhea. No constipation. No bloody or tarry stools. No loss of appetite. Genitourinary: No dysuria, increased frequency, urgency. No urinary retention. Musculoskeletal: No myalgias. No muscle weakness, no gait dysfunction, no frequent falls. No back pain. No neck pain. Integumentary: No wounds, no lesions. No rash or pruritus. No unusual bru ising. Neurologic: No aphasia. No facial droop. No change in mentation. No head injury. No headache. No paralysis. No paresthesia. Psychiatric: No depression. Reports anxiety. No mood swings. Endocrine: No abnormal blood sugars. No weight change. SOCIAL HISTORY Patient was a smoker one pack per day for 40 years and quit 20 years ago. He occasionally has a beer. He does not use marijuana or illicit drug use. Patient lives at home with his . He has a nebulizer and oxygen at home. No DME for ambulation. FAMILY MEDICAL HISTORY Mother in her 70s with history of lung cancer and breast cancer. Father in a fire at age 50 with history of TB. Patient has one brother with history of bladder cancer. He does not have any sisters. Patient has 2 children, one son and one daughter with no major medical problems. PHYSICAL EXAMINATION Gen: This is a 76-year-old male, currently in a BiPAP and appears to be in mild respiratory distress. HEENT: Head is atraumatic, normocephalic. Pupils equal, round. Sclerae is anicteric, mucous membranes of the mouth are somewhat dry. NECK: Supple. No JVD. No lymphadenopathy. No thyromegaly. LUNGS: Decreased breath sounds at the bases, poor air entry, moderate intercostal retraction, patient is currently on a BiPAP. HEART: first heart sound is depressed, second heart sound is normal, 2/6 systolic ejection murmur at the left sternal border. ABDOMEN: Soft nontender, nondistended, no hepatosplenomegaly positive bowel sounds EXTREMITIES: there is ne edema, no calf tenderness DP +2 bilaterally NEUROLOGICAL: Patient is awake, alert and oriented x3. Cranial nerves 2 through 12 are grossly intact, cranial nerves II-12 appear grossly intact, muscle power 5 out of 5 in upper and lower extremities bilaterally. ASSESSMENT AND PLAN 1. Acute COPD exacerbation with pneumonia, possible gram-negative pneumonia. Continue patient on DuoNeb treatments 4 times daily and as needed, Solu-Medrol 60 mg every 6, Pulmicort 1 mg twice daily,continue patient on Levaquin 500 mg IV piggyback every 24 hours, Zosyn 3.375 g IV piggyback every 6 hours, obtain sputum culture, continue oxygen support, continue BiPAP, pulmonary consultation. 2. Severe COPD with lung function 35%. continue treatment as the previous paragraph. 3. Episode of nonsustained ventricular tachycardia with history of same. Cardiology consult. Continue Lopressor 12.5 mg twice daily. patient is scheduled to go for left heart catheterization on Thursday. 4. Hypertension. Continue lisinopril 2.5 mg daily, Lopressor 12.5 mg twice daily. 5. Hyperlipidemia. Continue atorvastatin 40 mg every 48 hours. 6. Cardiomyopathy with ejection fraction of 20%. Continue patient on Lopressor 12.5 g twice daily, Aldactone 25 mg daily, lisinopril 2.5 mg daily 7. History of pulmonary embolism. Continue eliquis 5 mg orally twice every day. 8. Remote history of tobacco use and dependence. 9. DVT prophylaxis. We will continue patient on Eliquis 5 mg orally twice every day. 10. GI prophylaxis. continue patient on Protonix 40 mg orally once every day. Patient admitted to the hospital for a minimum of 2 nights stay. full code Past Medical History Past Medical History: COPD, Pulmonary Embolus (PE) Additional Past Medical History / Comment(s): recent rapid heart rate and SOB and nonsustained V-Tach in November 2019, hiatal hernia. Cardiomyopathy with an ejection fraction of 40% History of Any Multi-Drug Resistant Organisms: None Reported Past Surgical History: Back Surgery, Tonsillectomy Additional Past Surgical History / Comment(s): colonoscopy, "two disks removed from spine", pilonidal cyst, jhonatan cataracts Past Anesthesia/Blood Transfusion Reactions: No Reported Reaction Past Psychological History: Anxiety Smoking Status: Former smoker Past Alcohol Use History: None Reported Past Drug Use History: None Reported - Past Family History Mother Family Medical History: Cancer Brother(s) Family Medical History: Cancer Medications and Allergies Home Medications Medication Instructions Recorded Confirmed Type Fluticasone/Salmeterol 1 puff INHALATION RT-BID 11/28/19 12/27/21 History [Fluticasone-Salmeterol 113-14] Albuterol Sulfate [Proair 1 puff INHALATION RT-Q4H PRN 09/27/21 12/27/21 History Respiclick] Apixaban [Eliquis] 5 mg PO BID 09/27/21 12/27/21 History Atorvastatin [Lipitor] 40 mg PO Q48H 09/27/21 12/27/21 History Metoprolol Tartrate [Lopressor] 12.5 mg PO BID #180 tab 12/08/21 12/27/21 Rx Spironolactone [Aldactone] 25 mg PO DAILY #90 tab 12/08/21 12/27/21 Rx lisinopriL [Zestril] 2.5 mg PO DAILY #90 tab 12/08/21 12/27/21 Rx Ipratropium-Albuterol Nebulize 3 ml INHALATION RT-QID 12/27/21 12/27/21 History [Duoneb 0.5 mg-3 mg/3 ml Soln] Allergies Allergy/AdvReac Type Severity Reaction Status Date / Time No Known Allergies Allergy Verified 12/27/21 11:26 Physical Exam Vitals: Vital Signs Temp Pulse Resp BP Pulse Ox 12/27/21 12:16 108 H 22 99/56 98 12/27/21 11:51 103 H 17 12/27/21 11:42 97 16 12/27/21 10:23 113 H 104/61 100 12/27/21 09:42 123 H 17 12/27/21 09:33 120 H 24 120/80 100 12/27/21 09:09 129 H 26 H 128/114 95 12/27/21 08:37 97.6 F 12/27/21 08:29 133 H 36 H 154/87 95 12/27/21 08:25 131 H 28 H 12/27/21 08:05 144 H 184/108 86 L Intake and Output 12/26/21 12/27/21 12/27/21 22:59 06:59 14:59 Other: Weight 72.575 kg Results CBC & Chem 7: 12/27/21 08:17 12/27/21 08:17 Labs: Abnormal Lab Results - Last 24 Hours (Table) 12/27/21 12/27/21 Range/Units 08:17 08:17 WBC 11.0 H (3.8-10.6) k/uL Eosinophils # 0.8 H (0-0.7) k/uL Sodium 134 L (137-145) mmol/L Glucose 164 H (74-99) mg/dL
[2021-12-28 11:43] LABS: Glucose,Whole Blood 147 mg/dL (75-99)
--- NOTE | 2021-12-28 11:43 | P.PN ---
Subjective Progress Note Date: 12/28/21 HISTORY OF PRESENT ILLNESS This is a 76-year-old male patient with past medical history of COPD with lung function 35%, hypertension, history of pulmonary embolism, hyperlipidemia, cardiomyopathy with EF of 20%, nonsustained ventricular tachycardia. Remote history of tobacco use and dependence. Patient was hospitalized at [facility] between 12/05/2021 until 12/08/2021 after he was admitted to the hospital for acute hypoxemic respiratory failure due to recurrent ventricular tachycardia as well as acute exacerbation of chronic obstructive pulmonary disease, and the patient at that time was treated with IV steroids and he was seen in consultation by pulmonary medicine as well as cariology and patient was scheduled to go for left heart catheterization this coming Thursday, however the patient ended up coming to the emergency department at [facility] yesterday after he developed to have a significant shortness of breath yesterday at around 7:00 in the evening, he contacted one of the nursing staff in the hospital and she asked him to take an extra pill of metoprolol as well as breathing treatment he had felt better however he woke up early hour in the morning complaining of significant shortness of breath and poor air entry, despite using the breathing treatment so he ended up calling 911, the patient was brought into the emergency department at [facility] he was placed on a BiPAP immediately, patient was given Solu-Medrol 125 mg 1 and he was placed on Solu-Medrol 60 mg IV push every 6 hours, he was given nebulized treatment in the form of DuoNeb as well as Pulmicort, was admitted to the hospital had a chest x-ray that showed possible right upper lobe infiltrate he was started on Levaquin 500 mg IV piggyback every 24 hours as well as Zosyn 3.375 g IV piggyback every 6 hours, patient was seen in consultation by pulmonary medicine as well as cardiology and he was admitted to the hospital for acute exacerbation of COPD with right upper lobe possible gram-negative pneumonia. 12/28: Patient is laying down in bed in no apparent distress, is feeling a lot better, he is getting his breathing treatment, is currently at 2 L nasal c annula, is moving air much better way, continues to be on IV antibiotic and IV steroid, I spoke with Dr. Simmons regarding heart catheterization we'll switch him to Lovenox 70 mg subcu every 12 hours last dose on Thursday and he'll go for heart catheterization on Thursday morning. REVIEW OF SYSTEMS Constitutional: No fever, no chills, no night sweats. No weight change. No wea kness, fatigue or lethargy. No daytime sleepiness. HEENT: No headache. No blurred vision or double vision, no loss of vision. No loss of Hearing, no ringing in the ears, no dizziness. No nasal drainage or congestion. No epistaxis. No sore throat. Lungs: Reports shortness of breath, mild cough, mild sputum production. Reports wheezing. Cardiovascular: No chest pain, no lower extremity edema. No palpitations. No paroxysmal nocturnal dyspnea. No orthopnea. No lightheadedness or dizziness. No syncopal episodes. Abdominal: No abdominal pain. No nausea, vomiting. No diarrhea. No cons tipation. No bloody or tarry stools. No loss of appetite. Genitourinary: No dysuria, increased frequency, urgency. No urinary retention. Musculoskeletal: No myalgias. No muscle weakness, no gait dysfunction, no frequent falls. No back pain. No neck pain. Integumentary: No wounds, no lesions. No rash or pruritus. No unusual bruising. Neurologic: No aphasia. No facial droop. No change in mentation. No head injury. No headache. No paralysis. No paresthesia. Psychiatric: No depression. Reports anxiety. No mood swings. Endocrine: No abnormal blood sugars. No weight change. PHYSICAL EXAMINATION Gen: This is a 76-year-old male, currently in a BiPAP and appears to be in mild respiratory distress. HEENT: Head is atraumatic, normocephalic. Pupils equal, round. Sclerae is anicteric, mucous membranes of the mouth are somewhat dry. NECK: Supple. No JVD. No lymphadenopathy. No thyromegaly. LUNGS: Decreased breath sounds at the bases, poor air entry, moderate intercostal retraction, patient is currently on a BiPAP. HEART: first heart sound is depressed, second heart sound is normal, 2/6 systolic ejection murmur at the left sternal border. ABDOMEN: Soft nontender, nondistended, no hepatosplenomegaly positive bowel sounds EXTREMITIES: there is ne edema, no calf tenderness DP +2 bilaterally NEUROLOGICAL: Patient is awake, alert and oriented x3. Cranial nerves 2 through 12 are grossly intact, cranial nerves II-12 appear grossly intact, muscle power 5 out of 5 in upper and lower extremities bilaterally. ASSESSMENT AND PLAN 1. Acute COPD exacerbation with pneumonia, possible gram-negative pneumonia. Continue patient on DuoNeb treatments 4 times daily and as needed, Solu-Medrol 60 mg every 6, Pulmicort 1 mg twice daily,continue patient on Levaquin 500 mg IV piggyback every 24 hours, Zosyn 3.375 g IV piggyback every 6 hours, obtain sputum culture, continue oxygen support, continue BiPAP, pulmonary consultation. 2. Severe COPD with lung function 35%. continue treatment as the previous paragraph. 3. Episode of nonsustained ventricular tachycardia with history of same. Cardiology consult. Continue Lopressor 12.5 mg twice daily. patient is scheduled to go for left heart catheterization on Thursday. 4. Hypertension. Continue lisinopril 2.5 mg daily, Lopressor 12.5 mg twice daily. 5. Hyperlipidemia. Continue atorvastatin 40 mg every 48 hours. 6. Cardiomyopathy with ejection fraction of 20%. Continue patient on Lopressor 12.5 g twice daily, Aldactone 25 mg daily, lisinopril 2.5 mg daily 7. History of pulmonary embolism. Discontinue Eliquis and start the patient on Lovenox 70 mg subcutaneously every 12 hours starting this evening and last dose on Thursday evening. 8. Remote history of tobacco use and dependence. 9. DVT prophylaxis. We will continue patient on Lovenox 10. GI prophylaxis. continue patient on Protonix 40 mg orally once every day. 11. we will continue with same Rx Objective - Vital Signs Vital signs: Vital Signs Temp 98.0 F 12/28/21 08:00 Pulse 78 12/28/21 08:12 Resp 20 12/28/21 08:00 BP 95/54 12/28/21 08:00 Pulse Ox 99 12/28/21 10:28 Intake & Output 12/27/21 12/28/21 12/28/21 18:59 06:59 18:59 Intake Total 240 220 Output Total 100 Balance 140 220 Weight 72.575 kg 72.5 kg Intake: Oral 240 220 Output: Urine 100 Other: Voiding Method Toilet Toilet Urinal Urinal # Voids 1 - Labs CBC & Chem 7: 12/27/21 08:17 12/27/21 08:17 Labs: Abnormal Lab Results - Last 24 Hours (Table) 12/27/21 12/27/21 12/27/21 Range/Units 16:28 19:56 20:50 POC Glucose (mg/dL) 183 H 180 H 162 H (75-99) mg/dL 12/28/21 Range/Units 06:10 POC Glucose (mg/dL) 142 H (75-99) mg/dL Microbiology - Last 24 Hours (Table) 12/27/21 10:28 Sputum Culture - Preliminary Sputum
[2021-12-28] MEDS: LEVOFLOXACIN 750MG-D5W PMX 750 MG in DEXTROSE/WATER 1 150ML.BAG IVPB SCH (12:57)
--- NOTE | 2021-12-28 13:12 | P.PN ---
Subjective Progress Note Date: 12/28/21 12/28/2021, the patient is feeling better compared to yesterday. The patient is less short of breath bronchospastic and wheezy. Overnight, the patient was kept on BiPAP and the patient is currently off the BiPAP and is currently on 4 L of O2 nasal cannula. He is able to speak full sentences. No reported chest pain. Breath sounds remain quite diminished bilaterally although improved compared to yesterday. No angina. No palpitations. No chest pain. He is currently on Symbicort. He is on DuoNeb nebulized units [id number]. He is also on IV Solu Medrol 60 mg every 6 hours. Antibiotic coverage is empiric and the chest x-ray shows no interval change in comparison. The patient's blood sugar is at 147. Cognitive testing was negative. Altered mentation. As mentioned earlier, the patient will ultimately need a cardiac catheterization and this was planned to be done Thursday of next week. Objective - Vital Signs Vital signs: Vital Signs Temp 97.6 F 12/28/21 12:00 Pulse 65 12/28/21 12:00 Resp 18 12/28/21 12:00 BP 94/54 12/28/21 12:00 Pulse Ox 95 12/28/21 12:00 Intake & Output 12/27/21 12/28/21 12/28/21 18:59 06:59 18:59 Intake Total 240 340 Output Total 100 Balance 140 340 Weight 72.575 kg 72.5 kg Intake: Oral 240 340 Output: Urine 100 Other: Voiding Method Toilet Toilet Urinal Urinal # Voids 1 2 - Exam GENERAL EXAM: Alert, very pleasant, 76-year-old white male, the patient is currently off the BiPAP, much more comfortable on 4 L of O2 nasal cannula HEAD: Normocephalic/atraumatic. EYES: Normal reaction of pupils, equal size. Conjunctiva pink, sclera white. NOSE: Clear with pink turbinates. THROAT: No erythema or exudates. NECK: No masses, no JVD, no thyroid enlargement, no adenopathy. CHEST: No chest wall deformity. Symmetrical expansion. LUNGS: Diminished air entry with diffuse wheezes CVS: Regular rate and rhythm, normal S1 and S2, no gallops, no murmurs, no rubs ABDOMEN: Soft, nontender. No hepatosplenomegaly, normal bowel sounds, no guarding or rigidity. EXTREMITIES: No clubbing, no edema, no cyanosis, 2+ pulses and upper and lower extremities. MUSCULOSKELETAL: Muscle strength and tone normal. SPINE: No scoliosis or deformity SKIN: No rashes CENTRAL NERVOUS SYSTEM: Alert and oriented -3. No focal deficits, tone is normal in all 4 extremities. PSYCHIATRIC: Alert and oriented -3. Appropriate affect. Intact judgment and insight. - Labs CBC & Chem 7: 12/27/21 08:17 12/27/21 08:17 Labs: Abnormal Lab Results - Last 24 Hours (Table) 12/27/21 12/27/21 12/27/21 Range/Units 16:28 19:56 20:50 POC Glucose (mg/dL) 183 H 180 H 162 H (75-99) mg/dL 12/28/21 12/28/21 Range/Units 06:10 11:41 POC Glucose (mg/dL) 142 H 147 H (75-99) mg/dL Microbiology - Last 24 Hours (Table) 12/27/21 09:06 Blood Culture - Preliminary Blood No Growth after 24 hours 12/27/21 09:15 Blood Culture - Preliminary Blood No Growth after 24 hours 12/27/21 10:28 Sputum Culture - Preliminary Sputum Assessment and Plan Plan: #1. Acute shortness of breath, related to acute COPD exacerbation, COVID-19 PCR was negative, chest x-ray shows no clear evidence of pneumonia or CHF. His pro- BNP is negative. Clearly this acute exacerbation was related to a COPD exacerbation and the patient is improved and accommodation bronchodilators and steroids. The patient to be placed on a BiPAP for respiratory support, currently off the BiPAP. No altered mentation. #2. Recent hospitalization for acute exacerbation of COPD and systolic CHF #3. Recent hospitalization for acute exacerbation of COPD, and patient was also treated for possible lingular infiltrate, although possibility of pneumonia seem to be less likely #4. Tobacco dependence syndrome, carries [id number] smoking history #5. Benign essential hypertension #6. History of nonischemic cardiomyopathy with an ejection fraction of 20%, improved on most recent echocardiograms #7. Hypertension #8. Hyperlipidemia #9. Previous history of PE on Eliquis #10. Anxiety #11. Episode of nonsustained ventricular tachycardia #12. History of severe COPD on home O2, with baseline FEV1 of 35% predicted Plan Clinically improving Keep the patient of the BiPAP Continue bronchodilators and steroids Discussed with cardiology regarding the possibility of completing his cardiac catheterization during this current hospitalization We'll continue to follow. Long-term prognosis poor baseline above-mentioned comorbidities.
--- NOTE | 2021-12-28 15:46 | P.CRDCN ---
History of Present Illness History of present illness: This is a 76 year old with a past medical history significant for nonsustained ventricular tachycardia, nonischemic cardiomyopathy, dyslipidemia, and PE. Patient follows in the office with Dr. Simmons. He has had multiple hospitalizations for shortness breath and has undergone workup mainly for COPD exacerbations however was also noted to have new drop in his ejection fraction act down to less than 20% on most recent echo from November 2021. He denies any actual chest pain or pressure. He states it is somewhat episodic and more recently he did have an episode and he took a breathing treatment as well as an additional dose of the metoprolol and states almost immediately he started to feel better. He is scheduled for heart catheterization with Dr. Simmons on Thursday. * Most recent echocardiogram obtained in September 2021 revealed ejection fraction 40-45%, mild MR, and mild TR * Previous echocardiogram completed in November 2019 revealed ejection fraction less than 20% * Cardiac catheterization history: December 2019 with normal coronary arteries * Repeat echo 12/05 2021 showed decrease in ejection fraction to less than 20% with mild mitral regurgitation and mild tricuspid regurgitation. * Blood work shows white blood cell count 11.0, hemoglobin 14.8, and 0.9, AST 36, ALT 28, troponin 0.02, proBNP 260. REVIEW OF SYSTEMS: At the time of my exam: CONSTITUTIONAL: Denies fever or chills. HEENT: Denies blurred vision, vision changes, or eye pain. Denies hemoptysis CARDIOVASCULAR: Denies chest pain. Denies orthopnea. Denies PND. Denies palpitations RESPIRATORY: +shortness of breath. GASTROINTESTINAL: Denies abdominal pain. Denies nausea or vomiting. HEMATOLOGIC: Denies bleeding disorders. GENITOURINARY: Denies any blood in urine. SKIN: Denies pruitis. Denies rash. PHYSICAL EXAM: VITAL SIGNS: Reviewed. GENERAL: Well-developed in no acute distress. HEENT: Head is normocephalic. Pupils are equal, round. Sclerae anicteric. Mucous membranes of the mouth are moist. Neck supple. No JVD or thyromegaly LUNGS: Respirations even and unlabored. Lungs diminished HEART: Regular rate and rhythm. S1 and S2 heard. ABDOMEN: Soft. Nondistended. Nontender. EXTREMITIES: Normal range of motion. No clubbing or cyanosis. Peripheral pulses intact. No lower extremity edema NEUROLOGIC: Awake and alert. Oriented x 3. ASSESSMENT: Hypoxic respiratory failure likely multifactorial secondary to COPD exacerbation as well as heart failure Chronic systolic heart failure Acute COPD exacerbation hx of nonsustained ventricular tachycardia History of nonischemic cardiomyopathy History of PE Hyperlipidemia PLAN: Currently being treated for COPD exacerbation with inhalers. Continue with heart failure regimen with spironolactone, metoprolol 12.5 mg twice a day and low-dose lisinopril. He did admit to some improvement with additional dose of metoprolol and there is always a consideration of possible arrhythmia causing some of his episodic symptoms. Currently however he has been doing well and we will continue with supportive care. Possible heart catheterization on Thursday as scheduled if he remains stable from a pulmonary standpoint. Past Medical History Past Medical History: COPD, Pulmonary Embolus (PE) Additional Past Medical History / Comment(s): recent rapid heart rate and SOB and nonsustained V-Tach in November 2019, hiatal hernia. Cardiomyopathy with an ejection fraction of 40% History of Any Multi-Drug Resistant Organisms: None Reported Past Surgical History: Back Surgery, Tonsillectomy Additional Past Surgical History / Comment(s): colonoscopy, "two disks removed from spine", pilonidal cyst, jhonatan cataracts Past Anesthesia/Blood Transfusion Reactions: No Reported Reaction Past Psychological History: Anxiety Smoking Status: Former smoker Past Alcohol Use History: None Reported Past Drug Use History: None Reported - Past Family History Mother Family Medical History: Cancer Brother(s) Family Medical History: Cancer Medications and Allergies Home Medications Medication Instructions Recorded Confirmed Type Fluticasone/Salmeterol 1 puff INHALATION RT-BID 11/28/19 12/27/21 History [Fluticasone-Salmeterol 113-14] Albuterol Sulfate [Proair 1 puff INHALATION RT-Q4H PRN 09/27/21 12/27/21 History Respiclick] Apixaban [Eliquis] 5 mg PO BID 09/27/21 12/27/21 History Atorvastatin [Lipitor] 40 mg PO Q48H 09/27/21 12/27/21 History Metoprolol Tartrate [Lopressor] 12.5 mg PO BID #180 tab 12/08/21 12/27/21 Rx Spironolactone [Aldactone] 25 mg PO DAILY #90 tab 12/08/21 12/27/21 Rx lisinopriL [Zestril] 2.5 mg PO DAILY #90 tab 12/08/21 12/27/21 Rx Ipratropium-Albuterol Nebulize 3 ml INHALATION RT-QID 12/27/21 12/27/21 History [Duoneb 0.5 mg-3 mg/3 ml Soln] Allergies Allergy/AdvReac Type Severity Reaction Status Date / Time No Known Allergies Allergy Verified 12/27/21 11:26 Physical Exam Vitals: Vital Signs Temp Pulse Pulse Resp BP Pulse Ox 12/28/21 15:27 78 12/28/21 15:11 78 12/28/21 14:00 65 18 12/28/21 12:00 97.6 F 65 18 94/54 95 12/28/21 11:17 82 12/28/21 11:03 82 12/28/21 10:28 99 12/28/21 08:12 78 12/28/21 08:01 78 12/28/21 08:00 98.0 F 109 H 18 95/54 97 12/28/21 06:02 99/62 12/28/21 04:05 98 12/28/21 03:00 97.7 F 68 20 93/53 99 12/28/21 00:10 97 12/28/21 00:05 97.5 F L 70 22 96/58 99 12/27/21 19:45 97.9 F 79 24 97/52 99 12/27/21 19:23 101 H 12/27/21 19:12 99 12/27/21 16:00 97 F L 76 18 97/57 100 Intake and Output 12/28/21 12/28/21 12/28/21 06:59 14:59 22:59 Intake Total 340 Balance 340 Intake: Oral 340 Other: Voiding Method Toilet Toilet Urinal Urinal # Voids 1 2 Weight 72.5 kg Results 12/27/21 08:17 12/27/21 08:17 Current Medications Generic Name Dose Route Start Last Admin Trade Name Freq PRN Reason Stop Dose Admin Albuterol/Ipratropium 3 ml 12/27/21 10:27 12/27/21 11:41 Ipratropium-Albuterol 3 Ml Neb INHALATION 3 ml RT-Q4H PRN Administration shortness of breath Albuterol/Ipratropium 3 ml 12/27/21 16:00 12/28/21 15:11 Ipratropium-Albuterol 3 Ml Neb INHALATION 3 ml RT-QID EVELYN Administration Atorvastatin Calcium 40 mg 12/28/21 09:00 12/28/21 08:46 Atorvastatin 40 Mg Tab PO 40 mg Q48H EVELYN Administration Budesonide/Formoterol Fumarate 2 puff 12/27/21 20:00 12/28/21 07:56 Symbicort 160-4.5 Mcg Inhaler INHALATION 2 puff RT-BID EVELYN Administration Enoxaparin Sodium 70 mg 12/28/21 21:00 Enoxaparin 80 Mg/0.8 Ml Syringe SQ 12/29/21 23:00 Q12HR EVELYN Piperacillin Sod/Tazobactam 100 mls @ 25 mls/hr 12/27/21 16:00 12/28/21 08:46 Sod 3.375 gm/ Sodium Chloride IVPB 01/01/22 16:01 25 mls/hr Q8HR EVELYN Administration Protocol Levofloxacin 750 mg/ IV 150 mls @ 100 mls/hr 12/28/21 10:30 12/28/21 12:57 Solution IVPB 100 mls/hr Q24H EVELYN Administration Protocol Insulin Aspart 0 unit 12/27/21 17:30 12/28/21 12:57 Insulin Aspart (Novolog) 100 Unit/Ml Vial SQ 2 unit ACHS EVELYN Administration Protocol Lisinopril 2.5 mg 12/27/21 14:00 12/28/21 08:46 Lisinopril 2.5 Mg Tab PO 2.5 mg DAILY EVELYN Administration Methylprednisolone Sodium Succinate 60 mg 12/27/21 13:00 12/28/21 13:55 Methylprednisolone Sod Succi 125 Mg/2 Ml Vial IV 60 mg Q6HR EVELYN Administration Metoprolol Tartrate 12.5 mg 12/27/21 14:00 12/28/21 08:46 Metoprolol Tartrate 12.5 Mg Tab PO 12.5 mg BID EVELYN Administration Miscellaneous Information 1 each 12/27/21 10:27 Pneumonia Protocol Utilized 1 Each Misc PO ONCE PRN Per Protocol Spironolactone 25 mg 12/27/21 14:00 12/28/21 08:46 Spironolactone 25 Mg Tab PO 25 mg DAILY EVELYN Administration Intake and Output 12/28/21 12/28/21 12/28/21 06:59 14:59 22:59 Intake Total 340 Balance 340 Intake: Oral 340 Other: Voiding Method Toilet Toilet Urinal Urinal # Voids 1 2 Weight 72.5 kg 12/27/21 08:17 12/27/21 08:17
[2021-12-28 16:36] LABS: Glucose,Whole Blood 137 mg/dL (75-99)
[2021-12-28 19:48] LABS: Glucose,Whole Blood 194 mg/dL (75-99)
[2021-12-28] MEDS: ENOXAPARIN 80 MG/0.8 ML SYRINGE SQ SCH (21:20)
[2021-12-29 06:22] LABS: Glucose,Whole Blood 150 mg/dL (75-99)
[2021-12-29] MEDS: methylPREDNISolone SOD SUCCI 125 MG/2 ML VIAL IV SCH (06:25)
[2021-12-29] MEDS: INSULIN ASPART (NovoLOG) 100 UNIT/ML VIAL SQ SCH ×4 (06:27→21:02)
[2021-12-29 07:32] LABS: Basophils % (A) 0 %; Eosinophils % (A) 0 %; HCT 40.5 % (39.0-53.0); HGB 12.7 gm/dL (13.0-17.5); Lymphocytes # (A) 0.5 k/uL (1.0-4.8); Lymphocytes % (A) 4 %; MCH 30.5 pg (25.0-35.0); MCHC 31.3 g/dL (31.0-37.0); MCV 97.5 fL (80.0-100.0); Mean Platelet Volume 7.4; Monocytes # (A) 0.4 k/uL (0-1.0); Monocytes % (A) 3 %; Neutrophils # (A) 10.9 k/uL (1.3-7.7); Neutrophils % (A) 92 %; Platelet Count 187 k/uL (150-450); RBC 4.15 m/uL (4.30-5.90); RDW 14.1 % (11.5-15.5); WBC 11.9 k/uL (3.8-10.6)
[2021-12-29] MEDS: SYMBICORT 160-4.5 MCG INHALER INHALATION SCH ×2 (07:37→20:02)
[2021-12-29] MEDS: IPRATROPIUM-ALBUTEROL 3 ML NEB INHALATION SCH ×4 (07:37→20:02)
[2021-12-29 07:46] LABS: Albumin 2.8 g/dL (3.5-5.0); Potassium 4.3 mmol/L (3.5-5.1); Total Bilirubin 0.4 mg/dL (0.2-1.3); Total Protein 5.5 g/dL (6.3-8.2)
[2021-12-29] MEDS: METOPROLOL TARTRATE 12.5 MG TAB PO SCH ×2 (08:34→20:22)
[2021-12-29] MEDS: SPIRONOLACTONE 25 MG TAB PO SCH (08:34)
[2021-12-29] MEDS: ENOXAPARIN 80 MG/0.8 ML SYRINGE SQ SCH ×2 (08:35→20:22)
[2021-12-29] MEDS: PIPERACILLIN-TAZOBACTAM 3.375 GM in SODIUM CHLORIDE 0.9% 100 ML IVPB SCH (08:35)
[2021-12-29] MEDS ORDERED: NITROGLYCERIN SL TABS 0.4 MG TAB SUBLINGUAL PRN (08:41)
[2021-12-29] MEDS ORDERED: ALPRAZolam 0.25 MG TAB PO PRN (08:41)
[2021-12-29] MEDS ORDERED: ALPRAZolam 0.5 MG TAB PO PRN (08:41)
[2021-12-29] MEDS ORDERED: ATORVASTATIN 80 MG TAB PO STA (08:41)
[2021-12-29] MEDS ORDERED: ASPIRIN 325 MG TAB PO STA (08:41)
--- NOTE | 2021-12-29 08:41 | P.PN ---
Subjective This is a 76 year old with a past medical history significant for nonsustained ventricular tachycardia, nonischemic cardiomyopathy, dyslipidemia, and PE. Patient follows in the office with Dr. Simmons. He has had multiple hospitalizations for shortness breath and has undergone workup mainly for COPD exacerbations however was also noted to have new drop in his ejection fraction act down to less than 20% on most recent echo from November 2021. He denies any actual chest pain or pressure. He states it is somewhat episodic and more recently he did have an episode and he took a breathing treatment as well as an additional dose of the metoprolol and states almost immediately he started to feel better. He is scheduled for heart catheterization with Dr. Simmons on Thursday. * Most recent echocardiogram obtained in September 2021 revealed ejection f raction 40-45%, mild MR, and mild TR * Previous echocardiogram completed in November 2019 revealed ejection fraction less than 20% * Cardiac catheterization history: December 2019 with normal coronary arteries * Repeat echo 12/05 2021 showed decrease in ejection fraction to less than 20% with mild mitral regurgitation and mild tricuspid regurgitation. * Blood work shows white blood cell count 11.0, hemoglobin 14.8, and 0.9, AST 36, ALT 28, troponin 0.02, proBNP 260. 3/20 Patient seen and examined. Patient denies any chest pain or pressure. States his shortness breath continues improved with inhalers and steroids. PHYSICAL EXAM: VITAL SIGNS: Reviewed. GENERAL: Well-developed in no acute distress. HEENT: Head is normocephalic. Pupils are equal, round. Sclerae anicteric. Mucous membranes of the mouth are moist. Neck supple. No JVD or thyromegaly LUNGS: Respirations even and unlabored. Lungs diminished HEART: Regular rate and rhythm. S1 and S2 heard. ABDOMEN: Soft. Nondistended. Nontender. EXTREMITIES: Normal range of motion. No clubbing or cyanosis. Peripheral pulses intact. No lower extremity edema NEUROLOGIC: Awake and alert. Oriented x 3. ASSESSMENT: Hypoxic respiratory failure likely multifactorial secondary to COPD exacerbation as well as heart failure Chronic systolic heart failure Acute COPD exacerbation hx of nonsustained ventricular tachycardia History of nonischemic cardiomyopathy History of PE Hyperlipidemia PLAN: Continue treatment for COPD exacerbation with inhalers. Continue with heart failure regimen with spironolactone, metoprolol 12.5 mg twice a day and low-dose lisinopril. Heart catheterization to be performed by Dr. Simmons tomorrow morning. Symptoms are somewhat episodic and may have been improved with additional dose of metoprolol and always a consideration of some sort of arrhythmia however may be consider outpatient if rest of workup is unrevealing. Objective - Vital Signs Vital signs: Vital Signs Temp 97.4 F L 12/29/21 04:30 Pulse 70 12/29/21 07:48 Resp 17 12/29/21 04:30 BP 112/69 12/29/21 04:30 Pulse Ox 100 12/29/21 04:30 Intake & Output 12/28/21 12/29/21 12/29/21 18:59 06:59 18:59 Intake Total 840 Balance 840 Intake: Oral 840 Other: Voiding Method Toilet Toilet Urinal Urinal # Voids 1 1 - Labs CBC & Chem 7: 12/29/21 06:55 12/29/21 06:55 Labs: Abnormal Lab Results - Last 24 Hours (Table) 12/28/21 12/28/21 12/28/21 Range/Units 11:41 16:34 19:46 WBC (3.8-10.6) k/uL RBC (4.30-5.90) m/uL Hgb (13.0-17.5) gm/dL Neutrophils # (1.3-7.7) k/uL Lymphocytes # (1.0-4.8) k/uL Sodium (137-145) mmol/L BUN (9-20) mg/dL Glucose (74-99) mg/dL POC Glucose (mg/dL) 147 H 137 H 194 H (75-99) mg/dL Calcium (8.4-10.2) mg/dL Total Protein (6.3-8.2) g/dL Albumin (3.5-5.0) g/dL 12/29/21 12/29/21 12/29/21 Range/Units 06:21 06:55 06:55 WBC 11.9 H (3.8-10.6) k/uL RBC 4.15 L (4.30-5.90) m/uL Hgb 12.7 L (13.0-17.5) gm/dL Neutrophils # 10.9 H (1.3-7.7) k/uL Lymphocytes # 0.5 L (1.0-4.8) k/uL Sodium 134 L (137-145) mmol/L BUN 33 H (9-20) mg/dL Glucose 129 H (74-99) mg/dL POC Glucose (mg/dL) 150 H (75-99) mg/dL Calcium 8.0 L (8.4-10.2) mg/dL Total Protein 5.5 L (6.3-8.2) g/dL Albumin 2.8 L (3.5-5.0) g/dL Microbiology - Last 24 Hours (Table) 12/27/21 09:06 Blood Culture - Preliminary Blood No Growth after 24 hours 12/27/21 09:15 Blood Culture - Preliminary Blood No Growth after 24 hours
[2021-12-29 10:14] VITALS: RESP 18
[2021-12-29] MEDS: predniSONE 20 MG TAB PO SCH (11:39)
[2021-12-29 11:40] LABS: Glucose,Whole Blood 105 mg/dL (75-99)
[2021-12-29] MEDS: LEVOFLOXACIN 750MG-D5W PMX 750 MG in DEXTROSE/WATER 1 150ML.BAG IVPB SCH (12:37)
--- NOTE | 2021-12-29 14:02 | P.PN ---
Subjective Progress Note Date: 12/29/21 HISTORY OF PRESENT ILLNESS This is a 76-year-old male patient with past medical history of COPD with lung function 35%, hypertension, history of pulmonary embolism, hyperlipidemia, cardiomyopathy with EF of 20%, nonsustained ventricular tachycardia. Remote history of tobacco use and dependence. Patient was hospitalized at [facility] between 12/05/2021 until 12/08/2021 after he was admitted to the hospital for acute hypoxemic respiratory failure due to recurrent ventricular tachycardia as well as acute exacerbation of chronic obstructive pulmonary disease, and the patient at that time was treated with IV steroids and he was seen in consultation by pulmonary medicine as well as cariology and patient was scheduled to go for left heart catheterization this coming Thursday, however the patient ended up coming to the emergency department at [facility] yesterday after he developed to have a significant shortness of breath yesterday at around 7:00 in the evening, he contacted one of the nursing staff in the hospital and she asked him to take an extra pill of metoprolol as well as breathing treatment he had felt better however he woke up early hour in the morning complaining of significant shortness of breath and poor air entry, despite using the breathing treatment so he ended up calling 911, the patient was brought into the emergency department at [facility] he was placed on a BiPAP immediately, patient was given Solu-Medrol 125 mg 1 and he was placed on Solu-Medrol 60 mg IV push every 6 hours, he was given nebulized treatment in the form of DuoNeb as well as Pulmicort, was admitted to the hospital had a chest x-ray that showed possible right upper lobe infiltrate he was started on Levaquin 500 mg IV piggyback every 24 hours as well as Zosyn 3.375 g IV piggyback every 6 hours, patient was seen in consultation by pulmonary medicine as well as cardiology and he was admitted to the hospital for acute exacerbation of COPD with right upper lobe possible gram-negative pneumonia. 12/28: Patient is laying down in bed in no apparent distress, is feeling a lot better, he is getting his breathing treatment, is currently at 2 L nasal c annula, is moving air much better way, continues to be on IV antibiotic and IV steroid, I spoke with Dr. Simmons regarding heart catheterization we'll switch him to Lovenox 70 mg subcu every 12 hours last dose on Thursday and he'll go for heart catheterization on Thursday morning. 12/29: Patient is sitting up in bed in no apparent distress, his pain a lot better today, he denies any chest pain or any shortness breath, is currently on 2 urine is a candidate, he is tolerating treatment very well, patient was taken off Eliquis he is currently on Lovenox is scheduled to go for left heart catheterization tomorrow morning. REVIEW OF SYSTEMS Constitutional: No fever, no chills, no night sweats. No weight change. No weakness, fatigue or lethargy. No daytime sleepiness. HEENT: No headache. No blurred vision or double vision, no loss of vision. No loss of Hearing, no ringing in the ears, no dizziness. No nasal drainage or congestion. No epistaxis. No sore throat. Lungs: Reports shortness of breath, mild cough, mild sputum production. Reports wheezing. Cardiovascular: No chest pain, no lower extremity edema. No palpitations. No paroxysmal nocturnal dyspnea. No orthopnea. No lightheadedness or dizziness. No syncopal episodes. Abdominal: No abdominal pain. No nausea, vomiting. No diarrhea. No constipation. No bloody or tarry stools. No loss of appetite. Genitourinary: No dysuria, increased frequency, urgency. No urinary retention. Musculoskeletal: No myalgias. No muscle weakness, no gait dysfunction, no frequent falls. No back pain. No neck pain. Integumentary: No wounds, no lesions. No rash or pruritus. No unusual bruising. Neurologic: No aphasia. No facial droop. No change in mentation. No head injury. No headache. No paralysis. No paresthesia. Psychiatric: No depression. Reports anxiety. No mood swings. Endocrine: No abnormal blood sugars. No weight change. PHYSICAL EXAMINATION Gen: This is a 76-year-old male, currently in a BiPAP and appears to be in mild respiratory distress. HEENT: Head is atraumatic, normocephalic. Pupils equal, round. Sclerae is anicteric, mucous membranes of the mouth are somewhat dry. NECK: Supple. No JVD. No lymphadenopathy. No thyromegaly. LUNGS: Decreased breath sounds at the bases, poor air entry, moderate intercostal retraction, patient is currently on a BiPAP. HEART: first heart sound is depressed, second heart sound is normal, 2/6 systolic ejection murmur at the left sternal border. ABDOMEN: Soft nontender, nondistended, no hepatosplenomegaly positive bowel sounds EXTREMITIES: there is ne edema, no calf tenderness DP +2 bilaterally NEUROLOGICAL: Patient is awake, alert and oriented x3. Cranial nerves 2 through 12 are grossly intact, cranial nerves II-12 appear grossly intact, muscle power 5 out of 5 in upper and lower extremities bilaterally. ASSESSMENT AND PLAN 1. Acute COPD exacerbation with pneumonia, possible gram-negative pneumonia. Continue patient on DuoNeb treatments 4 times daily and as needed, Pulmicort 1 mg twice daily,continue patient on Levaquin 750 mg orally once every day, continue prednisone 40 mg orally once every day. 2. Severe COPD with lung function 35%. continue treatment as the previous paragraph. 3. Episode of nonsustained ventricular tachycardia with history of same. Cardiology consult. Continue Lopressor 12.5 mg twice daily. patient is scheduled to go for left heart catheterization on Thursday. 4. Hypertension. Continue lisinopril 2.5 mg daily, Lopressor 12.5 mg twice daily. 5. Hyperlipidemia. Continue atorvastatin 40 mg every 48 hours. 6. Cardiomyopathy with ejection fraction of 20%. Continue patient on Lopressor 12.5 g twice daily, Aldactone 25 mg daily, lisinopril 2.5 mg daily 7. History of pulmonary embolism. off Eliquis and continue the patient on Lovenox 70 mg subcutaneously every 12 hours starting this evening and last dose on Thursday evening. 8. Remote history of tobacco use and dependence. 9. DVT prophylaxis. We will continue patient on Lovenox 10. GI prophylaxis. continue patient on Protonix 40 mg orally once every day. 11. Patient is scheduled for heart catheterization tomorrow morning. Objective - Vital Signs Vital signs: Vital Signs Temp 97.4 F L 12/29/21 04:30 Pulse 70 12/29/21 07:48 Resp 17 12/29/21 04:30 BP 112/69 12/29/21 04:30 Pulse Ox 100 12/29/21 04:30 Intake & Output 12/28/21 12/29/21 12/29/21 18:59 06:59 18:59 Intake Total 840 Balance 840 Intake: Oral 840 Other: Voiding Method Toilet Toilet Urinal Urinal # Voids 1 1 - Labs CBC & Chem 7: 12/29/21 06:55 12/29/21 06:55 Labs: Abnormal Lab Results - Last 24 Hours (Table) 12/28/21 12/28/21 12/28/21 Range/Units 11:41 16:34 19:46 WBC (3.8-10.6) k/uL RBC (4.30-5.90) m/uL Hgb (13.0-17.5) gm/dL Neutrophils # (1.3-7.7) k/uL Lymphocytes # (1.0-4.8) k/uL Sodium (137-145) mmol/L BUN (9-20) mg/dL Glucose (74-99) mg/dL POC Glucose (mg/dL) 147 H 137 H 194 H (75-99) mg/dL Calcium (8.4-10.2) mg/dL Total Protein (6.3-8.2) g/dL Albumin (3.5-5.0) g/dL 12/29/21 12/29/21 12/29/21 Range/Units 06:21 06:55 06:55 WBC 11.9 H (3.8-10.6) k/uL RBC 4.15 L (4.30-5.90) m/uL Hgb 12.7 L (13.0-17.5) gm/dL Neutrophils # 10.9 H (1.3-7.7) k/uL Lymphocytes # 0.5 L (1.0-4.8) k/uL Sodium 134 L (137-145) mmol/L BUN 33 H (9-20) mg/dL Glucose 129 H (74-99) mg/dL POC Glucose (mg/dL) 150 H (75-99) mg/dL Calcium 8.0 L (8.4-10.2) mg/dL Total Protein 5.5 L (6.3-8.2) g/dL Albumin 2.8 L (3.5-5.0) g/dL Microbiology - Last 24 Hours (Table) 12/27/21 09:06 Blood Culture - Preliminary Blood No Growth after 24 hours 12/27/21 09:15 Blood Culture - Preliminary Blood No Growth after 24 hours
--- NOTE | 2021-12-29 15:07 | P.PN ---
Subjective Progress Note Date: 12/29/21 12/29/2021, the patient is feeling better. The patient is less short of breath and is gradually improving. I suggest discontinuing antibiotics for now. The plan is to proceed with cardiac catheterization sometime tomorrow nontender the patient was scheduled to have a cardiac catheterization even on outpatient basis by Dr. Travis. The patient otherwise is doing well. No specific complaints. No chest pain. His blood work essentially stable. Hemoglobin is 12.7 with a white cell count of 11.9. Platelet count is at 187. BUN is 33 with a creatinine of 1.25 and a sodium level of 134. Note that the creatinine is slightly higher compared to yesterday. The patient remains on Thursday dose of Lovenox 1 mg per KG every 12 hours. The patient remains on examination Zosyn and Levaquin. The patient remains on IV Solu-Medrol. History of any chest pain. He is not using the BiPAP for now. Objective - Vital Signs Vital signs: Vital Signs Temp 97.8 F 12/29/21 12:00 Pulse 60 12/29/21 14:00 Resp 18 12/29/21 14:00 BP 114/66 12/29/21 12:00 Pulse Ox 98 12/29/21 12:00 Intake & Output 12/28/21 12/29/21 12/29/21 18:59 06:59 18:59 Intake Total 840 120 Balance 840 120 Intake: Oral 840 120 Other: Voiding Method Toilet Toilet Toilet Urinal Urinal Urinal # Voids 1 1 - Exam GENERAL EXAM: Alert, very pleasant, 76-year-old white male, the patient is currently off the BiPAP, much more comfortable on 4 L of O2 nasal cannula HEAD: Normocephalic/atraumatic. EYES: Normal reaction of pupils, equal size. Conjunctiva pink, sclera white. NOSE: Clear with pink turbinates. THROAT: No erythema or exudates. NECK: No masses, no JVD, no thyroid enlargement, no adenopathy. CHEST: No chest wall deformity. Symmetrical expansion. LUNGS: Diminished air entry with diffuse wheezes CVS: Regular rate and rhythm, normal S1 and S2, no gallops, no murmurs, no rubs ABDOMEN: Soft, nontender. No hepatosplenomegaly, normal bowel sounds, no guarding or rigidity. EXTREMITIES: No clubbing, no edema, no cyanosis, 2+ pulses and upper and lower extremities. MUSCULOSKELETAL: Muscle strength and tone normal. SPINE: No scoliosis or deformity SKIN: No rashes CENTRAL NERVOUS SYSTEM: Alert and oriented -3. No focal deficits, tone is normal in all 4 extremities. PSYCHIATRIC: Alert and oriented -3. Appropriate affect. Intact judgment and insight. - Labs CBC & Chem 7: 12/29/21 06:55 12/29/21 06:55 Labs: Abnormal Lab Results - Last 24 Hours (Table) 12/28/21 12/28/21 12/29/21 Range/Units 16:34 19:46 06:21 WBC (3.8-10.6) k/uL RBC (4.30-5.90) m/uL Hgb (13.0-17.5) gm/dL Neutrophils # (1.3-7.7) k/uL Lymphocytes # (1.0-4.8) k/uL Sodium (137-145) mmol/L BUN (9-20) mg/dL Glucose (74-99) mg/dL POC Glucose (mg/dL) 137 H 194 H 150 H (75-99) mg/dL Calcium (8.4-10.2) mg/dL Total Protein (6.3-8.2) g/dL Albumin (3.5-5.0) g/dL 12/29/21 12/29/21 12/29/21 Range/Units 06:55 06:55 11:26 WBC 11.9 H (3.8-10.6) k/uL RBC 4.15 L (4.30-5.90) m/uL Hgb 12.7 L (13.0-17.5) gm/dL Neutrophils # 10.9 H (1.3-7.7) k/uL Lymphocytes # 0.5 L (1.0-4.8) k/uL Sodium 134 L (137-145) mmol/L BUN 33 H (9-20) mg/dL Glucose 129 H (74-99) mg/dL POC Glucose (mg/dL) 105 H (75-99) mg/dL Calcium 8.0 L (8.4-10.2) mg/dL Total Protein 5.5 L (6.3-8.2) g/dL Albumin 2.8 L (3.5-5.0) g/dL Microbiology - Last 24 Hours (Table) 12/27/21 10:28 Gram Stain - Preliminary Sputum Sputum Culture - Preliminary Gill albicans 12/27/21 09:06 Blood Culture - Preliminary Blood No Growth after 48 hours 12/27/21 09:15 Blood Culture - Preliminary Blood No Growth after 48 hours Assessment and Plan Plan: #1. Acute shortness of breath, related to acute COPD exacerbation, COVID-19 PCR was negative, chest x-ray shows no clear evidence of pneumonia or CHF. His pro- BNP is negative. Clearly this acute exacerbation was related to a COPD exacerbation and the patient is improved and accommodation bronchodilators and steroids. The patient to be placed on a BiPAP for respiratory support, currently off the BiPAP. No altered mentation. Clinically, the patient is improving and the patient is less short of breath compared to yesterday. Much improved in terms of his acute COPD exacerbation. #2. Recent hospitalization for acute exacerbation of COPD and systolic CHF #3. Recent hospitalization for acute exacerbation of COPD, and patient was also treated for possible lingular infiltrate, although possibility of pneumonia seem to be less likely #4. Tobacco dependence syndrome, carries [id number] smoking history #5. Benign essential hypertension #6. History of nonischemic cardiomyopathy with an ejection fraction of 20%, improved on most recent echocardiograms #7. Hypertension #8. Hyperlipidemia #9. Previous history of PE on Eliquis #10. Anxiety #11. Episode of nonsustained ventricular tachycardia #12. History of severe COPD on home O2, with baseline FEV1 of 35% predicted Plan Clinically improving, this continued IV Solu Medrol put the patient a prednisone burst taper starting with 40 mg This continued IV Zosyn Switch this patient oral Levaquin The plan is to go undergo a cardiac catheterization tomorrow Continue the therapeutic dose of Lovenox and switch this patient to Eliquis time of discharge in regards to his previous history of poor embolism We'll continue to follow. Long-term prognosis poor baseline above-mentioned comorbidities.
[2021-12-29 16:31] LABS: Glucose,Whole Blood 224 mg/dL (75-99)
[2021-12-29 20:58] LABS: Glucose,Whole Blood 92 mg/dL (75-99)
[2021-12-30 01:30] VITALS: TEMP 97.4
[2021-12-30] MEDS: INSULIN ASPART (NovoLOG) 100 UNIT/ML VIAL SQ SCH ×2 (06:11→12:09)
[2021-12-30] MEDS: ATORVASTATIN 40 MG TAB PO SCH (06:12)
[2021-12-30] MEDS: METOPROLOL TARTRATE 12.5 MG TAB PO SCH (06:29)
[2021-12-30] MEDS: SPIRONOLACTONE 25 MG TAB PO SCH (06:29)
[2021-12-30] MEDS: predniSONE 20 MG TAB PO SCH (06:29)
[2021-12-30 06:31] LABS: Glucose,Whole Blood 72 mg/dL (75-99)
[2021-12-30] MEDS ORDERED: ATORVASTATIN 80 MG TAB PO STA (06:38)
[2021-12-30] MEDS ORDERED: ASPIRIN 325 MG TAB PO STA (06:38)
[2021-12-30] MEDS ORDERED: HEPARIN SODIUM,PORCINE 10,000 UNIT in SODIUM CHLORIDE 0.9% 1,000 ML IRRIGATION PRN (07:00)
[2021-12-30] MEDS ORDERED: HEPARIN SODIUM,PORCINE 2,500 UNIT in SODIUM CHLORIDE 0.9% 250 ML IRRIGATION PRN (07:00)
[2021-12-30] MEDS ORDERED: IV FLUID CONTINUATION 1,000 ML IV ONE (07:30)
[2021-12-30] MEDS ORDERED: HEPARIN SODIUM 1,000 UN/ML (10ML VL) ONE (07:33)
[2021-12-30] MEDS ORDERED: LIDOCAINE 1% INJ 10MG/ML (20 ML MDV) ONE (07:33)
[2021-12-30] MEDS ORDERED: VERAPAMIL 2.5 MG/ML 2 ML AMP ONE (07:33)
[2021-12-30] MEDS ORDERED: MIDAZOLAM 2 MG/2 ML VIAL IV ONE (07:44)
[2021-12-30] MEDS ORDERED: LIDOCAINE 1% INJ 10MG/ML (20 ML MDV) SQ ONE (07:46)
[2021-12-30] MEDS: VERAPAMIL SYRINGE (5 MG/10 ML) INTRAARTER ONE ×2 (07:49→08:01)
[2021-12-30] MEDS ORDERED: HEPARIN SODIUM 1,000 UN/ML (10ML VL) IV ONE (07:50)
[2021-12-30] MEDS ORDERED: IOPAMIDOL-370 125ML BTL INJ ONE (08:01)
[2021-12-30] MEDS ORDERED: RX INFO: IV CONTRAST WAS GIVEN 1 EACH MISC MISCELLANE PRN (08:07)
[2021-12-30] MEDS ORDERED: SODIUM CHLORIDE 0.9% 1,000 ML IV SCH (08:15)
--- NOTE | 2021-12-30 08:15 | P.PCN ---
Date of Procedure: 12/30/21 Operative Findings: CARDIAC CATHETERIZATION PERFORMING PHYSICIAN: Raúl Simmons MD, RPVI PROCEDURE PERFORMED: 1. Selective right and left coronary angiogram 2. Left heart catheterization 3. Right heart catheterization INDICATION: Cardiomyopathy of unknown etiology COMPLICATION: None APPROACH: Right radial artery and the right brachial vein LEVEL OF SEDATION: Moderate with a sedation length of 20 minutes PROCEDURE DESCRIPTION: After obtaining an informed consent, the patient was brought to cardiac civil laboratory technician. Local anesthesia was performed using lidocaine subcutaneously. The right radial artery was cannulated using Seldinger technique, the guidewire passed easily, following that we advanced a 5-Marshallese sheath dilator assembly, the wire and dilator were removed and sheath was flushed. The right brachial vein was accessed before any chest exchanged the catheter into a 6-Marshallese sheath. Following that, 2 mg of verapamil along with 5000 unit heparin were given. Selective right and left coronary angiogram using a 6-Marshallese JR4 and JL 3.5 catheters. Following that we did left heart catheterization using 6-Marshallese pigtail catheter. Right heart catheterization was performed using 6-Marshallese [place] catheter The procedure was completed there was no complication. SELECTIVE CORONARY ANGIOGRAM: The right coronary artery: Is a large caliber vessel and a dominant vessel. Its angiographically normal. Distally bifurcates into PDA and PLV branches and both appeared to be angiographically normal. Left main: It is a large caliber vessel. Its angiographically normal. Bifurcates into all CX and LAD The left circumflex: Is a large caliber vessel. Its and on dominant vessel. The LCx is angiographically normal. Approximately gives rises into a large OM branch which work as a ramus intermedius. Distally gives rise into a second OM branch which is a small caliber vessel seems to be angiographically normal. The circumflex continue after that as a small-caliber vessel in the AV groove The left anterior descending artery: Is a large caliber vessel. The LAD is angiographically normal. HEMODYNAMICS: #1 the pulmonary capillary wedge pressure was 15 mmHg #2 the PA pressures were as follow systolic of 30 and diastolic of 10 and mean of 17 mmHg #3 RV pressures were as follow systolic of 30 and end-diastolic of 5 mmHg #4 RA pressure was 2 mmHg #5 the transpulmonary gradient was 2 mmHg CONCLUSION: 1. Normal coronary angiogram 2. Normal left and right sided filling pressures 3. Nonischemic cardiomyopathy POSTPROCEDURE MANAGEMENT: Medical treatment
[2021-12-30] MEDS ORDERED: LEVOFLOXACIN 750 MG TAB PO SCH (09:00)
[2021-12-30] MEDS: IPRATROPIUM-ALBUTEROL 3 ML NEB INHALATION SCH ×3 (09:19→16:49)
[2021-12-30] MEDS: SYMBICORT 160-4.5 MCG INHALER INHALATION SCH (09:19)
--- NOTE | 2021-12-30 10:18 | P.DS ---
Providers Date of admission: 12/27/21 10:28 Expected date of discharge: 12/30/21 Attending physician: Liss Oneil Consults: 12/27/21 10:27 Consult Physician Routine Consulting Provider: Olinda Crabtree Consult Reason/Comments: COPD, pneumonia Do you want consulting provider notified?: Yes 12/27/21 13:03 Consult Physician Urgent Consulting Provider: Raúl Simmons Consult Reason/Comments: outpt heart cath scheduled for thursday, cardi omyopathy Do you want consulting provider notified?: Yes Primary care physician: Liss Oneil [facility] Course: HISTORY OF PRESENT ILLNESS This is a 76-year-old male patient with past medical history of COPD with lung function 35%, hypertension, history of pulmonary embolism, hyperlipidemia, cardiomyopathy with EF of 20%, nonsustained ventricular tachycardia. Remote history of tobacco use and dependence. Patient was hospitalized at [facility] between 12/05/2021 until 12/08/2021 after he was admitted to the hospital for acute hypoxemic respiratory failure due to recurrent ventricular tachycardia as well as acute exacerbation of chronic obstructive pulmonary disease, and the patient at that time was treated with IV steroids and he was seen in consultation by pulmonary medicine as well as cariology and patient was scheduled to go for left heart catheterization this coming Thursday, however the patient ended up coming to the emergency department at [facility] yesterday after he developed to have a significant shortness of breath yesterday at around 7:00 in the evening, he contacted one of the nursing staff in the hospital and she asked him to take an extra pill of metoprolol as well as breathing treatment he had felt better however he woke up early hour in the morning complaining of significant shortness of breath and poor air entry, despite using the breathing treatment so he ended up calling 911, the patient was brought into the emergency department at [facility] he was placed on a BiPAP immediately, patient was given Solu-Medrol 125 mg 1 and he was placed on Solu-Medrol 60 mg IV push every 6 hours, he was given nebulized treatment in the form of DuoNeb as well as Pulmicort, was admitted to the hospital had a chest x-ray that showed possible right upper lobe infiltrate he was started on Levaquin 500 mg IV piggyback every 24 hours as well as Zosyn 3.375 g IV piggyback every 6 hours, patient was seen in consultation by pulmonary medicine as well as cardiology and he was admitted to the hospital for acute exacerbation of COPD with right upper lobe possible gram-negative pneumonia. 12/28: Patient is laying down in bed in no apparent distress, is feeling a lot better, he is getting his breathing treatment, is currently at 2 L nasal cannula, is moving air much better way, continues to be on IV antibiotic and IV steroid, I spoke with Dr. Simmons regarding heart catheterization we'll switch him to Lovenox 70 mg subcu every 12 hours last dose on Thursday and he'll go for heart catheterization on Thursday morning. 12/29: Patient is sitting up in bed in no apparent distress, his pain a lot better today, he denies any chest pain or any shortness breath, is currently on 2 urine is a candidate, he is tolerating treatment very well, patient was taken off Eliquis he is currently on Lovenox is scheduled to go for left heart catheterization tomorrow morning. 12/30: Patient underwent heart catheterization this morning with Dr. Simmons which found normal coronary arteries. He has been afebrile, heart rate 80, blood pressure 112/79, pulse ox 96% on 2 L nasal cannula which is his baseline. Capillary blood glucose running between 72 and 224. Patient states that his breathing is fine right now but he is concerned that once she goes home and he stops prednisone that his breathing will worsen night sweats and bringing him to the hospital. He states that his last discharge from the hospital he was on prednisone for 2 week taper and he did fine until 2 days after he taper was completed. Patient is followed by pulmonary medicine. DISCHARGE DIAGNOSES 1. Acute COPD exacerbation with pneumonia, possible gram-negative pneumonia. 2. Severe COPD with lung function 35%. 3. Episode of nonsustained ventricular tachycardia with history of same. 4. Hypertension. 5. Hyperlipidemia. 6. Cardiomyopathy with ejection fraction of 20%. 7. History of pulmonary embolism. 8. Remote history of tobacco use and dependence. 9. Chronic hypoxic respiratory failure on home O2 at 2 L nasal cannula. DISCHARGE PLAN Home Greater than 35 minutes was utilized and coordinating patient's discharge. Impression and plan of care have been directed as dictated by the signing physician. Christine Gordon nurse practitioner acting as scribe for signing physician. Plan - Discharge Summary Discharge Rx Participant: Yes New Discharge Prescriptions: New Levofloxacin [Levaquin] 750 mg PO DAILY #5 tab predniSONE 0 mg PO DIRECTED #30 tab Continue Fluticasone/Salmeterol [Fluticasone-Salmeterol 113-14] 1 puff INHALATION RT- BID Atorvastatin [Lipitor] 40 mg PO Q48H Albuterol Sulfate [Proair Respiclick] 1 puff INHALATION RT-Q4H PRN PRN Reason: Shortness Of Breath Spironolactone [Aldactone] 25 mg PO DAILY #90 tab lisinopriL [Zestril] 2.5 mg PO DAILY #90 tab Ipratropium-Albuterol Nebulize [Duoneb 0.5 mg-3 mg/3 ml Soln] 3 ml INHALATION RT-QID Apixaban [Eliquis] 5 mg PO BID Metoprolol Tartrate [Lopressor] 12.5 mg PO BID #180 tab Discharge Medication List Fluticasone/Salmeterol [Fluticasone-Salmeterol 113-14] 1 puff INHALATION RT-BID 11/28/19 [History] Albuterol Sulfate [Proair Respiclick] 1 puff INHALATION RT-Q4H PRN 09/27/21 [History] Apixaban [Eliquis] 5 mg PO BID 09/27/21 [History] Atorvastatin [Lipitor] 40 mg PO Q48H 09/27/21 [History] Metoprolol Tartrate [Lopressor] 12.5 mg PO BID #180 tab 12/08/21 [Rx] Spironolactone [Aldactone] 25 mg PO DAILY #90 tab 12/08/21 [Rx] lisinopriL [Zestril] 2.5 mg PO DAILY #90 tab 12/08/21 [Rx] Ipratropium-Albuterol Nebulize [Duoneb 0.5 mg-3 mg/3 ml Soln] 3 ml INHALATION RT-QID 12/27/21 [History] Levofloxacin [Levaquin] 750 mg PO DAILY #5 tab 12/30/21 [Rx] predniSONE 0 mg PO DIRECTED #30 tab 12/30/21 [Rx] Follow up Appointment(s)/Referral(s): Liss Oneil MD [Primary Care Provider] - 1 Week Olinda Crabtree MD [STAFF PHYSICIAN] - 2 Weeks Discharge Disposition: HOME SELF-CARE
[2021-12-30 11:26] VITALS: BP 109/74
[2021-12-30 11:36] LABS: Glucose,Whole Blood 99 mg/dL (75-99)
[2021-12-30 12:25] VITALS: PULSE 86
--- NOTE | 2021-12-30 15:36 | P.PN ---
Subjective Progress Note Date: 12/30/21 Principal diagnosis: Acute on chronic hypoxic respiratory failure secondary to acute exacerbation of COPD. Reevaluated today on 12/30/21, patient is feeling much better, patient is being discharged home today. Hardly any cough no wheezing no shortness of breath. Patient had a relatively unremarkable cardiac catheterization today, and he was found to have nonischemic cardiomyopathy. Again discharge planning is in progress Objective - Vital Signs Vital signs: Vital Signs Temp 97.4 F L 12/30/21 04:00 Pulse 86 12/30/21 12:24 Resp 18 12/30/21 09:20 BP 109/74 12/30/21 09:52 Pulse Ox 96 12/30/21 09:21 Intake & Output 12/29/21 12/30/21 12/30/21 18:59 06:59 18:59 Intake Total 620 315 Balance 620 315 Intake: IV 75 Oral 620 240 Other: Voiding Method Toilet Toilet Urinal # Voids 1 2 - Exam Physical Exam revealed a 76-year-old white male in no distress, on 2 L nasal cannula. HEENT:[Neck is supple.] [No neck masses.] [No thyromegaly.] [No JVD.] Chest: [Diminished breath sounds at the bases no rhonchi and no wheezes Cardiac Exam: [Normal S1 and S2, no S3 gallop, no murmur.] Abdomen: [Soft, nontender, no megaly, no rebound, no guarding, normal bowel sounds.] Extremities: [No clubbing, no edema, no cyanosis.] Neurological Exam: [No focal neurologic deficit.] Alert oriented 3. Psychiatric: Normal mood affect and normal mental status examination. Skin: No rashes. - Labs CBC & Chem 7: 12/29/21 06:55 12/29/21 06:55 Labs: Abnormal Lab Results - Last 24 Hours (Table) 12/29/21 12/30/21 Range/Units 16:30 06:10 POC Glucose (mg/dL) 224 H 72 L (75-99) mg/dL Microbiology - Last 24 Hours (Table) 12/27/21 09:06 Blood Culture - Preliminary Blood No Growth after 72 hours 12/27/21 09:15 Blood Culture - Preliminary Blood No Growth after 72 hours 12/27/21 10:28 Gram Stain - Final Sputum Sputum Culture - Final Gill albicans Assessment and Plan Assessment: Impression: Acute on chronic hypoxic respiratory failure secondary to COPD exacerbation Nonischemic cardiomyopathy ejection fraction of 20% Hypertension Dyslipidemia History of pulmonary embolism Nonsustained ventricular tachycardia Severe COPD FEV1 of 35%. Recommendation: Agree with discharge planning Patient already has oxygen at home, he has a bronchodilators at home, Consider prednisone burst and taper and possibly maintain on prednisone at 5 or 10 mg daily on a regular basis. Patient to go back on his anticoagulation therapy Follow-up with Dr. Crabtree on outpatient basis post discharge Time with Patient: Less than 30
[2022-01-01] MEDS ORDERED: ATORVASTATIN 40 MG TAB PO SCH (09:00)
== END 2021-12-30 17:34 | disposition home or self-care (01) | DRG 177 ==
LOC: EC 08:04 → 3SCARD 10:28
PROVIDERS: ADMIT Internal Medicine; ATTEND Internal Medicine
DX: J15.6 Pneumonia due to other Gram-negative bacteria (principal); J96.21 Acute and chronic respiratory failure with hypoxia; I42.8 Other cardiomyopathies; I47.2 Ventricular tachycardia; I50.22 Chronic systolic (congestive) heart failure; J44.0 Chronic obstructive pulmonary disease with (acute) lower respiratory infection; J44.1 Chronic obstructive pulmonary disease with (acute) exacerbation; F17.210 Nicotine dependence, cigarettes, uncomplicated; E78.5 Hyperlipidemia, unspecified; F41.9 Anxiety disorder, unspecified; I11.0 Hypertensive heart disease with heart failure; I08.1 Rheumatic disorders of both mitral and tricuspid valves; Z20.822 Contact with and (suspected) exposure to COVID-19; Z79.01 Long term (current) use of anticoagulants; Z79.899 Other long term (current) drug therapy; Z80.3 Family history of malignant neoplasm of breast; Z80.52 Family history of malignant neoplasm of bladder; Z86.711 Personal history of pulmonary embolism; Z87.01 Personal history of pneumonia (recurrent); Z99.81 Dependence on supplemental oxygen; Z98.42 Cataract extraction status, left eye; Z98.41 Cataract extraction status, right eye; Z90.89 Acquired absence of other organs; Z83.6 Family history of other diseases of the respiratory system; Z98.890 Other specified postprocedural states
CPT/HCPCS: 36415; 71045; 71046; 80053; 83605; 83735; 83880; 84484; 85025; 85610; 85730; 87040; 87070; 87205; 87635; 93005; 93460; 94640; 94645; 94660; 94760; 96365; 96367; 96372; 96375; 99291

== ENCOUNTER 2022-04-06 06:09 | Inpatient (IN) | payer MEDICARE ==
[2022-04-06] MEDS ORDERED: SODIUM CHLORIDE 0.9% 1,000 ML IV STA (06:19)
[2022-04-06] MEDS ORDERED: predniSONE 20 MG TAB PO STA (06:19)
[2022-04-06] MEDS ORDERED: IPRATROPIUM-ALBUTEROL 3 ML NEB INHALATION STA (06:19)
[2022-04-06 06:41] LABS: Basophils # (A) 0.3 k/uL (0-0.2); Basophils % (A) 3 %; Eosinophils # (A) 0.5 k/uL (0-0.7); Eosinophils % (A) 4 %; HCT 43.9 % (39.0-53.0); Lymphocytes # (A) 2.6 k/uL (1.0-4.8); Lymphocytes % (A) 25 %; MCH 31.6 pg (25.0-35.0); MCHC 31.9 g/dL (31.0-37.0); Mean Platelet Volume 7.7; Monocytes # (A) 0.7 k/uL (0-1.0); Monocytes % (A) 7 %; Neutrophils # (A) 6.2 k/uL (1.3-7.7); Neutrophils % (A) 60 %; Platelet Count 278 k/uL (150-450); RBC 4.43 m/uL (4.30-5.90); RDW 13.4 % (11.5-15.5); WBC 10.4 k/uL (3.8-10.6)
[2022-04-06 06:50] LABS: Albumin 3.9 g/dL (3.5-5.0); Calcium 9.1 mg/dL (8.4-10.2); Potassium 4.5 mmol/L (3.5-5.1); Total Bilirubin 0.7 mg/dL (0.2-1.3); Total Protein 6.6 g/dL (6.3-8.2)
[2022-04-06 07:12] LABS: INR 0.9 (<1.2); Partial Thromboplastin Time 22.7 sec (22.0-30.0); Prothrombin Time 10.4 sec (9.0-12.0)
--- NOTE | 2022-04-06 08:04 | XR ---
EXAMINATION TYPE: XR chest 1V portable DATE OF EXAM: 04/06/2022 HISTORY: Shortness of breath. COMPARISON: 12/28/2021 TECHNIQUE: Single view of the chest is submitted. FINDINGS: Demonstrated are scattered senescent parenchymal change. Hyperinflation compatible with COPD. Parenc hymal scarring left perihilar region. There is no evidence for focal infiltrate. The heart is stable. Hilar and mediastinal structures are within normal limits. Degenerative changes are seen of the dorsal spine. IMPRESSION: 1. Chronic changes without evidence for acute pulmonary disease.
--- NOTE | 2022-04-06 08:04 | XR ---
EXAMINATION TYPE: XR shoulder complete LT DATE OF EXAM: 04/06/2022 CLINICAL HISTORY: pain COMPARISON: NONE TECHNIQUE: Three views of the left shoulder are obtained. FINDINGS: There is no acute fracture/dislocation evident. The acromioclavicular and glenohumeral lorna int spaces appear moderate AC joint arthropathy.. The visualized ribs are intact and unremarkable. IMPRESSION: 1. There is no acute fracture or dislocation. ICD 10 NO FRACTURE, INITIAL EVALUATION
--- NOTE | 2022-04-06 08:16 | ED ---
SOB HPI - General Chief Complaint: Shortness of Breath Stated Complaint: QUANG Time Seen by Provider: 04/06/22 06:15 Source: patient, EMS Mode of arrival: EMS Limitations: physical limitation (Severe dyspnea) - History of Present Illness Initial Comments: This patient is 76-year-old man with history of COPD who comes for ambulance to be evaluated for dyspnea. Patient states the symptoms have been getting worse over the course of tonight. EMS had been called hours earlier, but the patient had a nebulized treatment and felt better and then did not want to come in the hospital at that time. He called again this morning and his breathing was worse. EMS placed patient on NIPPV and brought him here. The patient initially able to only speak in very short phrases. He is denying chest pain. He does not feel he has pneumonia. Denies fever or chills. Cough has only some whitish sputum. No leg pain or swelling. No change in urination or bowel movements MD Complaint: shortness of breath, cough -: hour(s) Severity scale (1-10): 0 Consistency: constant Improves With: nothing Worsens With: nothing Known History Of: COPD Associated Symptoms: cough Treatments Prior to Arrival: bronchodilator - Related Data Home Medications Medication Instructions Recorded Confirmed Fluticasone Propion/Salmeterol 1 puff INHALATION RT-BID 11/28/19 12/27/21 [Fluticasone-Salmeterol 113-14] Albuterol Sulfate [Proair 1 puff INHALATION RT-Q4H PRN 09/27/21 12/27/21 Respiclick] Apixaban [Eliquis] 5 mg PO BID 09/27/21 12/27/21 Atorvastatin [Lipitor] 40 mg PO Q48H 09/27/21 12/27/21 Ipratropium-Albuterol Nebulize 3 ml INHALATION RT-QID 12/27/21 12/27/21 [Duoneb 0.5 mg-3 mg/3 ml Soln] Previous Rx's Medication Instructions Recorded Metoprolol Tartrate [Lopressor] 12.5 mg PO BID #180 tab 12/08/21 Spironolactone [Aldactone] 25 mg PO DAILY #90 tab 12/08/21 lisinopriL [Zestril] 2.5 mg PO DAILY #90 tab 02/27/22 Levofloxacin [Levaquin] 750 mg PO DAILY #5 tab 12/30/21 predniSONE 0 mg PO DIRECTED #30 tab 12/30/21 Allergies Allergy/AdvReac Type Severity Reaction Status Date / Time No Known Allergies Allergy Verified 12/27/21 11:26 Review of Systems ROS Statement: Those systems with pertinent positive or pertinent negative responses have been documented in the HPI. ROS Other: All systems not noted in ROS Statement are negative. Constitutional: Denies: fever, chills ENT: Denies: congestion Respiratory: Reports: cough, dyspnea, wheezes. Denies: hemoptysis, stridor Cardiovascular: Denies: chest pain, palpitations, orthopnea, edema, syncope Gastrointestinal: Denies: abdominal pain, nausea, vomiting, diarrhea Genitourinary: Denies: dysuria, hematuria Musculoskeletal: Denies: back pain Skin: Denies: rash Neurological: Denies: headache, weakness, numbness Past Medical History Past Medical History: COPD, Pulmonary Embolus (PE) Additional Past Medical History / Comment(s): recent rapid heart rate and SOB and nonsustained V-Tach in November 2019, hiatal hernia. Cardiomyopathy with an ejection fraction of 40% History of Any Multi-Drug Resistant Organisms: None Reported Past Surgical History: Back Surgery, Tonsillectomy Additional Past Surgical History / Comment(s): colonoscopy, "two disks removed from spine", pilonidal cyst, jhonatan cataracts Past Anesthesia/Blood Transfusion Reactions: No Reported Reaction Past Psychological History: Anxiety Smoking Status: Former smoker Past Alcohol Use History: None Reported Past Drug Use History: None Reported - Past Family History Mother Family Medical History: Cancer Brother(s) Family Medical History: Cancer General Exam General appearance: alert, in distress Head exam: Present: atraumatic, normocephalic Eye exam: Present: normal appearance. Absent: scleral icterus, conjunctival injection Neck exam: Present: normal inspection Respiratory exam: Present: respiratory distress, wheezes, accessory muscle use, decreased breath sounds, prolonged expiratory. Absent: rales, rhonchi, stridor Cardiovascular Exam: Present: normal rhythm, tachycardia, normal heart sounds. Absent: systolic murmur, diastolic murmur, rubs, gallop GI/Abdominal exam: Present: soft. Absent: distended, tenderness, guarding, rebound, rigid, mass Extremities exam: Present: normal inspection, normal capillary refill. Absent: pedal edema, calf tenderness Back exam: Present: normal inspection. Absent: CVA tenderness (R), CVA tenderness (L) Neurological exam: Present: alert Skin exam: Present: warm, dry, intact, normal color. Absent: rash Course Vital Signs 04/06/22 04/06/22 04/06/22 06:11 06:16 07:22 Temperature 98 F 97.3 F L Pulse Rate 144 H 115 H Respiratory 22 18 Rate Blood Pressure 141/112 111/58 O2 Sat by Pulse 98 100 Oximetry Fraction of 60 Inspired Oxygen (FIO2) 04/06/22 04/06/22 07:53 08:02 Temperature Pulse Rate 138 H 130 H Respiratory Rate Blood Pressure O2 Sat by Pulse Oximetry Fraction of Inspired Oxygen (FIO2) Medical Decision Making - Lab Data Result diagrams: 04/06/22 06:24 04/06/22 06:24 Lab Results 04/06/22 04/06/22 04/06/22 Range/Units 06:24 06:24 06:24 WBC 10.4 (3.8-10.6) k/uL RBC 4.43 (4.30-5.90) m/uL Hgb 14.0 (13.0-17.5) gm/dL Hct 43.9 (39.0-53.0) % MCV 99.0 (80.0-100.0) fL MCH 31.6 (25.0-35.0) pg MCHC 31.9 (31.0-37.0) g/dL RDW 13.4 (11.5-15.5) % Plt Count 278 (150-450) k/uL MPV 7.7 Neutrophils % 60 % Lymphocytes % 25 % Monocytes % 7 % Eosinophils % 4 % Basophils % 3 % Neutrophils # 6.2 (1.3-7.7) k/uL Lymphocytes # 2.6 (1.0-4.8) k/uL Monocytes # 0.7 (0-1.0) k/uL Eosinophils # 0.5 (0-0.7) k/uL Basophils # 0.3 H (0-0.2) k/uL Sodium 135 L (137-145) mmol/L Potassium 4.5 (3.5-5.1) mmol/L Chloride 102 (98-107) mmol/L Carbon Dioxide 25 (22-30) mmol/L Anion Gap 8 mmol/L BUN 18 (9-20) mg/dL Creatinine 1.14 (0.66-1.25) mg/dL Est GFR (CKD-EPI)AfAm 72 (>60 ml/min/1.73 sqM) Est GFR (CKD-EPI)NonAf 62 (>60 ml/min/1.73 sqM) Glucose 233 H (74-99) mg/dL Plasma Lactic Acid Saravanan 2.0 (0.7-2.0) mmol/L Calcium 9.1 (8.4-10.2) mg/dL Total Bilirubin 0.7 (0.2-1.3) mg/dL AST 94 H (17-59) U/L ALT 73 H (4-49) U/L Alkaline Phosphatase 48 (38-126) U/L Troponin I (0.000-0.034) ng/mL NT-Pro-B Natriuret Pep pg/mL Total Protein 6.6 (6.3-8.2) g/dL Albumin 3.9 (3.5-5.0) g/dL 04/06/22 04/06/22 Range/Units 06:24 06:24 WBC (3.8-10.6) k/uL RBC (4.30-5.90) m/uL Hgb (13.0-17.5) gm/dL Hct (39.0-53.0) % MCV (80.0-100.0) fL MCH (25.0-35.0) pg MCHC (31.0-37.0) g/dL RDW (11.5-15.5) % Plt Count (150-450) k/uL MPV Neutrophils % % Lymphocytes % % Monocytes % % Eosinophils % % Basophils % % Neutrophils # (1.3-7.7) k/uL Lymphocytes # (1.0-4.8) k/uL Monocytes # (0-1.0) k/uL Eosinophils # (0-0.7) k/uL Basophils # (0-0.2) k/uL Sodium (137-145) mmol/L Potassium (3.5-5.1) mmol/L Chloride (98-107) mmol/L Carbon Dioxide (22-30) mmol/L Anion Gap mmol/L BUN (9-20) mg/dL Creatinine (0.66-1.25) mg/dL Est GFR (CKD-EPI)AfAm (>60 ml/min/1.73 sqM) Est GFR (CKD-EPI)NonAf (>60 ml/min/1.73 sqM) Glucose (74-99) mg/dL Plasma Lactic Acid Saravanan (0.7-2.0) mmol/L Calcium (8.4-10.2) mg/dL Total Bilirubin (0.2-1.3) mg/dL AST (17-59) U/L ALT (4-49) U/L Alkaline Phosphatase (38-126) U/L Troponin I 0.025 (0.000-0.034) ng/mL NT-Pro-B Natriuret Pep 152 pg/mL Total Protein (6.3-8.2) g/dL Albumin (3.5-5.0) g/dL - EKG Data EKG shows normal: axis (Left axis deviation), intervals (Normal), QRS complexes (Suspected old anterior infarct.) Rate: tachycardia Critical Care Time Critical Care Time: Yes (30 minutes) Disposition Clinical Impression: COPD with acute exacerbation, Tachycardia Disposition: ADMITTED IP TO THIS [facility] Condition: Fair Referrals: Liss Oneil MD [Primary Care Provider] - 1-2 days
[2022-04-06] MEDS ORDERED: METOPROLOL TARTRATE 12.5 MG TAB PO SCH (09:00)
[2022-04-06] MEDS: ATORVASTATIN 40 MG TAB PO SCH (09:03)
[2022-04-06] MEDS: APIXABAN 5 MG TAB PO SCH ×2 (09:03→20:48)
[2022-04-06] MEDS: SPIRONOLACTONE 25 MG TAB PO SCH (09:04)
[2022-04-06] MEDS: SODIUM CHLORIDE 0.9% 1,000 ML IV SCH ×3 (09:09→22:07)
[2022-04-06] MEDS ORDERED: ALBUTEROL NEBULIZED 2.5 MG/3 ML INHALATION PRN (09:52)
[2022-04-06] MEDS ORDERED: IPRATROPIUM-ALBUTEROL 3 ML NEB INHALATION PRN (09:58)
[2022-04-06] MEDS ORDERED: FUROSEMIDE 10 MG/ML 4 ML VIAL IV STA (10:21)
[2022-04-06] MEDS ORDERED: ALPRAZolam 0.25 MG TAB PO STA (10:22)
[2022-04-06] MEDS ORDERED: METOPROLOL TARTRATE 5 MG/5 ML VIAL IVP ONE (10:24)
[2022-04-06] MEDS: methylPREDNISolone SOD SUCCI 125 MG/2 ML VIAL IV SCH ×3 (10:33→23:52)
[2022-04-06] MEDS: IPRATROPIUM-ALBUTEROL 3 ML NEB INHALATION SCH ×3 (11:23→19:15)
--- NOTE | 2022-04-06 11:28 | P.CNPUL ---
History of Present Illness Consult date: 04/06/22 Requesting physician: Liss Oneil Reason for consult: dyspnea, cough, COPD, hypoxemia Chief complaint: Shortness of breath. History of present illness: Pulmonary consult dated 04/06/2022. 76-year-old male with established history of COPD. The patient has very severe disease, with an FEV1 that is 35% of predicted. He was brought into the emergency room, on April 06, at 6:00 in the morning, by EMS, for increasing and progressive shortness of breath over the night. The patient apparently tried using his nebulizer machine, with only some benefit. The patient was brought into the emergency room where he was seen by the ER physician admitted with a diagnosis of COPD exacerbation. We are asked to see the patient in consultation. The patient has a history of rapid heartbeat, nonsustained V. tach, hiatal hernia, cardiomyopathy with an ejection fraction of 40%, and pulmonary embolism. The patient does not smoke currently. The patient was last in the hospital in December of this year. White count 10.4, hemoglobin 14, hematocrit 43.9, and platelet count 278,000. Sodium 135, potassium 4.5, chlorides 102, CO2 25, BUN 18, creatinine 1.14. Chest x-ray showed chronic changes of COPD, but no acute pulmonary process. Review of Systems REVIEW OF SYSTEMS: CONSTITUTIONAL: [Negative.] NEUROLOGIC: [ Negative.] HEENT: [ Negative.] CARDIAC: Tachycardia. PULMONARY: Severe shortness of breath. GI: [Negative.] : [Negative.] RHEUMATOLOGIC: [ Negative.] IMMUNOLOGIC: [ Negative.] ENDOCRINE: [Negative. ] DERMATOLOGIC: [Negative.] Past Medical History Past Medical History: COPD, Pulmonary Embolus (PE) Additional Past Medical History / Comment(s): recent rapid heart rate and SOB and nonsustained V-Tach in November 2019, hiatal hernia. Cardiomyopathy with an ejection fraction of 40% History of Any Multi-Drug Resistant Organisms: None Reported Past Surgical History: Back Surgery, Tonsillectomy Additional Past Surgical History / Comment(s): colonoscopy, "two disks removed from spine", pilonidal cyst, jhonatan cataracts Past Anesthesia/Blood Transfusion Reactions: No Reported Reaction Past Psychological History: Anxiety Smoking Status: Former smoker Past Alcohol Use History: None Reported Past Drug Use History: None Reported - Past Family History Mother Family Medical History: Cancer Brother(s) Family Medical History: Cancer Medications and Allergies Home Medications Medication Instructions Recorded Confirmed Type Fluticasone Propion/Salmeterol 1 puff INHALATION RT-BID 11/28/19 12/27/21 History [Fluticasone-Salmeterol 113-14] Albuterol Sulfate [Proair 1 puff INHALATION RT-Q4H PRN 09/27/21 12/27/21 History Respiclick] Apixaban [Eliquis] 5 mg PO BID 09/27/21 12/27/21 History Atorvastatin [Lipitor] 40 mg PO Q48H 09/27/21 12/27/21 History Metoprolol Tartrate [Lopressor] 12.5 mg PO BID #180 tab 12/08/21 12/27/21 Rx Spironolactone [Aldactone] 25 mg PO DAILY #90 tab 12/08/21 12/27/21 Rx lisinopriL [Zestril] 2.5 mg PO DAILY #90 tab 12/08/21 12/27/21 Rx Ipratropium-Albuterol Nebulize 3 ml INHALATION RT-QID 12/27/21 12/27/21 History [Duoneb 0.5 mg-3 mg/3 ml Soln] Levofloxacin [Levaquin] 750 mg PO DAILY #5 tab 12/30/21 Rx predniSONE 0 mg PO DIRECTED #30 tab 12/30/21 Rx Allergies Allergy/AdvReac Type Severity Reaction Status Date / Time No Known Allergies Allergy Verified 12/27/21 11:26 Physical Exam Osteopathic Statement: *. No significant issues noted on an osteopathic structural exam other than those noted in the History and Physical/Consult. Vitals: Vital Signs Temp Pulse Pulse Resp BP BP Pulse Ox 04/06/22 10:00 125 H 95 04/06/22 09:37 97.3 F L 130 H 120/80 99 04/06/22 09:04 98 F 121 H 23 113/76 99 04/06/22 08:38 122 H 18 110/84 99 04/06/22 08:02 130 H 04/06/22 07:53 138 H 04/06/22 07:50 98 04/06/22 07:22 97.3 F L 115 H 18 111/58 100 04/06/22 06:16 06/26/22 06:11 98 F 144 H 22 141/112 98 FiO2 04/06/22 10:00 60 04/06/22 09:37 04/06/22 09:04 04/06/22 08:38 04/06/22 08:02 04/06/22 07:53 04/06/22 07:50 04/06/22 07:22 04/06/22 06:16 60 04/06/22 06:11 Intake and Output 04/05/22 04/06/22 04/06/22 22:59 06:59 14:59 Other: Weight 79.379 kg Conversational dyspnea, and use of accessory muscles, currently on nasal O2, but be transitioned over to BiPAP. HEENT examination is grossly unremarkable. Neck supple. Full range of motion. No adenopathy thyromegaly or neck vein distention. Cardiovascular examination reveals regular rhythm rate. S1-S2 normal. No S3 or S4. No discernible murmur noted. Heart rate 125 bpm. Lungs reveal severely diminished bilateral breath sounds. Some scattered expiratory rhonchi and expiratory wheezes. No crackles. Breath sounds equal bilaterally. The patient is currently on BiPAP. Abdomen soft bowel sounds are heard. No masses or tenderness. Extremities are intact. No cyanosis clubbing or edema. Skin is without rash or lesion. Neurologic examination is brief but nonfocal. Results - Laboratory Findings CBC and BMP: 04/06/22 06:24 04/06/22 06:24 PT/INR, D-dimer PT 10.4 sec (9.0-12.0) 04/06/22 06:24 INR 0.9 (<1.2) 04/06/22 06:24 Abnormal lab findings: Abnormal Labs 04/06/22 04/06/22 06:24 06:24 Basophils # 0.3 H Sodium 135 L Glucose 233 H AST 94 H ALT 73 H - Diagnostic Findings Chest x-ray: image reviewed Assessment and Plan Assessment: Acute hypoxemic respiratory failure secondary to COPD exacerbation. History of hyperlipidemia. History of pulmonary embolism. History of nonsustained ventricular tachycardia. History of hiatal hernia. Cardiomyopathy with an ejection fraction of 40%. Prior history of heavy tobacco use. Plan: Plan dated 04/06/2022. The patient is currently on Pulmicort, formoterol, doxycycline, DuoNeb's, and Solu-Medrol. We will continue to follow and make recommendations. The patient's overall prognosis remains guarded. His FEV1 percent is only 35. He was in the hospital in December of this year. Labs, x-rays, and medications are all reviewed. Time with Patient: Greater than 30
[2022-04-06 11:59] LABS: Glucose,Whole Blood 109 mg/dL (70-110)
[2022-04-06] MEDS ORDERED: IPRATROPIUM 0.5 MG/2.5 ML NEBU INHALATION SCH (12:00)
[2022-04-06] MEDS ORDERED: ALBUTEROL NEBULIZED 2.5 MG/3 ML INHALATION SCH (12:00)
[2022-04-06] MEDS: INSULIN ASPART (NovoLOG) 100 UNIT/ML VIAL SQ SCH ×3 (12:49→20:48)
--- NOTE | 2022-04-06 16:10 | P.HPIM ---
History of Present Illness H&P Date: 04/06/22 HISTORY OF PRESENT ILLNESS This is a 76-year-old male patient with past medical history of COPD with lung function 35%, hypertension, history of pulmonary embolism, hyperlipidemia, cardiomyopathy with EF of 20%, nonsustained ventricular tachycardia. Remote history of tobacco use and dependence. Patient was hospitalized at [facility] between 12/05/2021 until 12/08/2021 after he was admitted to the hospital for acute hypoxemic respiratory failure due to recurrent ventricular tachycardia as well as acute exacerbation of chronic obstructive pulmonary disease, and the patient at that time was treated with IV steroids and he was seen in consultation by pulmonary medicine as well as cardiology and patient was scheduled to go for left heart catheterization this coming Thursday, however the patient ended up coming to the emergency department at [facility] from 12/27/2021 until 12/30/2021 for acute exacerbation of COPD along was treated at that time he was placed on oral prednisone 10 mg orally once every day, patient has been doing fine for the last 3 month up until yesterday when he suddenly developed to have a significant episode of shortness of breath associated with increased coughing and increased expiratory wheezes, patient was brought into the emergency department at [facility] yesterday he was found to be in atrial flutter with the rate of 122, patient did receive his metoprolol earlier in the morning, he was given another Lopressor 25 mg IV push, he was seen in consultation by pulmonary medicine, he was started on Solu-Medrol 60 mg IV push every 6 hours along nebulized treatment [id number], and oxygen support, patient was admitted to the hospital for evaluation and treatment as well. REVIEW OF SYSTEMS Constitutional: No fever, no chills, no night sweats. No weight change. No weakness, fatigue or lethargy. No daytime sleepiness. HEENT: No headache. No blurred vision or double vision, no loss of vision. No loss of Hearing, no ringing in the ears, no dizziness. No nasal drainage or congestion. No epistaxis. No sore throat. Lungs: Reports shortness of breath, mild cough, mild sputum production. Reports wheezing. Cardiovascular: No chest pain, no lower extremity edema. No palpitations. No paroxysmal nocturnal dyspnea. No orthopnea. No lightheadedness or dizziness. No syncopal episodes. Abdominal: No abdominal pain. No nausea, vomiting. No diarrhea. No constipat ion. No bloody or tarry stools. No loss of appetite. Genitourinary: No dysuria, increased frequency, urgency. No urinary retention. Musculoskeletal: No myalgias. No muscle weakness, no gait dysfunction, no frequent falls. No back pain. No neck pain. Integumentary: No wounds, no lesions. No rash or pruritus. No unusual bruising. Neurologic: No aphasia. No facial droop. No change in mentation. No head injury. No headache. No paralysis. No paresthesia. Psychiatric: No depression. Reports anxiety. No mood swings. Endocrine: No abnormal blood sugars. No weight change. SOCIAL HISTORY Patient was a smoker one pack per day for 40 years and quit 20 years ago. He occasionally has a beer. He does not use marijuana or illicit drug use. Patient lives at home with his . He has a nebulizer and oxygen at home. No DME for ambulation. FAMILY MEDICAL HISTORY Mother in her 70s with history of lung cancer and breast cancer. Father in a fire at age 50 with history of TB. Patient has one brother with history of bladder cancer. He does not have any sisters. Patient has 2 children, one son and one daughter with no major medical problems. PHYSICAL EXAMINATION Gen: This is a 76-year-old male, currently in a BiPAP and appears to be in mild respiratory distress. HEENT: Head is atraumatic, normocephalic. Pupils equal, round. Sclerae is anicteric, mucous membranes of the mouth are somewhat dry. NECK: Supple. No JVD. No lymphadenopathy. No thyromegaly. LUNGS: Decreased breath sounds at the bases, poor air entry, moderate intercostal retraction, patient is currently on a BiPAP. HEART: first heart sound is depressed, second heart sound is normal, 2/6 systolic ejection murmur at the left sternal border. ABDOMEN: Soft nontender, nondistended, no hepatosplenomegaly positive bowel sounds EXTREMITIES: there is no edema, no calf tenderness DP +2 bilaterally NEUROLOGICAL: Patient is awake, alert and oriented x3. Cranial nerves 2 through 12 are grossly intact, cranial nerves II-12 appear grossly intact, muscle power 5 out of 5 in upper and lower extremities bilaterally. ASSESSMENT AND PLAN 1. Acute COPD exacerbation. Continue patient on centimeters or 60 mg IV push every 6 hours, continue DuoNeb 3 mL nebulization 4 times every day, continue Pulmicort nebulization twice every day, continue oxygen support, patient is currently placed on a BiPAP, monitor the patient's symptoms very closel pulmonary consultation appreciated.y, 2. Severe COPD with lung function 35%. continue treatment as the previous paragraph. 3. Atrial flutter with a heart rate of 122. Patient metoprolol will be increased to 25 mg orally 3 times every day, continue patient on BiPAP, cardiology consultation, patient did receive a dose of Lasix 40 mg IV push as well as Lopressor 2.5 mg IV push 1, patient is already anticoagulated with Eliquis 5 mg orally twice every day. 4. Hypertension and hypertensive cardiovascular disease. Continue patient on lisinopril 2.5 mg once every day, Lopressor 25 mg orally 3 times every day. 5. Hyperlipidemia. Continue atorvastatin 40 mg orally once every day. 6. Cardiomyopathy with ejection fraction of 20%. we will maintain the patient on metoprolol 25 mg orally 3 times every day, maintain the patient on lisinopril 2.5 mg once every day as well as spironolactone 12.5 mg orally once every day. 7. History of pulmonary embolism. Continue eliquis 5 mg orally twice every day. 8. Remote history of tobacco use and dependence. 9. DVT prophylaxis. We will continue patient on Eliquis 5 mg orally twice every day. 10. GI prophylaxis. continue patient on Protonix 40 mg orally once every day. 11. History of nonsustained ventricular tachycardia in the past. Continue metoprolol 25 mg orally 3 times every day. 12. Admit to inpatient. Estimate a length of stay 2 midnights per 13. Patient is full code. Past Medical History Past Medical History: COPD, Pulmonary Embolus (PE) Additional Past Medical History / Comment(s): recent rapid heart rate and SOB and nonsustained V-Tach in November 2019, hiatal hernia. Cardiomyopathy with an ejection fraction of 40% History of Any Multi-Drug Resistant Organisms: None Reported Past Surgical History: Back Surgery, Tonsillectomy Additional Past Surgical History / Comment(s): colonoscopy, "two disks removed from spine", pilonidal cyst, jhonatan cataracts Past Anesthesia/Blood Transfusion Reactions: No Reported Reaction Past Psychological History: Anxiety Smoking Status: Former smoker Past Alcohol Use History: None Reported Past Drug Use History: None Reported - Past Family History Mother Family Medical History: Cancer Brother(s) Family Medical History: Cancer Medications and Allergies Home Medications Medication Instructions Recorded Confirmed Type Albuterol Sulfate [Proair 1 puff INHALATION RT-Q4H PRN 09/27/21 04/06/22 History Respiclick] Apixaban [Eliquis] 5 mg PO BID 09/27/21 04/06/22 History Atorvastatin [Lipitor] 40 mg PO Q48H 09/27/21 04/06/22 History Metoprolol Tartrate [Lopressor] 12.5 mg PO BID #180 tab 12/08/21 04/06/22 Rx Spironolactone [Aldactone] 25 mg PO DAILY #90 tab 12/08/21 04/06/22 Rx lisinopriL [Zestril] 2.5 mg PO DAILY #90 tab 12/08/21 04/06/22 Rx Ipratropium-Albuterol Nebulize 3 ml INHALATION RT-QID PRN 12/27/21 04/06/22 History [Duoneb 0.5 mg-3 mg/3 ml Soln] Fluticasone/Umeclidin/Vilanter 1 puff INHALATION RT-DAILY 04/06/22 04/06/22 History [Trelegy Ellipta 100-62.5-25] predniSONE 10 mg PO DAILY 04/06/22 04/06/22 History Allergies Allergy/AdvReac Type Severity Reaction Status Date / Time No Known Allergies Allergy Verified 04/06/22 12:11 Physical Exam Vitals: Vital Signs Temp Pulse Pulse Resp BP BP Pulse Ox 04/06/22 12:00 97.6 F 95 78/53 99 04/06/22 11:33 132 H 04/06/22 11:24 132 H 04/06/22 10:00 125 H 95 04/06/22 09:37 97.3 F L 130 H 120/80 99 04/06/22 09:04 98 F 121 H 23 113/76 99 04/06/22 08:38 122 H 18 110/84 99 04/06/22 08:02 130 H 04/06/22 07:53 138 H 04/06/22 07:50 98 04/06/22 07:22 97.3 F L 115 H 18 111/58 100 04/06/22 06:16 04/06/22 06:11 98 F 144 H 22 141/112 98 FiO2 04/06/22 12:00 10 04/06/22 11:33 04/06/22 11:24 50 04/06/22 10:00 60 04/06/22 09:37 04/06/22 09:04 04/06/22 08:38 04/06/22 08:02 04/06/22 07:53 04/06/22 07:50 04/06/22 07:22 04/06/22 06:16 60 04/06/22 06:11 Intake and Output 04/05/22 04/06/22 04/06/22 22:59 06:59 14:59 Other: Weight 79.379 kg Results CBC & Chem 7: 04/06/22 06:24 04/06/22 06:24 Labs: Abnormal Lab Results - Last 24 Hours (Table) 04/06/22 04/06/22 Range/Units 06:24 06:24 Basophils # 0.3 H (0-0.2) k/uL Sodium 135 L (137-145) mmol/L Glucose 233 H (74-99) mg/dL AST 94 H (17-59) U/L ALT 73 H (4-49) U/L
[2022-04-06 16:58] LABS: Glucose,Whole Blood 187 mg/dL (70-110)
[2022-04-06] MEDS: METOPROLOL TARTRATE 25 MG TAB PO SCH ×2 (17:43→21:13)
[2022-04-06] MEDS: FORMOTEROL FUMARATE 20 MCG/2 ML NEBU INHALATION SCH (19:15)
[2022-04-06] MEDS: BUDESONIDE 1 MG/2 ML NEBU INHALATION SCH (19:15)
[2022-04-06] MEDS ORDERED: SYMBICORT 160-4.5 MCG INHALER INHALATION SCH (20:00)
[2022-04-06 20:16] LABS: Glucose,Whole Blood 152 mg/dL (70-110)
[2022-04-06] MEDS: DOXYCYCLINE 100 MG CAP PO SCH (20:48)
[2022-04-06] MEDS ORDERED: SODIUM CHLORIDE 0.9% 500 ML 500 ML IV ONE (21:07)
[2022-04-07 06:03] LABS: Glucose,Whole Blood 153 mg/dL (70-110)
[2022-04-07] MEDS: methylPREDNISolone SOD SUCCI 125 MG/2 ML VIAL IV SCH ×3 (06:36→17:05)
[2022-04-07] MEDS: INSULIN ASPART (NovoLOG) 100 UNIT/ML VIAL SQ SCH ×4 (06:37→20:55)
[2022-04-07 07:46] LABS: Basophils % (A) 0 %; Eosinophils % (A) 0 %; HGB 13.7 gm/dL (13.0-17.5); Lymphocytes # (A) 0.6 k/uL (1.0-4.8); Lymphocytes % (A) 7 %; MCH 31.7 pg (25.0-35.0); MCHC 31.8 g/dL (31.0-37.0); MCV 99.4 fL (80.0-100.0); Mean Platelet Volume 7.4; Monocytes # (A) 0.4 k/uL (0-1.0); Monocytes % (A) 4 %; Neutrophils # (A) 8.4 k/uL (1.3-7.7); Neutrophils % (A) 88 %; Platelet Count 216 k/uL (150-450); RBC 4.32 m/uL (4.30-5.90); RDW 13.4 % (11.5-15.5); WBC 9.6 k/uL (3.8-10.6)
[2022-04-07] MEDS: BUDESONIDE 1 MG/2 ML NEBU INHALATION SCH ×2 (08:05→20:09)
[2022-04-07] MEDS: FORMOTEROL FUMARATE 20 MCG/2 ML NEBU INHALATION SCH ×2 (08:05→20:09)
[2022-04-07] MEDS: IPRATROPIUM-ALBUTEROL 3 ML NEB INHALATION SCH ×4 (08:05→20:09)
[2022-04-07 08:07] LABS: Albumin 3.3 g/dL (3.5-5.0); Calcium 8.4 mg/dL (8.4-10.2); Potassium 4.4 mmol/L (3.5-5.1); Total Bilirubin 0.4 mg/dL (0.2-1.3); Total Protein 5.9 g/dL (6.3-8.2)
[2022-04-07] MEDS: APIXABAN 5 MG TAB PO SCH ×2 (08:27→20:55)
[2022-04-07] MEDS: DOXYCYCLINE 100 MG CAP PO SCH ×2 (08:27→20:55)
[2022-04-07] MEDS: SPIRONOLACTONE 25 MG TAB PO SCH (08:27)
[2022-04-07] MEDS ORDERED: predniSONE 20 MG TAB PO SCH (09:00)
[2022-04-07] MEDS ORDERED: METOPROLOL TARTRATE 25 MG TAB PO SCH (09:00)
--- NOTE | 2022-04-07 09:44 | P.CRDCN ---
History of Present Illness History of present illness: HISTORY OF PRESENTING ILLNESS This is a pleasant 76-year-old male past medical history significant for COPD, paroxysmal atrial fibrillation on Eliquis, hypertension, peripheral vascular disease, dyslipidemia, nonischemic cardiomyopathy, history of pulmonary embolism, mitral regurgitation, aortic regurgitation,. He follows in the office with Dr. Simmons. We have been asked to see in consultation for atrial flutter. Patient is seen and examined at bedside, no acute distress. He presents to the hospital with chief complaint of shortness of breath. He was found to be in a COPD exacerbation. He was in sinus tachycardia when he presented to the emergency department. He endorses increased shortness of breath over the past couple days. Yesterday morning, he had increased and progressive worsening shortness of breath and presents to emergency department for further evaluation. He denies any chest pain, lightheadedness, dizziness, syncope or near syncope, orthopnea or PND. He denies any cough, fever or chills. He is a former smoker. Quit in 2006. In the office his medications were changed to metoprolol succinate 25 mg daily DIAGNOSTICS EKG reveals sinus tachycardia, heart rate 130, left bundle branch block, left axis deviation no acute ST-T wave abnormalities. Prior EKG with similar findings Telemetry tracings indicate sinus rhythm heart rate 6070s Chest xray revealed chronic changes, hyperinflation compatible with COPD. Left shoulder x-ray report with no fracture noted. Laboratory reviewed, CBC unremarkable, sodium 136, potassium 4.4, BUN 42, serum creatinine 1.3, AST 46, ALT 53, troponin negative, proBNP 152 Current home medications include metoprolol succinate 25 mg daily, atorvastatin 40 mg every 48 hours, Eliquis 5 mg twice a day, lisinopril 2.5 mg daily, spironolactone 25 mg daily Limited echo 11/2021 revealed EF of less than 20%, mild mitral regurgitation and mild tricuspid regurgitation Cardiac catheterization 12/30/2021 revealed normal coronary arteries, normal left and right-sided filling pressures. REVIEW OF SYSTEMS At the time of my exam: CONSTITUTIONAL: Denies fever or chills. CARDIOVASCULAR: Denies chest pain, +shortness of breath, Denies orthopnea, PND or palpitations. RESPIRATORY: Denies cough. GASTROINTESTINAL: Denies abdominal pain, diarrhea, constipation, nausea or vomiting. MUSCULOSKELETAL: Denies myalgias. NEUROLOGIC: Denies numbness, tingling, headacbe or weakness. ENDOCRINE: Denies fatigue, weight change, polydipsia or polyurina. GENITOURINARY: Denies burning, hematuria or urgency with micturation. HEMATOLOGIC: Denies history of anemia or bleeding. PHYSICAL EXAMINATION Vitals reviewed CONSTITUTIONAL: No apparent distress. HEENT: Head is normocephalic. Pupils are equal, round. Sclerae anicteric. Mucous membranes of the mouth are moist. No JVD. No carotid bruit. CHEST EXAMINATION: Lungs with expiratory wheezing bilaterally in all lung meadows to auscultation. No chest wall tenderness is noted on palpation or with deep breathing. HEART EXAMINATION: Regular rate and rhythm. S1, S2 heard. No murmurs, gallops or rub. ABDOMEN: Soft, nontender. Positive bowel sounds. EXTREMITIES: 2+ peripheral pulses, no lower extremity edema and no calf tenderness. SKIN: warm, dry NEUROLOGIC EXAMINATION: Patient is awake, alert and oriented x3. ASSESSMENT Sinus tachycardia COPD Exacerbation Paroxysmal atrial fibrillation -[id number] score 4, on Eliquis Hypertension History of peripheral vascular disease Dyslipidemia Nonischemic cardiomyopathy History of pulmonary embolism PLAN -Continue metoprolol succinate 25mg daily -Continue Eliquis 5mg BID -Obtain 2D echocardiogram to assess LV function -Pulmonary following -Continue home cardiac medications -Further recommendations based on clinical course -Follow up outpatient with Dr. Simmons Nurse practitioner note has been reviewed by physician. Signing provider agrees with the documented findings, assessment, and plan of care. Past Medical History Past Medical History: COPD, Pulmonary Embolus (PE) Additional Past Medical History / Comment(s): recent rapid heart rate and SOB and nonsustained V-Tach in November 2019, hiatal hernia. Cardiomyopathy with an ejection fraction of 40% History of Any Multi-Drug Resistant Organisms: None Reported Past Surgical History: Back Surgery, Tonsillectomy Additional Past Surgical History / Comment(s): colonoscopy, "two disks removed from spine", pilonidal cyst, jhonatan cataracts Past Anesthesia/Blood Transfusion Reactions: No Reported Reaction Past Psychological History: Anxiety Smoking Status: Former smoker Past Alcohol Use History: None Reported Past Drug Use History: None Reported - Past Family History Mother Family Medical History: Cancer Brother(s) Family Medical History: Cancer Medications and Allergies Home Medications Medication Instructions Recorded Confirmed Type Albuterol Sulfate [Proair 1 puff INHALATION RT-Q4H PRN 09/27/21 04/06/22 History Respiclick] Apixaban [Eliquis] 5 mg PO BID 09/27/21 04/06/22 History Atorvastatin [Lipitor] 40 mg PO Q48H 09/27/21 04/06/22 History Spironolactone [Aldactone] 25 mg PO DAILY #90 tab 12/08/21 04/06/22 Rx lisinopriL [Zestril] 2.5 mg PO DAILY #90 tab 12/08/21 04/06/22 Rx Ipratropium-Albuterol Nebulize 3 ml INHALATION RT-QID PRN 12/27/21 04/06/22 History [Duoneb 0.5 mg-3 mg/3 ml Soln] Fluticasone/Umeclidin/Vilanter 1 puff INHALATION RT-DAILY 04/06/22 04/06/22 History [Trelegy Ellipta 100-62.5-25] predniSONE 10 mg PO DAILY 04/06/22 04/06/22 History Metoprolol Succinate (ER) [Toprol 25 mg PO DAILY 04/07/22 04/07/22 History Xl] Allergies Allergy/AdvReac Type Severity Reaction Status Date / Time No Known Allergies Allergy Verified 04/06/22 12:11 Physical Exam Vitals: Vital Signs Temp Pulse Pulse Pulse Resp BP BP 04/07/22 08:17 88 04/07/22 08:16 88 04/07/22 08:06 88 04/07/22 04:15 97.3 F L 67 20 04/07/22 01:04 59 L 04/06/22 23:40 64 18 04/06/22 22:10 86/50 04/06/22 20:30 98 F 68 20 82/48 04/06/22 19:46 100 04/06/22 19:31 96 04/06/22 19:30 96 04/06/22 19:16 96 04/06/22 16:00 99 04/06/22 15:50 100 04/06/22 15:35 96 04/06/22 12:00 97.6 F 95 04/06/22 11:33 132 H 04/06/22 11:24 132 H 04/06/22 10:00 125 H 04/06/22 09:37 97.3 F L 130 H 04/06/22 09:04 98 F 121 H 23 113/76 04/06/22 08:38 122 H 18 110/84 BP Pulse Ox FiO2 04/07/22 08:17 04/07/22 08:16 04/07/22 08:06 04/07/22 04:15 92/60 97 04/07/22 01:04 94/58 04/06/22 23:40 87/55 100 04/06/22 22:10 04/06/22 20:30 81/48 96 04/06/22 19:46 04/06/22 19:31 04/06/22 19:30 04/06/22 19:16 04/06/22 16:00 81/45 98 04/06/22 15:50 04/06/22 15:35 98 04/06/22 12:00 78/53 99 10 04/06/22 11:33 04/06/22 11:24 50 04/06/22 10:00 95 60 04/06/22 09:37 120/80 99 04/06/22 09:04 99 04/06/22 08:38 99 Intake and Output 04/06/22 04/07/22 04/07/22 22:59 06:59 14:59 Intake Total 390 Output Total 325 Balance 390 -325 Intake: Intake, IV Titration 390 Amount Sodium Chloride 0.9% 1, 390 000 ml @ 130 mls/hr IV . Q7H42M STA Rx#:[id number] Output: Urine 325 Other: Voiding Method Urinal Urinal Results 04/07/22 06:54 04/07/22 06:54 Cardiac Enzymes 04/07/22 Range/Units 06:54 AST 46 (17-59) U/L Coagulation 04/06/22 Range/Units 06:24 PT 10.4 (9.0-12.0) sec APTT 22.7 (22.0-30.0) sec CBC 04/07/22 Range/Units 06:54 WBC 9.6 (3.8-10.6) k/uL RBC 4.32 (4.30-5.90) m/uL Hgb 13.7 (13.0-17.5) gm/dL Hct 43.0 (39.0-53.0) % Plt Count 216 (150-450) k/uL Comprehensive Metabolic Panel 04/07/22 Range/Units 06:54 Sodium 136 L (137-145) mmol/L Potassium 4.4 (3.5-5.1) mmol/L Chloride 105 (98-107) mmol/L Carbon Dioxide 26 (22-30) mmol/L BUN 42 H (9-20) mg/dL Creatinine 1.33 H (0.66-1.25) mg/dL Glucose 151 H (74-99) mg/dL Calcium 8.4 (8.4-10.2) mg/dL AST 46 (17-59) U/L ALT 53 H (4-49) U/L Alkaline Phosphatase 43 (38-126) U/L Total Protein 5.9 L (6.3-8.2) g/dL Albumin 3.3 L (3.5-5.0) g/dL Current Medications Generic Name Dose Route Start Last Admin Trade Name Freq PRN Reason Stop Dose Admin Albuterol/Ipratropium 3 ml 04/06/22 12:00 04/07/22 08:05 Ipratropium-Albuterol 3 Ml Neb INHALATION 3 ml RT-QID EVELYN Administration Albuterol/Ipratropium 3 ml 04/06/22 09:58 Ipratropium-Albuterol 3 Ml Neb INHALATION RT-Q2H PRN Shortness Of Breath Or Wheezing Apixaban 5 mg 04/06/22 09:00 04/06/22 20:48 Apixaban 5 Mg Tab PO 5 mg BID EVELYN Administration Protocol Atorvastatin Calcium 40 mg 04/06/22 09:00 04/06/22 09:03 Atorvastatin 40 Mg Tab PO 40 mg Q48H EVELYN Administration Budesonide 1 mg 04/06/22 20:00 04/07/22 08:05 Budesonide 1 Mg/2 Ml Nebu INHALATION 1 mg RT-BID EVELYN Administration Doxycycline Monohydrate 100 mg 04/06/22 21:00 04/06/22 20:48 Doxycycline 100 Mg Cap PO 100 mg BID EVELYN Administration Protocol Formoterol Fumarate 20 mcg 04/06/22 20:00 04/07/22 08:05 Formoterol Fumarate 20 Mcg/2 Ml Nebu INHALATION 20 mcg RT-BID EVELYN Administration Sodium Chloride 1,000 mls @ 75 mls/hr 04/06/22 22:00 04/06/22 22:07 Saline 0.9% IV 75 mls/hr .[id number] EVELYN Administration Insulin Aspart 0 unit 04/06/22 12:30 04/07/22 06:37 Insulin Aspart (Novolog) 100 Unit/Ml Vial SQ 2 unit ACHS EVELYN Administration Protocol Lisinopril 2.5 mg 04/06/22 09:00 04/06/22 09:05 Lisinopril 2.5 Mg Tab PO 2.5 mg DAILY EVELYN Administration Methylprednisolone Sodium Succinate 60 mg 04/06/22 12:00 04/07/22 06:36 Methylprednisolone Sod Succi 125 Mg/2 Ml Vial IV 60 mg Q6HR EVELYN Administration Metoprolol Tartrate 25 mg 04/07/22 09:00 Metoprolol Tartrate 25 Mg Tab PO BID EVELYN Spironolactone 25 mg 04/06/22 09:00 04/06/22 09:04 Spironolactone 25 Mg Tab PO 25 mg DAILY EVELYN Administration Intake and Output 04/06/22 04/07/22 04/07/22 22:59 06:59 14:59 Intake Total 390 Output Total 325 Balance 390 -325 Intake: Intake, IV Titration 390 Amount Sodium Chloride 0.9% 1, 390 000 ml @ 130 mls/hr IV . Q7H42M STA Rx#:[id number] Output: Urine 325 Other: Voiding Method Urinal Urinal 04/07/22 06:54 04/07/22 06:54
[2022-04-07 11:34] LABS: Glucose,Whole Blood 115 mg/dL (70-110)
--- NOTE | 2022-04-07 11:50 | CA ---
Transthoracic Echo Report Name: Jasper Graves Age: 76 Gender: M : 1945 Exam Date: 04/07/2022 10:18 Exam Location: [facility] Ht (in): 71 Wt (lb): 175 Ordering Physician: Daniella Chapman Attending/Referring Phys: Handbag Designer Jacy Bocanegra RDCS Procedure CPT: Indications: repeat evaluate LV function if improved. A fib RVR Cardiac Hx: Technical Quality: Good Contrast 1: Total Dose (mL): Contrast 2: Total Dose (mL): MEASUREMENTS (Male / Female) Normal Values 2D ECHO LV Diastolic Diameter PLAX 4.7 cm 4.2 - 5.9 / 3.9 - 5.3 cm LV Systolic Diameter PLAX 3.1 cm IVS Diastolic Thickness 1.0 cm 0.6 - 1.0 / 0.6 - 0.9 cm LVPW Diastolic Thickness 1.1 cm 0.6 - 1.0 / 0.6 - 0.9 cm LV Relative Wall Thickness 0.5 RV Internal Dim ED PLAX 2.7 cm FINDINGS Left Ventricle Left ventricular ejection fraction is estimated at 50-55_%. Left ventricular cavity size normal. Left ventricular wall thickness normal. Right Ventricle Right Atrium Left Atrium Mitral Valve Aortic Valve Tricuspid Valve Pulmonic Valve Pericardium No pericardial effusion. Aorta CONCLUSIONS Normal LV function Previewed by: Dr. Miguel Burris MD (Electronically Signed) Final Date: 07 April 2022 11:49
[2022-04-07] MEDS: SODIUM CHLORIDE 0.9% 1,000 ML IV SCH (12:07)
[2022-04-07] MEDS ORDERED: PNEUMOCOCCAL VACC-PNEUMOVAX 23 25 MCG/0.5 ML VIAL IM ONE (13:20)
--- NOTE | 2022-04-07 14:36 | P.PN ---
Subjective Progress Note Date: 04/07/22 76-year-old male with established history of COPD. The patient has very severe disease, with an FEV1 that is 35% of predicted. He was brought into the emergency room, on April 06, at 6:00 in the morning, by EMS, for increasing and progressive shortness of breath over the night. The patient apparently tried using his nebulizer machine, with only some benefit. The patient was brought into the emergency room where he was seen by the ER physician admitted with a diagnosis of COPD exacerbation. We are asked to see the patient in consultation. The patient has a history of rapid heartbeat, nonsustained V. tach, hiatal hernia, cardiomyopathy with an ejection fraction of 40%, and pulmonary embolism. The patient does not smoke currently. The patient was last in the hospital in December of this year. White count 10.4, hemoglobin 14, hematocrit 43.9, and platelet count 278,000. Sodium 135, potassium 4.5, chlorides 102, CO2 25, BUN 18, creatinine 1.14. Chest x-ray showed chronic changes of COPD, but no acute pulmonary process. 04/07/2022, the patient is feeling much better compared to yesterday and the patient is currently off the BiPAP. The patient has no specific complaints. The exact cause for the exacerbation is not clear. Noted the patient's cardiac myopathy Improved and her most recent echocardiogram that showed improvement in ejection fraction and a repeat echocardiogram will be done during this current admission.meanwhile, the patient is currently off the BiPAP. The patient on DuoNeb nebulized treatments around the clock. The patient is on IV Solu-Medrol. The patient is also on his original home medications including in the correlation with Mari. No angina. No palpitation. Chest x-ray shows some chronic changes bilaterally mainly on the left which involves some scarring. Otherwise other acute abnormalities have been noted.the patient has a white cell count 9.6 with a hemoglobin of 15.7. Urine is a 42 with a creatinine of 1.3. Objective - Vital Signs Vital signs: Vital Signs Temp 97.5 F L 04/07/22 08:05 Pulse 90 04/07/22 08:23 Resp 19 04/07/22 08:05 BP 110/67 04/07/22 08:05 Pulse Ox 95 04/07/22 08:05 FiO2 10 04/06/22 12:00 Intake & Output 04/06/22 04/07/22 04/07/22 18:59 06:59 18:59 Intake Total 390 360 Output Total 325 Balance 390 -325 360 Weight 79.379 kg Intake: Intake, IV Titration 390 Amount Sodium Chloride 0.9% 1, 390 000 ml @ 130 mls/hr IV . Q7H42M STA Rx#:[id number] Oral 360 Output: Urine 325 Other: Voiding Method Urinal - Exam Gen: This is a 76-year-old male, the breathing is nonlabored and the patient is currently off the BiPAP. Head exam was generally normal. There was no scleral icterus or corneal arcus. Mucous membranes were moist. HEENT: Head is atraumatic, normocephalic. Pupils equal, round. Sclerae is anicteric, mucous membranes of the mouth are somewhat dry. NECK: Supple. No JVD. No lymphadenopathy. No thyromegaly. LUNGS: Decreased breath sounds at the bases, poor air entry, moderate intercostal retraction, patient is currently on a BiPAP. HEART: first heart sound is depressed, second heart sound is normal, 2/6 systolic ejection murmur at the left sternal border. ABDOMEN: Soft nontender, nondistended, no hepatosplenomegaly positive bowel sounds EXTREMITIES: there is no edema, no calf tenderness DP +2 bilaterally NEUROLOGICAL: Patient is awake, alert and oriented x3. Cranial nerves 2 through 12 are grossly intact, cranial nerves II-12 appear grossly intact, muscle power 5 out of 5 in upper and lower extremities bilaterally. - Labs CBC & Chem 7: 04/07/22 06:54 04/07/22 06:54 Labs: Abnormal Lab Results - Last 24 Hours (Table) 04/06/22 04/06/22 04/07/22 Range/Units 16:54 20:14 06:02 Neutrophils # (1.3-7.7) k/uL Lymphocytes # (1.0-4.8) k/uL Sodium (137-145) mmol/L BUN (9-20) mg/dL Creatinine (0.66-1.25) mg/dL Glucose (74-99) mg/dL POC Glucose (mg/dL) 187 H 152 H 153 H (70-110) mg/dL ALT (4-49) U/L Total Protein (6.3-8.2) g/dL Albumin (3.5-5.0) g/dL 04/07/22 04/07/22 Range/Units 06:54 06:54 Neutrophils # 8.4 H (1.3-7.7) k/uL Lymphocytes # 0.6 L (1.0-4.8) k/uL Sodium 136 L (137-145) mmol/L BUN 42 H (9-20) mg/dL Creatinine 1.33 H (0.66-1.25) mg/dL Glucose 151 H (74-99) mg/dL POC Glucose (mg/dL) (70-110) mg/dL ALT 53 H (4-49) U/L Total Protein 5.9 L (6.3-8.2) g/dL Albumin 3.3 L (3.5-5.0) g/dL Assessment and Plan Plan: #1. Acute shortness of breath, related to acute COPD exacerbation, , chest x- ray shows no clear evidence of pneumonia or CHF and the findings are essentially chronic including some chronic scarring in the left lung base. His pro-BNP is negative. the pro-calcitonin is not elevated and the patient is currently off the BiPAP #2.Previous hospitalization for acute exacerbation of COPD and systolic CHF, note that the patient's cardiomyopathy improved and the most recent ejection fraction was up to 40-45% #3. Recent hospitalization for acute exacerbation of COPD, and patient was also treated for possible lingular infiltrate, although possibility of pneumonia seem to be less likely #4. Tobacco dependence syndrome, carries [id number] smoking history #5. Benign essential hypertension #6. History of nonischemic cardiomyopathy with an ejection fraction of 20%, improved on most recent echocardiograms and EF is up to 40-45% #7. Hypertension #8. Hyperlipidemia #9. Previous history of PE on Eliquis #10. Anxiety #11. Episode of nonsustained ventricular tachycardia #12. History of severe COPD on home O2, with baseline FEV1 of 35% predicted #13 acute kidney injury with a creatinine being up to 1.3 plan Continue bronchodilators Continued IV Solu-Medrol Start tapering to prednisone as of tomorrow Discontinue BiPAP therapy empiric antibiotic coverage with doxycycline home medications of been resumed Repeat echocardiogram we'll continue to follow
--- NOTE | 2022-04-07 14:39 | P.PN ---
Subjective Progress Note Date: 04/07/22 HISTORY OF PRESENT ILLNESS This is a 76-year-old male patient with past medical history of COPD with lung function 35%, hypertension, history of pulmonary embolism, hyperlipidemia, cardiomyopathy with EF of 20%, nonsustained ventricular tachycardia. Remote history of tobacco use and dependence. Patient was hospitalized at [facility] between 12/05/2021 until 12/08/2021 after he was admitted to the hospital for acute hypoxemic respiratory failure due to recurrent ventricular tachycardia as well as acute exacerbation of chronic obstructive pulmonary disease, and the patient at that time was treated with IV steroids and he was seen in consultation by pulmonary medicine as well as cardiology and patient was scheduled to go for left heart catheterization this coming Thursday, however the patient ended up coming to the emergency department at [facility] from 12/27/2021 until 12/30/2021 for acute exacerbation of COPD along was treated at that time he was placed on oral prednisone 10 mg orally once every day, patient has been doing fine for the last 3 month up until yesterday when he suddenly developed to have a significant episode of shortness of breath associated with increased coughing and increased expiratory wheezes, patient was brought into the emergency department at [facility] yesterday he was found to be in atrial flutter with the rate of 122, patient did receive his metoprolol earlier in the morning, he was given another Lopressor 25 mg IV push, he was seen in consultation by pulmonary medicine, he was started on Solu-Medrol 60 mg IV push every 6 hours along nebulized treatment [id number], and oxygen support, patient was admitted to the hospital for evaluation and treatment as well. 04/07: Patient has been seen by pulmonary medicine, no changes made to his medications in the hospital. He is currently on Solu-Medrol IV every 6 hours at 60 mg, DuoNeb treatments 4 times daily and as needed, performed last twice daily and Pulmicort 1 mg twice daily. Patient is also been seen by cardiology and recommend continuing current cardiac medications. He denies having any chest pain or pressure. Echocardiogram revealed EF of 50-55%. He is currently on oxygen at 2 L nasal cannula with pulse ox 98%. Patient utilized BiPAP during the night. He's been afebrile, heart rate in the 80s, blood pressure 114/70. REVIEW OF SYSTEMS Constitutional: No fever, no chills, no night sweats. No weight change. No weakness, fatigue or lethargy. No daytime sleepiness. HEENT: No headache. No blurred vision or double vision, no loss of vision. No loss of Hearing, no ringing in the ears, no dizziness. No nasal drainage or congestion. No epistaxis. No sore throat. Lungs: Reports shortness of breath-improving, mild cough, mild sputum production. Reports wheezing. Cardiovascular: No chest pain, no lower extremity edema. No palpitations. No paroxysmal nocturnal dyspnea. No orthopnea. No lightheadedness or dizziness. No syncopal episodes. Abdominal: No abdominal pain. No nausea, vomiting. No diarrhea. No constipation. No bloody or tarry stools. No loss of appetite. Genitourinary: No dysuria, increased frequency, urgency. No urinary retention. Musculoskeletal: No myalgias. No muscle weakness, no gait dysfunction, no frequent falls. No back pain. No neck pain. Integumentary: No wounds, no lesions. No rash or pruritus. No unusual bruising. Neurologic: No aphasia. No facial droop. No change in mentation. No head injury. No headache. No paralysis. No paresthesia. Psychiatric: No depression. Reports anxiety. No mood swings. Endocrine: No abnormal blood sugars. No weight change. PHYSICAL EXAMINATION Gen: This is a 76-year-old male, currently in a BiPAP and appears to be in mild respiratory distress. HEENT: Head is atraumatic, normocephalic. Pupils equal, round. Sclerae is anicteric, mucous membranes of the mouth are somewhat dry. NECK: Supple. No JVD. No lymphadenopathy. No thyromegaly. LUNGS: Decreased breath sounds at the bases, poor air entry, moderate intercostal retraction, patient is currently on a BiPAP. HEART: first heart sound is depressed, second heart sound is normal, 2/6 systolic ejection murmur at the left sternal border. ABDOMEN: Soft nontender, nondistended, no hepatosplenomegaly positive bowel soun ds EXTREMITIES: there is no edema, no calf tenderness DP +2 bilaterally NEUROLOGICAL: Patient is awake, alert and oriented x3. Cranial nerves 2 through 12 are grossly intact, cranial nerves II-12 appear grossly intact, muscle power 5 out of 5 in upper and lower extremities bilaterally. ASSESSMENT AND PLAN 1. Acute COPD exacerbation. Continue patient on Solu-Medrol 60 mg IV push every 6 hours, continue DuoNeb 3 mL nebulization 4 times every day and as needed, continue Pulmicort nebulization twice every day, Perforomist twice daily, continue oxygen support with BiPAP and nasal cannula, pulmonary consultation appreciated. 2. Severe COPD with lung function 35%. continue treatment as the previous paragraph. 3. Atrial flutter with a heart rate of 122. Cardiology consult appreciated. Toprol-XL reduced to 25 mg daily, patient did receive a dose of Lasix 40 mg IV push as well as Lopressor 2.5 mg IV push 1, patient is already anticoagulated with Eliquis 5 mg orally twice every day. 4. Hypertension and hypertensive cardiovascular disease. Continue patient on lisinopril 2.5 mg once every day, Toprol-XL 25 mg daily. 5. Hyperlipidemia. Continue atorvastatin 40 mg orally once every day. 6. Cardiomyopathy with ejection fraction of 20% improved on repeat echocardiogram to 50-55%. we will maintain the patient on metoprolol 25 mg orally 3 times every day, maintain the patient on lisinopril 2.5 mg once every day as well as spironolactone 12.5 mg orally once every day. 7. History of pulmonary embolism. Continue eliquis 5 mg orally twice every day. 8. Remote history of tobacco use and dependence. 9. DVT prophylaxis. We will continue patient on Eliquis 5 mg orally twice every day. 10. GI prophylaxis. continue patient on Protonix 40 mg orally once every day. 11. History of nonsustained ventricular tachycardia in the past. Continue metoprolol 25 mg orally 3 times every day. 12. Patient is full code. DISCHARGE PLAN Home Impression and plan of care have been directed as dictated by the signing physician. Christine Gordon nurse practitioner acting as scribe for signing physician. Objective - Vital Signs Vital signs: Vital Signs Temp 97.5 F L 04/07/22 08:05 Pulse 80 04/07/22 11:42 Resp 19 04/07/22 08:05 BP 110/67 04/07/22 08:05 Pulse Ox 95 04/07/22 08:05 FiO2 10 04/06/22 12:00 Intake & Output 04/06/22 04/07/22 04/07/22 18:59 06:59 18:59 Intake Total 390 600 Output Total 325 Balance 390 -325 600 Weight 79.379 kg Intake: Intake, IV Titration 390 Amount Sodium Chloride 0.9% 1, 390 000 ml @ 130 mls/hr IV . [id number] [facility] Rx#:[id number] Oral 600 Output: Urine 325 Other: Voiding Method Urinal - Labs CBC & Chem 7: 04/07/22 06:54 04/07/22 06:54 Labs: Abnormal Lab Results - Last 24 Hours (Table) 04/06/22 04/06/22 04/07/22 Range/Units 16:54 20:14 06:02 Neutrophils # (1.3-7.7) k/uL Lymphocytes # (1.0-4.8) k/uL Sodium (137-145) mmol/L BUN (9-20) mg/dL Creatinine (0.66-1.25) mg/dL Glucose (74-99) mg/dL POC Glucose (mg/dL) 187 H 152 H 153 H (70-110) mg/dL ALT (4-49) U/L Total Protein (6.3-8.2) g/dL Albumin (3.5-5.0) g/dL 04/07/22 04/07/22 04/07/22 Range/Units 06:54 06:54 11:24 Neutrophils # 8.4 H (1.3-7.7) k/uL Lymphocytes # 0.6 L (1.0-4.8) k/uL Sodium 136 L (137-145) mmol/L BUN 42 H (9-20) mg/dL Creatinine 1.33 H (0.66-1.25) mg/dL Glucose 151 H (74-99) mg/dL POC Glucose (mg/dL) 115 H (70-110) mg/dL ALT 53 H (4-49) U/L Total Protein 5.9 L (6.3-8.2) g/dL Albumin 3.3 L (3.5-5.0) g/dL
[2022-04-07 16:50] LABS: Glucose,Whole Blood 144 mg/dL (70-110)
[2022-04-07 20:17] LABS: Glucose,Whole Blood 202 mg/dL (70-110)
[2022-04-08] MEDS: methylPREDNISolone SOD SUCCI 125 MG/2 ML VIAL IV SCH ×2 (00:43→06:43)
[2022-04-08 06:27] LABS: Glucose,Whole Blood 117 mg/dL (70-110)
[2022-04-08] MEDS: INSULIN ASPART (NovoLOG) 100 UNIT/ML VIAL SQ SCH ×4 (06:39→20:59)
[2022-04-08] MEDS: DOXYCYCLINE 100 MG CAP PO SCH ×2 (08:09→21:03)
[2022-04-08] MEDS: METOPROLOL SUCCINATE (ER) 25 MG TAB.ER.24H PO SCH (08:09)
[2022-04-08] MEDS: APIXABAN 5 MG TAB PO SCH ×2 (08:10→21:03)
[2022-04-08] MEDS: ATORVASTATIN 40 MG TAB PO SCH (08:10)
[2022-04-08] MEDS: SPIRONOLACTONE 25 MG TAB PO SCH (08:10)
[2022-04-08] MEDS: FORMOTEROL FUMARATE 20 MCG/2 ML NEBU INHALATION SCH ×2 (08:42→20:11)
[2022-04-08] MEDS: BUDESONIDE 1 MG/2 ML NEBU INHALATION SCH ×2 (08:42→20:11)
[2022-04-08] MEDS: IPRATROPIUM-ALBUTEROL 3 ML NEB INHALATION SCH ×4 (08:42→20:11)
--- NOTE | 2022-04-08 10:00 | P.PN ---
Subjective Progress Note Date: 04/08/22 76-year-old male with established history of COPD. The patient has very severe disease, with an FEV1 that is 35% of predicted. He was brought into the emergency room, on April 06, at 6:00 in the morning, by EMS, for increasing and progressive shortness of breath over the night. The patient apparently tried using his nebulizer machine, with only some benefit. The patient was brought into the emergency room where he was seen by the ER physician admitted with a diagnosis of COPD exacerbation. We are asked to see the patient in consultation. The patient has a history of rapid heartbeat, nonsustained V. tach, hiatal hernia, cardiomyopathy with an ejection fraction of 40%, and pulmonary embolism. The patient does not smoke currently. The patient was last in the hospital in December of this year. White count 10.4, hemoglobin 14, hematocrit 43.9, and platelet count 278,000. Sodium 135, potassium 4.5, chlorides 102, CO2 25, BUN 18, creatinine 1.14. Chest x-ray showed chronic changes of COPD, but no acute pulmonary process. 04/07/2022, the patient is feeling much better compared to yesterday and the patient is currently off the BiPAP. The patient has no specific complaints. The exact cause for the exacerbation is not clear. Noted the patient's cardiac myopathy Improved and her most recent echocardiogram that showed improvement in ejection fraction and a repeat echocardiogram will be done during this current admission.meanwhile, the patient is currently off the BiPAP. The patient on DuoNeb nebulized treatments around the clock. The patient is on IV Solu-Medrol. The patient is also on his original home medications including in the correlation with Mari. No angina. No palpitation. Chest x-ray shows some chronic changes bilaterally mainly on the left which involves some scarring. Otherwise other acute abnormalities have been noted.the patient has a white cell count 9.6 with a hemoglobin of 15.7. Urine is a 42 with a creatinine of 1.3. 04/08/2022 , clinically the patient is feeling better. The patient is a having any major respiratory distress. No chest pain. He has recovered from his acute exacerbation the patient is breathing comfortably. No angina. No palpitation. No signs of any fluid overload. He remains on bronchodilators [id number]. He remains on IV Solu-Medrol. No oropharyngeal candidiasis. Cardiac rhythm remains sinus. Objective - Vital Signs Vital signs: Vital Signs Temp 97.5 F L 04/08/22 08:24 Pulse 56 L 04/08/22 09:07 Resp 18 04/08/22 08:24 BP 115/58 04/08/22 08:24 Pulse Ox 97 04/08/22 08:43 FiO2 10 04/06/22 12:00 Intake & Output 04/07/22 04/08/22 04/08/22 18:59 06:59 18:59 Intake Total 1560 240 Balance 1560 240 Weight 76.3 kg Intake: Intake, IV Titration 600 Amount Sodium Chloride 0.9% 1, 600 000 ml @ 75 mls/hr IV . [id number] [facility] Rx#:[id number] Oral 960 240 Other: Voiding Method Urinal # Voids 1 - Exam Gen: This is a 76-year-old male, the breathing is nonlabored and the p atient is currently off the BiPAP. The patient is currently on 2 L of oxygen by nasal cannula Head exam was generally normal. There was no scleral icterus or corneal arcus. Mucous membranes were moist. HEENT: Head is atraumatic, normocephalic. Pupils equal, round. Sclerae is anicteric, mucous membranes of the mouth are somewhat dry. NECK: Supple. No JVD. No lymphadenopathy. No thyromegaly. LUNGS: Decreased breath sounds at the bases, poor air entry, moderate intercostal retraction, patient is currently on a BiPAP. HEART: first heart sound is depressed, second heart sound is normal, 2/6 systo lic ejection murmur at the left sternal border. ABDOMEN: Soft nontender, nondistended, no hepatosplenomegaly positive bowel sounds EXTREMITIES: there is no edema, no calf tenderness DP +2 bilaterally NEUROLOGICAL: Patient is awake, alert and oriented x3. Cranial nerves 2 through 12 are grossly intact, cranial nerves II-12 appear grossly intact, muscle power 5 out of 5 in upper and lower extremities bilaterally. - Labs CBC & Chem 7: 04/07/22 06:54 04/07/22 06:54 Labs: Abnormal Lab Results - Last 24 Hours (Table) 04/07/22 04/07/22 04/07/22 Range/Units 11:24 16:48 20:15 POC Glucose (mg/dL) 115 H 144 H 202 H (70-110) mg/dL 04/08/22 Range/Units 06:24 POC Glucose (mg/dL) 117 H (70-110) mg/dL Assessment and Plan Plan: #1. Acute shortness of breath, related to acute COPD exacerbation, , chest x- ray shows no clear evidence of pneumonia or CHF and the findings are essentially chronic including some chronic scarring in the left lung base. His pro-BNP is negative. the pro-calcitonin is not elevated and the patient is currently off the BiPAP, the patient is quite comfortable, much improved compared to yesterday. #2.Previous hospitalization for acute exacerbation of COPD and systolic CHF, note that the patient's cardiomyopathy improved and the most recent ejection fraction was up to 40-45% #3. Recent hospitalization for acute exacerbation of COPD, and patient was also treated for possible lingular infiltrate, although possibility of pneumonia seem to be less likely #4. Tobacco dependence syndrome, carries [id number] smoking history #5. Benign essential hypertension #6. History of nonischemic cardiomyopathy with an ejection fraction of 20%, improved on most recent echocardiograms and EF is up to 40-45% #7. Hypertension #8. Hyperlipidemia #9. Previous history of PE on Eliquis #10. Anxiety #11. Episode of nonsustained ventricular tachycardia #12. History of severe COPD on home O2, with baseline FEV1 of 35% predicted #13 acute kidney injury with a creatinine being up to 1.3 plan Continue bronchodilators Stopped IV Solu-Medrol start the patient prednisone burst taper empiric antibiotic coverage with doxycycline home medications of been resumed Repeat echocardiogram showed a normal limits. Ejection fraction we'll continue to follow, possible with the next 24 hours
[2022-04-08 11:52] LABS: Glucose,Whole Blood 119 mg/dL (70-110)
--- NOTE | 2022-04-08 12:12 | P.PN ---
Subjective This is a pleasant 76-year-old male past medical history significant for COPD, paroxysmal atrial fibrillation on Eliquis, hypertension, peripheral vascular disease, dyslipidemia, nonischemic cardiomyopathy, history of pulmonary embolism, mitral regurgitation, aortic regurgitation,. He follows in the office with Dr. Simmons. We have been asked to see in consultation for atrial flutter. He presents to the hospital with chief complaint of shortness of breath. He was found to be in a COPD exacerbation. He was in sinus tachycardia when he presented to the emergency department. EKG reveals sinus tachycardia, heart rate 130, left bundle branch block, left axis deviation no acute ST-T wave abnormalities. Telemetry tracings indicate sinus rhythm heart rate 5070s. Patient seen and examined at bedside, no acute distress. His breathing and wheezing has improved. He denies any chest pain or worsening shortness of breath. He is maintaining sinus mechanism on monitor. Echocardiogram revealed an EF of 5055 % with no pericardial effusion. Vital signs are stable PHYSICAL EXAMINATION Vitals reviewed CONSTITUTIONAL: No apparent distress. HEENT: Neck Supple No JVD. No carotid bruit. CHEST EXAMINATION: Lungs with decreased air exchange bilaterally to auscultation. No chest wall tenderness is noted on palpation or with deep breathing. HEART EXAMINATION: Regular rate and rhythm. S1, S2 heard. No murmurs, gallops or rub. ABDOMEN: Soft, nontender. Positive bowel sounds. EXTREMITIES: 2+ peripheral pulses, no lower extremity edema and no calf tenderness. SKIN: warm, dry NEUROLOGIC EXAMINATION: Patient is awake, alert and oriented x3. ASSESSMENT Sinus tachycardia COPD Exacerbation Paroxysmal atrial fibrillation -[id number] score 4, on Eliquis Hypertension History of peripheral vascular disease Dyslipidemia Nonischemic cardiomyopathy with improved EF History of pulmonary embolism PLAN -Continue metoprolol succinate 25mg daily -Continue Eliquis 5mg BID -Pulmonary following, plan to monitor patient for additional 24 hours -Continue home cardiac medications -No further changes from a cardiology perspective -Follow up outpatient with Dr. Simmons Nurse practitioner note has been reviewed by physician. Signing provider agrees with the documented findings, assessment, and plan of care. Objective - Vital Signs Vital signs: Vital Signs Temp 97.5 F L 04/08/22 08:24 Pulse 55 L 04/08/22 12:02 Resp 18 04/08/22 08:24 BP 115/58 06/28/22 08:24 Pulse Ox 97 04/08/22 08:43 FiO2 10 04/06/22 12:00 Intake & Output 04/07/22 04/08/22 04/08/22 18:59 06:59 18:59 Intake Total 1560 240 Balance 1560 240 Weight 76.3 kg Intake: Intake, IV Titration 600 Amount Sodium Chloride 0.9% 1, 600 000 ml @ 75 mls/hr IV . [id number] [facility] Rx#:[id number] Oral 960 240 Other: Voiding Method Urinal # Voids 1 - Labs CBC & Chem 7: 04/07/22 06:54 04/07/22 06:54 Labs: Abnormal Lab Results - Last 24 Hours (Table) 04/07/22 04/07/22 04/08/22 Range/Units 16:48 20:15 06:24 POC Glucose (mg/dL) 144 H 202 H 117 H (70-110) mg/dL 04/08/22 Range/Units 11:45 POC Glucose (mg/dL) 119 H (70-110) mg/dL
[2022-04-08] MEDS: predniSONE 20 MG TAB PO SCH (12:13)
--- NOTE | 2022-04-08 14:59 | P.PN ---
Subjective Progress Note Date: 04/08/22 HISTORY OF PRESENT ILLNESS This is a 76-year-old male patient with past medical history of COPD with lung function 35%, hypertension, history of pulmonary embolism, hyperlipidemia, cardiomyopathy with EF of 20%, nonsustained ventricular tachycardia. Remote history of tobacco use and dependence. Patient was hospitalized at [facility] between 12/05/2021 until 12/08/2021 after he was admitted to the hospital for acute hypoxemic respiratory failure due to recurrent ventricular tachycardia as well as acute exacerbation of chronic obstructive pulmonary disease, and the patient at that time was treated with IV steroids and he was seen in consultation by pulmonary medicine as well as cardiology and patient was scheduled to go for left heart catheterization this coming Thursday, however the patient ended up coming to the emergency department at [facility] from 12/27/2021 until 12/30/2021 for acute exacerbation of COPD along was treated at that time he was placed on oral prednisone 10 mg orally once every day, patient has been doing fine for the last 3 month up until yesterday when he suddenly developed to have a significant episode of shortness of breath associated with increased coughing and increased expiratory wheezes, patient was brought into the emergency department at [facility] yesterday he was found to be in atrial flutter with the rate of 122, patient did receive his metoprolol earlier in the morning, he was given another Lopressor 25 mg IV push, he was seen in consultation by pulmonary medicine, he was started on Solu-Medrol 60 mg IV push every 6 hours along nebulized treatment [id number], and oxygen support, patient was admitted to the hospital for evaluation and treatment as well. 04/07: Patient has been seen by pulmonary medicine, no changes made to his medications in the hospital. He is currently on Solu-Medrol IV every 6 hours at 60 mg, DuoNeb treatments 4 times daily and as needed, performed last twice daily and Pulmicort 1 mg twice daily. Patient is also been seen by cardiology and recommend continuing current cardiac medications. He denies having any chest pain or pressure. Echocardiogram revealed EF of 50-55%. He is currently on oxygen at 2 L nasal cannula with pulse ox 98%. Patient utilized BiPAP during the night. He's been afebrile, heart rate in the 80s, blood pressure 114/70. 04/08: Patient has been seen this morning by pulmonary medicine and Solu-Medrol transitioned to oral prednisone at 40 mg daily. Cardiology recommended continuing same medications and follow up with Dr. Simmons as an outpatient. Patient is feeling improvement today. Patient has been afebrile, heart rate 66, blood pressure 115/58, pulse ox 99% on 2 L nasal cannula. Capillary blood gl ucose running between 117 and 202. Patient verbalizes concern for anxiety and states his is on lorazepam at home. Patient will be started on Xanax. He remembers being on something in the past for anxiety. Plan is to monitor patient overnight and discharged home tomorrow. REVIEW OF SYSTEMS Constitutional: No fever, no chills, no night sweats. No weight change. No weakness, fatigue or lethargy. No daytime sleepiness. HEENT: No headache. No blurred vision or double vision, no loss of vision. No loss of Hearing, no ringing in the ears, no dizziness. No nasal drainage or congestion. No epistaxis. No sore throat. Lungs: Reports shortness of breath-improving, mild cough, mild sputum production. Reports wheezing. Cardiovascular: No chest pain, no lower extremity edema. No palpitations. No paroxysmal nocturnal dyspnea. No orthopnea. No lightheadedness or dizziness. No syncopal episodes. Abdominal: No abdominal pain. No nausea, vomiting. No diarrhea. No constipation. No bloody or tarry stools. No loss of appetite. Genitourinary: No dysuria, increased frequency, urgency. No urinary retention. Musculoskeletal: No myalgias. No muscle weakness, no gait dysfunction, no frequent falls. No back pain. No neck pain. Integumentary: No wounds, no lesions. No rash or pruritus. No unusual bruising. Neurologic: No aphasia. No facial droop. No change in mentation. No head injury. No headache. No paralysis. No paresthesia. Psychiatric: No depression. Reports anxiety. Endocrine: No abnormal blood sugars. PHYSICAL EXAMINATION Gen: This is a 76-year-old male, currently in a BiPAP and appears to b e in mild respiratory distress. HEENT: Head is atraumatic, normocephalic. Pupils equal, round. Sclerae is anicteric, mucous membranes of the mouth are somewhat dry. NECK: Supple. No JVD. No lymphadenopathy. No thyromegaly. LUNGS: Decreased breath sounds at the bases, poor air entry, moderate interc ostal retraction, patient is currently on a BiPAP. HEART: first heart sound is depressed, second heart sound is normal, 2/6 systolic ejection murmur at the left sternal border. ABDOMEN: Soft nontender, nondistended, no hepatosplenomegaly positive bowel sounds EXTREMITIES: there is no edema, no calf tenderness DP +2 bilaterally NEUROLOGICAL: Patient is awake, alert and oriented x3. Cranial nerves 2 through 12 are grossly intact, cranial nerves II-12 appear grossly intact, muscle power 5 out of 5 in upper and lower extremities bilaterally. ASSESSMENT AND PLAN 1. Acute COPD exacerbation. IV Solu-Medrol transitioned to oral prednisone, continue DuoNeb 3 mL nebulization 4 times every day and as needed, continue Pulmicort nebulization twice every day, Perforomist twice daily, continue oxygen support with BiPAP and nasal cannula, pulmonary consultation appreciated. 2. Severe COPD with lung function 35%. continue treatment as the previous paragraph. 3. Atrial flutter with a heart rate of 122. Cardiology consult appreciated. Toprol-XL reduced to 25 mg daily, patient did receive a dose of Lasix 40 mg IV push as well as Lopressor 2.5 mg IV push 1, patient is already anticoagulated with Eliquis 5 mg orally twice every day. 4. Hypertension and hypertensive cardiovascular disease. Continue patient on lisinopril 2.5 mg once every day, Toprol-XL 25 mg daily. 5. Hyperlipidemia. Continue atorvastatin 40 mg orally once every day. 6. Cardiomyopathy with ejection fraction of 20% improved on repeat echocardiogram to 50-55%. we will maintain the patient on metoprolol 25 mg orally 3 times every day, maintain the patient on lisinopril 2.5 mg once every day as well as spironolactone 12.5 mg orally once every day. 7. History of pulmonary embolism. Continue eliquis 5 mg orally twice every day. 8. Remote history of tobacco use and dependence. 9. DVT prophylaxis. We will continue patient on Eliquis 5 mg orally twice every day. 10. GI prophylaxis. continue patient on Protonix 40 mg orally once every day. 11. History of nonsustained ventricular tachycardia in the past. Continue metoprolol 25 mg orally 3 times every day. 12. Generalized anxiety disorder. Patient will be started on Xanax 0.25 mg twice daily. Patient is full code. DISCHARGE PLAN Home on Thursday Impression and plan of care have been directed as dictated by the signing physician. Christine Gordon nurse practitioner acting as scribe for signing physician. Objective - Vital Signs Vital signs: Vital Signs Temp 97.5 F L 04/08/22 08:24 Pulse 62 04/08/22 12:12 Resp 18 04/08/22 08:24 BP 115/58 04/08/22 08:24 Pulse Ox 97 04/08/22 08:43 FiO2 10 04/06/22 12:00 Intake & Output 04/07/22 04/08/22 04/08/22 18:59 06:59 18:59 Intake Total 1560 240 Balance 1560 240 Weight 76.3 kg Intake: Intake, IV Titration 600 Amount Sodium Chloride 0.9% 1, 600 000 ml @ 75 mls/hr IV . [id number] PENDING SALE TO [facility] Rx#:[id number] Oral 960 240 Other: Voiding Method Urinal # Voids 1 - Labs CBC & Chem 7: 04/07/22 06:54 04/07/22 06:54 Labs: Abnormal Lab Results - Last 24 Hours (Table) 04/07/22 04/07/22 04/08/22 Range/Units 16:48 20:15 06:24 POC Glucose (mg/dL) 144 H 202 H 117 H (70-110) mg/dL 04/08/22 Range/Units 11:45 POC Glucose (mg/dL) 119 H (70-110) mg/dL
[2022-04-08] MEDS: ALPRAZolam 0.25 MG TAB PO PRN (15:23)
[2022-04-08 16:39] LABS: Glucose,Whole Blood 114 mg/dL (70-110)
[2022-04-08 20:35] LABS: Glucose,Whole Blood 109 mg/dL (70-110)
[2022-04-09] MEDS: ALPRAZolam 0.25 MG TAB PO PRN (03:48)
[2022-04-09 04:49] VITALS: TEMP 97.6
[2022-04-09 06:15] LABS: Glucose,Whole Blood 96 mg/dL (70-110)
[2022-04-09] MEDS: INSULIN ASPART (NovoLOG) 100 UNIT/ML VIAL SQ SCH ×2 (06:24→12:04)
[2022-04-09] MEDS: IPRATROPIUM-ALBUTEROL 3 ML NEB INHALATION SCH ×3 (07:40→15:42)
[2022-04-09] MEDS: BUDESONIDE 1 MG/2 ML NEBU INHALATION SCH (07:40)
[2022-04-09] MEDS: FORMOTEROL FUMARATE 20 MCG/2 ML NEBU INHALATION SCH (07:40)
[2022-04-09] MEDS: predniSONE 20 MG TAB PO SCH (08:56)
[2022-04-09] MEDS: APIXABAN 5 MG TAB PO SCH (08:56)
[2022-04-09] MEDS: SPIRONOLACTONE 25 MG TAB PO SCH (08:56)
[2022-04-09] MEDS: DOXYCYCLINE 100 MG CAP PO SCH (08:56)
[2022-04-09] MEDS: METOPROLOL SUCCINATE (ER) 25 MG TAB.ER.24H PO SCH (08:56)
[2022-04-09 09:32] LABS: Calcium 8.6 mg/dL (8.4-10.2); Potassium 4.2 mmol/L (3.5-5.1)
--- NOTE | 2022-04-09 10:30 | P.PN ---
Subjective Progress Note Date: 04/09/22 76-year-old male with established history of COPD. The patient has very severe disease, with an FEV1 that is 35% of predicted. He was brought into the emergency room, on April 06, at 6:00 in the morning, by EMS, for increasing and progressive shortness of breath over the night. The patient apparently tried using his nebulizer machine, with only some benefit. The patient was brought into the emergency room where he was seen by the ER physician admitted with a diagnosis of COPD exacerbation. We are asked to see the patient in consultation. The patient has a history of rapid heartbeat, nonsustained V. tach, hiatal hernia, cardiomyopathy with an ejection fraction of 40%, and pulmonary embolism. The patient does not smoke currently. The patient was last in the hospital in December of this year. White count 10.4, hemoglobin 14, hematocrit 43.9, and platelet count 278,000. Sodium 135, potassium 4.5, chlorides 102, CO2 25, BUN 18, creatinine 1.14. Chest x-ray showed chronic changes of COPD, but no acute pulmonary process. 04/07/2022, the patient is feeling much better compared to yesterday and the patient is currently off the BiPAP. The patient has no specific complaints. The exact cause for the exacerbation is not clear. Noted the patient's cardiac myopathy Improved and her most recent echocardiogram that showed improvement in ejection fraction and a repeat echocardiogram will be done during this current admission.meanwhile, the patient is currently off the BiPAP. The patient on DuoNeb nebulized treatments around the clock. The patient is on IV Solu-Medrol. The patient is also on his original home medications including in the correlation with Mari. No angina. No palpitation. Chest x-ray shows some chronic changes bilaterally mainly on the left which involves some scarring. Otherwise other acute abnormalities have been noted.the patient has a white cell count 9.6 with a hemoglobin of 15.7. Urine is a 42 with a creatinine of 1.3. 04/08/2022 , clinically the patient is feeling better. The patient is a having any major respiratory distress. No chest pain. He has recovered from his acute exacerbation the patient is breathing comfortably. No angina. No palpitation. No signs of any fluid overload. He remains on bronchodilators [id number]. He remains on IV Solu-Medrol. No oropharyngeal candidiasis. Cardiac rhythm remains sinus. On 04/09/2022, the patient, total feeling well. He did have a episode yesterday which was negative with a anxiety attack and the patient during which was given Xanax and improved considerably following that. He felt that his shortness of breath improved following an intake of Xanax tablet. Otherwise, he is doing well. No new complaints. No signs of any decompensated heart failure. No fluid overload. No chest pain. He remains on prednisone burst taper that was started yesterday. No other issues for now. He is maintained on Trelegy Ellipta on outpatient basis. Objective - Vital Signs Vital signs: Vital Signs Temp 97.6 F 04/09/22 08:00 Pulse 91 04/09/22 08:00 Resp 16 04/09/22 08:00 BP 116/56 04/09/22 08:00 Pulse Ox 97 04/09/22 08:00 FiO2 10 04/06/22 12:00 Intake & Output 04/08/22 04/09/22 04/09/22 18:59 06:59 18:59 Intake Total 480 240 Balance 480 240 Intake: Oral 480 240 Other: Voiding Method Urinal # Voids 1 # Bowel Movements 0 - Exam Gen: This is a 76-year-old male, the breathing is nonlabored and the patient is currently off the BiPAP. The patient is currently on 2 L of oxygen by nasal cannula Head exam was generally normal. There was no scleral icterus or corneal arcus. Mucous membranes were moist. HEENT: Head is atraumatic, normocephalic. Pupils equal, round. Sclerae is anicteric, mucous membranes of the mouth are somewhat dry. NECK: Supple. No JVD. No lymphadenopathy. No thyromegaly. LUNGS: Decreased breath sounds at the bases, poor air entry, moderate in tercostal retraction, patient is currently on a BiPAP. HEART: first heart sound is depressed, second heart sound is normal, 2/6 systolic ejection murmur at the left sternal border. ABDOMEN: Soft nontender, nondistended, no hepatosplenomegaly positive bowel sounds EXTREMITIES: there is no edema, no calf tenderness DP +2 bilaterally NEUROLOGICAL: Patient is awake, alert and oriented x3. Cranial nerves 2 through 12 are grossly intact, cranial nerves II-12 appear grossly intact, muscle power 5 out of 5 in upper and lower extremities bilaterally. - Labs CBC & Chem 7: 04/07/22 06:54 04/09/22 07:29 Labs: Abnormal Lab Results - Last 24 Hours (Table) 04/08/22 04/08/22 04/09/22 Range/Units 11:45 16:35 07:29 Carbon Dioxide 31 H (22-30) mmol/L BUN 35 H (9-20) mg/dL POC Glucose (mg/dL) 119 H 114 H (70-110) mg/dL Assessment and Plan Plan: #1. Acute shortness of breath, related to acute COPD exacerbation, , chest x- ray shows no clear evidence of pneumonia or CHF and the findings are essentially chronic including some chronic scarring in the left lung base. His pro-BNP is negative. the pro-calcitonin is not elevated and the patient is currently off the BiPAP, the patient is quite comfortable, much improved compared to yesterday. There is a possibility the patient is also having some increased anxiety contributing to shortness of breath leading to this recurrent hospitalizations. #2.Previous hospitalization for acute exacerbation of COPD and systolic CHF, note that the patient's cardiomyopathy improved and the most recent ejection fra ction was up to 40-45% #3. Recent hospitalization for acute exacerbation of COPD, and patient was also treated for possible lingular infiltrate, although possibility of pneumonia seem to be less likely #4. Tobacco dependence syndrome, carries [id number] smoking history #5. Benign essential hypertension #6. History of nonischemic cardiomyopathy with an ejection fraction of 20%, improved on most recent echocardiograms and EF is up to 40-45% #7. Hypertension #8. Hyperlipidemia #9. Previous history of PE on Eliquis #10. Anxiety #11. Episode of nonsustained ventricular tachycardia #12. History of severe COPD on home O2, with baseline FEV1 of 35% predicted #13 acute kidney injury with a creatinine being up to 1.3 plan Continue bronchodilators Continue prednisone burst taper empiric antibiotic coverage with doxycycline home medications of been resumed Repeat echocardiogram showed a normal limits. Ejection fraction The patient can be discharged home today. I would advise also giving him a supply of Xanax 0.5 mg to be used on an acid basis as some of his symptoms are probably related to increased anxiety contributing to his increased dyspnea and recurrent hospitalization. We'll continue to follow.
--- NOTE | 2022-04-09 11:50 | P.PN ---
Subjective This is a pleasant 76-year-old male past medical history significant for COPD, paroxysmal atrial fibrillation on Eliquis, hypertension, peripheral vascular disease, dyslipidemia, nonischemic cardiomyopathy, history of pulmonary embolism, mitral regurgitation, aortic regurgitation,. He follows in the office with Dr. Simmons. We have been asked to see in consultation for atrial flutter. He presents to the hospital with chief complaint of shortness of breath. He was found to be in a COPD exacerbation. He was in sinus tachycardia when he presented to the emergency department. EKG reveals sinus tachycardia, heart rate 130, left bundle branch block, left axis deviation no acute ST-T wave abnormalities. Telemetry tracings indicate sinus rhythm heart rate 5070s. Patient seen and examined at bedside, no acute distress. His breathing and wheezing has improved. He denies any chest pain or worsening shortness of breath. He is maintaining sinus mechanism on monitor. Echocardiogram revealed an EF of 5055 % with no pericardial effusion. Vital signs are stable PHYSICAL EXAMINATION Vitals reviewed CONSTITUTIONAL: No apparent distress. HEENT: Neck Supple No JVD. No carotid bruit. CHEST EXAMINATION: Lungs with decreased air exchange bilaterally to auscultation. No chest wall tenderness is noted on palpation or with deep breathing. HEART EXAMINATION: Regular rate and rhythm. S1, S2 heard. No murmurs, gallops or rub. ABDOMEN: Soft, nontender. Positive bowel sounds. EXTREMITIES: 2+ peripheral pulses, no lower extremity edema and no calf tenderness. SKIN: warm, dry NEUROLOGIC EXAMINATION: Patient is awake, alert and oriented x3. ASSESSMENT Sinus tachycardia COPD Exacerbation Paroxysmal atrial fibrillation -[id number] score 4, on Eliquis Hypertension History of peripheral vascular disease Dyslipidemia Nonischemic cardiomyopathy with improved EF History of pulmonary embolism PLAN -Continue metoprolol succinate 25mg daily -Continue Eliquis 5mg BID -Continue home cardiac medications -No further changes from a cardiology perspective -Follow up outpatient with Dr. Simmons Nurse practitioner note has been reviewed by physician. Signing provider agrees with the documented findings, assessment, and plan of care. Objective - Vital Signs Vital signs: Vital Signs Temp 97.6 F 04/09/22 08:00 Pulse 65 04/09/22 11:07 Resp 16 04/09/22 08:00 BP 116/56 04/09/22 08:00 Pulse Ox 97 04/09/22 08:00 FiO2 10 04/06/22 12:00 Intake & Output 04/08/22 04/09/22 04/09/22 18:59 06:59 18:59 Intake Total 480 240 Balance 480 240 Intake: Oral 480 240 Other: Voiding Method Urinal Urinal # Voids 1 # Bowel Movements 0 - Labs CBC & Chem 7: 04/07/22 06:54 04/09/22 07:29 Labs: Abnormal Lab Results - Last 24 Hours (Table) 04/08/22 04/08/22 04/09/22 Range/Units 11:45 16:35 07:29 Carbon Dioxide 31 H (22-30) mmol/L BUN 35 H (9-20) mg/dL POC Glucose (mg/dL) 119 H 114 H (70-110) mg/dL
[2022-04-09 11:57] LABS: Glucose,Whole Blood 78 mg/dL (70-110)
[2022-04-09 12:25] VITALS: BP 106/57
--- NOTE | 2022-04-09 14:01 | P.DS ---
Providers Date of admission: 04/06/22 08:20 Expected date of discharge: 04/09/22 Attending physician: Liss Oneil Consults: 04/06/22 08:20 Consult Physician Routine Consulting Provider: Nic Newell Consult Reason/Comments: Your patient. COPD exacerbation Do you want consulting provider notified?: Yes 04/06/22 10:23 Consult Physician Routine Consulting Provider: Lorna Renae Consult Reason/Comments: aflutter, elevated heart rate Do you want consulting provider notified?: Yes Primary care physician: Liss Oneil [facility] Course: HISTORY OF PRESENT ILLNESS This is a 76-year-old male patient with past medical history of COPD with lung function 35%, hypertension, history of pulmonary embolism, hyperlipidemia, cardiomyopathy with EF of 20%, nonsustained ventricular tachycardia. Remote history of tobacco use and dependence. Patient was hospitalized at [facility] between 12/05/2021 until 12/08/2021 after he was admitted to the hospital for acute hypoxemic respiratory failure due to recurrent ventricular tachycardia as well as acute exacerbation of chronic obstructive pulmonary disease, and the patient at that time was treated with IV steroids and he was seen in consultation by pulmonary medicine as well as cardiology and patient was scheduled to go for left heart catheterization this coming Thursday, however the patient ended up coming to the emergency department at [facility] from 12/27/2021 until 12/30/2021 for acute exacerbation of COPD along was treated at that time he was placed on oral prednisone 10 mg orally once every day, patient has been doing fine for the last 3 month up until yesterday when he suddenly developed to have a significant episode of shortness of breath associated with increased coughing and increased expiratory wheezes, patient was brought into the emergency department at [facility] yesterday he was found to be in atrial flutter with the rate of 122, patient did receive his metoprolol earlier in the morning, he was given another Lopressor 25 mg IV push, he was seen in consultation by pulmonary medicine, he was started on Solu-Medrol 60 mg IV push every 6 hours along nebulized treatment [id number], and oxygen support, patient was admitted to the hospital for evaluation and treatment as well. 04/07: Patient has been seen by pulmonary medicine, no changes made to his medications in the hospital. He is currently on Solu-Medrol IV every 6 hours at 60 mg, DuoNeb treatments 4 times daily and as needed, performed last twice daily and Pulmicort 1 mg twice daily. Patient is also been seen by cardiology and recommend continuing current cardiac medications. He denies having any chest pain or pressure. Echocardiogram revealed EF of 50-55%. He is currently on oxygen at 2 L nasal cannula with pulse ox 98%. Patient utilized BiPAP during the night. He's been afebrile, heart rate in the 80s, blood pressure 114/70. 04/08: Patient has been seen this morning by pulmonary medicine and Solu-Medrol transitioned to oral prednisone at 40 mg daily. Cardiology recommended continuing same medications and follow up with Dr. Simmons as an outpatient. Patient is feeling improvement today. Patient has been afebrile, heart rate 66, blood pressure 115/58, pulse ox 99% on 2 L nasal cannula. Capillary blood glucose running between 117 and 202. Patient verbalizes concern for anxiety and states his is on lorazepam at home. Patient will be started on Xanax. He remembers being on something in the past for anxiety. Plan is to monitor patient overnight and discharged home tomorrow. 04/09: Patient's breathing status today is stable. He has been seen by pulmonary medicine and cleared for discharge. Patient's breathing status did improve yesterday after Xanax with improvement of his anxiety level. Xanax prescription will be sent from the office. We have changed updraft medication a DuoNeb at home and continue patient on a course of antibiotics at discharge. Patient will be discharged home today in stable condition. DISCHARGE DIAGNOSES 1. Acute COPD exacerbation. 2. Severe COPD with lung function 35%. 3. Atrial flutter with a heart rate of 122. 4. Hypertension and hypertensive cardiovascular disease. 5. Hyperlipidemia. 6. Cardiomyopathy with ejection fraction of 20% improved on repeat echocardiogram to 50-55%. 7. History of pulmonary embolism. 8. Remote history of tobacco use and dependence. 9. History of nonsustained ventricular tachycardia in the past. 10. Generalized anxiety disorder. DISCHARGE PLAN Home Greater than 35 minutes was utilized and coordinating patient's discharge. Impression and plan of care have been directed as dictated by the signing physician. Christine Gordon nurse practitioner acting as scribe for signing physician. Patient Condition at Discharge: Stable Plan - Discharge Summary Discharge Rx Participant: Yes New Discharge Prescriptions: New predniSONE 0 mg PO DIRECTED #60 tab Doxycycline [Vibramycin] 100 mg PO BID #14 cap Continue Atorvastatin [Lipitor] 40 mg PO Q48H Albuterol Sulfate [Proair Respiclick] 1 puff INHALATION RT-Q4H PRN PRN Reason: Shortness Of Breath Spironolactone [Aldactone] 25 mg PO DAILY #90 tab lisinopriL [Zestril] 2.5 mg PO DAILY #90 tab Fluticasone/Umeclidin/Vilanter [Trelegy Ellipta 100-62.5-25] 1 puff INHALATION RT-DAILY Metoprolol Succinate (ER) [Toprol XL] 25 mg PO DAILY Ipratropium-Albuterol Nebulize [Duoneb 0.5 mg-3 mg/3 ml Soln] 3 ml INHALATION RT-QID PRN #120 dose PRN Reason: Shortness Of Breath Apixaban [Eliquis] 5 mg PO BID predniSONE 10 mg PO DAILY Discharge Medication List Albuterol Sulfate [Proair Respiclick] 1 puff INHALATION RT-Q4H PRN 09/27/21 [History] Apixaban [Eliquis] 5 mg PO BID 09/27/21 [History] Atorvastatin [Lipitor] 40 mg PO Q48H 09/27/21 [History] Spironolactone [Aldactone] 25 mg PO DAILY #90 tab 12/08/21 [Rx] lisinopriL [Zestril] 2.5 mg PO DAILY #90 tab 12/08/21 [Rx] Fluticasone/Umeclidin/Vilanter [Trelegy Ellipta 100-62.5-25] 1 puff INHALATION RT-DAILY 04/06/22 [History] predniSONE 10 mg PO DAILY 04/06/22 [History] Ipratropium-Albuterol Nebulize [Duoneb 0.5 mg-3 mg/3 ml Soln] 3 ml INHALATION RT-QID PRN #120 dose 04/07/22 [Rx] Metoprolol Succinate (ER) [Toprol XL] 25 mg PO DAILY 04/07/22 [History] Doxycycline [Vibramycin] 100 mg PO BID #14 cap 04/09/22 [Rx] predniSONE 0 mg PO DIRECTED #60 tab 04/09/22 [Rx] Follow up Appointment(s)/Referral(s): Liss Oneil MD [Primary Care Provider] - 1 Week Raúl Simmons MD [STAFF PHYSICIAN] - 2 Weeks Olinda Crabtree MD [Family Provider] - 04/25/22 9:30 am Patient Instructions/Handouts: COPD (Chronic Obstructive Pulmonary Disease) (DC) Discharge Disposition: HOME SELF-CARE
[2022-04-09 15:44] VITALS: RESP 18
[2022-04-09 15:50] VITALS: PULSE 59
== END 2022-04-09 17:27 | disposition home or self-care (01) | DRG 190 ==
LOC: EC 06:09 → 3SCARD 08:20
PROVIDERS: ADMIT Internal Medicine; ATTEND Internal Medicine
DX: J44.1 Chronic obstructive pulmonary disease with (acute) exacerbation (principal); J96.01 Acute respiratory failure with hypoxia; I48.92 Unspecified atrial flutter; I42.8 Other cardiomyopathies; I73.9 Peripheral vascular disease, unspecified; I48.0 Paroxysmal atrial fibrillation; I44.7 Left bundle-branch block, unspecified; I11.9 Hypertensive heart disease without heart failure; E78.5 Hyperlipidemia, unspecified; F41.1 Generalized anxiety disorder; I08.0 Rheumatic disorders of both mitral and aortic valves; Z79.01 Long term (current) use of anticoagulants; Z79.51 Long term (current) use of inhaled steroids; Z79.899 Other long term (current) drug therapy; Z86.711 Personal history of pulmonary embolism; Z87.891 Personal history of nicotine dependence; K44.9 Diaphragmatic hernia without obstruction or gangrene; Z99.81 Dependence on supplemental oxygen
CPT/HCPCS: 36415; 71045; 80048; 80053; 83605; 83880; 84145; 84484; 85025; 85610; 85730; 90732; 93005; 93308; 94640; 94660; 94760; 99291

== ENCOUNTER 2023-01-06 15:35 | Emergency (ER) | payer MEDICARE ==
[2023-01-06 15:42] VITALS: TEMP 97.3
[2023-01-06] MEDS ORDERED: DIPH,PERTUS(ACELL)TETVAC-LF 0.5 ML VIAL IM ONE (15:58)
--- NOTE | 2023-01-06 16:31 | ED ---
General Adult HPI - General Chief complaint: Animal Bite Stated complaint: Dog bite in bilat hand Time Seen by Provider: 01/06/23 15:48 Source: patient Mode of arrival: ambulatory Limitations: no limitations - History of Present Illness Initial comments: This is a 77-year-old male with a past medical history including hypertension, atrial fibrillation on Eliquis presents emergency department for dog bites. The patient stated that 1 hour prior to arrival, he got in between his grandsons 2 dogs that were fighting and got bit in several spots on his hands. The patient stated that he did not know when his last tetanus shot was. The patient had full range of motion of his hands and had dried blood and multiple contusions around the hands. The patient denied any other trauma and was resting in bed comfortably. - Related Data Home Medications Medication Instructions Recorded Confirmed Albuterol Sulfate [Proair 1 puff INHALATION RT-Q4H PRN 09/27/21 04/06/22 Respiclick] Apixaban [Eliquis] 5 mg PO BID 09/27/21 04/06/22 Atorvastatin [Lipitor] 40 mg PO Q48H 09/27/21 04/06/22 Fluticasone/Umeclidin/Vilanter 1 puff INHALATION RT-DAILY 04/06/22 04/06/22 [Trelegy Ellipta 100-62.5-25] predniSONE 10 mg PO DAILY 04/06/22 04/06/22 Metoprolol Succinate (ER) [Toprol 25 mg PO DAILY 04/07/22 04/07/22 XL] Previous Rx's Medication Instructions Recorded Spironolactone [Aldactone] 25 mg PO DAILY #90 tab 12/08/21 lisinopriL [Zestril] 2.5 mg PO DAILY #90 tab 12/08/21 Ipratropium-Albuterol Nebulize 3 ml INHALATION RT-QID PRN #120 04/07/22 [Duoneb 0.5 mg-3 mg/3 ml Soln] dose Doxycycline [Vibramycin] 100 mg PO BID #14 cap 04/09/22 predniSONE 0 mg PO DIRECTED #60 tab 04/09/22 Amoxic-Pot Clav 875-125Mg 1 tab PO Q12HR 1 Days #20 tab 01/06/23 [Augmentin 875-125] Allergies Allergy/AdvReac Type Severity Reaction Status Date / Time No Known Allergies Allergy Verified 01/06/23 15:42 Review of Systems ROS Statement: Those systems with pertinent positive or pertinent negative responses have been documented in the HPI. ROS Other: All systems not noted in ROS Statement are negative. Past Medical History Past Medical History: COPD, Pulmonary Embolus (PE) Additional Past Medical History / Comment(s): recent rapid heart rate and SOB and nonsustained V-Tach in November 2019, hiatal hernia. Cardiomyopathy with an ejection fraction of 40% History of Any Multi-Drug Resistant Organisms: None Reported Past Surgical History: Back Surgery, Tonsillectomy Additional Past Surgical History / Comment(s): colonoscopy, "two disks removed from spine", pilonidal cyst, jhonatan cataracts Past Anesthesia/Blood Transfusion Reactions: No Reported Reaction Past Psychological History: Anxiety Smoking Status: Former smoker Past Alcohol Use History: None Reported Past Drug Use History: None Reported - Past Family History Mother Family Medical History: Cancer Brother(s) Family Medical History: Cancer General Exam Limitations: no limitations General appearance: alert, in no apparent distress Head exam: Present: atraumatic, normocephalic, normal inspection Eye exam: Present: normal appearance, PERRL Pupils: Present: normal accommodation ENT exam: Present: normal exam, normal oropharynx, mucous membranes moist Neck exam: Present: normal inspection, full ROM Respiratory exam: Present: normal lung sounds bilaterally Cardiovascular Exam: Present: regular rate, normal rhythm, normal heart sounds GI/Abdominal exam: Present: soft, normal bowel sounds Extremities exam: Present: full ROM, other (Multiple puncture wounds noted, notably over the right dorsal aspect of the hand, a 3 cm laceration to the dorsal aspect of the left hand) Back exam: Present: normal inspection, full ROM Neurological exam: Present: alert, oriented X3, CN II-XII intact Psychiatric exam: Present: normal affect, normal mood Skin exam: Present: warm, dry Course Vital Signs 01/06/23 15:39 Temperature 97.3 F L Pulse Rate 111 H Respiratory 20 Rate Blood Pressure 127/74 O2 Sat by Pulse 98 Oximetry Procedures - Laceration Laceration #1 Consent Obtained: verbal consent Indication: laceration Site: hand Size (cm): 3 Description: linear Depth: simple, single layer Pre-repair: irrigated extensively Type of Sutures: nylon Size of Sutures: 4-0 Number of Sutures: 2 (Loosely approximated) Technique: simple, interrupted Patient Tolerated Procedure: well Medical Decision Making - Medical Decision Making Was pt. sent in by a medical professional or institution ([facility], [employer], urgent care, hospital, or skilled nursing...) When possible be specific @ -No Did you speak to anyone other than the patient for history (EMS, parent, family, police, friend...)? What history was obtained from this source @ -No Did you review nursing and triage notes (agree or disagree)? Why? @ -I reviewed and agree with nursing and triage notes Were old charts reviewed (outside hosp., previous admission, EMS record, old EKG, old radiological studies, urgent care reports/EKG's, skilled nursing records)? Report findings @ -No old charts were reviewed Differential Diagnosis (chest pain, altered mental status, abdominal pain women, abdominal pain men, vaginal bleeding, weakness, fever, dyspnea, syncope, headache, dizziness, GI bleed, back pain, seizure, CVA, palpatations, mental health)? @ -Hand fracture, dog bite, hand laceration EKG interpreted by me (3pts min.). @ -None X-rays interpreted by me (1pt min.). @ -None done CT interpreted by me (1pt min.). @ -None done U/S interpreted by me (1pt. min.). @ -None done What testing was considered but not performed or refused? (CT, X-rays, U/S, labs)? Why? @ -X-rays were considered however the patient denied of any acute tenderness noted and had full range of motion of the hands therefore no further imaging was obtained. What meds were considered but not given or refused? Why? @ -None Did you discuss the management of the patient with other professionals (professionals i.e. MARYELL[facility] Vivar, [employer], lab, RT, psych nurse, social scientist, welding supervisor, teacher, [place] police officer, disease case manager)? Give summary @ -No Was smoking cessation discussed for >3mins.? @ -No Was critical care preformed (if so, how long)? @ -No Were there social determinants of health that impacted care today? How? (Homelessness, low income, unemployed, alcoholism, drug addiction, transportation, low edu. Level, literacy, decrease access to med. care, residential, rehab)? @ -No Was there de-escalation of care discussed even if they declined (Discuss DNR or withdrawal of care, Hospice)? DNR status @ -No What co-morbidities impacted this encounter? (DM, HTN, Smoking, COPD, CAD, Cancer, CVA, ARF, Chemo, Hep., AIDS, mental health diagnosis, sleep apnea, morbid obesity)? @ -Atrial fibrillation, on Eliquis Was patient admitted / discharged? Hospital course, mention meds given and route, prescriptions, significant lab abnormalities, going to OR and other pertinent info. @ -The patient was seen and evaluated in emergency department. Physical exam, the patient was resting in bed comfortably. The patient had multiple puncture wounds and one laceration noted. All vital signs were stable. The patient did receive a tetanus booster. The wounds were thoroughly cleaned. The puncture wounds did have bacitracin and Band-Aids placed and the laceration was loosely approximated with 2 sutures. The patient did receive Augmentin as well as a prescription for Augmentin to be taken at home. The patient was advised to continue to monitor his symptoms and to report back to the emergency department if they became acutely worse. The patient was agreeable to this and all of his questions were answered. The patient was discharged home in stable condition. Undiagnosed new problem with uncertain prognosis? @ -No Drug Therapy requiring intensive monitoring for toxicity (Heparin, Nitro, Insulin, Cardizem)? @ -No Were any procedures done? @ -No Diagnosis/symptom? @ -Multiple puncture wounds and hand laceration status post dog bite Acute, or Chronic, or Acute on Chronic? @ -Acute Uncomplicated (without systemic symptoms) or Complicated (systemic symptoms)? @ -Uncomplicated Side effects of treatment? @ -No Exacerbation, Progression, or Severe Exacerbation? @ -No Poses a threat to life or bodily function? How? (Chest pain, USA, SC, pneumonia, PE, COPD, DKA, ARF, appy, cholecystitis, CVA, Diverticulitis, Homicidal, Suicidal, threat to staff... and all critical care pts) @ -No Disposition Clinical Impression: Dog bite, Hand laceration Disposition: HOME SELF-CARE Condition: Stable Instructions (If sedation given, give patient instructions): Animal Bite (ED), Laceration (DC) Prescriptions: Amoxic-Pot Clav 875-125Mg [Augmentin 875-125] 1 tab PO Q12HR 1 Days #20 tab Is patient prescribed a controlled substance at d/c from ED?: No Referrals: Liss Oneil MD [Primary Care Provider] - 1-2 days Time of Disposition: 16:45
[2023-01-06] MEDS ORDERED: BACITRACIN OINT 1 EACH PACKET TOPICAL ONE (16:54)
[2023-01-06] MEDS ORDERED: AMOXIC-POT CLAV 875-125MG 1 EACH TAB PO STA (17:04)
[2023-01-06 17:50] VITALS: BP 109/66; PULSE 94; RESP 18
== END 2023-01-06 17:51 | disposition home or self-care (01) ==
LOC: EC 15:35
DX: S61.419A Laceration without foreign body of unspecified hand, initial encounter (principal); J44.9 Chronic obstructive pulmonary disease, unspecified; F41.9 Anxiety disorder, unspecified; Z87.891 Personal history of nicotine dependence; Z86.711 Personal history of pulmonary embolism; Z79.899 Other long term (current) drug therapy; Z79.01 Long term (current) use of anticoagulants; Z23 Encounter for immunization; W54.0XXA Bitten by dog, initial encounter
CPT/HCPCS: 12002; 90471; 90715; 99283

== ENCOUNTER → 2024-07-28 | Outpatient (CLI) | payer MEDICARE ==
--- NOTE | 2024-07-28 14:56 | CT ---
EXAMINATION TYPE: CT brain wo con CT DLP: 978.2 mGycm, Automated exposure control for dose reduction was used. DATE OF EXAM: 07/28/2024 1:49 PM COMPARISON: None. CLINICAL INDICATION:Male, 78 years old with history of R41.3 OTHER AMNESIA, memory loss TECHNIQUE: Brain: Multiple axial CT images of the brain were obtained without IV contrast. . Coronal and sagitta l reformats reviewed. FINDINGS: Brain: Extra-axial spaces: No abnormal extra-axial fluid collections. Ventricular system: Within normal limits Cerebral parenchyma: Age appropriate diffuse cerebral atrophy. No acute intraparenchymal hemorrhage. There is ill-defined hypodense regions with effacement of the peripheral sulci within the left tempor al and parietal lobes (series 3, image 27 through 16. The acharya-white junction is maintained. Scatter ed hypoattenuating areas are seen within the periventricular white matter. Cerebellum: Unremarkable. Mass effect: No evidence of midline shift. Intracranial vasculature: Atherosclerotic calcifications of the intracranial vessels. Soft tissues: Normal. Calvarium/osseous structures: No depressed skull fracture. Paranasal sinuses and mastoid air cells: Clear Visualized orbits: Bilateral aphakia IMPRESSION: 1. Ill-defined hypodense regions within the left temporal and parietal lobes with some surrounding m ass effect. Findings raise suspicion for neoplasm with ischemia is not entirely excluded. Acahrya-white junction appears preserved. Further evaluation with MRI brain with and without IV contrast is recomme nded. 2. No evidence for acute hemorrhage. 3. Nonspecific white matter changes, likely secondary to chronic small vessel ischemic disease. A [place] level critical message alert has been initiated for Liss Oneil MD~[id number] via the [employer] Critical Results System on 07/28/2024 2:18 PM. This message alert has been sent to Liss Oneil MD~GARRY via the preferences provided by the clinician for the receipt of Radiology Critical Findin gs. Message ID [id number]. [facility], , 07/28/2024 2:18 PM
== END | disposition home or self-care (01) ==
LOC: RADCTMAIN 13:20
PROVIDERS: ATTEND Internal Medicine
CPT/HCPCS: 70450

== ENCOUNTER → 2024-08-03 | Outpatient (CLI) | payer MEDICARE ==
--- NOTE | 2024-08-03 17:49 | MR ---
EXAMINATION TYPE: MR brain wo/w con DATE OF EXAM: 08/03/2024 5:39 PM CLINICAL INDICATION: Male, 78 years old with history of DISORDER OF TH EBRAIN; PHH, Disorder of brain , Abnormal CT done 07-28-2024 COMPARISON: CT brain 07/28/2024 TECHNIQUE: Multi planar, multi sequence imaging was performed through the brain including: T1, T2, In version recovery, susceptibility weighted imaging and gradient echo imaging and Diffusion weighted im aging. The patient was then given intravenous contrast and multi planar, T1 fat-saturation images wer e obtained. IV Contrast: 7 cc Gadavist FINDINGS: High FLAIR signal surrounding r the left temporal lobe where there is at least 2 discrete l esions with postcontrast enhancement first measuring up to 30 x 25 mm and the second more posteriorly measuring 23 x 20 mm. Patchy enhancement is also seen more superiorly above the larger lesion series 1201 image 81. There are at least 2 lesions seen within the cerebellum. Additional lesions are also seen in left cerebrum. Majority of these lesions have central less enhancement compared to the periph jonathan. No evidence for restricted diffusion to suggest stroke. No significant white matter changes other chaparro n the vasogenic edema within the left temporal region around these lesions The bone marrow signal is within normal limits. Paranasal sinuses and mastoid air cells: No significant paranasal sinus disease. Visualized orbits: Bilaterally aphakia suggested as a person of the [id number]. IMPRESSION: Multiple left temporal intra-axial predominantly peripherally enhancing lesions. Correlate for histor y of malignancy. If there is no history of malignancy Correlate for signs and symptoms of infection. [facility], , 08/03/2024 5:47 PM
== END | disposition home or self-care (01) ==
LOC: RADMRIMAIN 08-01 13:02
PROVIDERS: ATTEND Internal Medicine
DX: G93.9 Disorder of brain, unspecified (principal)
CPT/HCPCS: 70553; A9585

== ENCOUNTER → 2024-08-18 | Outpatient (CLI) | payer MEDICARE ==
--- NOTE | 2024-08-19 08:59 | PE ---
EXAMINATION TYPE: PET CT fusion skull to thigh DATE OF EXAM: 08/18/2024 CLINICAL INDICATION:Male, 78 years old with history of C71.1 BRAIN CANCER; left cerebrum. TECHNIQUE: Following the intravenous administration of 11.5 mCi of F-18 FDG, whole body images are performed from the skull base to the midthigh. Images are reviewed on the computer in the coronal, a xial, and sagittal planes. Reconstructed rotating images are created on independent workstation and reviewed on the computer. A non-contrast CT is performed in conjunction with the PET scan. Glucose level 79 mg/dL CT DLP: 586.4 mGycm, Automated exposure control for dose reduction was used. COMPARISON: CT 07/28/2024, PET/CT 08/03/2024, MRI: None FINDINGS: Mediastinal SUV mean is 2.0. Hepatic parenchyma SUV mean is 2.4. SKULL BASE AND NECK: No suspicious radiotracer activity. Possibility of FDG uptake within the brain in the area of neoplasm. CHEST, MEDIASTINUM, AND HILAR REGION: No suspicious radiotracer activity. ABDOMEN AND PELVIS: No suspicious radiotracer activity. MUSCULOSKELETAL STRUCTURES: Intense uptake near the right T1 facet max SUV 8.2. There is degeneration within the facet joint. No masses definitively visualized. OTHER CT: * Right inguinal canal hernia thought to contain the right testis. * Severe atherosclerosis of the arterial vasculature. * Large amount stool throughout colon. * Mild coronary atherosclerosis. * Mild centrilobular emphysema changes versus acute atelectasis and/or scarring scattered throughout the lungs. IMPRESSION: Intense uptake near the right facet of T1 with degeneration changes in this area. Findings favor dege neration however FDG activity is at the upper limits of normal. Attention follow-up imaging. No addit ionally evidence for metastatic disease. [facility], , 08/19/2024 8:57 AM
== END | disposition home or self-care (01) ==
LOC: RADPROMAIN 07:39
PROVIDERS: ATTEND Internal Medicine
DX: C71.1 Malignant neoplasm of frontal lobe (principal); R93.7 Abnormal findings on diagnostic imaging of other parts of musculoskeletal system
CPT/HCPCS: 78815; A9552

== ENCOUNTER → 2024-09-27 | Outpatient (CLI) | payer MEDICARE ==
--- NOTE | 2024-09-27 18:03 | MR ---
INDICATION: Patient age:Male; 78 years old; Reason for study: G93.9; PHH. COMPARISON: MRI brain 08/03/2024, PET CT 08/18/2024, CT brain 07/28/2024. TECHNIQUE: Multi planar, multi sequence imaging was performed through the brain. The patient was then given 7 cc of Gadobutrol intravenously and multi planar, T1 fat-saturation images were obtained. FINDINGS: The solis-white junctions, ventricular system, basal cisterns appear unremarkable. No evidence for sub dural hematoma. There is stable midline shift to the right of 3 mm. Diffusion-weighted imaging shows no evidence of restricted diffusion to suggest acute/subacute infarct. Intracranial arterial flow voi ds are maintained. Postsurgical changes of the left temporal region craniotomy with a 3.0 x 2.4 cm le ft temporal lobe are difficult that at site of prior heterogenous enhancing lesion. There is some per ipheral enhancement along the inferior aspect (series 1001, image 16). Surrounding T2/FLAIR hyperinte nse signal within the left temporoparietal lobes again. There is redemonstration of 3 intra-axial heterogenous enhancing left temporoparietal region lesions. These are all mildly increased in size from prior examination. One is identified just posterior and superior to the resection cavity and measures 0.8 x 0.7 cm (series 1001, image 19). Previously measur ed 0.7 x 0.5 cm. Posterior left temporoparietal region lesion measures 2.9 x 2.1 cm (series 1001, lakshmi ge 16), previously measured 2.3 x 2.0 cm. The other lesion abutting the posterior horn of the left la teral ventricle measures 1.9 x 1.6 cm (series 1001, image 21), previously measured 1.4 x 1.2 cm. Thes e lesions demonstrate blooming artifact consistent with hemosiderin deposition. Additionally there is peripheral restricted diffusion. No new suspicious lesions identified. The paranasal sinuses and globes are unremarkable. IMPRESSION: 1. Postsurgical changes of the left temporal lobe with residual peripheral enhancement along the nhi gical bed which may represent posttreatment change versus residual disease. Additionally there is inc rease in size of 3 heterogenous enhancing lesions within the left temporoparietal region consistent w ith progression of disease. No new suspicious lesions. 2. Stable midline shift to the right of 3 mm. [facility], , 09/27/2024 6:00 PM
== END | disposition home or self-care (01) ==
LOC: RADMRIMAIN 16:07
PROVIDERS: ATTEND Radiology Radiation Oncology
DX: G93.9 Disorder of brain, unspecified (principal); C71.2 Malignant neoplasm of temporal lobe
CPT/HCPCS: 70553; A9585

== ENCOUNTER → 2024-12-26 | Outpatient (CLI) | payer MEDICARE ==
--- NOTE | 2024-12-26 21:23 | MR ---
EXAMINATION TYPE: MR brain wo/w con DATE OF EXAM: 12/26/2024 8:47 PM COMPARISON: 09/27/2024.. CLINICAL INDICATION: Male, 79 years old with history of G93.9, Brain cancer, Tumor removed 09-13-2024, Evaluate how treatment is working TECHNIQUE: Multi planar, multi sequence imaging was performed through the brain including: T1, T2, In version recovery, susceptibility weighted imaging and gradient echo imaging and Diffusion weighted im aging. The patient was then given intravenous contrast and multi planar, T1 fat-saturation images wer e obtained. IV Contrast: 6.5 mL Gadobutrol FINDINGS: Redemonstration of lesions in the left temporal lobe lesions there is at least 4 lesions identified. The largest superiorly measuring up to 25 mm previously 18 mm more inferiorly measuring up to 2 mm pr eviously 31 mm with more peripheral nodular enhancement. More anteriorly measuring 25 mm nodular soft tissue mural enhancement measuring 9 mm. New Hippocampus/medial temporal lobe heterogeneously enhancing lesion measuring 13 mm previously may be faintly visible on prior These areas demonstrate surrounding vasogenic edema. No evidence for acute/subacute CVA post craniotomy changes left lateral skull with susceptibility art ifact. Paranasal sinuses and mastoid air cells: No significant paranasal sinus disease. Surgical kaye ges to the left cranium. Visualized orbits: Orbital contents are intact. IMPRESSION: Enlarging left temporal lobe lesions with new left hippocampus lesion concerning for progression of d isease. [facility], , 12/26/2024 9:21 PM
== END | disposition home or self-care (01) ==
LOC: RADMRIMAIN 12-21 16:13
PROVIDERS: ATTEND Radiology Radiation Oncology
DX: Z53.9 Procedure and treatment not carried out, unspecified reason (principal)
CPT/HCPCS: 70553; A9585

== ENCOUNTER → 2025-01-27 | Outpatient (CLI) | payer MEDICARE ==
--- NOTE | 2025-02-01 08:27 | MR ---
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 CONTRAST: Patient received 6.5 mL intravenous Gadobutrol gadolinium contrast. Pre and post contrast enhanced images are obtained. FINDINGS: The ventricles, basal cisterns and sulci overlying the cerebral convexities are mildly enlarged. There is evidence of mild periventricular white matter ischemic demyelination. Remote deep white matter insults are also noted. No acute edema is seen on diffusion weighted imaging. At least 4 ring-enhancing lesions are seen within the left temporal lobe measuring 1.4 cm versus 1.4 cm previously, 2.4 cm versus 1.9 cm previously, 2.5 cm versus 2.8 cm previously and 1.7 cm versus 1.9 cm previously. There is surrounding vasogenic edema. No new lesions are present. Left craniotomy viri nges seen. 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 Moderate left maxillary sinusitis. IMPRESSION: 1. There are at least 4 left-sided temporal ring-enhancing lesions as discussed above without new les ion or midline shift. Vasogenic edema as noted. [facility], , 02/01/2025 8:25 AM
== END | disposition home or self-care (01) ==
LOC: RADMRIMAIN 20:30
PROVIDERS: ATTEND Radiology Radiation Oncology
DX: C71.2 Malignant neoplasm of temporal lobe (principal); G93.9 Disorder of brain, unspecified; J32.0 Chronic maxillary sinusitis
CPT/HCPCS: 70553; A9585